=== PATIENT | female | born 1935 | race Caucasian/White ===

== ENCOUNTER 2018-11-17 08:12 | Inpatient (IN) | payer MEDICARE, OTHER ==
--- NOTE | 2018-11-17 08:22 | EDM.PDOC ---
ED HPI GENERAL MEDICAL PROBLEM - General Chief Complaint: Respiratory Problem Stated Complaint: [facility] Time Seen by Provider: 11/17/18 08:21 Source of Information: Reports: Patient, EMS History Limitations: Reports: No Limitations - History of Present Illness INITIAL COMMENTS - FREE TEXT/NARRATIVE: 83-year-old female presents to the ED with acute onset of febrile illness and productive cough for the last 3-4 days. She is very dyspneic this morning with O2 sats being in the low 80s. Resudes at [facility] and the ambulance was summoned for her care this morning. Paramedics placed her on a mask at 10 L/m. this was changed to 4 L/m by nasal cannula with O2 sats around 95-96%. Patient is very tachypnea And tachycardic at time of exam. Productive sounding cough. She states she's not able to get up a lot of the sputum. Of note she is on oxygen at 3 L/m at all times at the [facility]. Onset: Gradual Onset Date: 11/13/18 Duration: Day(s): Location: Reports: Chest (Very productive sounding cough.) Quality: Reports: Other Severity: Moderate Improves with: Reports: Other (Oxygen is helping somewhat.) Worsens with: Reports: Movement Context: Denies: Activity, Exercise, Lifting, Sick Contact, Trauma, Other Associated Symptoms: Reports: Cough, cough w sputum, Fever/Chills, Loss of Appetite, Malaise (Sounds very productive.), Nausea/Vomiting, Shortness of Breath, Weakness. 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: Other (see below) (Apparently hasn't had anything for fever today.) - Related Data Allergies Allergy/AdvReac Type Severity Reaction Status Date / Time rofecoxib Allergy Edema Verified 11/17/18 10:36 venom-wasp [wasp venom] Allergy Anaphylactic Verified 11/17/18 10:36 Shock Home Meds: Home Meds Cyanocobalamin (Vitamin B12) [Vitamin B12] 1,000 mcg INJECT ASDIRECTED 11/27/14 [History] EPINEPHrine [Epipen] 0.3 ml INJECT ASDIRECTED PRN 11/27/14 [History] Fluticasone/Salmeterol [Advair 250-50] 2 puff INH BID 11/27/14 [History] Levothyroxine [Synthroid] 100 mcg PO DAILY 11/27/14 [History] Metoprolol Succinate [Toprol XL] 50 mg PO DAILY 11/27/14 [History] Rosuvastatin [Crestor] 10 mg PO DAILY 11/27/14 [History] amLODIPine [Norvasc] 5 mg PO DAILY 11/27/14 [History] Aspirin 81 mg PO DAILY 06/10/18 [History] Mirtazapine [Remeron] 15 mg PO BEDTIME 06/10/18 [History] Nitroglycerin [Nitrostat] 0.4 mg SL ASDIRECTED PRN 06/10/18 [History] Polyethylene Glycol 3350 [MiraLAX] 17 gm PO DAILY PRN 06/10/18 [History] Sertraline [Zoloft] 50 mg PO DAILY 06/10/18 [History] Albuterol Sulfate [Proair Hfa] 2 puff IH Q6H PRN 08/06/18 [History] Calcium Carbonate/Vitamin D3 [Calcium 600 + Vit D 400 Tablet] 400 - 600 mg PO DAILY 08/06/18 [History] Nicotine [Nicoderm CQ] 7 mg TD DAILY 08/06/18 [History] Spiriva Respimat 2 puff IH DAILY 08/06/18 [History] oxyCODONE HCl/Acetaminophen [Percocet 5-325 mg Tablet] 5 - 325 mg PO Q4H PRN 12/05 [History] Past Medical History Cardiovascular History: Reports: CAD, High Cholesterol, Hypertension, [place] Respiratory History: Reports: COPD (advanced, on 3-1/2 to 4 L/NC continuously) Other Respiratory History: lung cancer, lobectomy. on chronic O2 at home. Patient had aspiration of a mass right lower lobe of lung within the last 6 weeks. We will try and obtain these results. Gastrointestinal History: Reports: Hemorrhoids Other Genitourinary History: having some issues with urination and ? if it is from constipation Musculoskeletal History: Reports: Fracture (left femur, bilateral humeri) Other Musculoskeletal History: left femur fracture; bilat humerous fractures Psychiatric History: Reports: Depression Hematologic History: Reports: B12 Deficiency Oncologic (Cancer) History: Reports: Lung Other Oncologic History: stage 1 and had left low lung removed - Past Surgical History Respiratory Surgical History: Reports: Other (See Below) (LL lobectomy) Social & Family History - Family History Family Medical History: Noncontributory - Caffeine Use Caffeine Use: Reports: Other Other Caffeine Use: unknown - Living Situation & Occupation Living situation: Reports: Occupation: Retired (Lives in the independent part of [facility]) ED ROS GENERAL - Review of Systems Review Of Systems: See Below Constitutional: Reports: Fever, Malaise, Weakness, Fatigue, Decreased Appetite, Weight Loss. Denies: Chills Respiratory: Reports: Shortness of Breath, Cough, Sputum. Denies: Wheezing, Pleuritic Chest Pain, Hemoptysis (Very productive sounding cough greenish sputum.) Cardiovascular: Reports: Blood Pressure Problem, Dyspnea on Exertion, Lightheadedness. Denies: Chest Pain, Claudication, Edema, Orthopnea (Chronic hypertension) Endocrine: Reports: Fatigue GI/Abdominal: Reports: Constipation (Occasional problems with constipation.), Other (Patient mentioned she has had recent aspiration of a mass in her lower abdomen which apparently came back negative for cancer. Unclear what type of mass she is speaking about.) : Reports: Frequency. Denies: Dysuria, Flank Pain Musculoskeletal: Reports: Neck Pain, Shoulder Pain, Back Pain, Joint Pain ( Knees and hips at times) Skin: Reports: Bruising Neurological: Reports: No Symptoms (Bruises very easily.) Psychiatric: Reports: No Symptoms Hematologic/Lymphatic: Reports: No Symptoms ED EXAM, GENERAL - Physical Exam Exam: See Below Exam Limited By: Respiratory Distress General Appearance: Alert, WD/WN, Moderate Distress, Other (Tachypnea And tachycardic at rest. Heart rate at time presentation is 130/m. Her pressure was 90/63. She states her blood pressures usually around 100) Eye Exam: Bilateral Eye: Normal Inspection (No jaundice.) Ears: Normal TMs Throat/Mouth: Other (She has thickened secretions on the soft palate posterior oropharynx and the tongue is very dry and coated.) Head: Atraumatic (Christians are light green in color), Normocephalic Neck: Normal Inspection, Supple, Non-Tender. No: Lymphadenopathy (L), Lymphadenopathy (R) Respiratory/Chest: Chest Non-Tender, Respiratory Distress (Marked tachypnea at rest.), Decreased Breath Sounds (Decreased air entry to the lower lung melton bilaterally.), Rhonchi (Rhonchi throughout the lung melton anteriorly.), Wheezing. No: Lungs Clear, Normal Breath Sounds Cardiovascular: No Edema, No JVD, Tachycardia (Pulse is irregularly irregular 1 30/m.), Irregularly Irregular, Other (Heart sounds are difficult to hear due to the amount of rhonchi in the anterior chest.) Peripheral Pulses: 1+: Posterior Tibial (L), Posterior Tibial (R), Dorsalis Pedis (L), Dorsalis Pedis (R) GI/Abdominal: Soft, Non-Tender ( Soft palpation), No Organomegaly, Distended ( Abdomen is slightly distended and tympanitic to percussion upper abdomen compatible with aerophagia.) Back Exam: Normal Inspection, Full Range of Motion. No: CVA Tenderness (L), CVA Tenderness (R) Extremities: Normal Inspection, Normal Range of Motion, Non-Tender, No Pedal Edema, Other Neurological: Alert, Oriented (There is a large amount of atrophy of musculature for both upper and lower extremities. Very cachectic in appearance on ribs are easily visible.), CN II-XII Intact Psychiatric: Anxious, Other Skin Exam: Warm, Dry, Intact, Normal Color, No Rash, Other (Patient does feel febrile.) EKG INTERPRETATION EKG Date: 11/17/18 Time: 08:50 Rhythm: Other (Sinus tachycardia) Rate (Beats/Min): 122 [place]: Normal P-Wave: Enlarged (Left atrial hypertrophy pattern) QRS: Other (Marked left ventricular hypertrophy pattern with strain.) ST-T: Other (ST segment depression in V3 to V6. May need to be due to severe left ventricular hypertrophy pattern. T-wave flattening in lead 1 nonspecific) QT: Normal EKG Interpretation Comments: Abnormal ECG Course - Vital Signs Last Recorded V/S: Last Vital Signs Temp 37.7 C 11/17/18 08:54 Pulse 132 H 11/17/18 08:12 Resp 40 H 11/17/18 08:12 BP 90/63 11/17/18 08:12 Pulse Ox 96 11/17/18 08:12 - Orders/Labs/Meds Orders: Active Orders 24 hr Category Date Time Status EKG Documentation Completion [RC] STAT Care 11/17/18 08:27 Active Insert Villeda Catheter [Insert Urinary Catheter] [OM.PC] Care 11/17/18 10:05 Ordered Stat Oxygen Therapy [RC] ASDIRECTED Care 11/17/18 08:29 Active Urinary Catheter Assessment [RC] ASDIRECTED Care 11/17/18 10:05 Active CULTURE BLOOD [BC] Stat Lab 11/17/18 08:35 Received CULTURE BLOOD [BC] Stat Lab 11/17/18 08:45 Received CULTURE SPUTUM + SMEAR [RM] Stat Lab 11/17/18 09:05 Received URINALYSIS W/MICROSCOPIC [UA W/MICROSCOPIC] [URIN] Stat Lab 11/17/18 10:05 Ordered Dextrose 5%-0.9% NaCl [Dextrose 5%-Normal Saline] 1,000 Med 11/17/18 09:45 Active ml IV ASDIRECTED Blood Culture x2 Reflex Set [OM.PC] Stat Oth 11/17/18 08:28 Ordered Medication Orders Dextrose/Sodium Chloride (Dextrose 5%-Normal Saline) 1,000 mls @ 75 mls/hr IV ASDIRECTED JACINTO Labs: Laboratory Tests 11/17/18 11/17/18 11/17/18 Range/Units 08:35 08:35 08:35 WBC 21.84 H (3.98-10.04) K/mm3 RBC 4.44 (3.98-5.22) M/mm3 Hgb 14.1 (11.2-15.7) gm/L Hct 44.3 (34.1-44.9) % MCV 99.8 H (79.4-94.8) fl MCH 31.8 (25.6-32.2) pg MCHC 31.8 L (32.2-35.5) g/dl RDW Std Deviation 49.3 H (36.4-46.3) fL Plt Count 305 (182-369) K/mm3 MPV 9.5 (9.4-12.3) fl Neutrophils % (Manual) 82 H (40-60) % Band Neutrophils % 9 (0-10) % Lymphocytes % (Manual) 1 L (20-40) % Atypical Lymphs % 2 % Monocytes % (Manual) 6 (2-10) % Eosinophils % (Manual) 0 L (0.7-5.8) % Basophils % (Manual) 0 L (0.1-1.2) Toxic Granulation Moderate Dohle Bodies Few Platelet Estimate Adequate Plt Morphology Comment Normal Anisocytosis 1+ slight Macrocytosis 1+ slight Spherocytes Few RBC Morph Comment Not Reportable PT 12.0 (9.5-12.1) SECONDS INR 1.10 Puncture Site ABG pH (7.35-7.45) ABG pCO2 (35.0-45.0) mmHg ABG pO2 (80.0-100.0) mmHg ABG HCO3 (22.0-26.0) meq/L ABG O2 Saturation (96.0-97.0) % ABG Base Excess (-2-2.0) Jaiden Test A-a Gradient mmHg O2 Delivery Device Oxygen Flow Rate FiO2 (21.00-100.00) % Sodium 142 (136-145) mEq/L Potassium 4.3 (3.5-5.1) mEq/L Chloride 100 (98-107) mEq/L Carbon Dioxide 31 (21-32) mEq/L Anion Gap 15.3 H (5-15) BUN 20 H (7-18) mg/dL Creatinine 0.6 (0.55-1.02) mg/dL Est Cr Clr Drug Dosing 40.48 mL/min Estimated GFR (MDRD) > 60 (>60) mL/min BUN/Creatinine Ratio 33.3 H (14-18) Glucose 131 H (83-115) mg/dL Calcium 10.4 H (8.5-10.1) mg/dL Magnesium 2.0 (1.8-2.4) mg/dl Total Bilirubin 0.6 (0.2-1.0) mg/dL AST 18 (15-37) U/L ALT 22 (14-59) U/L Alkaline Phosphatase 80 (46-116) U/L Troponin I < 0.017 (0.00-0.056) ng/mL C-Reactive Protein 28.9 H* (<1.0) mg/dL NT-Pro-B Natriuret Pep (0-450) pg/mL Total Protein 8.4 H (6.4-8.2) g/dl Albumin 3.2 L (3.4-5.0) g/dl Globulin 5.2 gm/dL Albumin/Globulin Ratio 0.6 L (1-2) Mycoplasma pneumon IgM (NEGATIVE) 11/17/18 11/17/18 11/17/18 Range/Units 08:35 08:52 09:00 WBC (3.98-10.04) K/mm3 RBC (3.98-5.22) M/mm3 Hgb (11.2-15.7) gm/L Hct (34.1-44.9) % MCV (79.4-94.8) fl MCH (25.6-32.2) pg MCHC (32.2-35.5) g/dl RDW Std Deviation (36.4-46.3) fL Plt Count (182-369) K/mm3 MPV (9.4-12.3) fl Neutrophils % (Manual) (40-60) % Band Neutrophils % (0-10) % Lymphocytes % (Manual) (20-40) % Atypical Lymphs % % Monocytes % (Manual) (2-10) % Eosinophils % (Manual) (0.7-5.8) % Basophils % (Manual) (0.1-1.2) Toxic Granulation Dohle Bodies Platelet Estimate Plt Morphology Comment Anisocytosis Macrocytosis Spherocytes RBC Morph Comment PT (9.5-12.1) SECONDS INR Puncture Site Lt radial ABG pH 7.36 (7.35-7.45) ABG pCO2 51.7 H (35.0-45.0) mmHg ABG pO2 76.0 L (80.0-100.0) mmHg ABG HCO3 28.8 H (22.0-26.0) meq/L ABG O2 Saturation 95.7 L (96.0-97.0) % ABG Base Excess 2.9 H (-2-2.0) Jaiden Test Positive A-a Gradient 64 mmHg O2 Delivery Device Nasal cannula Oxygen Flow Rate 3.0 FiO2 32.00 (21.00-100.00) % Sodium (136-145) mEq/L Potassium (3.5-5.1) mEq/L Chloride (98-107) mEq/L Carbon Dioxide (21-32) mEq/L Anion Gap (5-15) BUN (7-18) mg/dL Creatinine (0.55-1.02) mg/dL Est Cr Clr Drug Dosing mL/min Estimated GFR (MDRD) (>60) mL/min BUN/Creatinine Ratio (14-18) Glucose (83-115) mg/dL Calcium (8.5-10.1) mg/dL Magnesium (1.8-2.4) mg/dl Total Bilirubin (0.2-1.0) mg/dL AST (15-37) U/L ALT (14-59) U/L Alkaline Phosphatase (46-116) U/L Troponin I (0.00-0.056) ng/mL C-Reactive Protein (<1.0) mg/dL NT-Pro-B Natriuret Pep 1105 H (0-450) pg/mL Total Protein (6.4-8.2) g/dl Albumin (3.4-5.0) g/dl Globulin gm/dL Albumin/Globulin Ratio (1-2) Mycoplasma pneumon IgM Positive H (NEGATIVE) Meds: Medications Generic Name Dose Route Start Last Admin Trade Name Freq PRN Reason Stop Dose Admin Dextrose/Sodium Chloride 1,000 mls @ 75 mls/hr 11/17/18 09:45 Dextrose 5%-Normal Saline IV ASDIRECTED JACINTO Discontinued Medications Generic Name Dose Route Start Last Admin Trade Name Freq PRN Reason Stop Dose Admin Acetaminophen 650 mg 11/17/18 08:29 11/17/18 08:54 Tylenol PO 11/17/18 08:30 650 mg NOW ONE Administration Furosemide 40 mg 11/17/18 09:41 11/17/18 09:53 Lasix IVPUSH 11/17/18 09:42 40 mg NOW ONE Administration Dextrose/Sodium Chloride 1,000 mls @ 200 mls/hr 11/17/18 08:30 11/17/18 08:49 Dextrose 5%-Normal Saline IV 200 mls/hr ASDIRECTED JACINTO Administration Levofloxacin/Dextrose 750 mg/ 150 mls @ 100 mls/hr 11/17/18 08:30 11/17/18 08 :52 Premix IV 11/17/18 09:59 100 mls/hr ONETIME ONE Administration Oxycodone/Acetaminophen 2 tab 11/17/18 10:29 11/17/18 10:45 Percocet 325-5 Mg PO 11/17/18 10:30 Not Given ONETIME ONE - Radiology Interpretation Free Text/Narrative:: 83-year-old female presents to the ED per ambulance from [facility]. Patient presents with a cough for the last 3-4 days. Fever today marked hypoxia this morning with sats in the low to mid 80s. Paramedics were summoned and she was placed on a mask at 10 L/m. This was removed upon arrival she was placed on 4 L/ m by nasal cannula. O2 sats are maintained at 96%. She is febrile to tachycardic with sinus tach at 120s. Markedly tachypnea get rest. Clinically she has COPD. She appears to be suffering malnutrition with all ribs and bones easily visible with marked atrophy of musculature lower extremities and upper extremities. Appears to be mildly volume depleted. Plan IV Ringer's lactate at 200 mils per hour. Tylenol 650 mg by mouth. One view chest x-ray to be obtained as I suspect she may well have pneumonia. Routine labs including ABGs to be done. Influenza screen and Mycoplasma screen is well. She will require admission to the hospital. Levaquin 750 mg IV will be started soon as blood cultures 2 been collected - Re-Assessments/Exams Free Text/Narrative Re-Assessment/Exam: 11/17/18 09:14 portable chest x-ray reveals poor inspiratory effort. There is a cavitary/mass lesion in the right lower lobe. This measures 3.7 cm in diameter. There is to be mild diffuse vascular congestion and some scarring in both bases as well. These changes appear to be chronic. 11/17/18 09:41 White count is elevated at 21.84. Differential pending. Hemoglobin is 14.1 with hematocrit of 44.3. MCV is 99.8. White count 305,000. PT is 12.0 with an INR of 1.10. ABGs reveal a pH of 7.36. PCO2 is elevated at 51.7 to both respiratory failure. PO2 76.0. Bicarbonate is 28.8. Oxygen saturation is 95.7% base excess is 2.9 this is on 4 L/m by nasal cannula. Influenza screen is negative. Patient's IV will be decreased to 75 mils per hour. She will be given Lasix 40 mg IV. 11/17/18 10:00 Differential reveals 82% neutrophils and 9% band cells. Of note she came back positive for mycoplasma pneumonia IgM antibodies. Chemistry is pending 11/17/18 10:09 Chemistry is now back. Sodium is 142 with potassium of 4.3. Chloride 100 with a bicarbonate 31. Anion gap is 15.3. BUN is 20 with a creatinine of 0.6. Estimated GFR is greater than 60. Glucose 131 with a calcium of 10.4. Magnesium 2.0 with a bilirubin of 0.6. AST is 18 with an ALT of 22. Alkaline phosphatase normal at 80. Troponin I is less than 0.017. C-reactive protein is markedly elevated at 28.9. BNP was 1105. Total protein 8.4 with an albumin fraction low at 3.2. CODE STATUS double checked and she is DO NOT RESUSCITATE DO NOT INTUBATE. Dr. Correa will see her in the ED in consultation. 11/17/18 10:48 A she'll will be admitted to the med surgery floor on telemetry. Departure - Departure Time of Disposition: 10:30 Disposition: Admitted As Inpatient 65 Condition: Fair Clinical Impression: Abnormal finding on chest xray Pneumonia Qualifiers: Pneumonia type: due to Mycoplasma pneumoniae Laterality: right Lung location: lower lobe of lung Qualified Code(s): J15.7 - Pneumonia due to Mycoplasma pneumoniae Congestive heart failure Qualifiers: Heart failure type: unspecified Heart failure chronicity: acute on chronic Qualified Code(s): I50.9 - Heart failure, unspecified - Discharge Information *PRESCRIPTION DRUG MONITORING PROGRAM REVIEWED*: Not Applicable *COPY OF PRESCRIPTION DRUG MONITORING REPORT IN PATIENT JUAN: Not Applicable Referrals: Franky Mock MD [Primary Care Provider] - Forms: ED Department Discharge - My Orders Last 24 Hours: My Active Orders 11/17/18 08:27 EKG Documentation Completion [RC] STAT 11/17/18 08:28 Blood Culture x2 Reflex Set [OM.PC] Stat 11/17/18 08:29 Oxygen Therapy [RC] ASDIRECTED 11/17/18 08:35 CULTURE BLOOD [BC] Stat 11/17/18 08:45 CULTURE BLOOD [BC] Stat 11/17/18 09:05 CULTURE SPUTUM + SMEAR [RM] Stat 11/17/18 09:45 Dextrose 5%-0.9% NaCl [Dextrose 5%-Normal Saline] 1,000 ml IV ASDIRECTED 11/17/18 10:05 Insert Villeda Catheter [Insert Urinary Catheter] [OM.PC] Stat Urinary Catheter Assessment [RC] ASDIRECTED URINALYSIS W/MICROSCOPIC [UA W/MICROSCOPIC] [URIN] Stat - Assessment/Plan Last 24 Hours: My Active Orders 11/17/18 08:27 EKG Documentation Completion [RC] STAT 11/17/18 08:28 Blood Culture x2 Reflex Set [OM.PC] Stat 11/17/18 08:29 Oxygen Therapy [RC] ASDIRECTED 11/17/18 08:35 CULTURE BLOOD [BC] Stat 11/17/18 08:45 CULTURE BLOOD [BC] Stat 11/17/18 09:05 CULTURE SPUTUM + SMEAR [RM] Stat 11/17/18 09:45 Dextrose 5%-0.9% NaCl [Dextrose 5%-Normal Saline] 1,000 ml IV ASDIRECTED 11/17/18 10:05 Insert Villeda Catheter [Insert Urinary Catheter] [OM.PC] Stat Urinary Catheter Assessment [RC] ASDIRECTED URINALYSIS W/MICROSCOPIC [UA W/MICROSCOPIC] [URIN] Stat
[2018-11-17] MEDS ORDERED: Acetaminophen 325 MG Tab PO ONE (08:29)
[2018-11-17] MEDS ORDERED: Levofloxacin/Dextrose 5%-Water 750 MG in Premix Bag 1 BAG IV ONE (08:30)
[2018-11-17] MEDS ORDERED: Dextrose 5%-0.9% NaCl 1,000 ML IV SCH ×2 (08:30→09:45)
--- NOTE | 2018-11-17 09:33 | CR ---
Chest: Portable view of the chest was obtained. Comparison: Prior chest x-ray of 06/11/18. Previous chest CT of 06/10/18 is also available. Heart size is normal. Tortuous thoracic aorta is seen. Diffuse increased lung markings are seen. Most of these appear to be chronic but difficult to exclude superimposed bronchitis. Masslike density is seen within the right chest measuring 3.7 cm. Bony structures are osteopenic. Impression: 1. Masslike density within the right base. This finding may represent fluid-filled cavity as seen on prior CT study which has decreased in size in the interim. 2. Diffuse increased lung markings, most of which appear chronic but difficult to exclude mild superimposed bronchitis. 3. Other incidental findings. Diagnostic code #3
[2018-11-17] MEDS ORDERED: Furosemide 40 MG/4 ML VIAL IVPUSH ONE (09:41)
[2018-11-17] MEDS ORDERED: Acetaminophen/oxyCODONE 325-5 MG Tab PO ONE (10:29)
--- NOTE | 2018-11-17 12:11 | PCM.HP ---
H&P History of Present Illness - General Date of Service: 11/17/18 Admit Problem/Dx: Admission Diagnosis/Problem Admission Diagnosis/Problem Pneumonia Source of Information: Patient, Provider History Limitations: Reports: No Limitations - History of Present Illness Initial Comments - Free Text/Narative: 83 year old female living at [facility] presents with ARF with hypoxia; her complaint was a cough with sputum associated with increasing SOB. The patient has a history of lung CA and reportedly had aspiration of a lung lesion. She continues to smoke actively and requires oxygen, baseline 3 l/m. She has mycoplasma pneumonia and a urinary tract infection on this admission. She has received one dose of Levoquin in the ED. Code status is DNR/DNI Symptom Onset Date: 11/11/18 Duration of Symptoms: Reports: Day(s): Location: Reports: Chest, Generalized Quality: Reports: Same as Previous Episode Severity: Moderate Improves with: Reports: Medication Worsens with: Reports: Other - Related Data Allergies/Adverse Reactions: Allergies Allergy/AdvReac Type Severity Reaction Status Date / Time rofecoxib Allergy Edema Verified 11/17/18 10:36 venom-wasp [wasp venom] Allergy Anaphylactic Verified 11/17/18 10:36 Shock Home Medications: Home Meds Cyanocobalamin (Vitamin B12) [Vitamin B12] 1,000 mcg INJECT ASDIRECTED 11/27/14 [History] EPINEPHrine [Epipen] 0.3 ml INJECT ASDIRECTED PRN 11/27/14 [History] Fluticasone/Salmeterol [Advair 250-50] 1 puff INH BID 11/27/14 [History] Levothyroxine [Synthroid] 100 mcg PO DAILY 11/27/14 [History] Metoprolol Succinate [Toprol XL] 50 mg PO DAILY 11/27/14 [History] Rosuvastatin [Crestor] 10 mg PO DAILY 11/27/14 [History] amLODIPine [Norvasc] 5 mg PO DAILY 11/27/14 [History] Aspirin 81 mg PO DAILY 06/10/18 [History] Mirtazapine [Remeron] 15 mg PO BEDTIME 06/10/18 [History] Nitroglycerin [Nitrostat] 0.4 mg SL ASDIRECTED PRN 06/10/18 [History] Polyethylene Glycol 3350 [MiraLAX] 17 gm PO DAILY PRN 06/10/18 [History] Sertraline [Zoloft] 50 mg PO DAILY 06/10/18 [History] Albuterol Sulfate [Proair Hfa] 2 puff IH Q6H PRN 08/06/18 [History] Calcium Carbonate/Vitamin D3 [Calcium 600 + Vit D 400 Tablet] 400 - 600 mg PO DAILY 08/06/18 [History] Nicotine [Nicoderm CQ] 7 mg TD DAILY 08/06/18 [History] Spiriva Respimat 1 puff IH DAILY 08/06/18 [History] oxyCODONE HCl/Acetaminophen [Percocet 5-325 mg Tablet] 5 - 325 mg PO Q4H PRN 12/05 [History] Past Medical History HEENT History: Reports: Cataract Other HEENT History: wears reading glasses. Cardiovascular History: Reports: CAD, High Cholesterol, Hypertension, [place] Other Cardiovascular History: hypomagnesmia Respiratory History: Reports: COPD (advanced, on 3-1/2 to 4 L/NC continuously) Other Respiratory History: lung cancer, lobectomy. on chronic O2 at home. Patient had aspiration of a mass right lower lobe of lung within the last 6 weeks. We will try and obtain these results. Gastrointestinal History: Reports: Hemorrhoids Genitourinary History: Reports: Renal Calculus, Urinary Incontinence, UTI, Recurrent Other Genitourinary History: having some issues with urination and ? if it is from constipation [employer] History: Reports: Musculoskeletal History: Reports: Fracture (left femur, bilateral humeri) Other Musculoskeletal History: left femur fracture; bilat humerous fractures Neurological History: Reports: Migraines Psychiatric History: Reports: Depression Endocrine/Metabolic History: Reports: Hypothyroidism Hematologic History: Reports: B12 Deficiency Oncologic (Cancer) History: Reports: Lung Other Oncologic History: stage 1 and had left low lung removed - Infectious Disease History Infectious Disease History: Reports: Chicken Pox, Measles - Past Surgical History Respiratory Surgical History: Reports: Other (See Below) (LL lobectomy) Social & Family History - Family History Family Medical History: Noncontributory - Tobacco Use Smoking Status *Q: Current Every Day Smoker Years of Tobacco use: 67 Packs/Tins Daily: 1 Used Tobacco, but Quit: No - Caffeine Use Caffeine Use: Reports: Tea Other Caffeine Use: unknown - Alcohol Use Days Per Week of Alcohol Use: 7 Number of Drinks Per Day: 1 Total Drinks Per Week: 7 - Recreational Drug Use Recreational Drug Use: No - Living Situation & Occupation Living situation: Reports: Occupation: Retired (Lives in the independent part of [facility]) H&P Review of Systems - Review of Systems: Review Of Systems: See Below General: Reports: Fever, Chills, Malaise, Weakness, Decreased Appetite, Weight Loss HEENT: Reports: No Symptoms Pulmonary: Reports: Shortness of Breath, Wheezing Cardiovascular: Reports: Dyspnea on Exertion Gastrointestinal: Reports: Nausea, Vomiting Genitourinary: Reports: No Symptoms Musculoskeletal: Reports: No Symptoms Skin: Reports: No Symptoms Psychiatric: Reports: No Symptoms Neurological: Reports: No Symptoms Hematologic/Lymphatic: Reports: No Symptoms Immunologic: Reports: No Symptoms Exam - Exam Exam: See Below - Vital Signs Vital Signs: Last Vital Signs Temp 37.7 C 11/17/18 08:54 Pulse 132 H 11/17/18 08:12 Resp 40 H 11/17/18 08:12 BP 90/63 11/17/18 08:12 Pulse Ox 96 11/17/18 08:12 Weight: 33.022 kg - Exam General: Alert, Oriented, Cooperative, Mild Distress HEENT: Conjunctiva Clear, Nares Patent, Normal Nasal Septum, Pupils Equal, Pupils Reactive, PERRLA Neck: Trachea Midline Lungs: Normal Respiratory Effort, Decreased Breath Sounds, Rhonchi, Wheezing Cardiovascular: Regular Rate GI/Abdominal Exam: Normal Bowel Sounds, Soft, Non-Tender, No Organomegaly, No Distention (Female) Exam: Deferred Rectal (Female) Exam: Deferred Back Exam: Normal Inspection Extremities: Normal Inspection, Non-Tender, No Pedal Edema Skin: Warm Neurological: Cranial Nerves Intact Neuro Extensive - Mental Status: Alert, Oriented x3, Normal Mood/Affect, Normal Cognition, Memory Intact Neuro Extensive - Motor, Sensory, Reflexes: CN II-XII Intact Psychiatric: Alert, Normal Affect, Normal Mood - Patient Data Lab Results Last 24 hrs: Laboratory Results - last 24 hr 11/17/18 11/17/18 11/17/18 Range/Units 08:35 08:35 08:35 WBC 21.84 H (3.98-10.04) K/mm3 RBC 4.44 (3.98-5.22) M/mm3 Hgb 14.1 (11.2-15.7) gm/L Hct 44.3 (34.1-44.9) % MCV 99.8 H (79.4-94.8) fl MCH 31.8 (25.6-32.2) pg MCHC 31.8 L (32.2-35.5) g/dl RDW Std Deviation 49.3 H (36.4-46.3) fL Plt Count 305 (182-369) K/mm3 MPV 9.5 (9.4-12.3) fl Neutrophils % (Manual) 82 H (40-60) % Band Neutrophils % 9 (0-10) % Lymphocytes % (Manual) 1 L (20-40) % Atypical Lymphs % 2 % Monocytes % (Manual) 6 (2-10) % Eosinophils % (Manual) 0 L (0.7-5.8) % Basophils % (Manual) 0 L (0.1-1.2) Toxic Granulation Moderate Dohle Bodies Few Platelet Estimate Adequate Plt Morphology Comment Normal Anisocytosis 1+ slight Macrocytosis 1+ slight Spherocytes Few RBC Morph Comment Not Reportable PT 12.0 (9.5-12.1) SECONDS INR 1.10 Puncture Site ABG pH (7.35-7.45) ABG pCO2 (35.0-45.0) mmHg ABG pO2 (80.0-100.0) mmHg ABG HCO3 (22.0-26.0) meq/L ABG O2 Saturation (96.0-97.0) % ABG Base Excess (-2-2.0) Jaiden Test A-a Gradient mmHg O2 Delivery Device Oxygen Flow Rate FiO2 (21.00-100.00) % Sodium 142 (136-145) mEq/L Potassium 4.3 (3.5-5.1) mEq/L Chloride 100 (98-107) mEq/L Carbon Dioxide 31 (21-32) mEq/L Anion Gap 15.3 H (5-15) BUN 20 H (7-18) mg/dL Creatinine 0.6 (0.55-1.02) mg/dL Est Cr Clr Drug Dosing 40.48 mL/min Estimated GFR (MDRD) > 60 (>60) mL/min BUN/Creatinine Ratio 33.3 H (14-18) Glucose 131 H (83-115) mg/dL Calcium 10.4 H (8.5-10.1) mg/dL Magnesium 2.0 (1.8-2.4) mg/dl Total Bilirubin 0.6 (0.2-1.0) mg/dL AST 18 (15-37) U/L ALT 22 (14-59) U/L Alkaline Phosphatase 80 (46-116) U/L Troponin I < 0.017 (0.00-0.056) ng/mL C-Reactive Protein 28.9 H* (<1.0) mg/dL NT-Pro-B Natriuret Pep (0-450) pg/mL Total Protein 8.4 H (6.4-8.2) g/dl Albumin 3.2 L (3.4-5.0) g/dl Globulin 5.2 gm/dL Albumin/Globulin Ratio 0.6 L (1-2) Urine Color (Yellow) Urine Appearance (Clear) Urine pH (5.0-8.0) Ur Specific [place] (1.005-1.030) Urine Protein (Negative) Urine Glucose (UA) (Negative) Urine Ketones (Negative) Urine Occult Blood (Negative) Urine Nitrite (Negative) Urine Bilirubin (Negative) Urine Urobilinogen (0.2-1.0) Ur Leukocyte Esterase (Negative) Urine RBC (0-5) /hpf Urine WBC (0-5) /hpf Urine WBC Clumps (NOT SEEN) /hpf Ur Epithelial Cells (0-5) /hpf Urine Bacteria (FEW) /hpf Urine Mucus (FEW) /hpf Mycoplasma pneumon IgM (NEGATIVE) 11/17/18 11/17/18 11/17/18 Range/Units 08:35 08:52 09:00 WBC (3.98-10.04) K/mm3 RBC (3.98-5.22) M/mm3 Hgb (11.2-15.7) gm/L Hct (34.1-44.9) % MCV (79.4-94.8) fl MCH (25.6-32.2) pg MCHC (32.2-35.5) g/dl RDW Std Deviation (36.4-46.3) fL Plt Count (182-369) K/mm3 MPV (9.4-12.3) fl Neutrophils % (Manual) (40-60) % Band Neutrophils % (0-10) % Lymphocytes % (Manual) (20-40) % Atypical Lymphs % % Monocytes % (Manual) (2-10) % Eosinophils % (Manual) (0.7-5.8) % Basophils % (Manual) (0.1-1.2) Toxic Granulation Dohle Bodies Platelet Estimate Plt Morphology Comment Anisocytosis Macrocytosis Spherocytes RBC Morph Comment PT (9.5-12.1) SECONDS INR Puncture Site Lt radial ABG pH 7.36 (7.35-7.45) ABG pCO2 51.7 H (35.0-45.0) mmHg ABG pO2 76.0 L (80.0-100.0) mmHg ABG HCO3 28.8 H (22.0-26.0) meq/L ABG O2 Saturation 95.7 L (96.0-97.0) % ABG Base Excess 2.9 H (-2-2.0) Jaiden Test Positive A-a Gradient 64 mmHg O2 Delivery Device Nasal cannula Oxygen Flow Rate 3.0 FiO2 32.00 (21.00-100.00) % Sodium (136-145) mEq/L Potassium (3.5-5.1) mEq/L Chloride (98-107) mEq/L Carbon Dioxide (21-32) mEq/L Anion Gap (5-15) BUN (7-18) mg/dL Creatinine (0.55-1.02) mg/dL Est Cr Clr Drug Dosing mL/min Estimated GFR (MDRD) (>60) mL/min BUN/Creatinine Ratio (14-18) Glucose (83-115) mg/dL Calcium (8.5-10.1) mg/dL Magnesium (1.8-2.4) mg/dl Total Bilirubin (0.2-1.0) mg/dL AST (15-37) U/L ALT (14-59) U/L Alkaline Phosphatase (46-116) U/L Troponin I (0.00-0.056) ng/mL C-Reactive Protein (<1.0) mg/dL NT-Pro-B Natriuret Pep 1105 H (0-450) pg/mL Total Protein (6.4-8.2) g/dl Albumin (3.4-5.0) g/dl Globulin gm/dL Albumin/Globulin Ratio (1-2) Urine Color (Yellow) Urine Appearance (Clear) Urine pH (5.0-8.0) Ur Specific [place] (1.005-1.030) Urine Protein (Negative) Urine Glucose (UA) (Negative) Urine Ketones (Negative) Urine Occult Blood (Negative) Urine Nitrite (Negative) Urine Bilirubin (Negative) Urine Urobilinogen (0.2-1.0) Ur Leukocyte Esterase (Negative) Urine RBC (0-5) /hpf Urine WBC (0-5) /hpf Urine WBC Clumps (NOT SEEN) /hpf Ur Epithelial Cells (0-5) /hpf Urine Bacteria (FEW) /hpf Urine Mucus (FEW) /hpf Mycoplasma pneumon IgM Positive H (NEGATIVE) 11/17/18 Range/Units 10:05 WBC (3.98-10.04) K/mm3 RBC (3.98-5.22) M/mm3 Hgb (11.2-15.7) gm/L Hct (34.1-44.9) % MCV (79.4-94.8) fl MCH (25.6-32.2) pg MCHC (32.2-35.5) g/dl RDW Std Deviation (36.4-46.3) fL Plt Count (182-369) K/mm3 MPV (9.4-12.3) fl Neutrophils % (Manual) (40-60) % Band Neutrophils % (0-10) % Lymphocytes % (Manual) (20-40) % Atypical Lymphs % % Monocytes % (Manual) (2-10) % Eosinophils % (Manual) (0.7-5.8) % Basophils % (Manual) (0.1-1.2) Toxic Granulation Dohle Bodies Platelet Estimate Plt Morphology Comment Anisocytosis Macrocytosis Spherocytes RBC Morph Comment PT (9.5-12.1) SECONDS INR Puncture Site ABG pH (7.35-7.45) ABG pCO2 (35.0-45.0) mmHg ABG pO2 (80.0-100.0) mmHg ABG HCO3 (22.0-26.0) meq/L ABG O2 Saturation (96.0-97.0) % ABG Base Excess (-2-2.0) Jaiden Test A-a Gradient mmHg O2 Delivery Device Oxygen Flow Rate FiO2 (21.00-100.00) % Sodium (136-145) mEq/L Potassium (3.5-5.1) mEq/L Chloride (98-107) mEq/L Carbon Dioxide (21-32) mEq/L Anion Gap (5-15) BUN (7-18) mg/dL Creatinine (0.55-1.02) mg/dL Est Cr Clr Drug Dosing mL/min Estimated GFR (MDRD) (>60) mL/min BUN/Creatinine Ratio (14-18) Glucose (83-115) mg/dL Calcium (8.5-10.1) mg/dL Magnesium (1.8-2.4) mg/dl Total Bilirubin (0.2-1.0) mg/dL AST (15-37) U/L ALT (14-59) U/L Alkaline Phosphatase (46-116) U/L Troponin I (0.00-0.056) ng/mL C-Reactive Protein (<1.0) mg/dL NT-Pro-B Natriuret Pep (0-450) pg/mL Total Protein (6.4-8.2) g/dl Albumin (3.4-5.0) g/dl Globulin gm/dL Albumin/Globulin Ratio (1-2) Urine Color Yellow (Yellow) Urine Appearance Clear (Clear) Urine pH 6.0 (5.0-8.0) Ur Specific [place] 1.025 (1.005-1.030) Urine Protein 2+ H (Negative) Urine Glucose (UA) Negative (Negative) Urine Ketones Negative (Negative) Urine Occult Blood 1+ H (Negative) Urine Nitrite Positive H (Negative) Urine Bilirubin Negative (Negative) Urine Urobilinogen 0.2 (0.2-1.0) Ur Leukocyte Esterase 1+ H (Negative) Urine RBC 0-5 (0-5) /hpf Urine WBC 20-30 H (0-5) /hpf Urine WBC Clumps Few (NOT SEEN) /hpf Ur Epithelial Cells 0-5 (0-5) /hpf Urine Bacteria Many H (FEW) /hpf Urine Mucus Few (FEW) /hpf Mycoplasma pneumon IgM (NEGATIVE) Result Diagrams: 11/17/18 08:35 11/17/18 08:35 Cm Results Last 24 hrs: Microbiology 11/17/18 09:15 Influenza Type A Antigen Screen - Final Nasal Aspirate, Unspecified NEGATIVE INFLUENZA A VIRUS AG Influenza Type B Antigen Screen - Final NEGATIVE INFLUENZA B VIRUS AG - Problem List (1) Mycoplasma pneumonia SNOMED Code(s): 16543781 ICD Code: J15.7 - PNEUMONIA DUE TO MYCOPLASMA PNEUMONIAE Status: Acute Current Visit: Yes (2) Urinary tract infection SNOMED Code(s): 39917392 ICD Code: N39.0 - URINARY TRACT INFECTION, SITE NOT SPECIFIED Status: Acute Current Visit: Yes (3) Abnormal finding on chest xray SNOMED Code(s): 462385088, 158642735 ICD Code: R93.89 - ABNORMAL FINDINGS ON DX IMAGING OF OTH BODY STRUCTURES Status: Acute Current Visit: Yes (4) Congestive heart failure SNOMED Code(s): 37254937 ICD Code: I50.9 - HEART FAILURE, UNSPECIFIED Status: Acute Current Visit : Yes Qualifiers: Heart failure type: unspecified Heart failure chronicity: acute on chronic Qualified Code(s): I50.9 - Heart failure, unspecified (5) Acute hypoxemic respiratory failure SNOMED Code(s): 539574636 ICD Code: J96.01 - ACUTE RESPIRATORY FAILURE WITH HYPOXIA Status: Acute Priority: High Current Visit: No (6) COPD (chronic obstructive pulmonary disease) SNOMED Code(s): 44131202 ICD Code: J44.9 - CHRONIC OBSTRUCTIVE PULMONARY DISEASE, UNSPECIFIED Status : Acute Priority: High Current Visit: No Qualifiers: COPD type: unspecified COPD Qualified Code(s): J44.9 - Chronic obstructive pulmonary disease, unspecified (7) Elevated d-dimer SNOMED Code(s): 885635990 ICD Code: R79.89 - OTHER SPECIFIED ABNORMAL FINDINGS OF BLOOD CHEMISTRY Status: Acute Priority: High Current Visit: No (8) Hypomagnesemia SNOMED Code(s): 063154342 ICD Code: E83.42 - HYPOMAGNESEMIA Status: Acute Current Visit: No (9) B12 deficiency SNOMED Code(s): 493682702 ICD Code: E53.8 - DEFICIENCY OF OTHER SPECIFIED B GROUP VITAMINS Status: Chronic Priority: Medium Current Visit: No (10) CAD (coronary artery disease) SNOMED Code(s): 00139813 ICD Code: I25.10 - ATHSCL HEART DISEASE OF [place] CORONARY ARTERY W/O ANG PCTRS Status: Chronic Priority: Medium Current Visit: No Qualifiers: Coronary Disease-Associated Artery/Lesion type: unspecified vessel or lesion type [place] vs. transplanted heart: [place] heart Associated angina: angina presence unspecified Qualified Code(s): I25.10 - Atherosclerotic heart disease of [place] coronary artery without angina pectoris (11) Chronic respiratory failure with hypoxia, on home oxygen therapy SNOMED Code(s): 708827649 ICD Code: J96.11 - CHRONIC RESPIRATORY FAILURE WITH HYPOXIA; Z99.81 - DEPENDENCE ON SUPPLEMENTAL OXYGEN Status: Chronic Priority: High Current Visit: No (12) HLD (hyperlipidemia) SNOMED Code(s): 31199885 ICD Code: E78.5 - HYPERLIPIDEMIA, UNSPECIFIED Status: Chronic Priority: Low Current Visit: No Qualifiers: Hyperlipidemia type: unspecified Qualified Code(s): E78.5 - Hyperlipidemia , unspecified (13) HTN (hypertension) SNOMED Code(s): 01207756 ICD Code: I10 - ESSENTIAL (PRIMARY) HYPERTENSION Status: Chronic Priority : Medium Current Visit: No Qualifiers: Hypertension type: unspecified Qualified Code(s): I10 - Essential (primary ) hypertension (14) History of [place] (myocardial infarction) SNOMED Code(s): 811133137 ICD Code: I25.2 - OLD MYOCARDIAL INFARCTION Status: Chronic Priority: Low Current Visit: No (15) History of lobectomy of lung SNOMED Code(s): 102959439 ICD Code: Z90.2 - ACQUIRED ABSENCE OF LUNG [PART OF] Status: Chronic Priority: High Current Visit: No (16) History of lung cancer SNOMED Code(s): 721987941, 592888796 ICD Code: Z85.118 - PERSONAL HISTORY OF MALIGNANT NEOPLASM OF BRONCHUS AND LUNG Status: Chronic Priority: High Current Visit: No (17) Tobacco use disorder SNOMED Code(s): 518836344 ICD Code: F17.200 - NICOTINE DEPENDENCE, UNSPECIFIED, UNCOMPLICATED Status : Chronic Priority: High Current Visit: No Problem List Initiated/Reviewed/Updated: Yes Orders Last 24hrs: Active Orders 24 hr Category Date Time Status Admission Status [Patient Status] [ADT] Routine ADT 11/17/18 10:49 Active Insert [place] Catheter [Insert Urinary Catheter] [OM.PC] Care 11/17/18 10:05 Ordered Stat Oxygen Therapy [RC] ASDIRECTED Care 11/17/18 08:29 Active Urinary Catheter Assessment [RC] ASDIRECTED Care 11/17/18 10:05 Active CULTURE BLOOD [BC] Stat Lab 11/17/18 08:35 Received CULTURE BLOOD [BC] Stat Lab 11/17/18 08:45 Received CULTURE SPUTUM + SMEAR [RM] Stat Lab 11/17/18 09:05 Received Dextrose 5%-0.9% NaCl [Dextrose 5%-Normal Saline] 1,000 Med 11/17/18 09:45 Active ml IV ASDIRECTED Blood Culture x2 Reflex Set [OM.PC] Stat Oth 11/17/18 08:28 Ordered Medication Orders Dextrose/Sodium Chloride (Dextrose 5%-Normal Saline) 1,000 mls @ 75 mls/hr IV ASDIRECTED JACINTO Assessment/Plan Comment:: Impresssion: Acute respiratory failure with hypoxia Mycoplasma pnuemonia History of lung CA, tobacco dependence/active smoker S/P LLL lobectomy History of cavitary leison AUTI Chronic Constipation CAD/[place] HTN HLD Depression B12 deficiency Plan: IVF IV ATB Nebs Pulm toilet DVT/GI prophylaxis Home meds Daily Labs EMR re: lung leison
[2018-11-17] MEDS ORDERED: Nitroglycerin 0.4 MG Tab.SL SL PRN (12:12)
[2018-11-17] MEDS ORDERED: Ipratropium 0.02% 0.5 MG/2.5 ML Neb Soln NEB PRN (12:18)
[2018-11-17] MEDS ORDERED: guaiFENesin/Dextromethorphan 100-10 MG/5 ML Soln 5 ML Cup PO PRN (12:22)
[2018-11-17] MEDS ORDERED: LORazepam 2 MG/ML SDV IVPUSH PRN (12:39)
[2018-11-17] MEDS ORDERED: Metoprolol Tartrate 5 MG/5 ML SDV IVPUSH PRN (12:40)
[2018-11-17] MEDS: Megestrol 40 MG Tab PO SCH (13:46)
[2018-11-17] MEDS: Enoxaparin 30 MG/0.3 ML Syringe SUBCUT SCH (13:47)
[2018-11-17] MEDS: Lactated Ringers 1,000 ML IV SCH ×2 (14:44→22:44)
[2018-11-17] MEDS ORDERED: Albuterol/Ipratropium 3.0-0.5 MG/3 ML Neb Soln NEB SCH (16:00)
[2018-11-17] MEDS: Polyethylene Glycol 3350 Powder 17 GM Packet PO PRN (18:07)
[2018-11-17] MEDS: Formoterol/Mometasone 200-5 MCG 8.8 GM Inhaler IH SCH (20:23)
[2018-11-17] MEDS: Mirtazapine 15 MG Tab PO SCH (20:59)
[2018-11-18] MEDS: Megestrol 40 MG Tab PO SCH (00:41)
[2018-11-18] MEDS: Albuterol/Ipratropium 3.0-0.5 MG/3 ML Neb Soln NEB PRN ×3 (04:35→20:13)
--- NOTE | 2018-11-18 06:52 | PCM.PN ---
- General Info Date of Service: 11/18/18 Admission Dx/Problem (Free Text): Admission Diagnosis/Problem Admission Diagnosis/Problem Pneumonia Subjective Update: In to see Yeni. She is lying in bed watching TV. We discussed her progress thus far and how she has improved since yesterday. We discussed her CT scan results. All questions were answered. Functional Status: Reports: Pain Controlled, Tolerating Diet, Ambulating, Urinating, Incentive Spirometry, Other (Acapella ). Denies: New Symptoms - Review of Systems General: Reports: Weakness, Fatigue. Denies: Fever, Malaise, Chills HEENT: Reports: No Symptoms. Denies: Headaches, Post Nasal Drip, Sinus Congestion, Sore Throat Pulmonary: Reports: Shortness of Breath, Cough, Sputum, Wheezing. Denies: Pleuritic Chest Pain Cardiovascular: Reports: Dyspnea on Exertion (acute on chronic ). Denies: Chest Pain, Palpitations, Edema Gastrointestinal: Reports: Constipation (chronic although feels ok now ), Decreased Appetite. Denies: Abdominal Pain, Diarrhea, Difficulty Swallowing, Nausea, Vomiting Genitourinary: Reports: No Symptoms. Denies: Pain Musculoskeletal: Reports: No Symptoms Skin: Reports: No Symptoms Neurological: Reports: No Symptoms. Denies: Confusion, Trouble Speaking, Difficulty Walking, Gait Disturbance Psychiatric: Reports: No Symptoms - Patient Data Vitals - Most Recent: Last Vital Signs Temp 97.9 F 11/18/18 04:28 Pulse 111 H 11/18/18 04:29 Resp 32 H 11/18/18 04:28 BP 107/46 L 11/18/18 04:28 Pulse Ox 94 L 11/18/18 04:47 Weight - Most Recent: 75 lb I&O - Last 24 Hours: Intake & Output 11/17/18 11/17/18 11/18/18 14:59 22:59 06:59 Intake Total 694 1539 Output Total 600 550 Balance 94 989 Lab Results Last 24 Hours: Laboratory Results - last 24 hr 11/17/18 11/17/18 11/17/18 Range/Units 08:35 08:35 08:35 WBC 21.84 H (3.98-10.04) K/mm3 RBC 4.44 (3.98-5.22) M/mm3 Hgb 14.1 (11.2-15.7) gm/L Hct 44.3 (34.1-44.9) % MCV 99.8 H (79.4-94.8) fl MCH 31.8 (25.6-32.2) pg MCHC 31.8 L (32.2-35.5) g/dl RDW Std Deviation 49.3 H (36.4-46.3) fL Plt Count 305 (182-369) K/mm3 MPV 9.5 (9.4-12.3) fl Neut % (Auto) (34.0-71.1) % Lymph % (Auto) (19.3-51.7) % [place] % (Auto) (4.7-12.5) % Eos % (Auto) (0.7-5.8) Baso % (Auto) (0.1-1.2) % Neut # (Auto) (1.56-6.13) K/mm3 Lymph # (Auto) (1.18-3.74) K/mm3 [place] # (Auto) (0.24-0.36) K/mm3 Eos # (Auto) (0.04-0.36) K/mm3 Baso # (Auto) (0.01-0.08) K/mm3 Neutrophils % (Manual) 82 H (40-60) % Band Neutrophils % 9 (0-10) % Lymphocytes % (Manual) 1 L (20-40) % Atypical Lymphs % 2 % Monocytes % (Manual) 6 (2-10) % Eosinophils % (Manual) 0 L (0.7-5.8) % Basophils % (Manual) 0 L (0.1-1.2) Toxic Granulation Moderate Dohle Bodies Few Platelet Estimate Adequate Plt Morphology Comment Normal Anisocytosis 1+ slight Macrocytosis 1+ slight Spherocytes Few RBC Morph Comment Not Reportable PT 12.0 (9.5-12.1) SECONDS INR 1.10 Puncture Site ABG pH (7.35-7.45) ABG pCO2 (35.0-45.0) mmHg ABG pO2 (80.0-100.0) mmHg ABG HCO3 (22.0-26.0) meq/L ABG O2 Saturation (96.0-97.0) % ABG Base Excess (-2-2.0) Jaiden Test A-a Gradient mmHg O2 Delivery Device Oxygen Flow Rate FiO2 (21.00-100.00) % Sodium 142 (136-145) mEq/L Potassium 4.3 (3.5-5.1) mEq/L Chloride 100 (98-107) mEq/L Carbon Dioxide 31 (21-32) mEq/L Anion Gap 15.3 H (5-15) BUN 20 H (7-18) mg/dL Creatinine 0.6 (0.55-1.02) mg/dL Est Cr Clr Drug Dosing 40.48 mL/min Estimated GFR (MDRD) > 60 (>60) mL/min BUN/Creatinine Ratio 33.3 H (14-18) Glucose 131 H (83-115) mg/dL Lactic Acid (0.4-2.0) mmol/L Calcium 10.4 H (8.5-10.1) mg/dL Magnesium 2.0 (1.8-2.4) mg/dl Total Bilirubin 0.6 (0.2-1.0) mg/dL AST 18 (15-37) U/L ALT 22 (14-59) U/L Alkaline Phosphatase 80 (46-116) U/L Troponin I < 0.017 (0.00-0.056) ng/mL C-Reactive Protein 28.9 H* (<1.0) mg/dL NT-Pro-B Natriuret Pep (0-450) pg/mL Total Protein 8.4 H (6.4-8.2) g/dl Albumin 3.2 L (3.4-5.0) g/dl Globulin 5.2 gm/dL Albumin/Globulin Ratio 0.6 L (1-2) Urine Color (Yellow) Urine Appearance (Clear) Urine pH (5.0-8.0) Ur Specific [place] (1.005-1.030) Urine Protein (Negative) Urine Glucose (UA) (Negative) Urine Ketones (Negative) Urine Occult Blood (Negative) Urine Nitrite (Negative) Urine Bilirubin (Negative) Urine Urobilinogen (0.2-1.0) Ur Leukocyte Esterase (Negative) Urine RBC (0-5) /hpf Urine WBC (0-5) /hpf Urine WBC Clumps (NOT SEEN) /hpf Ur Epithelial Cells (0-5) /hpf Urine Bacteria (FEW) /hpf Urine Mucus (FEW) /hpf Mycoplasma pneumon IgM (NEGATIVE) MRSA (PCR) 11/17/18 11/17/18 11/17/18 Range/Units 08:35 08:52 09:00 WBC (3.98-10.04) K/mm3 RBC (3.98-5.22) M/mm3 Hgb (11.2-15.7) gm/L Hct (34.1-44.9) % MCV (79.4-94.8) fl MCH (25.6-32.2) pg MCHC (32.2-35.5) g/dl RDW Std Deviation (36.4-46.3) fL Plt Count (182-369) K/mm3 MPV (9.4-12.3) fl Neut % (Auto) (34.0-71.1) % Lymph % (Auto) (19.3-51.7) % [place] % (Auto) (4.7-12.5) % Eos % (Auto) (0.7-5.8) Baso % (Auto) (0.1-1.2) % Neut # (Auto) (1.56-6.13) K/mm3 Lymph # (Auto) (1.18-3.74) K/mm3 [place] # (Auto) (0.24-0.36) K/mm3 Eos # (Auto) (0.04-0.36) K/mm3 Baso # (Auto) (0.01-0.08) K/mm3 Neutrophils % (Manual) (40-60) % Band Neutrophils % (0-10) % Lymphocytes % (Manual) (20-40) % Atypical Lymphs % % Monocytes % (Manual) (2-10) % Eosinophils % (Manual) (0.7-5.8) % Basophils % (Manual) (0.1-1.2) Toxic Granulation Dohle Bodies Platelet Estimate Plt Morphology Comment Anisocytosis Macrocytosis Spherocytes RBC Morph Comment PT (9.5-12.1) SECONDS INR Puncture Site Lt radial ABG pH 7.36 (7.35-7.45) ABG pCO2 51.7 H (35.0-45.0) mmHg ABG pO2 76.0 L (80.0-100.0) mmHg ABG HCO3 28.8 H (22.0-26.0) meq/L ABG O2 Saturation 95.7 L (96.0-97.0) % ABG Base Excess 2.9 H (-2-2.0) Jaiden Test Positive A-a Gradient 64 mmHg O2 Delivery Device Nasal cannula Oxygen Flow Rate 3.0 FiO2 32.00 (21.00-100.00) % Sodium (136-145) mEq/L Potassium (3.5-5.1) mEq/L Chloride (98-107) mEq/L Carbon Dioxide (21-32) mEq/L Anion Gap (5-15) BUN (7-18) mg/dL Creatinine (0.55-1.02) mg/dL Est Cr Clr Drug Dosing mL/min Estimated GFR (MDRD) (>60) mL/min BUN/Creatinine Ratio (14-18) Glucose (83-115) mg/dL Lactic Acid (0.4-2.0) mmol/L Calcium (8.5-10.1) mg/dL Magnesium (1.8-2.4) mg/dl Total Bilirubin (0.2-1.0) mg/dL AST (15-37) U/L ALT (14-59) U/L Alkaline Phosphatase (46-116) U/L Troponin I (0.00-0.056) ng/mL C-Reactive Protein (<1.0) mg/dL NT-Pro-B Natriuret Pep 1105 H (0-450) pg/mL Total Protein (6.4-8.2) g/dl Albumin (3.4-5.0) g/dl Globulin gm/dL Albumin/Globulin Ratio (1-2) Urine Color (Yellow) Urine Appearance (Clear) Urine pH (5.0-8.0) Ur Specific [place] (1.005-1.030) Urine Protein (Negative) Urine Glucose (UA) (Negative) Urine Ketones (Negative) Urine Occult Blood (Negative) Urine Nitrite (Negative) Urine Bilirubin (Negative) Urine Urobilinogen (0.2-1.0) Ur Leukocyte Esterase (Negative) Urine RBC (0-5) /hpf Urine WBC (0-5) /hpf Urine WBC Clumps (NOT SEEN) /hpf Ur Epithelial Cells (0-5) /hpf Urine Bacteria (FEW) /hpf Urine Mucus (FEW) /hpf Mycoplasma pneumon IgM Positive H (NEGATIVE) MRSA (PCR) 11/17/18 11/17/1819 Range/Units 10:05 13:45 05:50 WBC 11.69 H (3.98-10.04) K/mm3 RBC 3.75 L (3.98-5.22) M/mm3 Hgb 11.9 (11.2-15.7) gm/L Hct 37.4 (34.1-44.9) % MCV 99.7 H (79.4-94.8) fl MCH 31.7 (25.6-32.2) pg MCHC 31.8 L (32.2-35.5) g/dl RDW Std Deviation 47.3 H (36.4-46.3) fL Plt Count 230 (182-369) K/mm3 MPV 9.8 (9.4-12.3) fl Neut % (Auto) 81.1 H (34.0-71.1) % Lymph % (Auto) 10.5 L (19.3-51.7) % [place] % (Auto) 7.7 (4.7-12.5) % Eos % (Auto) 0.2 L (0.7-5.8) Baso % (Auto) 0.1 (0.1-1.2) % Neut # (Auto) 9.48 H (1.56-6.13) K/mm3 Lymph # (Auto) 1.23 (1.18-3.74) K/mm3 [place] # (Auto) 0.90 H (0.24-0.36) K/mm3 Eos # (Auto) 0.02 L (0.04-0.36) K/mm3 Baso # (Auto) 0.01 (0.01-0.08) K/mm3 Neutrophils % (Manual) (40-60) % Band Neutrophils % (0-10) % Lymphocytes % (Manual) (20-40) % Atypical Lymphs % % Monocytes % (Manual) (2-10) % Eosinophils % (Manual) (0.7-5.8) % Basophils % (Manual) (0.1-1.2) Toxic Granulation Dohle Bodies Platelet Estimate Plt Morphology Comment Anisocytosis Macrocytosis Spherocytes RBC Morph Comment PT (9.5-12.1) SECONDS INR Puncture Site ABG pH (7.35-7.45) ABG pCO2 (35.0-45.0) mmHg ABG pO2 (80.0-100.0) mmHg ABG HCO3 (22.0-26.0) meq/L ABG O2 Saturation (96.0-97.0) % ABG Base Excess (-2-2.0) Jaiden Test A-a Gradient mmHg O2 Delivery Device Oxygen Flow Rate FiO2 (21.00-100.00) % Sodium (136-145) mEq/L Potassium (3.5-5.1) mEq/L Chloride (98-107) mEq/L Carbon Dioxide (21-32) mEq/L Anion Gap (5-15) BUN (7-18) mg/dL Creatinine (0.55-1.02) mg/dL Est Cr Clr Drug Dosing mL/min Estimated GFR (MDRD) (>60) mL/min BUN/Creatinine Ratio (14-18) Glucose (83-115) mg/dL Lactic Acid (0.4-2.0) mmol/L Calcium (8.5-10.1) mg/dL Magnesium (1.8-2.4) mg/dl Total Bilirubin (0.2-1.0) mg/dL AST (15-37) U/L ALT (14-59) U/L Alkaline Phosphatase (46-116) U/L Troponin I (0.00-0.056) ng/mL C-Reactive Protein (<1.0) mg/dL NT-Pro-B Natriuret Pep (0-450) pg/mL Total Protein (6.4-8.2) g/dl Albumin (3.4-5.0) g/dl Globulin gm/dL Albumin/Globulin Ratio (1-2) Urine Color Yellow (Yellow) Urine Appearance Clear (Clear) Urine pH 6.0 (5.0-8.0) Ur Specific [place] 1.025 (1.005-1.030) Urine Protein 2+ H (Negative) Urine Glucose (UA) Negative (Negative) Urine Ketones Negative (Negative) Urine Occult Blood 1+ H (Negative) Urine Nitrite Positive H (Negative) Urine Bilirubin Negative (Negative) Urine Urobilinogen 0.2 (0.2-1.0) Ur Leukocyte Esterase 1+ H (Negative) Urine RBC 0-5 (0-5) /hpf Urine WBC 20-30 H (0-5) /hpf Urine WBC Clumps Few (NOT SEEN) /hpf Ur Epithelial Cells 0-5 (0-5) /hpf Urine Bacteria Many H (FEW) /hpf Urine Mucus Few (FEW) /hpf Mycoplasma pneumon IgM (NEGATIVE) MRSA (PCR) Negative 11/18/18 Range/Units 05:50 WBC (3.98-10.04) K/mm3 RBC (3.98-5.22) M/mm3 Hgb (11.2-15.7) gm/L Hct (34.1-44.9) % MCV (79.4-94.8) fl MCH (25.6-32.2) pg MCHC (32.2-35.5) g/dl RDW Std Deviation (36.4-46.3) fL Plt Count (182-369) K/mm3 MPV (9.4-12.3) fl Neut % (Auto) (34.0-71.1) % Lymph % (Auto) (19.3-51.7) % [place] % (Auto) (4.7-12.5) % Eos % (Auto) (0.7-5.8) Baso % (Auto) (0.1-1.2) % Neut # (Auto) (1.56-6.13) K/mm3 Lymph # (Auto) (1.18-3.74) K/mm3 [place] # (Auto) (0.24-0.36) K/mm3 Eos # (Auto) (0.04-0.36) K/mm3 Baso # (Auto) (0.01-0.08) K/mm3 Neutrophils % (Manual) (40-60) % Band Neutrophils % (0-10) % Lymphocytes % (Manual) (20-40) % Atypical Lymphs % % Monocytes % (Manual) (2-10) % Eosinophils % (Manual) (0.7-5.8) % Basophils % (Manual) (0.1-1.2) Toxic Granulation Dohle Bodies Platelet Estimate Plt Morphology Comment Anisocytosis Macrocytosis Spherocytes RBC Morph Comment PT (9.5-12.1) SECONDS INR Puncture Site ABG pH (7.35-7.45) ABG pCO2 (35.0-45.0) mmHg ABG pO2 (80.0-100.0) mmHg ABG HCO3 (22.0-26.0) meq/L ABG O2 Saturation (96.0-97.0) % ABG Base Excess (-2-2.0) [place] Test A-a Gradient mmHg O2 Delivery Device Oxygen Flow Rate FiO2 (21.00-100.00) % Sodium (136-145) mEq/L Potassium (3.5-5.1) mEq/L Chloride (98-107) mEq/L Carbon Dioxide (21-32) mEq/L Anion Gap (5-15) BUN (7-18) mg/dL Creatinine (0.55-1.02) mg/dL Est Cr Clr Drug Dosing mL/min Estimated GFR (MDRD) (>60) mL/min BUN/Creatinine Ratio (14-18) Glucose (83-115) mg/dL Lactic Acid 0.8 (0.4-2.0) mmol/L Calcium (8.5-10.1) mg/dL Magnesium (1.8-2.4) mg/dl Total Bilirubin (0.2-1.0) mg/dL AST (15-37) U/L ALT (14-59) U/L Alkaline Phosphatase (46-116) U/L Troponin I (0.00-0.056) ng/mL C-Reactive Protein (<1.0) mg/dL NT-Pro-B Natriuret Pep (0-450) pg/mL Total Protein (6.4-8.2) g/dl Albumin (3.4-5.0) g/dl Globulin gm/dL Albumin/Globulin Ratio (1-2) Urine Color (Yellow) Urine Appearance (Clear) Urine pH (5.0-8.0) Ur Specific [place] (1.005-1.030) Urine Protein (Negative) Urine Glucose (UA) (Negative) Urine Ketones (Negative) Urine Occult Blood (Negative) Urine Nitrite (Negative) Urine Bilirubin (Negative) Urine Urobilinogen (0.2-1.0) Ur Leukocyte Esterase (Negative) Urine RBC (0-5) /hpf Urine WBC (0-5) /hpf Urine WBC Clumps (NOT SEEN) /hpf Ur Epithelial Cells (0-5) /hpf Urine Bacteria (FEW) /hpf Urine Mucus (FEW) /hpf Mycoplasma pneumon IgM (NEGATIVE) MRSA (PCR) Cm Results Last 24 Hours: Microbiology 11/17/18 09:05 Gram Stain - Final Sputum - Expectorated 11/17/18 09:15 Influenza Type A Antigen Screen - Final Nasal Aspirate, Unspecified NEGATIVE INFLUENZA A VIRUS AG Influenza Type B Antigen Screen - Final NEGATIVE INFLUENZA B VIRUS AG Med Orders - Current: Current Medications Albuterol/Ipratropium (Duoneb 3.0-0.5 Mg/3 Ml) 3 ml NEB QIDRT PRN PRN Reason: Shortness of Breath Last Admin: 11/18/18 04:35 Dose: 3 ml Aspirin (Aspirin) 81 mg PO DAILY [facility] Enoxaparin Sodium (Lovenox) 30 mg SUBCUT Q24H [facility] Last Admin: 11/17/18 13:47 Dose: 30 mg Guaifenesin/Phenylephrine HCl (Robitussin Dm) 10 ml PO Q4H PRN PRN Reason: Cough Levofloxacin/Dextrose 750 mg/ (Premix) 150 mls @ 100 mls/hr IV Q48H [facility] Lactated Ringer's (Ringers, Lactated) 1,000 mls @ 125 mls/hr IV ASDIRECTED [facility] Stop: 11/18/18 09:00 Last Admin: 11/17/18 22:44 Dose: 125 mls/hr Ipratropium [place] (Atrovent) 0.5 mg NEB Q4H PRN PRN Reason: Shortness of Breath Levothyroxine Sodium (Synthroid) 100 mcg PO DAILY@0700 [facility] Lorazepam (Ativan) 0 mg IVPUSH Q4H PRN; Protocol PRN Reason: Anxiety Megestrol Acetate (Megace) 40 mg PO BIDMEALS [facility] Metoprolol Succinate (Toprol Xl) 50 mg PO DAILY [facility] Metoprolol Tartrate (Lopressor) 5 mg IVPUSH Q6H PRN PRN Reason: heart rate >100 Mirtazapine (Remeron) 15 mg PO BEDTIME [facility] Last Admin: 11/17/18 20:59 Dose: 15 mg Miscellaneous Information (Remove Patch) 1 ea TRDERM DAILY [facility] Mometasone Furoate/Formoterol Fumar (Dulera 200-5 Mcg) 2 puff IH BID [facility] Last Admin: 11/17/18 20:23 Dose: 2 puff Nicotine (Habitrol) 14 mg TRDERM DAILY [facility] Nitroglycerin (Nitrostat) 0.4 mg SL ASDIRECTED PRN PRN Reason: Chest Pain Oxycodone/Acetaminophen (Percocet 325-5 Mg) 1 tab PO Q4H PRN PRN Reason: Pain (moderate 4-6) Polyethylene Glycol (Miralax) 17 gm PO DAILY PRN PRN Reason: Constipation Last Admin: 11/17/18 18:07 Dose: 17 gm Sertraline HCl (Zoloft) 50 mg PO DAILY [facility] Tiotropium [place] (Spiriva Handihaler) 18 mcg INH DAILY@0900 [facility] Discontinued Medications Acetaminophen (Tylenol) 650 mg PO NOW ONE Stop: 11/17/18 08:30 Last Admin: 11/17/18 08:54 Dose: 650 mg Albuterol/Ipratropium (Duoneb 3.0-0.5 Mg/3 Ml) 3 ml NEB QIDRT [facility] Last Admin: 11/17/18 15:05 Dose: 3 ml Furosemide (Lasix) 40 mg IVPUSH NOW ONE Stop: 11/17/18 09:42 Last Admin: 11/17/18 09:53 Dose: 40 mg Dextrose/Sodium Chloride (Dextrose 5%-Normal Saline) 1,000 mls @ 200 mls/hr IV ASDIRECTED [facility] Last Admin: 11/17/18 08:49 Dose: 200 mls/hr Levofloxacin/Dextrose 750 mg/ (Premix) 150 mls @ 100 mls/hr IV ONETIME ONE Stop: 11/17/18 09:59 Last Admin: 11/17/18 08:52 Dose: 100 mls/hr Dextrose/Sodium Chloride (Dextrose 5%-Normal Saline) 1,000 mls @ 75 mls/hr IV ASDIRECTED [facility] Megestrol Acetate (Megace) 40 mg PO BID [facility] Last Admin: 11/18/18 00:41 Dose: Not Given Nicotine (Habitrol) 7 mg TRDERM DAILY [facility] Oxycodone/Acetaminophen (Percocet 325-5 Mg) 2 tab PO ONETIME ONE Stop: 11/17/18 10:30 Last Admin: 11/17/18 10:45 Dose: Not Given Tiotropium [place] (Spiriva Handihaler) 18 mcg INH DAILYRT [facility] - Exam Quality Assessment: Supplemental Oxygen (3L ), DVT Prophylaxis General: Alert, Oriented, Cooperative, No Acute Distress, Other (Cachectic ) HEENT: Pupils Equal, Pupils Reactive, EOMI, Mucous Membr. Moist/[place] Neck: Supple, Trachea Midline, No JVD Lungs: Normal Respiratory Effort, Decreased Breath Sounds, Rales, Rhonchi Cardiovascular: Regular Rate, Regular Rhythm GI/Abdominal Exam: Normal Bowel Sounds, Soft, Non-Tender, No Distention, No Abnormal Bruit (Female) Exam: Deferred Back Exam: Normal Inspection, Full Range of Motion Extremities: Normal Inspection, Normal Range of Motion, Non-Tender, No Pedal Edema, Normal Capillary Refill Peripheral Pulses: 2+: Radial (L), Radial (R), Dorsalis Pedis (L), Dorsalis Pedis (R) Skin: Warm, Dry, Intact Neurological: No New Focal Deficit Psy/Mental Status: Alert, Normal Affect, Normal Mood - Problem List & Annotations (1) Abnormal finding on chest xray SNOMED Code(s): 510671632, 779092500 Code(s): R93.89 - ABNORMAL FINDINGS ON DX IMAGING OF OTH BODY STRUCTURES Status: Acute Priority: High Current Visit: Yes (2) Congestive heart failure SNOMED Code(s): 52305432 Code(s): I50.9 - HEART FAILURE, UNSPECIFIED Status: Chronic Priority: Medium Current Visit: Yes Qualifiers: Heart failure type: unspecified Heart failure chronicity: chronic Qualified Code(s): I50.9 - Heart failure, unspecified (3) Mycoplasma pneumonia SNOMED Code(s): 83523081 Code(s): J15.7 - PNEUMONIA DUE TO MYCOPLASMA PNEUMONIAE Status: Acute Priority: High Current Visit: Yes Qualifiers: Laterality: right Lung location: lower lobe of lung Qualified Code(s): J15.7 - Pneumonia due to Mycoplasma pneumoniae (4) Pneumonia SNOMED Code(s): 999235678 Code(s): J18.9 - PNEUMONIA, UNSPECIFIED ORGANISM Status: Acute Priority: High Current Visit: Yes Qualifiers: Pneumonia type: due to Mycoplasma pneumoniae Laterality: right Lung location: lower lobe of lung Qualified Code(s): J15.7 - Pneumonia due to Mycoplasma pneumoniae (5) Urinary tract infection SNOMED Code(s): 65275244 Code(s): N39.0 - URINARY TRACT INFECTION, SITE NOT SPECIFIED Status: Acute Priority: High Current Visit: Yes Qualifiers: Urinary tract infection type: site unspecified Hematuria presence: without hematuria Qualified Code(s): N39.0 - Urinary tract infection, site not specified (6) COPD (chronic obstructive pulmonary disease) SNOMED Code(s): 75473708 Code(s): J44.9 - CHRONIC OBSTRUCTIVE PULMONARY DISEASE, UNSPECIFIED Status : Chronic Priority: Medium Current Visit: No Qualifiers: COPD type: unspecified COPD Qualified Code(s): J44.9 - Chronic obstructive pulmonary disease, unspecified (7) Constipation SNOMED Code(s): 80514853 Code(s): K59.00 - CONSTIPATION, UNSPECIFIED Status: Acute Priority: Medium Current Visit: Yes Qualifiers: Constipation type: unspecified constipation type Qualified Code(s): K59.00 - Constipation, unspecified (8) B12 deficiency SNOMED Code(s): 899391902 Code(s): E53.8 - DEFICIENCY OF OTHER SPECIFIED B GROUP VITAMINS Status: Chronic Priority: Medium Current Visit: No (9) CAD (coronary artery disease) SNOMED Code(s): 89430361 Code(s): I25.10 - ATHSCL HEART DISEASE OF [place] CORONARY ARTERY W/O ANG PCTRS Status: Chronic Priority: Medium Current Visit: No Qualifiers: Coronary Disease-Associated Artery/Lesion type: unspecified vessel or lesion type [place] vs. transplanted heart: [place] heart Associated angina: angina presence unspecified Qualified Code(s): I25.10 - Atherosclerotic heart disease of [place] coronary artery without angina pectoris (10) HLD (hyperlipidemia) SNOMED Code(s): 50808191 Code(s): E78.5 - HYPERLIPIDEMIA, UNSPECIFIED Status: Chronic Priority: Low Current Visit: No Qualifiers: Hyperlipidemia type: unspecified Qualified Code(s): E78.5 - Hyperlipidemia , unspecified (11) HTN (hypertension) SNOMED Code(s): 40518804 Code(s): I10 - ESSENTIAL (PRIMARY) HYPERTENSION Status: Chronic Priority : Medium Current Visit: No Qualifiers: Hypertension type: unspecified Qualified Code(s): I10 - Essential (primary ) hypertension (12) History of VA (myocardial infarction) SNOMED Code(s): 372045192 Code(s): I25.2 - OLD MYOCARDIAL INFARCTION Status: Chronic Priority: Low Current Visit: No (13) History of lobectomy of lung SNOMED Code(s): 387538883 Code(s): Z90.2 - ACQUIRED ABSENCE OF LUNG [PART OF] Status: Chronic Priority: High Current Visit: No (14) History of lung cancer SNOMED Code(s): 420607195, 355527227 Code(s): Z85.118 - PERSONAL HISTORY OF MALIGNANT NEOPLASM OF BRONCH[place] AND LUNG Status: Chronic Priority: High Current Visit: No (15) Tobacco use disorder SNOMED Code(s): 865206574 Code(s): F17.200 - NICOTINE DEPENDENCE, UNSPECIFIED, UNCOMPLICATED Status: Chronic Priority: High Current Visit: Yes - Problem List Review Problem List Initiated/Reviewed/Updated: Yes - My Orders Last 24 Hours: My Active Orders 11/18/18 09:00 Aspirin 81 mg PO DAILY - Plan Plan:: I/P: Acute: S/P Acute respiratory failure with hypoxia -Presented to ED with febrille illness, productive cough, dyspnea with saturations in low 80's -Tacypnea and tachycardic in ED -On chroinc O2 (3.5-4L) at home via [place] -History of lung CA - S/P LLL lobectomy; History of cavitary lesion -Continues to smoke - on home nicotine patch -ABG in ED -pH: 7.36 -pCO2: 51.7 -pO2: 76.0 -HCO3: 28.8 -O2 saturation: 95.7 -Base excess: 2.9 -A-a gradient: 64 -Blood cultures negative so far Mycoplasma pneumonia -Positive serology -Started on levaquin in ED prior to test results -Rapid improvement - will continue levaquin only based on clinical picture -CXR in ED 11/17/18: 1. Masslike density within the right base. May represent fluid-filled cavity as seen on prior CT which has decreased in size 2. Diffuse increased lung markings, most of which appear chronic but difficult to exclude mild superimposed bronchitis 3. other incidental findings -Pulmonary toilet -WBC 21.84-->11.69 -CRP 28.9-->22.0 -Consult RT -PRN nebulizers -IS/Acapella -PRN robitussin DM -O2 as needed -Home respiratory medications -IV fluids as ordered -Blood cultures as above -Sputum culture pending -CT chest w/ contrast 11/18/17: 1. Nodular finding within the right lung which has Hounsfield unit measurements of fluid with differential as noted 2. Scattered areas of scarring within both lungds. Other incidental findings 3. Nothing acute is appreciated AUTI -UA positive in ED for UTI -Reports urinary symptoms -Culture ordered -WBC/CRP as above -Started on levaquin in ED - continue Chronic tobacco use -Reportedly an active smoker; tells me she hasn't smoked for around a week -Home nicotine patch ordered - has been refusing -Cessation counseling Hypokalemia -Potassium 3.3 today -Supplement as needed Hypomagnesemia -Magnesium 1.5 today -Supplement as needed Reported ETOH abuse -Reports daily ETOH use - one small drink -CIWA protocol -Have been 0-2 so far -Ativan for abortive seizures -MV/Thiamine/Folic acid -Will hold off LAC/Psychiatry consults for now Chronic: Constipation CAD/VA HTN HLD Depression B12 deficiency Plan: IVF IV ATB Nebs Pulm toilet DVT/GI prophylaxis: Lovenox Home meds as ordered PT/OT -> recommending SNF placement Daily Labs CM/SW EMR re: lung leison Code status: DNR/DNI; PCP: Dr. Mock
[2018-11-18] MEDS ORDERED: Megestrol 40 MG Tab PO SCH (07:00)
[2018-11-18] MEDS: Levothyroxine 100 MCG Tab PO SCH (07:17)
[2018-11-18] MEDS: Megestrol Susp 40 MG/ML 10 ML UD Cup PO SCH ×2 (07:22→17:26)
[2018-11-18] MEDS ORDERED: Magnesium Oxide 400 MG Tab PO ONE (07:56)
[2018-11-18] MEDS ORDERED: Tiotropium Inhaler 18 MCG Inhalation Powder Cap Kit of 5 INH SCH (08:00)
[2018-11-18] MEDS: Formoterol/Mometasone 200-5 MCG 8.8 GM Inhaler IH SCH ×2 (08:21→20:30)
[2018-11-18] MEDS: Tiotropium Inhaler 18 MCG Inhalation Powder Cap Kit of 5 INH SCH (08:22)
[2018-11-18] MEDS ORDERED: Sodium Chloride 0.9% 10 ML Syringe FLUSH PRN (08:35)
[2018-11-18] MEDS ORDERED: Iopamidol 612 MG/ML 100 ML Bottle IVPUSH ONE (08:35)
[2018-11-18] MEDS ORDERED: SPIRIVA RESPIMAT IH SCH (09:00)
[2018-11-18] MEDS ORDERED: Nicotine 7 MG/24 Hr Patch TRDERM SCH (09:00)
[2018-11-18] MEDS: Metoprolol Succinate 50 MG Tab.ER PO SCH (09:34)
[2018-11-18] MEDS: Sertraline 50 MG Tab PO SCH (09:34)
[2018-11-18] MEDS: Aspirin 81 MG Tab.Chew PO SCH (09:35)
[2018-11-18] MEDS: Nicotine 14 MG/24 Hr Patch TRDERM SCH (09:36)
[2018-11-18] MEDS: Potassium Chloride 20 MEQ Tab.ER PO SCH ×2 (09:36→12:47)
--- NOTE | 2018-11-18 09:50 | CT ---
CT chest Technique: Multiple axial sections through the chest were obtained. Intravenous contrast was utilized. Comparison: Prior chest CT study of 06/10/18. Findings: Nodular abnormality is noted adjacent or within the right major fissure. This has Hounsfield unit measurements of fluid and is either due to decreased size of previous cavitary lesion containing fluid or represents fluid within the fissure. Consolidation seen within the right lung base on prior study has resolved on current study. Scattered parenchymal scarring is noted throughout both lungs. Nodular density that was seen within the lingula on prior study which is no longer present. No acute parenchymal change is seen. Coronary artery calcification is seen. Ectasia and atherosclerotic change is noted within the thoracic aorta. No mediastinal adenopathy or hilar adenopathy is seen. No pericardial thickening is seen. Several calcifications are seen within both kidneys compatible with nonobstructing calculi. Scoliosis and degenerative change is noted within the spine. Impression: 1. Nodular finding within the right lung which has Hounsfield unit measurements of fluid with differential as noted above. 2. Scattered areas of scarring within both lungs. Other incidental findings. 3. Nothing acute is appreciated. Diagnostic code #2
[2018-11-18] MEDS ORDERED: LORazepam 2 MG/ML SDV IVPUSH PRN (12:32)
[2018-11-18] MEDS: Enoxaparin 30 MG/0.3 ML Syringe SUBCUT SCH (12:47)
[2018-11-18] MEDS: Thiamine 100 MG Tab PO SCH (12:49)
[2018-11-18] MEDS: Multivitamins,Therapeutic Tab PO SCH (12:49)
[2018-11-18] MEDS: Folic Acid 1 MG Tab PO SCH (12:49)
[2018-11-18] MEDS: Mirtazapine 15 MG Tab PO SCH (20:50)
[2018-11-18] MEDS: Acetaminophen/oxyCODONE 325-5 MG Tab PO PRN (20:55)
[2018-11-19] MEDS: Albuterol/Ipratropium 3.0-0.5 MG/3 ML Neb Soln NEB PRN ×3 (01:50→20:54)
[2018-11-19] MEDS: Levothyroxine 100 MCG Tab PO SCH (06:20)
[2018-11-19] MEDS: Megestrol Susp 40 MG/ML 10 ML UD Cup PO SCH ×2 (06:20→16:37)
--- NOTE | 2018-11-19 06:46 | PCM.PN ---
- General Info Date of Service: 11/19/18 Admission Dx/Problem (Free Text): Admission Diagnosis/Problem Admission Diagnosis/Problem Pneumonia Subjective Update: In to see Yeni. We had a good discussion about her past and overall prognosis. She was updated on her progress thus far and plan for discharge. Planning a family meeting tomorrow in her room to discuss discharge. She has been told this many times and seemed surprised when I told her this. Some staff have questioned her short term memory as she has been somewhat forgetful while here, although she is also on levaquin. She reports she feels pretty well back to baseline today and feels good. She has been up working with PT/OT. The are ok with return to [facility] at this point. She continues to improve clinically and her labs are still trending downward. Functional Status: Reports: Pain Controlled, Tolerating Diet, Ambulating, Urinating, Incentive Spirometry, Other (acapella ). Denies: New Symptoms - Review of Systems General: Reports: Weakness (improving ). Denies: Fever, Fatigue, Malaise, Chills, Appetite HEENT: Reports: No Symptoms. Denies: Headaches, Sore Throat Pulmonary: Reports: Shortness of Breath (chronic - at baseline ), Cough. Denies : Sputum, Wheezing Cardiovascular: Reports: Dyspnea on Exertion (Chronic ). Denies: Chest Pain, Palpitations, Edema Gastrointestinal: Reports: Constipation (chronic ), Decreased Appetite (chronic ). Denies: Abdominal Pain, Diarrhea, Nausea, Vomiting Genitourinary: Reports: No Symptoms. Denies: Pain Musculoskeletal: Reports: No Symptoms Skin: Reports: No Symptoms Neurological: Reports: No Symptoms Psychiatric: Reports: No Symptoms - Patient Data Vitals - Most Recent: Last Vital Signs Temp 98.1 F 11/19/18 06:23 Pulse 86 11/19/18 06:23 Resp 22 H 11/19/18 06:23 BP 147/86 H 11/18/18 23:19 Pulse Ox 100 11/19/18 06:23 Weight - Most Recent: 75 lb 9 oz I&O - Last 24 Hours: Intake & Output 11/18/18 11/18/18 11/19/18 14:59 22:59 06:59 Intake Total 474 340 100 Output Total 300 400 Balance 474 40 -300 Lab Results Last 24 Hours: Laboratory Results - last 24 hr 11/18/18 11/18/18 11/19/18 Range/Units 05:50 20:35 06:00 WBC 10.66 H (3.98-10.04) K/mm3 RBC 3.63 L (3.98-5.22) M/mm3 Hgb 11.7 (11.2-15.7) gm/L Hct 36.5 (34.1-44.9) % MCV 100.6 H (79.4-94.8) fl MCH 32.2 (25.6-32.2) pg MCHC 32.1 L (32.2-35.5) g/dl RDW Std Deviation 48.0 H (36.4-46.3) fL Plt Count 263 (182-369) K/mm3 MPV 9.5 (9.4-12.3) fl Neut % (Auto) 76.6 H (34.0-71.1) % Lymph % (Auto) 12.7 L (19.3-51.7) % Mcleod % (Auto) 9.6 (4.7-12.5) % Eos % (Auto) 0.6 L (0.7-5.8) Baso % (Auto) 0.1 (0.1-1.2) % Neut # (Auto) 8.18 H (1.56-6.13) K/mm3 Lymph # (Auto) 1.35 (1.18-3.74) K/mm3 Mcleod # (Auto) 1.02 H (0.24-0.36) K/mm3 Eos # (Auto) 0.06 (0.04-0.36) K/mm3 Baso # (Auto) 0.01 (0.01-0.08) K/mm3 Puncture Site Rt radial ABG pH 7.40 (7.35-7.45) ABG pCO2 49.3 H (35.0-45.0) mmHg ABG pO2 62.0 L (80.0-100.0) mmHg ABG HCO3 30.2 H (22.0-26.0) meq/L ABG O2 Saturation 87.6 L (96.0-97.0) % ABG Base Excess 4.9 H (-2-2.0) Jaiden Test positive A-a Gradient 113 mmHg O2 Delivery Device Nasal cannula Oxygen Flow Rate 4.0 FiO2 37.00 (21.00-100.00) % Sodium 143 (136-145) mEq/L Potassium 3.3 L (3.5-5.1) mEq/L Chloride 105 (98-107) mEq/L Carbon Dioxide 34 H (21-32) mEq/L Anion Gap 7.3 (5-15) BUN 18 (7-18) mg/dL Creatinine 0.6 (0.55-1.02) mg/dL Est Cr Clr Drug Dosing 37.48 mL/min Estimated GFR (MDRD) > 60 (>60) mL/min BUN/Creatinine Ratio 30.0 H (14-18) Glucose 85 (83-115) mg/dL Calcium 8.8 (8.5-10.1) mg/dL Magnesium 1.5 L (1.8-2.4) mg/dl C-Reactive Protein 22.0 H* (<1.0) mg/dL Cm Results Last 24 Hours: Microbiology 11/17/18 09:05 Gram Stain - Final Sputum - Expectorated Sputum Culture - Preliminary Gram Negative Coccobacilli 11/17/18 12:50 Urine Culture - Preliminary Urine, Catheterized Gram Positive Cocci 11/17/18 08:35 Aerobic Blood Culture - Preliminary Blood - Venous - Lab Draw NO GROWTH AFTER 1 DAY Anaerobic Blood Culture - Preliminary NO GROWTH AFTER 1 DAY 11/17/18 08:45 Aerobic Blood Culture - Preliminary Blood - Venous NO GROWTH AFTER 1 DAY Anaerobic Blood Culture - Preliminary NO GROWTH AFTER 1 DAY Med Orders - Current: Current Medications Albuterol/Ipratropium (Duoneb 3.0-0.5 Mg/3 Ml) 3 ml NEB QIDRT PRN PRN Reason: Shortness of Breath Last Admin: 11/19/18 01:50 Dose: 3 ml Aspirin (Aspirin) 81 mg PO DAILY [facility] Last Admin: 11/18/18 09:35 Dose: 81 mg Enoxaparin Sodium (Lovenox) 30 mg SUBCUT Q24H [facility] Last Admin: 11/18/18 12:47 Dose: 30 mg Folic Acid (Folic Acid) 1 mg PO DAILY [facility] Last Admin: 11/18/18 12:49 Dose: 1 mg Guaifenesin/Phenylephrine HCl (Robitussin Dm) 10 ml PO Q4H PRN PRN Reason: Cough Levofloxacin/Dextrose 750 mg/ (Premix) 150 mls @ 100 mls/hr IV Q48H [facility] Ipratropium [place] (Atrovent) 0.5 mg NEB Q4H PRN PRN Reason: Shortness of Breath Levothyroxine Sodium (Synthroid) 100 mcg PO DAILY@0700 [facility] Last Admin: 11/19/18 06:20 Dose: 100 mcg Lorazepam (Ativan) 0 mg IVPUSH Q4H PRN; Protocol PRN Reason: Anxiety Lorazepam (Ativan) 2 mg IVPUSH Q4H PRN PRN Reason: Seizures Megestrol Acetate (Megace 40 Mg/Ml Susp) 400 mg PO BIDMEALS [facility] Last Admin: 11/19/18 06:20 Dose: 400 mg Metoprolol Succinate (Toprol Xl) 50 mg PO DAILY [facility] Last Admin: 11/18/18 09:34 Dose: 50 mg Metoprolol Tartrate (Lopressor) 5 mg IVPUSH Q6H PRN PRN Reason: heart rate >100 Mirtazapine (Remeron) 15 mg PO BEDTIME [facility] Last Admin: 11/18/18 20:50 Dose: 15 mg Miscellaneous Information (Remove Patch) 1 ea TRDERM DAILY [facility] Last Admin: 11/18/18 09:36 Dose: Not Given Mometasone Furoate/Formoterol Fumar (Dulera 200-5 Mcg) 2 puff IH BID [facility] Last Admin: 11/18/18 20:30 Dose: 2 puff Multivitamins (Thera) 1 each PO DAILY [facility] Last Admin: 11/18/18 12:49 Dose: 1 each Nicotine (Habitrol) 14 mg TRDERM DAILY [facility] Last Admin: 11/18/18 09:36 Dose: Not Given Nitroglycerin (Nitrostat) 0.4 mg SL ASDIRECTED PRN PRN Reason: Chest Pain Oxycodone/Acetaminophen (Percocet 325-5 Mg) 1 tab PO Q4H PRN PRN Reason: Pain (moderate 4-6) Last Admin: 11/18/18 20:55 Dose: 1 tab Polyethylene Glycol (Miralax) 17 gm PO DAILY PRN PRN Reason: Constipation Last Admin: 11/17/18 18:07 Dose: 17 gm Sertraline HCl (Zoloft) 50 mg PO DAILY [facility] Last Admin: 11/18/18 09:34 Dose: 50 mg Sodium Chloride (Saline Flush) 10 ml FLUSH ONETIME PRN PRN Reason: IV FLUSH Last Admin: 11/18/18 08:51 Dose: 10 ml Thiamine HCl (Vitamin B-1) 100 mg PO DAILY [facility] Last Admin: 11/18/18 12:49 Dose: 100 mg Tiotropium [place] (Spiriva Handihaler) 18 mcg INH DAILY@0900 [facility] Last Admin: 11/18/18 08:22 Dose: 1 unit Discontinued Medications Acetaminophen (Tylenol) 650 mg PO NOW ONE Stop: 11/17/18 08:30 Last Admin: 11/17/18 08:54 Dose: 650 mg Albuterol/Ipratropium (Duoneb 3.0-0.5 Mg/3 Ml) 3 ml NEB QIDRT [facility] Last Admin: 11/17/18 15:05 Dose: 3 ml Furosemide (Lasix) 40 mg IVPUSH NOW ONE Stop: 11/17/18 09:42 Last Admin: 11/17/18 09:53 Dose: 40 mg Dextrose/Sodium Chloride (Dextrose 5%-Normal Saline) 1,000 mls @ 200 mls/hr IV ASDIRECTED [facility] Last Admin: 11/17/18 08:49 Dose: 200 mls/hr Levofloxacin/Dextrose 750 mg/ (Premix) 150 mls @ 100 mls/hr IV ONETIME ONE Stop: 11/17/18 09:59 Last Admin: 11/17/18 08:52 Dose: 100 mls/hr Dextrose/Sodium Chloride (Dextrose 5%-Normal Saline) 1,000 mls @ 75 mls/hr IV ASDIRECTED [facility] Lactated Ringer's (Ringers, Lactated) 1,000 mls @ 125 mls/hr IV ASDIRECTED [facility] Stop: 11/18/18 09:00 Last Admin: 11/17/18 22:44 Dose: 125 mls/hr Iopamidol (Isovue-300 (61%)) 100 ml IVPUSH ONETIME ONE Stop: 11/18/18 08:36 Last Admin: 11/18/18 08:43 Dose: 60 ml Magnesium Oxide (Magnesium Oxide) 400 mg PO ONETIME ONE Stop: 11/18/18 07:57 Last Admin: 11/18/18 09:36 Dose: 400 mg Megestrol Acetate (Megace) 40 mg PO BID [facility] Last Admin: 11/18/18 00:41 Dose: Not Given Megestrol Acetate (Megace) 40 mg PO BIDMEALS [facility] Last Admin: 11/18/18 07:45 Dose: Not Given Nicotine (Habitrol) 7 mg TRDERM DAILY [facility] Oxycodone/Acetaminophen (Percocet 325-5 Mg) 2 tab PO ONETIME ONE Stop: 11/17/18 10:30 Last Admin: 11/17/18 10:45 Dose: Not Given Potassium Chloride (Klor-Con M20) 40 meq PO Q4H [facility] Stop: 11/18/18 12:01 Last Admin: 11/18/18 12:47 Dose: 40 meq Tiotropium [place] (Spiriva Handihaler) [facility] Ex[facility] Quality Assessment: Supplemental Oxygen, DVT Prophylaxis General: Alert, Oriented, Cooperative, No Acute Distress, Other (Cachectic) HEENT: Pupils Equal, Pupils Reactive, EOMI, Mucous Membr. Moist/[place] Neck: Supple, Trachea Midline, No JVD Lungs: Normal Respiratory Effort, Decreased Breath Sounds. No: Rhonchi, Wheezing Cardiovascular: Regular Rate, Regular Rhythm GI/Abdominal Exam: Normal Bowel Sounds, Soft, Non-Tender, No Distention, No Abnormal Bruit (Female) Exam: Deferred Back Exam: Normal Inspection, Full Range of Motion Extremities: Normal Inspection, Normal Range of Motion, Non-Tender, No Pedal Edema, Normal Capillary Refill Peripheral Pulses: 2+: Radial (L), Radial (R), Dorsalis Pedis (L), Dorsalis Pedis (R) Skin: Warm, Dry, Intact Neurological: No New Focal Deficit Psy/Mental Status: Alert, Normal Affect, Normal Mood - Problem List & Annotations (1) Abnormal finding on chest xray SNOMED Code(s): 091493066, 188044957 Code(s): R93.89 - ABNORMAL FINDINGS ON DX IMAGING OF OTH BODY STRUCTURES Status: Acute Priority: High Current Visit: Yes (2) Congestive heart failure SNOMED Code(s): 25914641 Code(s): I50.9 - HEART FAILURE, UNSPECIFIED Status: Chronic Priority: Medium Current Visit: Yes Qualifiers: Heart failure type: unspecified Heart failure chronicity: chronic Qualified Code(s): I50.9 - Heart failure, unspecified (3) Mycoplasma pneumonia SNOMED Code(s): 60297058 Code(s): J15.7 - PNEUMONIA DUE TO MYCOPLASMA PNEUMONIAE Status: Acute Priority: High Current Visit: Yes Qualifiers: Laterality: right Lung location: lower lobe of lung Qualified Code(s): J15.7 - Pneumonia due to Mycoplasma pneumoniae (4) Pneumonia SNOMED Code(s): 978530012 Code(s): J18.9 - PNEUMONIA, UNSPECIFIED ORGANISM Status: Acute Priority: High Current Visit: Yes Qualifiers: Pneumonia type: due to Mycoplasma pneumoniae Laterality: right Lung location: lower lobe of lung Qualified Code(s): J15.7 - Pneumonia due to Mycoplasma pneumoniae (5) Urinary tract infection SNOMED Code(s): 72029019 Code(s): N39.0 - URINARY TRACT INFECTION, SITE NOT SPECIFIED Status: Acute Priority: High Current Visit: Yes Qualifiers: Urinary tract infection type: site unspecified Hematuria presence: without hematuria Qualified Code(s): N39.0 - Urinary tract infection, site not specified (6) COPD (chronic obstructive pulmonary disease) SNOMED Code(s): 24473434 Code(s): J44.9 - CHRONIC OBSTRUCTIVE PULMONARY DISEASE, UNSPECIFIED Status : Chronic Priority: Medium Current Visit: No Qualifiers: COPD type: unspecified COPD Qualified Code(s): J44.9 - Chronic obstructive pulmonary disease, unspecified (7) Constipation SNOMED Code(s): 51173103 Code(s): K59.00 - CONSTIPATION, UNSPECIFIED Status: Acute Priority: Medium Current Visit: Yes Qualifiers: Constipation type: unspecified constipation type Qualified Code(s): K59.00 - Constipation, unspecified (8) B12 deficiency SNOMED Code(s): 954463863 Code(s): E53.8 - DEFICIENCY OF OTHER SPECIFIED B GROUP VITAMINS Status: Chronic Priority: Medium Current Visit: No (9) CAD (coronary artery disease) SNOMED Code(s): 00441177 Code(s): I25.10 - ATHSCL HEART DISEASE OF [place] CORONARY ARTERY W/O ANG PCTRS Status: Chronic Priority: Medium Current Visit: No Qualifiers: Coronary Disease-Associated Artery/Lesion type: unspecified vessel or lesion type [place] vs. transplanted heart: [place] heart Associated angina: angina presence unspecified Qualified Code(s): I25.10 - Atherosclerotic heart disease of [place] coronary artery without angina pectoris (10) HLD (hyperlipidemia) SNOMED Code(s): 03508626 Code(s): E78.5 - HYPERLIPIDEMIA, UNSPECIFIED Status: Chronic Priority: Low Current Visit: No Qualifiers: Hyperlipidemia type: unspecified Qualified Code(s): E78.5 - Hyperlipidemia , unspecified (11) HTN (hypertension) SNOMED Code(s): 46929478 Code(s): I10 - ESSENTIAL (PRIMARY) HYPERTENSION Status: Chronic Priority : Medium Current Visit: No Qualifiers: Hypertension type: unspecified Qualified Code(s): I10 - Essential (primary ) hypertension (12) History of NM (myocardial infarction) SNOMED Code(s): 329382560 Code(s): I25.2 - OLD MYOCARDIAL INFARCTION Status: Chronic Priority: Low Current Visit: No (13) History of lobectomy of lung SNOMED Code(s): 373856376 Code(s): Z90.2 - ACQUIRED ABSENCE OF LUNG [PART OF] Status: Chronic Priority: High Current Visit: No (14) History of lung cancer SNOMED Code(s): 092350162, 227075504 Code(s): Z85.118 - PERSONAL HISTORY OF MALIGNANT NEOPLASM OF BRONCHUS AND LUNG Status: Chronic Priority: High Current Visit: No (15) Tobacco use disorder SNOMED Code(s): 254506587 Code(s): F17.200 - NICOTINE DEPENDENCE, UNSPECIFIED, UNCOMPLICATED Status: Chronic Priority: High Current Visit: Yes - Problem List Review Problem List Initiated/Reviewed/Updated: Yes - My Orders Last 24 Hours: My Active Orders 11/18/18 09:00 Aspirin 81 mg PO DAILY 11/18/18 11:07 Consult to Occupational Therapy [OT Evaluation and Treatment] [CONS] Routine PT Evaluation and Treatment [CONS] Routine 11/18/18 11:48 Activity as Tolerated [RC] .Routine 11/18/18 11:49 Up With Assistance [RC] ASDIRECTED 11/18/18 12:32 LORazepam [Ativan] 2 mg IVPUSH Q4H PRN 11/18/18 12:45 Folic Acid 1 mg PO DAILY Multivitamins,Therapeutic [Thera] 1 each PO DAILY Thiamine [Vitamin B-1] 100 mg PO DAILY 11/18/18 14:28 Consult to Customer Success Intern [CONS] Routine - Plan Plan:: I/P: Acute: Mycoplasma pneumonia -Positive serology -Started on levaquin in ED prior to test results -Rapid improvement - will continue levaquin only based on clinical picture and pharmacy recommendation -CXR in ED 11/17/18: 1. Masslike density within the right base. May represent fluid-filled cavity as seen on prior CT which has decreased in size 2. Diffuse increased lung markings, most of which appear chronic but difficult to exclude mild superimposed bronchitis 3. other incidental findings -Pulmonary toilet -WBC 21.84-->11.69-->10.66 -CRP 28.9-->22.0-->16.2 -Consult RT -PRN nebulizers -IS/Acapella -PRN robitussin DM -O2 as needed -Home respiratory medications -IV fluids as ordered -Blood cultures as above -Sputum culture pending -CT chest w/ contrast 11/18/17: 1. Nodular finding within the right lung which has Hounsfield unit measurements of fluid with differential as noted 2. Scattered areas of scarring within both lungds. Other incidental findings 3. Nothing acute is appreciated AUTI -UA positive in ED for UTI -Reports urinary symptoms -Culture pending -WBC/CRP as above -Started on levaquin in ED - continue Chronic tobacco use -Reportedly an active smoker; tells me she hasn't smoked for around a week -Home nicotine patch ordered - has been refusing -Cessation counseling Hypomagnesemia -Magnesium 1.5-->1.6 -Supplement as needed Reported ETOH abuse -Reports daily ETOH use - one small drink daily on ice -CIWA protocol -Have been 0-2 so far; 0-1 today -Ativan for abortive seizures -MV/Thiamine/Folic acid -Will hold off LAC/Psychiatry consults for now Resolved: S/P Acute respiratory failure with hypoxia -Presented to ED with febrille illness, productive cough, dyspnea with saturations in low 80's -Tacypnea and tachycardic in ED -On chroinc O2 (3.5-4L) at home via [place] -History of lung CA - S/P LLL lobectomy; History of cavitary lesion -Continues to smoke - on home nicotine patch -ABG in ED -pH: 7.36 -pCO2: 51.7 -pO2: 76.0 -HCO3: 28.8 -O2 saturation: 95.7 -Base excess: 2.9 -A-a gradient: 64 -Blood cultures negative so far S/P Hypokalemia -Potassium 3.3-->4.5 -Supplement as needed Chronic: Constipation CAD/NM HTN HLD Depression B12 deficiency Plan: IVF IV ATB Nebs Pulm toilet DVT/GI prophylaxis: Lovenox Home meds as ordered Megace for appetite stimulation PT/OT -> recommending SNF placement [facility] CM/SW EMR re: lung leison Code status: DNR/DNI; PCP: Dr. Mock
[2018-11-19] MEDS: Levofloxacin/Dextrose 5%-Water 750 MG in Premix Bag 1 BAG IV SCH (08:11)
[2018-11-19] MEDS: Folic Acid 1 MG Tab PO SCH (08:13)
[2018-11-19] MEDS: Metoprolol Succinate 50 MG Tab.ER PO SCH (08:13)
[2018-11-19] MEDS: Thiamine 100 MG Tab PO SCH (08:13)
[2018-11-19] MEDS: Aspirin 81 MG Tab.Chew PO SCH (08:13)
[2018-11-19] MEDS: Sertraline 50 MG Tab PO SCH (08:13)
[2018-11-19] MEDS: Multivitamins,Therapeutic Tab PO SCH (08:13)
[2018-11-19] MEDS: Nicotine 14 MG/24 Hr Patch TRDERM SCH (08:14)
[2018-11-19] MEDS: Magnesium Oxide 400 MG Tab PO SCH ×2 (08:14→21:08)
[2018-11-19] MEDS: Tiotropium Inhaler 18 MCG Inhalation Powder Cap Kit of 5 INH SCH (08:23)
[2018-11-19] MEDS: Formoterol/Mometasone 200-5 MCG 8.8 GM Inhaler IH SCH ×2 (08:24→20:54)
[2018-11-19] MEDS: Enoxaparin 30 MG/0.3 ML Syringe SUBCUT SCH (12:14)
[2018-11-19] MEDS: Polyethylene Glycol 3350 Powder 17 GM Packet PO PRN (16:37)
[2018-11-19] MEDS: Mirtazapine 15 MG Tab PO SCH (21:08)
[2018-11-19] MEDS: Acetaminophen/oxyCODONE 325-5 MG Tab PO PRN (21:09)
[2018-11-20] MEDS: Megestrol Susp 40 MG/ML 10 ML UD Cup PO SCH ×2 (06:48→17:50)
[2018-11-20] MEDS: Levothyroxine 100 MCG Tab PO SCH (06:49)
[2018-11-20] MEDS: Thiamine 100 MG Tab PO SCH (09:23)
[2018-11-20] MEDS: Aspirin 81 MG Tab.Chew PO SCH (09:23)
[2018-11-20] MEDS: Folic Acid 1 MG Tab PO SCH (09:23)
[2018-11-20] MEDS: Nicotine 14 MG/24 Hr Patch TRDERM SCH (09:27)
[2018-11-20] MEDS: Sertraline 50 MG Tab PO SCH (09:27)
[2018-11-20] MEDS: Metoprolol Succinate 50 MG Tab.ER PO SCH (09:27)
[2018-11-20] MEDS: Multivitamins,Therapeutic Tab PO SCH (09:27)
[2018-11-20] MEDS: Tiotropium Inhaler 18 MCG Inhalation Powder Cap Kit of 5 INH SCH (09:36)
[2018-11-20] MEDS: Formoterol/Mometasone 200-5 MCG 8.8 GM Inhaler IH SCH ×2 (09:37→20:33)
--- NOTE | 2018-11-20 11:49 | PCM.PN ---
- General Info Date of Service: 11/20/18 Admission Dx/Problem (Free Text): Admission Diagnosis/Problem Admission Diagnosis/Problem Pneumonia Subjective Update: In to see Yeni. She is sitting up in the chair watching TV. She is very happy with her progress and reports she was actually hungry and ate breakfast today. She also states she is hungry now and has put in an order for lunch. She has seen the payroll officer and is not getting a supplement with each meal. She reports her SOB is better than baseline. Therapies report she has been improving by the day and had a significant improvement today over yesterday. Family is coming for a family meeting this evening or tomorrow. She has no concerns or complaints. Functional Status: Reports: Pain Controlled, Tolerating Diet, Ambulating, Urinating, Incentive Spirometry, Other (acapella ). Denies: New Symptoms - Review of Systems General: Reports: Weakness (improved ). Denies: Fever, Fatigue, Malaise, Chills HEENT: Reports: No Symptoms. Denies: Headaches Pulmonary: Reports: Shortness of Breath (Chronic but better than baseline ). Denies: Cough, Sputum, Wheezing Cardiovascular: Reports: Dyspnea on Exertion (chronic but better than baseline ) . Denies: Chest Pain, Palpitations Gastrointestinal: Reports: No Symptoms. Denies: Abdominal Pain, Constipation, Diarrhea, Nausea, Vomiting Genitourinary: Reports: No Symptoms. Denies: Pain Musculoskeletal: Reports: No Symptoms Skin: Reports: No Symptoms Neurological: Reports: No Symptoms. Denies: Confusion, Pre-Existing Deficit, Trouble Speaking, Difficulty Walking, Gait Disturbance Psychiatric: Reports: No Symptoms - Patient Data Vitals - Most Recent: Last Vital Signs Temp 98.2 F 11/20/18 09:21 Pulse 93 11/20/18 09:27 Resp 20 11/20/18 09:21 BP 105/53 L 11/20/18 09:27 Pulse Ox 94 L 11/20/18 09:40 Weight - Most Recent: 75 lb 6 oz I&O - Last 24 Hours: Intake & Output 11/19/18 11/20/18 11/20/18 22:59 06:59 14:59 Intake Total 770 100 240 Output Total 400 500 Balance 370 -400 240 Lab Results Last 24 Hours: Laboratory Results - last 24 hr 11/20/18 11/20/18 11/20/18 Range/Units 05:03 05:03 06:30 WBC 9.18 (3.98-10.04) K/mm3 RBC 4.13 (3.98-5.22) M/mm3 Hgb 13.1 (11.2-15.7) gm/L Hct 40.7 (34.1-44.9) % MCV 98.5 H (79.4-94.8) fl MCH 31.7 (25.6-32.2) pg MCHC 32.2 (32.2-35.5) g/dl RDW Std Deviation 47.2 H (36.4-46.3) fL Plt Count 231 (182-369) K/mm3 MPV 10.1 (9.4-12.3) fl Neut % (Auto) 71.4 H (34.0-71.1) % Lymph % (Auto) 12.3 L (19.3-51.7) % [place] % (Auto) 9.5 (4.7-12.5) % Eos % (Auto) 5.4 (0.7-5.8) Baso % (Auto) 0.2 (0.1-1.2) % Neut # (Auto) 6.55 H (1.56-6.13) K/mm3 Lymph # (Auto) 1.13 L (1.18-3.74) K/mm3 [place] # (Auto) 0.87 H (0.24-0.36) K/mm3 Eos # (Auto) 0.50 H (0.04-0.36) K/mm3 Baso # (Auto) 0.02 (0.01-0.08) K/mm3 Manual Slide Review Abnormal smear Sodium 138 (136-145) mEq/L Potassium 4.9 (3.5-5.1) mEq/L Chloride 102 (98-107) mEq/L Carbon Dioxide 30 (21-32) mEq/L Anion Gap 10.9 (5-15) BUN 16 (7-18) mg/dL Creatinine 0.7 (0.55-1.02) mg/dL Est Cr Clr Drug Dosing 32.29 mL/min Estimated GFR (MDRD) > 60 (>60) mL/min BUN/Creatinine Ratio 22.9 H (14-18) Glucose 75 L (83-115) mg/dL Lactic Acid 0.9 (0.4-2.0) mmol/L Calcium 9.0 (8.5-10.1) mg/dL Magnesium 1.8 (1.8-2.4) mg/dl C-Reactive Protein 13.6 H* (<1.0) mg/dL Cm Results Last 24 Hours: Microbiology 11/17/18 12:50 Urine Culture - Preliminary Urine, Catheterized Abiotrophia/Granulicatella Sp 11/17/18 08:45 Aerobic Blood Culture - Preliminary Blood - Venous NO GROWTH AFTER 3 DAYS Anaerobic Blood Culture - Preliminary NO GROWTH AFTER 3 DAYS 11/17/18 08:35 Aerobic Blood Culture - Preliminary Blood - Venous - Lab Draw NO GROWTH AFTER 3 DAYS Anaerobic Blood Culture - Preliminary NO GROWTH AFTER 3 DAYS 11/17/18 09:05 Gram Stain - Final Sputum - Expectorated Sputum Culture - Preliminary Haemophilus Influenzae Iii Debbie Tropicalis 11/17/18 10:05 Streptococcus pneumoniae Antigen (M - Final Urine Med Orders - Current: Current Medications Albuterol/Ipratropium (Duoneb 3.0-0.5 Mg/3 Ml) 3 ml NEB QIDRT PRN PRN Reason: Shortness of Breath Last Admin: 11/19/18 20:54 Dose: 3 ml Aspirin (Aspirin) 81 mg PO DAILY [facility] Last Admin: 11/20/18 09:23 Dose: 81 mg Enoxaparin Sodium (Lovenox) 30 mg SUBCUT Q24H [facility] Last Admin: 11/19/18 12:14 Dose: 30 mg Folic Acid (Folic Acid) 1 mg PO DAILY [facility] Last Admin: 11/20/18 09:23 Dose: 1 mg Guaifenesin/Phenylephrine HCl (Robitussin Dm) 10 ml PO Q4H PRN PRN Reason: Cough Levofloxacin/Dextrose 750 mg/ (Premix) 150 mls @ 100 mls/hr IV Q48H [facility] Last Admin: 11/19/18 08:11 Dose: 100 mls/hr Ipratropium [place] (Atrovent) 0.5 mg NEB Q4H PRN PRN Reason: Shortness of Breath Levothyroxine Sodium (Synthroid) 100 mcg PO DAILY@0700 [facility] Last Admin: 11/20/18 06:49 Dose: 100 mcg Lorazepam (Ativan) 0 mg IVPUSH Q4H PRN; Protocol PRN Reason: Anxiety Lorazepam (Ativan) 2 mg IVPUSH Q4H PRN PRN Reason: Seizures Megestrol Acetate (Megace 40 Mg/Ml Susp) 400 mg PO BIDMEALS [facility] Last Admin: 11/20/18 06:48 Dose: 400 mg Metoprolol Succinate (Toprol Xl) 50 mg PO DAILY [facility] Last Admin: 11/20/18 09:27 Dose: 50 mg Metoprolol Tartrate (Lopressor) 5 mg IVPUSH Q6H PRN PRN Reason: heart rate >100 Mirtazapine (Remeron) 15 mg PO BEDTIME [facility] Last Admin: 11/19/18 21:08 Dose: 15 mg Miscellaneous Information (Remove Patch) 1 ea TRDERM DAILY [facility] Last Admin: 11/20/18 09:27 Dose: Not Given Mometasone Furoate/Formoterol Fumar (Dulera 200-5 Mcg) 2 puff IH BID [facility] Last Admin: 11/20/18 09:37 Dose: 2 puff Multivitamins (Thera) 1 each PO DAILY [facility] Last Admin: 11/20/18 09:27 Dose: 1 each Nicotine (Habitrol) 14 mg TRDERM DAILY [facility] Last Admin: 11/20/18 09:27 Dose: Not Given Nitroglycerin (Nitrostat) 0.4 mg SL ASDIRECTED PRN PRN Reason: Chest Pain Oxycodone/Acetaminophen (Percocet 325-5 Mg) 1 tab PO Q4H PRN PRN Reason: Pain (moderate 4-6) Last Admin: 11/19/18 21:09 Dose: 1 tab Polyethylene Glycol (Miralax) 17 gm PO DAILY PRN PRN Reason: Constipation Last Admin: 11/19/18 16:37 Dose: 17 gm Sertraline HCl (Zoloft) 50 mg PO DAILY [facility] Last Admin: 11/20/18 09:27 Dose: 50 mg Sodium Chloride (Saline Flush) 10 ml FLUSH ONETIME PRN PRN Reason: IV FLUSH Last Admin: 11/18/18 08:51 Dose: 10 ml Thiamine HCl (Vitamin B-1) 100 mg PO DAILY [facility] Last Admin: 11/20/18 09:23 Dose: 100 mg Tiotropium [place] (Spiriva Handihaler) 18 mcg INH DAILY@0900 [facility] Last Admin: 11/20/18 09:36 Dose: 1 unit Discontinued Medications Acetaminophen (Tylenol) 650 mg PO NOW ONE Stop: 11/17/18 08:30 Last Admin: 11/17/18 08:54 Dose: 650 mg Albuterol/Ipratropium (Duoneb 3.0-0.5 Mg/3 Ml) 3 ml NEB QIDRT [facility] Last Admin: 11/17/18 15:05 Dose: 3 ml Furosemide (Lasix) 40 mg IVPUSH NOW ONE Stop: 11/17/18 09:42 Last Admin: 11/17/18 09:53 Dose: 40 mg Dextrose/Sodium Chloride (Dextrose 5%-Normal Saline) 1,000 mls @ 200 mls/hr IV ASDIRECTED [facility] Last Admin: 11/17/18 08:49 Dose: 200 mls/hr Levofloxacin/Dextrose 750 mg/ (Premix) 150 mls @ 100 mls/hr IV ONETIME ONE Stop: 11/17/18 09:59 Last Admin: 11/17/18 08:52 Dose: 100 mls/hr Dextrose/Sodium Chloride (Dextrose 5%-Normal Saline) 1,000 mls @ 75 mls/hr IV ASDIRECTED [facility] Lactated Ringer's (Ringers, Lactated) 1,000 mls @ 125 mls/hr IV ASDIRECTED [facility] Stop: 11/18/18 09:00 Last Admin: 11/17/18 22:44 Dose: 125 mls/hr Iopamidol (Isovue-300 (61%)) 100 ml IVPUSH ONETIME ONE Stop: 11/18/18 08:36 Last Admin: 11/18/18 08:43 Dose: 60 ml Magnesium Oxide (Magnesium Oxide) 400 mg PO ONETIME ONE Stop: 11/18/18 07:57 Last Admin: 11/18/18 09:36 Dose: 400 mg Magnesium Oxide (Magnesium Oxide) 400 mg PO BID [facility] Stop: 11/19/18 21:01 Last Admin: 11/19/18 21:08 Dose: 400 mg Megestrol Acetate (Megace) 40 mg PO BID [facility] Last Admin: 11/18/18 00:41 Dose: Not Given Megestrol Acetate (Megace) 40 mg PO BIDMEALS [facility] Last Admin: 11/18/18 07:45 Dose: Not Given Nicotine (Habitrol) 7 mg TRDERM DAILY [facility] Oxycodone/Acetaminophen (Percocet 325-5 Mg) 2 tab PO ONETIME ONE Stop: 11/17/18 10:30 Last Admin: 11/17/18 10:45 Dose: Not Given Potassium Chloride (Klor-Con M20) 40 meq PO Q4H [facility] Stop: 11/18/18 12:01 Last Admin: 11/18/18 12:47 Dose: 40 meq Tiotropium [place] (Spiriva Handihaler) 18 mcg INH DAILYRT [facility] - Exam Quality Assessment: Supplemental Oxygen (3L), DVT Prophylaxis General: Alert, Oriented, Cooperative, No Acute Distress, Other (Cachectic ) HEENT: Pupils Equal, Pupils Reactive, EOMI, Mucous Membr. Moist/[place] Neck: Supple, Trachea Midline Lungs: Normal Respiratory Effort, Decreased Breath Sounds Cardiovascular: Regular Rate, Regular Rhythm GI/Abdominal Exam: Normal Bowel Sounds, Soft, Non-Tender, No Distention, No Abnormal Bruit (Female) Exam: Deferred Back Exam: Normal Inspection, Full Range of Motion Extremities: Normal Inspection, Normal Range of Motion, Non-Tender, No Pedal Edema, Normal Capillary Refill Peripheral Pulses: 2+: Radial (L), Radial (R), Dorsalis Pedis (L), Dorsalis Pedis (R) Skin: Warm, Dry, Intact Neurological: No New Focal Deficit Psy/Mental Status: Alert, Normal Affect, Normal Mood - Problem List & Annotations (1) Abnormal finding on chest xray SNOMED Code(s): 809910361, 441443437 Code(s): R93.89 - ABNORMAL FINDINGS ON DX IMAGING OF OTH BODY STRUCTURES Status: Acute Priority: High Current Visit: Yes (2) Congestive heart failure SNOMED Code(s): 87946612 Code(s): I50.9 - HEART FAILURE, UNSPECIFIED Status: Chronic Priority: Medium Current Visit: Yes Qualifiers: Heart failure type: unspecified Heart failure chronicity: chronic Qualified Code(s): I50.9 - Heart failure, unspecified (3) Mycoplasma pneumonia SNOMED Code(s): 03348098 Code(s): J15.7 - PNEUMONIA DUE TO MYCOPLASMA PNEUMONIAE Status: Acute Priority: High Current Visit: Yes Qualifiers: Laterality: right Lung location: lower lobe of lung Qualified Code(s): J15.7 - Pneumonia due to Mycoplasma pneumoniae (4) Pneumonia SNOMED Code(s): 093838952 Code(s): J18.9 - PNEUMONIA, UNSPECIFIED ORGANISM Status: Acute Priority: High Current Visit: Yes Qualifiers: Pneumonia type: due to Mycoplasma pneumoniae Laterality: right Lung location: lower lobe of lung Qualified Code(s): J15.7 - Pneumonia due to Mycoplasma pneumoniae (5) Urinary tract infection SNOMED Code(s): 43451116 Code(s): N39.0 - URINARY TRACT INFECTION, SITE NOT SPECIFIED Status: Acute Priority: High Current Visit: Yes Qualifiers: Urinary tract infection type: site unspecified Hematuria presence: without hematuria Qualified Code(s): N39.0 - Urinary tract infection, site not specified (6) COPD (chronic obstructive pulmonary disease) SNOMED Code(s): 12016123 Code(s): J44.9 - CHRONIC OBSTRUCTIVE PULMONARY DISEASE, UNSPECIFIED Status : Chronic Priority: Medium Current Visit: No Qualifiers: COPD type: unspecified COPD Qualified Code(s): J44.9 - Chronic obstructive pulmonary disease, unspecified (7) Constipation SNOMED Code(s): 05528247 Code(s): K59.00 - CONSTIPATION, UNSPECIFIED Status: Acute Priority: Medium Current Visit: Yes Qualifiers: Constipation type: unspecified constipation type Qualified Code(s): K59.00 - Constipation, unspecified (8) B12 deficiency SNOMED Code(s): 201595719 Code(s): E53.8 - DEFICIENCY OF OTHER SPECIFIED B GROUP VITAMINS Status: Chronic Priority: Medium Current Visit: No (9) CAD (coronary artery disease) SNOMED Code(s): 09738774 Code(s): I25.10 - ATHSCL HEART DISEASE OF [place] CORONARY ARTERY W/O ANG PCTRS Status: Chronic Priority: Medium Current Visit: No Qualifiers: Coronary Disease-Associated Artery/Lesion type: unspecified vessel or lesion type [place] vs. transplanted heart: [place] heart Associated angina: angina presence unspecified Qualified Code(s): I25.10 - Atherosclerotic heart disease of [place] coronary artery without angina pectoris (10) HLD (hyperlipidemia) SNOMED Code(s): 94140525 Code(s): E78.5 - HYPERLIPIDEMIA, UNSPECIFIED Status: Chronic Priority: Low Current Visit: No Qualifiers: Hyperlipidemia type: unspecified Qualified Code(s): E78.5 - Hyperlipidemia , unspecified (11) HTN (hypertension) SNOMED Code(s): 06855775 Code(s): I10 - ESSENTIAL (PRIMARY) HYPERTENSION Status: Chronic Priority : Medium Current Visit: No Qualifiers: Hypertension type: unspecified Qualified Code(s): I10 - Essential (primary ) hypertension (12) History of AL (myocardial infarction) SNOMED Code(s): 986146470 Code(s): I25.2 - OLD MYOCARDIAL INFARCTION Status: Chronic Priority: Low Current Visit: No (13) History of lobectomy of lung SNOMED Code(s): 504017420 Code(s): Z90.2 - ACQUIRED ABSENCE OF LUNG [PART OF] Status: Chronic Priority: High Current Visit: No (14) History of lung cancer SNOMED Code(s): 539902906, 856776612 Code(s): Z85.118 - PERSONAL HISTORY OF MALIGNANT NEOPLASM OF BRONCHUS AND LUNG Status: Chronic Priority: High Current Visit: No (15) Tobacco use disorder SNOMED Code(s): 065051922 Code(s): F17.200 - NICOTINE DEPENDENCE, UNSPECIFIED, UNCOMPLICATED Status: Chronic Priority: High Current Visit: Yes - Problem List Review Problem List Initiated/Reviewed/Updated: Yes - Plan Plan:: I/P: Acute: Mycoplasma pneumonia -Positive serology -Started on levaquin in ED prior to test results -Rapid improvement - will continue levaquin only based on clinical picture and pharmacy recommendation -CXR in ED 11/17/18: 1. Masslike density within the right base. May represent fluid-filled cavity as seen on prior CT which has decreased in size 2. Diffuse increased lung markings, most of which appear chronic but difficult to exclude mild superimposed bronchitis 3. other incidental findings -Pulmonary toilet -WBC 21.84-->11.69-->10.66-->9.18 -CRP 28.9-->22.0-->16.2-->13.6 -Consult RT -PRN nebulizers -IS/Acapella -PRN robitussin DM -O2 as needed -Home respiratory medications -IV fluids as ordered -Blood cultures as above -Sputum culture - H.flu and debbie -CT chest w/ contrast 11/18/17: 1. Nodular finding within the right lung which has Hounsfield unit measurements of fluid with differential as noted 2. Scattered areas of scarring within both lungds. Other incidental findings 3. Nothing acute is appreciated AUTI -UA positive in ED for UTI -Reports urinary symptoms -Culture - Abiotrophia/Granulicatella Sp susceptible to levaquin -WBC/CRP as above -Started on levaquin in ED - continue Chronic tobacco use -Reportedly an active smoker; tells me she hasn't smoked for around a week -Home nicotine patch ordered - has been refusing -Cessation counseling Reported ETOH abuse -Reports daily ETOH use - one small drink daily on ice -CIWA protocol -Have been 0-2 so far; 0-1 today -Ativan for abortive seizures -MV/Thiamine/Folic acid -Will hold off LAC/Psychiatry consults for now Decreased appetite -Reports minimal appetite on admission -Very thin with BMI of 14 -Broadcast Producer consulted -Dietary supplement with meals -Megace BID with meals -Reports increased appetite today Resolved: S/P Acute respiratory failure with hypoxia -Presented to ED with febrille illness, productive cough, dyspnea with saturations in low 80's -Tacypnea and tachycardic in ED -On chroinc O2 (3.5-4L) at home via NC -History of lung CA - S/P LLL lobectomy; History of cavitary lesion -Continues to smoke - on home nicotine patch -ABG in ED -pH: 7.36 -pCO2: 51.7 -pO2: 76.0 -HCO3: 28.8 -O2 saturation: 95.7 -Base excess: 2.9 -A-a gradient: 64 -Blood cultures negative so far S/P Hypokalemia -Potassium 3.3-->4.5 -Supplement as needed S/P Hypomagnesemia -Magnesium 1.5-->1.6-->1.8 -Supplement as needed Chronic: Constipation CAD/AL HTN HLD Depression B12 deficiency Plan: IVF IV ATB Nebs Pulm toilet DVT/GI prophylaxis: Lovenox Home meds as ordered Megace for appetite stimulation PT/OT -> recommending SNF placement Daily Labs CM/SW EMR re: lung leison Code status: DNR/DNI; PCP: Dr. Mock LOS> 96 HR pending disposition - family meeting scheduled for 11/21/18
[2018-11-20] MEDS: Enoxaparin 30 MG/0.3 ML Syringe SUBCUT SCH (12:15)
[2018-11-20] MEDS: Polyethylene Glycol 3350 Powder 17 GM Packet PO PRN (17:50)
[2018-11-20] MEDS: Mirtazapine 15 MG Tab PO SCH (22:18)
[2018-11-21] MEDS: Megestrol Susp 40 MG/ML 10 ML UD Cup PO SCH ×2 (07:32→17:27)
[2018-11-21] MEDS: Levothyroxine 100 MCG Tab PO SCH (07:33)
[2018-11-21] MEDS: Tiotropium Inhaler 18 MCG Inhalation Powder Cap Kit of 5 INH SCH (08:23)
[2018-11-21] MEDS: Formoterol/Mometasone 200-5 MCG 8.8 GM Inhaler IH SCH ×2 (08:23→20:31)
[2018-11-21] MEDS: Sertraline 50 MG Tab PO SCH (09:18)
[2018-11-21] MEDS: Thiamine 100 MG Tab PO SCH (09:18)
[2018-11-21] MEDS: Folic Acid 1 MG Tab PO SCH (09:18)
[2018-11-21] MEDS: Multivitamins,Therapeutic Tab PO SCH (09:18)
[2018-11-21] MEDS: Metoprolol Succinate 50 MG Tab.ER PO SCH (09:19)
[2018-11-21] MEDS: Aspirin 81 MG Tab.Chew PO SCH (09:19)
[2018-11-21] MEDS: Nicotine 14 MG/24 Hr Patch TRDERM SCH (09:21)
[2018-11-21] MEDS: Levofloxacin/Dextrose 5%-Water 750 MG in Premix Bag 1 BAG IV SCH (09:34)
[2018-11-21] MEDS: Albuterol/Ipratropium 3.0-0.5 MG/3 ML Neb Soln NEB PRN ×3 (10:38→20:31)
--- NOTE | 2018-11-21 10:49 | CR ---
Chest: 2 views of the chest were obtained. Comparison: Prior chest CT of 11/18/18 and chest x-ray of 11/17/18. Increasing density within both lungs from prior study. Nodular density compatible with intrafissural fluid on the right side. Possible increased loculated pleural fluid within the left mid chest. Lungs are hyperinflated. Heart size is normal. Tortuous thoracic aorta is seen. Deformity of both distal clavicles at the acromioclavicular joint are seen presumably due to old trauma. Prior vertebroplasty is seen. Compression deformities are noted at the thoracolumbar junction which appear old causing kyphosis. Degenerative change is also scattered within the spine. Impression: 1. Increasing density on both sides of the chest most likely representing worsening bronchopneumonia. 2. Nodular density compatible with intrafissural fluid within the right base. Nodular density is now seen within the left midlung most likely representing loculated left-sided pleural effusion. 3. Emphysematous change and other incidental findings. Diagnostic code #3
[2018-11-21] MEDS ORDERED: Fluconazole 150 MG Tab PO ONE (11:12)
[2018-11-21] MEDS: Polyethylene Glycol 3350 Powder 17 GM Packet PO PRN (11:17)
[2018-11-21] MEDS: Enoxaparin 30 MG/0.3 ML Syringe SUBCUT SCH ×2 (11:18→11:30)
[2018-11-21] MEDS ORDERED: Magnesium Sulfate/Water 2 GM in Premix Bag 1 BAG IV ONE (12:28)
--- NOTE | 2018-11-21 12:58 | PCM.PN ---
- General Info Date of Service: 11/21/18 Functional Status: Reports: Pain Controlled, Tolerating Diet, Ambulating, Urinating - Review of Systems General: Reports: Weakness, Fatigue HEENT: Reports: No Symptoms Pulmonary: Reports: Shortness of Breath Cardiovascular: Reports: No Symptoms Gastrointestinal: Reports: No Symptoms Genitourinary: Reports: No Symptoms Musculoskeletal: Reports: No Symptoms Skin: Reports: No Symptoms Neurological: Reports: No Symptoms Psychiatric: Reports: No Symptoms - Patient Data Vitals - Most Recent: Last Vital Signs Temp 37.3 C 11/21/18 09:16 Pulse 87 11/21/18 09:19 Resp 22 H 11/21/18 09:16 BP 108/61 11/21/18 09:19 Pulse Ox 98 11/21/18 10:38 Weight - Most Recent: 33.929 kg I&O - Last 24 Hours: Intake & Output 11/20/18 11/21/18 11/21/18 22:59 06:59 14:59 Intake Total 200 200 0 Output Total 600 1250 Balance -400 -1050 0 Lab Results Last 24 Hours: Laboratory Results - last 24 hr 11/21/18 11/21/18 11/21/18 Range/Units 05:26 05:26 05:54 WBC 10.83 H (3.98-10.04) K/mm3 RBC 4.23 (3.98-5.22) M/mm3 Hgb 13.5 (11.2-15.7) gm/L Hct 41.8 (34.1-44.9) % MCV 98.8 H (79.4-94.8) fl MCH 31.9 (25.6-32.2) pg MCHC 32.3 (32.2-35.5) g/dl RDW Std Deviation 48.3 H (36.4-46.3) fL Plt Count 317 (182-369) K/mm3 MPV 9.8 (9.4-12.3) fl Neut % (Auto) 78.0 H (34.0-71.1) % Lymph % (Auto) 13.2 L (19.3-51.7) % Worth % (Auto) 7.3 (4.7-12.5) % Eos % (Auto) 0.5 L (0.7-5.8) Baso % (Auto) 0.2 (0.1-1.2) % Neut # (Auto) 8.45 H (1.56-6.13) K/mm3 Lymph # (Auto) 1.43 (1.18-3.74) K/mm3 Worth # (Auto) 0.79 H (0.24-0.36) K/mm3 Eos # (Auto) 0.05 (0.04-0.36) K/mm3 Baso # (Auto) 0.02 (0.01-0.08) K/mm3 Manual Slide Review Abnormal smear Sodium 140 (136-145) mEq/L Potassium 4.8 (3.5-5.1) mEq/L Chloride 102 (98-107) mEq/L Carbon Dioxide 33 H (21-32) mEq/L Anion Gap 9.8 (5-15) BUN 17 (7-18) mg/dL Creatinine 0.6 (0.55-1.02) mg/dL Est Cr Clr Drug Dosing 37.67 mL/min Estimated GFR (MDRD) > 60 (>60) mL/min BUN/Creatinine Ratio 28.3 H (14-18) Glucose 83 (83-115) mg/dL Lactic Acid 0.6 (0.4-2.0) mmol/L Calcium 9.5 (8.5-10.1) mg/dL Magnesium 1.8 (1.8-2.4) mg/dl C-Reactive Protein 10.9 H* (<1.0) mg/dL Cm Results Last 24 Hours: Microbiology 11/17/18 08:45 Aerobic Blood Culture - Preliminary Blood - Venous NO GROWTH AFTER 4 DAYS Anaerobic Blood Culture - Preliminary NO GROWTH AFTER 4 DAYS 11/17/18 08:35 Aerobic Blood Culture - Preliminary Blood - Venous - Lab Draw NO GROWTH AFTER 4 DAYS Anaerobic Blood Culture - Preliminary NO GROWTH AFTER 4 DAYS 11/17/18 09:05 Gram Stain - Final Sputum - Expectorated Sputum Culture - Final Haemophilus Influenzae Debbie Tropicalis 11/17/18 12:50 Urine Culture - Preliminary Urine, Catheterized Abiotrophia/Granulicatella Sp Med Orders - Current: Current Medications Albuterol/Ipratropium (Duoneb 3.0-0.5 Mg/3 Ml) 3 ml NEB QIDRT PRN PRN Reason: Shortness of Breath Last Admin: 11/21/18 10:38 Dose: 3 ml Aspirin (Aspirin) 81 mg PO DAILY [facility] Last Admin: 11/21/18 09:19 Dose: 81 mg Enoxaparin Sodium (Lovenox) 30 mg SUBCUT Q24H [facility] Last Admin: 11/21/18 11:30 Dose: Not Given Folic Acid (Folic Acid) 1 mg PO DAILY [facility] Last Admin: 11/21/18 09:18 Dose: 1 mg Guaifenesin/Phenylephrine HCl (Robitussin Dm) 10 ml PO Q4H PRN PRN Reason: Cough Levofloxacin/Dextrose 750 mg/ (Premix) 150 mls @ 100 mls/hr IV Q48H [facility] Last Admin: 11/21/18 09:34 Dose: 100 mls/hr Piperacillin Sod/Tazobactam (Sod 4.5 gm/ Sodium Chloride) 100 mls @ 25 mls/hr IV Q8H [facility] Piperacillin Sod/Tazobactam (Sod 4.5 gm/ Sodium Chloride) 100 mls @ 200 mls/hr IV ONETIME ONE Stop: 11/21/18 13:29 Magnesium Sulfate 2 gm/ Premix 50 mls @ 25 mls/hr IV ONETIME ONE Stop: 11/21/18 14:27 Levothyroxine Sodium (Synthroid) 100 mcg PO DAILY@0700 [facility] Last Admin: 11/21/18 07:33 Dose: 100 mcg Lorazepam (Ativan) 0 mg IVPUSH Q4H PRN; Protocol PRN Reason: Anxiety Lorazepam (Ativan) 2 mg IVPUSH Q4H PRN PRN Reason: Seizures Megestrol Acetate (Megace 40 Mg/Ml Susp) 400 mg PO BIDMEALS [facility] Last Admin: 11/21/18 07:32 Dose: 400 mg Metoprolol Succinate (Toprol Xl) 50 mg PO DAILY [facility] Last Admin: 11/21/18 09:19 Dose: 50 mg Metoprolol Tartrate (Lopressor) 5 mg IVPUSH Q6H PRN PRN Reason: heart rate >100 Mirtazapine (Remeron) 15 mg PO BEDTIME [facility] Last Admin: 11/20/18 22:18 Dose: 15 mg Miscellaneous Information (Remove Patch) 1 ea TRDERM DAILY [facility] Last Admin: 11/21/18 09:21 Dose: Not Given Mometasone Furoate/Formoterol Fumar (Dulera 200-5 Mcg) 2 puff IH BID [facility] Last Admin: 11/21/18 08:23 Dose: 2 puff Multivitamins (Thera) 1 each PO DAILY [facility] Last Admin: 11/21/18 09:18 Dose: 1 each Nicotine (Habitrol) 14 mg TRDERM DAILY [facility] Last Admin: 11/21/18 09:21 Dose: Not Given Nitroglycerin (Nitrostat) 0.4 mg SL ASDIRECTED PRN PRN Reason: Chest Pain Oxycodone/Acetaminophen (Percocet 325-5 Mg) 1 tab PO Q4H PRN PRN Reason: Pain (moderate 4-6) Last Admin: 11/19/18 21:09 Dose: 1 tab Polyethylene Glycol (Miralax) 17 gm PO DAILY PRN PRN Reason: Constipation Last Admin: 11/21/18 11:17 Dose: 17 gm Sertraline HCl (Zoloft) 50 mg PO DAILY [facility] Last Admin: 11/21/18 09:18 Dose: 50 mg Sodium Chloride (Saline Flush) 10 ml FLUSH ONETIME PRN PRN Reason: IV FLUSH Last Admin: 11/18/18 08:51 Dose: 10 ml Thiamine HCl (Vitamin B-1) 100 mg PO DAILY [facility] Last Admin: 11/21/18 09:18 Dose: 100 mg Tiotropium [place] (Spiriva Handihaler) 18 mcg INH DAILY@0900 [facility] Last Admin: 11/21/18 08:23 Dose: 1 cap Discontinued Medications Acetaminophen (Tylenol) 650 mg PO NOW ONE Stop: 11/17/18 08:30 Last Admin: 11/17/18 08:54 Dose: 650 mg Albuterol/Ipratropium (Duoneb 3.0-0.5 Mg/3 Ml) 3 ml NEB QIDRT [facility] Last Admin: 11/17/18 15:05 Dose: 3 ml Fluconazole (Diflucan) 150 mg PO ONETIME ONE Stop: 11/21/18 11:13 Last Admin: 11/21/18 11:17 Dose: 150 mg Furosemide (Lasix) 40 mg IVPUSH NOW ONE Stop: 11/17/18 09:42 Last Admin: 11/17/18 09:53 Dose: 40 mg Dextrose/Sodium Chloride (Dextrose 5%-Normal Saline) 1,000 mls @ 200 mls/hr IV ASDIRECTED [facility] Last Admin: 11/17/18 08:49 Dose: 200 mls/hr Levofloxacin/Dextrose 750 mg/ (Premix) 150 mls @ 100 mls/hr IV ONETIME ONE Stop: 11/17/18 09:59 Last Admin: 11/17/18 08:52 Dose: 100 mls/hr Dextrose/Sodium Chloride (Dextrose 5%-Normal Saline) 1,000 mls @ 75 mls/hr IV ASDIRECTED [facility] Lactated Ringer's (Ringers, Lactated) 1,000 mls @ 125 mls/hr IV ASDIRECTED [facility] Stop: 11/18/18 09:00 Last Admin: 11/17/18 22:44 Dose: 125 mls/hr Iopamidol (Isovue-300 (61%)) 100 ml IVPUSH ONETIME ONE Stop: 11/18/18 08:36 Last Admin: 11/18/18 08:43 Dose: 60 ml Ipratropium [place] (Atrovent) 0.5 mg NEB Q4H PRN PRN Reason: Shortness of Breath Magnesium Oxide (Magnesium Oxide) 400 mg PO ONETIME ONE Stop: 11/18/18 07:57 Last Admin: 11/18/18 09:36 Dose: 400 mg Magnesium Oxide (Magnesium Oxide) 400 mg PO BID [facility] Stop: 11/19/18 21:01 Last Admin: 11/19/18 21:08 Dose: 400 mg Megestrol Acetate (Megace) 40 mg PO BID [facility] Last Admin: 11/18/18 00:41 Dose: Not Given Megestrol Acetate (Megace) 40 mg PO BIDMEALS [facility] Last Admin: 11/18/18 07:45 Dose: Not Given Nicotine (Habitrol) 7 mg TRDERM DAILY [facility] Oxycodone/Acetaminophen (Percocet 325-5 Mg) 2 tab PO ONETIME ONE Stop: 11/17/18 10:30 Last Admin: 11/17/18 10:45 Dose: Not Given Potassium Chloride (Klor-Con M20) 40 meq PO Q4H [facility] Stop: 11/18/18 12:01 Last Admin: 11/18/18 12:47 Dose: 40 meq Tiotropium [place] (Spiriva Handihaler) 18 mcg INH DAILYRT [facility] - Exam Quality Assessment: Supplemental Oxygen, DVT Prophylaxis General: Alert, Oriented, Cooperative, No Acute Distress HEENT: Pupils Equal, Pupils Reactive, EOMI Neck: Trachea Midline, No JVD Lungs: Normal Respiratory Effort, Decreased Breath Sounds, Rhonchi GI/Abdominal Exam: Normal Bowel Sounds, Soft, Non-Tender, No Organomegaly, No Distention (Female) Exam: Deferred Back Exam: Normal Inspection Extremities: Normal Inspection, Non-Tender, No Pedal Edema, Normal Capillary Refill Skin: Warm Neurological: No New Focal Deficit, Normal Speech Psy/Mental Status: Alert, Normal Affect, Normal Mood - Problem List & Annotations (1) Mycoplasma pneumonia SNOMED Code(s): 95677342 Code(s): J15.7 - PNEUMONIA DUE TO MYCOPLASMA PNEUMONIAE Status: Acute Priority: High Current Visit: Yes Qualifiers: Laterality: right Lung location: lower lobe of lung Qualified Code(s): J15.7 - Pneumonia due to Mycoplasma pneumoniae (2) Urinary tract infection SNOMED Code(s): 26514480 Code(s): N39.0 - URINARY TRACT INFECTION, SITE NOT SPECIFIED Status: Acute Priority: High Current Visit: Yes Qualifiers: Urinary tract infection type: site unspecified Hematuria presence: without hematuria Qualified Code(s): N39.0 - Urinary tract infection, site not specified (3) Abnormal finding on chest xray SNOMED Code(s): 601033409, 887569455 Code(s): R93.89 - ABNORMAL FINDINGS ON DX IMAGING OF OTH BODY STRUCTURES Status: Acute Priority: High Current Visit: Yes (4) Congestive heart failure SNOMED Code(s): 39339681 Code(s): I50.9 - HEART FAILURE, UNSPECIFIED Status: Chronic Priority: Medium Current Visit: Yes Qualifiers: Heart failure type: unspecified Heart failure chronicity: chronic Qualified Code(s): I50.9 - Heart failure, unspecified (5) Acute hypoxemic respiratory failure SNOMED Code(s): 810658147 Code(s): J96.01 - ACUTE RESPIRATORY FAILURE WITH HYPOXIA Status: Resolved Priority: High Current Visit: No (6) COPD (chronic obstructive pulmonary disease) SNOMED Code(s): 44909415 Code(s): J44.9 - CHRONIC OBSTRUCTIVE PULMONARY DISEASE, UNSPECIFIED Status : Chronic Priority: Medium Current Visit: No Qualifiers: COPD type: unspecified COPD Qualified Code(s): J44.9 - Chronic obstructive pulmonary disease, unspecified (7) Elevated d-dimer SNOMED Code(s): 227021934 Code(s): R79.89 - OTHER SPECIFIED ABNORMAL FINDINGS OF BLOOD CHEMISTRY Status: Acute Priority: High Current Visit: No (8) Hypomagnesemia SNOMED Code(s): 262175052 Code(s): E83.42 - HYPOMAGNESEMIA Status: Acute Current Visit: No (9) B12 deficiency SNOMED Code(s): 342576421 Code(s): E53.8 - DEFICIENCY OF OTHER SPECIFIED B GROUP VITAMINS Status: Chronic Priority: Medium Current Visit: No (10) CAD (coronary artery disease) SNOMED Code(s): 76836392 Code(s): I25.10 - ATHSCL HEART DISEASE OF [place] CORONARY ARTERY W/O ANG PCTRS Status: Chronic Priority: Medium Current Visit: No Qualifiers: Coronary Disease-Associated Artery/Lesion type: unspecified vessel or lesion type [place] vs. transplanted heart: [place] heart Associated angina: angina presence unspecified Qualified Code(s): I25.10 - Atherosclerotic heart disease of [place] coronary artery without angina pectoris (11) Chronic respiratory failure with hypoxia, on home oxygen therapy SNOMED Code(s): 648082366 Code(s): J96.11 - CHRONIC RESPIRATORY FAILURE WITH HYPOXIA; Z99.81 - DEPENDENCE ON SUPPLEMENTAL OXYGEN Status: Chronic Priority: High Current Visit: No (12) HLD (hyperlipidemia) SNOMED Code(s): 64671011 Code(s): E78.5 - HYPERLIPIDEMIA, UNSPECIFIED Status: Chronic Priority: Low Current Visit: No Qualifiers: Hyperlipidemia type: unspecified Qualified Code(s): E78.5 - Hyperlipidemia , unspecified (13) HTN (hypertension) SNOMED Code(s): 20029912 Code(s): I10 - ESSENTIAL (PRIMARY) HYPERTENSION Status: Chronic Priority : Medium Current Visit: No Qualifiers: Hypertension type: unspecified Qualified Code(s): I10 - Essential (primary ) hypertension (14) History of ND (myocardial infarction) SNOMED Code(s): 476340215 Code(s): I25.2 - OLD MYOCARDIAL INFARCTION Status: Chronic Priority: Low Current Visit: No (15) History of lobectomy of lung SNOMED Code(s): 277216942 Code(s): Z90.2 - ACQUIRED ABSENCE OF LUNG [PART OF] Status: Chronic Priority: High Current Visit: No (16) History of lung cancer SNOMED Code(s): 799973330, 098056988 Code(s): Z85.118 - PERSONAL HISTORY OF MALIGNANT NEOPLASM OF BRONCHUS AND LUNG Status: Chronic Priority: High Current Visit: No (17) Tobacco use disorder SNOMED Code(s): 925987508 Code(s): F17.200 - NICOTINE DEPENDENCE, UNSPECIFIED, UNCOMPLICATED Status: Chronic Priority: High Current Visit: Yes - Problem List Review Problem List Initiated/Reviewed/Updated: Yes - My Orders Last 24 Hours: My Active Orders 11/21/18 12:28 Magnesium Sulfate/Water [Magnesium Sulfate 2 GM in Water 50 ML] 2 gm Premix Bag 1 bag IV ONETIME 11/21/18 13:00 Piperacillin/Tazobactam [Zosyn] 4.5 gm Sodium Chloride 0.9% [Normal Saline] 100 ml IV ONETIME 11/21/18 21:00 Piperacillin/Tazobactam [Zosyn] 4.5 gm Sodium Chloride 0.9% [Normal Saline] 100 ml IV Q8H 11/22/18 05:00 BMP [BASIC METABOLIC PANEL,BMP] [CHEM] DAILY CBC WITH AUTO DIFF [HEME] DAILY CRP [C-REACTIVE PROTEIN] [CHEM] DAILY LACTIC ACID [CHEM] DAILY MAGNESIUM [CHEM] DAILY - Plan Plan:: I/P: Acute: Mycoplasma pneumonia -Positive serology -Started on levaquin in ED prior to test results -Rapid improvement - will continue levaquin only based on clinical picture and pharmacy recommendation -CXR in ED 11/17/18: 1. Masslike density within the right base. May represent fluid-filled cavity as seen on prior CT which has decreased in size 2. Diffuse increased lung markings, most of which appear chronic but difficult to exclude mild superimposed bronchitis 3. other incidental findings -Pulmonary toilet -WBC 21.84-->11.69-->10.66-->9.18 -CRP 28.9-->22.0-->16.2-->13.6 -Consult RT -PRN nebulizers -IS/Acapella -PRN robitussin DM -O2 as needed -Home respiratory medications -IV fluids as ordered -Blood cultures as above -Sputum culture - H.flu and debbie -CT chest w/ contrast 11/18/17: 1. Nodular finding within the right lung which has Hounsfield unit measurements of fluid with differential as noted 2. Scattered areas of scarring within both lungds. Other incidental findings 3. Nothing acute is appreciated AUTI -UA positive in ED for UTI -Reports urinary symptoms -Culture - Abiotrophia/Granulicatella Sp susceptible to levaquin -WBC/CRP as above -Started on levaquin in ED - continue Chronic tobacco use -Reportedly an active smoker; tells me she hasn't smoked for around a week -Home nicotine patch ordered - has been refusing -Cessation counseling Reported ETOH abuse -Reports daily ETOH use - one small drink daily on ice -CIWA protocol -Have been 0-2 so far; 0-1 today -Ativan for abortive seizures -MV/Thiamine/Folic acid -Will hold off LAC/Psychiatry consults for now Decreased appetite -Reports minimal appetite on admission -Very thin with BMI of 14 -Sanitation Officer consulted -Dietary supplement with meals -Megace BID with meals -Reports increased appetite today Resolved: S/P Acute respiratory failure with hypoxia -Presented to ED with febrille illness, productive cough, dyspnea with saturations in low 80's -Tacypnea and tachycardic in ED -On chroinc O2 (3.5-4L) at home via [place] -History of lung CA - S/P LLL lobectomy; History of cavitary lesion -Continues to smoke - on home nicotine patch -ABG in ED -pH: 7.36 -pCO2: 51.7 -pO2: 76.0 -HCO3: 28.8 -O2 saturation: 95.7 -Base excess: 2.9 -A-a gradient: 64 -Blood cultures negative so far S/P Hypokalemia -Potassium 3.3-->4.5 -Supplement as needed S/P Hypomagnesemia -Magnesium 1.5-->1.6-->1.8 -Supplement as needed Chronic: Constipation CAD/ND HTN HLD Depression B12 deficiency Plan: IVF IV ATB Nebs Pulm toilet DVT/GI prophylaxis: Lovenox Home meds as ordered Megace for appetite stimulation PT/OT -> recommending SNF placement Daily Labs CM/SW EMR re: lung leison Code status: DNR/DNI; PCP: Dr. Mock LOS> 96 HR--slow improvement w/ PNA.
[2018-11-21] MEDS ORDERED: Piperacillin/Tazobactam 4.5 GM in Sodium Chloride 0.9% 100 ML IV ONE (13:00)
[2018-11-21] MEDS ORDERED: Hydrocortisone 1% Crm 30 GM Tube TOP PRN (13:47)
[2018-11-21] MEDS: Piperacillin/Tazobactam 4.5 GM in Sodium Chloride 0.9% 100 ML IV SCH (21:27)
[2018-11-21] MEDS: Mirtazapine 15 MG Tab PO SCH (21:27)
[2018-11-22] MEDS: Albuterol/Ipratropium 3.0-0.5 MG/3 ML Neb Soln NEB PRN ×4 (05:14→21:02)
[2018-11-22] MEDS: Piperacillin/Tazobactam 4.5 GM in Sodium Chloride 0.9% 100 ML IV SCH ×3 (06:20→20:18)
[2018-11-22] MEDS: Levothyroxine 100 MCG Tab PO SCH (06:21)
[2018-11-22] MEDS: Megestrol Susp 40 MG/ML 10 ML UD Cup PO SCH ×2 (06:21→16:39)
[2018-11-22] MEDS: Multivitamins,Therapeutic Tab PO SCH (08:35)
[2018-11-22] MEDS: Sertraline 50 MG Tab PO SCH (08:35)
[2018-11-22] MEDS: Nicotine 14 MG/24 Hr Patch TRDERM SCH (08:35)
[2018-11-22] MEDS: Aspirin 81 MG Tab.Chew PO SCH (08:35)
[2018-11-22] MEDS: Folic Acid 1 MG Tab PO SCH (08:35)
[2018-11-22] MEDS: Thiamine 100 MG Tab PO SCH (08:35)
[2018-11-22] MEDS: Tiotropium Inhaler 18 MCG Inhalation Powder Cap Kit of 5 INH SCH (09:32)
[2018-11-22] MEDS: Formoterol/Mometasone 200-5 MCG 8.8 GM Inhaler IH SCH ×2 (09:32→21:02)
[2018-11-22] MEDS: methylPREDNISolone Sodium Succinate 40 MG/1 ML SDV IVPUSH SCH (10:07)
[2018-11-22] MEDS: Metoprolol Succinate 50 MG Tab.ER PO SCH (10:37)
[2018-11-22] MEDS: Enoxaparin 30 MG/0.3 ML Syringe SUBCUT SCH (12:10)
[2018-11-22] MEDS: Mirtazapine 15 MG Tab PO SCH (20:16)
[2018-11-23] MEDS: Piperacillin/Tazobactam 4.5 GM in Sodium Chloride 0.9% 100 ML IV SCH ×2 (06:00→13:27)
[2018-11-23] MEDS: Megestrol Susp 40 MG/ML 10 ML UD Cup PO SCH (06:20)
[2018-11-23] MEDS: Levothyroxine 100 MCG Tab PO SCH (06:20)
[2018-11-23] MEDS: Albuterol/Ipratropium 3.0-0.5 MG/3 ML Neb Soln NEB PRN ×3 (06:35→14:56)
[2018-11-23] MEDS: Formoterol/Mometasone 200-5 MCG 8.8 GM Inhaler IH SCH (09:35)
[2018-11-23] MEDS: Tiotropium Inhaler 18 MCG Inhalation Powder Cap Kit of 5 INH SCH (09:35)
--- NOTE | 2018-11-23 09:47 | PCM.DCSUM1 ---
Discharge Summary - Hospital Course HPI Initial Comments: 83 year old female living at [facility] presents with ARF with hypoxia; her complaint was a cough with sputum associated with increasing SOB. The patient has a history of lung CA and reportedly had aspiration of a lung lesion. She continues to smoke actively and requires oxygen, baseline 3 l/m. She has mycoplasma pneumonia and a urinary tract infection on this admission. She has received one dose of Levoquin in the ED. Code status is DNR/DNI Diagnosis: Stroke: No - Discharge Data Discharge Date: 11/23/18 (Admit date: 11/17/18) Discharge Disposition: Home, [facility] 06 Condition: Good - Discharge Diagnosis/Problem(s) (1) Abnormal finding on chest xray SNOMED Code(s): 782997038, 713547789 ICD Code: R93.89 - ABNORMAL FINDINGS ON DX IMAGING OF OTH BODY STRUCTURES Status: Acute Priority: High Current Visit: Yes (2) Congestive heart failure SNOMED Code(s): 85721469 ICD Code: I50.9 - HEART FAILURE, UNSPECIFIED Status: Chronic Priority: Medium Current Visit: Yes Qualifiers: Heart failure type: right-sided Heart failure chronicity: chronic Qualified Code(s): I50.812 - Chronic right heart failure (3) Mycoplasma pneumonia SNOMED Code(s): 84990606 ICD Code: J15.7 - PNEUMONIA DUE TO MYCOPLASMA PNEUMONIAE Status: Acute Priority: High Current Visit: Yes Qualifiers: Laterality: right Lung location: lower lobe of lung Qualified Code(s): J15.7 - Pneumonia due to Mycoplasma pneumoniae (4) Pneumonia SNOMED Code(s): 189818016 ICD Code: J18.9 - PNEUMONIA, UNSPECIFIED ORGANISM Status: Acute Priority : High Current Visit: Yes Qualifiers: Pneumonia type: due to Mycoplasma pneumoniae Laterality: right Lung location: lower lobe of lung Qualified Code(s): J15.7 - Pneumonia due to Mycoplasma pneumoniae (5) Urinary tract infection SNOMED Code(s): 86588290 ICD Code: N39.0 - URINARY TRACT INFECTION, SITE NOT SPECIFIED Status: Acute Priority: High Current Visit: Yes Qualifiers: Urinary tract infection type: site unspecified Hematuria presence: without hematuria Qualified Code(s): N39.0 - Urinary tract infection, site not specified (6) COPD (chronic obstructive pulmonary disease) SNOMED Code(s): 99145344 ICD Code: J44.9 - CHRONIC OBSTRUCTIVE PULMONARY DISEASE, UNSPECIFIED Status : Chronic Priority: Medium Current Visit: No Qualifiers: COPD type: unspecified COPD Qualified Code(s): J44.9 - Chronic obstructive pulmonary disease, unspecified (7) Constipation SNOMED Code(s): 47274331 ICD Code: K59.00 - CONSTIPATION, UNSPECIFIED Status: Acute Priority: Medium Current Visit: Yes Qualifiers: Constipation type: unspecified constipation type Qualified Code(s): K59.00 - Constipation, unspecified (8) B12 deficiency SNOMED Code(s): 828452638 ICD Code: E53.8 - DEFICIENCY OF OTHER SPECIFIED B GROUP VITAMINS Status: Chronic Priority: Medium Current Visit: No (9) CAD (coronary artery disease) SNOMED Code(s): 90103331 ICD Code: I25.10 - ATHSCL HEART DISEASE OF [place] CORONARY ARTERY W/O ANG PCTRS Status: Chronic Priority: Medium Current Visit: No Qualifiers: Coronary Disease-Associated Artery/Lesion type: unspecified vessel or lesion type [place] vs. transplanted heart: [place] heart Associated angina: angina presence unspecified Qualified Code(s): I25.10 - Atherosclerotic heart disease of [place] coronary artery without angina pectoris (10) HLD (hyperlipidemia) SNOMED Code(s): 44303421 ICD Code: E78.5 - HYPERLIPIDEMIA, UNSPECIFIED Status: Chronic Priority: Low Current Visit: No Qualifiers: Hyperlipidemia type: unspecified Qualified Code(s): E78.5 - Hyperlipidemia , unspecified (11) HTN (hypertension) SNOMED Code(s): 04153472 ICD Code: I10 - ESSENTIAL (PRIMARY) HYPERTENSION Status: Chronic Priority : Medium Current Visit: No Qualifiers: Hypertension type: unspecified Qualified Code(s): I10 - Essential (primary ) hypertension (12) History of UT (myocardial infarction) SNOMED Code(s): 528937311 ICD Code: I25.2 - OLD MYOCARDIAL INFARCTION Status: Chronic Priority: Low Current Visit: No (13) History of lobectomy of lung SNOMED Code(s): 982922184 ICD Code: Z90.2 - ACQUIRED ABSENCE OF LUNG [PART OF] Status: Chronic Priority: High Current Visit: No (14) History of lung cancer SNOMED Code(s): 424717629, 532635184 ICD Code: Z85.118 - PERSONAL HISTORY OF MALIGNANT NEOPLASM OF BRONCHUS AND LUNG Status: Chronic Priority: High Current Visit: No (15) Tobacco use disorder SNOMED Code(s): 172527834 ICD Code: F17.200 - NICOTINE DEPENDENCE, UNSPECIFIED, UNCOMPLICATED Status : Chronic Priority: High Current Visit: Yes - Patient Summary/Data Consults: Consultations 11/18/18 10:00 Consult to Case Management/Head Of Academic Technology [CONS] Routine 11/18/18 11:07 Consult to Occupational Therapy [OT Evaluation and Treatment] [CONS] Routine PT Evaluation and Treatment [CONS] Routine 11/18/18 14:28 Consult to Electron Beam Operator [CONS] Routine Labs Pending at D/C: None Recommended Follow-up Testing/Procedures: Follow-up with PCP within 7-10 days of discharge, sooner if needed. Hospital Course: I/P: Acute: Mycoplasma pneumonia -Positive serology -Started on levaquin in ED prior to test results; added zosyn -Rapid improvement - will continue levaquin based on clinical picture and pharmacy recommendation -CXR in ED 11/17/18: 1. Masslike density within the right base. May represent fluid-filled cavity as seen on prior CT which has decreased in size 2. Diffuse increased lung markings, most of which appear chronic but difficult to exclude mild superimposed bronchitis 3. other incidental findings -Pulmonary toilet -WBC 21.84-->11.69-->10.66-->9.18-->10.83-->8.70-->12.83 (on steroid) -CRP 28.9-->22.0-->16.2-->13.6-->10.9-->5.1-->2.8 -Consult RT -PRN nebulizers -IS/Acapella -PRN robitussin DM -O2 as needed -Home respiratory medications -IV fluids as ordered -Blood cultures negative -Sputum culture - H.flu and galilea -Single dose of fluconazole given -CT chest w/ contrast 11/18/17: 1. Nodular finding within the right lung which has Hounsfield unit measurements of fluid with differential as noted 2. Scattered areas of scarring within both lungds. Other incidental findings 3. Nothing acute is appreciated AUTI -UA positive in ED for UTI -Reports urinary symptoms -Culture - Abiotrophia/Granulicatella Sp susceptible to levaquin -WBC/CRP as above -Started on levaquin in ED - continue Chronic tobacco use -Reportedly an active smoker; tells me she hasn't smoked for around a week -Home nicotine patch ordered - has been refusing -Cessation counseling Reported ETOH abuse -Reports daily ETOH use - one small drink daily on ice -CIWA protocol -Have been 0-2 so far; 0-1 today -Ativan for abortive seizures -MV/Thiamine/Folic acid -Will hold off LAC/Psychiatry consults for now Decreased appetite -Reports minimal appetite on admission -Very thin with BMI of 14 -Electron Beam Operator consulted -Dietary supplement with meals -Megace BID with meals -Reports increased appetite today Resolved: S/P Acute respiratory failure with hypoxia -Presented to ED with febrille illness, productive cough, dyspnea with saturations in low 80's -Tacypnea and tachycardic in ED -On chroinc O2 (3-4L) at home via NC -History of lung CA - S/P LLL lobectomy; History of cavitary lesion -Continues to smoke - on home nicotine patch -ABG in ED -pH: 7.36 -pCO2: 51.7 -pO2: 76.0 -HCO3: 28.8 -O2 saturation: 95.7 -Base excess: 2.9 -A-a gradient: 64 -Blood cultures negative so far S/P Hypokalemia -Potassium 3.3-->4.5 -Supplement as needed S/P Hypomagnesemia -Magnesium 1.5-->1.6-->1.8 -Supplement as needed Chronic: Constipation CAD/UT HTN HLD Depression B12 deficiency Plan: IVF IV ATB Nebs Pulm toilet DVT/GI prophylaxis: Lovenox Home meds as ordered Megace for appetite stimulation PT/OT -> recommending SNF placement Daily Labs CM/SW EMR re: lung leison Code status: DNR/DNI; PCP: Dr. Mock LOS> 96 HR--slow improvement w/ PNA. Overall Yeni did pretty well. She came in with mycoplasma PNA and was started on Levaquin with dramatic improvement initially. This was discussed with pharmacy and the decision was made to continue levaquin and not change the antibiotic. Her WBC and CRP continued to trend down. CT of her chest did note a known nodular finding and this was reported to the patient. Sputum culture showed H.flu susceptible to levaquin and galilea. Single dose of fluconazole was given. She was placed on CIWA protocol when the patient admitted to small but daily ETOH use. CIWAs have been 0-2 while here. She was started on follic acid/multivitamin/thiamine supplementation. She initially denied a nicotine patch but did request one at the end of her stay. She was later started on zosyn. She continued to work with PT/OT and RT. She was able to remain on her baseline O2 usage. She utilized IS and acapella and was instructed to continue this until her symptoms completely resolve. 40mg methylprednisolone was started and she did respond well to this. Very mild leukocytosis was noted just prior to discharge and this is likely 2/2 steroid use. She received QID duoneb treatments. She reports she felt much better since she was admitted. She was noted to have urinary symptoms in the ED and UA grew out Abiotrophia/ Granulicatella Sp susceptible to levaquin. She completed antibiotic treatment while here. She will be discharged home on QID scheduled nebulizers for the first 7 days followed by PRN for the next 7 days. She will receive a 14 day steroid taper as well. She will also be discharged on a multivitamin. While here Yeni was noted to be very thin and cachectic. She reported very minimal oral intake and a general lack of appetite. She was seen by our line painting machine operator who "Recommend continuing the Ensure Enlive depending upon availability or other high calorie protein supplement to boost nutrient intake d /t eating only small portions. Increase nutrient density, not necessarily portion size d/t limited appetite. [place] with different ways to incorporate more calories with each meal since she's been eating small amounts. Examples: whole milk in recipes and cereals, nut butters, using olive oil when oshea frying/sauting. Eating 5-6 small meals throughout the day will also help increase intake. 1 - 8oz. Ensure Enlive provides: 350 calories and 20g protein. Calorie needs: 4211-9973 per day. Protein needs: 40-70g per day. Fluid needs: 5- 6 cups per day." She was also started on 400mg PO BID Megace. The had significant results and Yeni even noted an increased appetite. She was thrilled that she was hungry for a snack yesterday evening. This will be continued on discharge. Yeni is noted to be an occasional smoker and initially refused nicotine patches. We discussed the importance of stopping smoking, especially given her current respiratory symptoms. She indicated that she has a prescription for nicotine patches at home and will not need a new prescription. We discussed the [place] quitline and [facility] tobacco cessation program and she was provided contact information for these on discharge. She can follow-up with her PCP should she change her mind on this. I personally met with Yeni [id number] to discuss her homebound status and need for therapies. At this time it is felt due to the diseases listed and her difficulty above she will be homebound. She will likely benefit from prison, PT, OT, SCIENTIFIC ASSOCIATE, and a home safety evaluation. This can be monitored in the future by her PCP, Dr. Mock, and adjusted how he sees necessary. She was discharged home today with the above listed medications. Her regular home medications were continued. It is reported her son will be living with her and she will have home health as indicated above. - Patient Instructions Diet: Regular Diet as Tolerated Activity: As Tolerated Driving: Do Not Drive Notify Provider of: Fever, Increased Pain, Nausea and/or Vomiting - Discharge Plan *PRESCRIPTION DRUG MONITORING PROGRAM REVIEWED*: Not Applicable *COPY OF PRESCRIPTION DRUG MONITORING REPORT IN PATIENT JUAN: Not Applicable Prescriptions/Med Rec: Albuterol/Ipratropium [DuoNeb 3.0-0.5 MG/3 ML] 3 ml NEB QID PRN 7 Days #20 neb PRN Reason: SOB/Wheezing Albuterol/Ipratropium [DuoNeb 3.0-0.5 MG/3 ML] 3 ml NEB QID #28 neb Megestrol [Megace 40 MG/ML Susp] 400 mg PO BIDMEALS 10 Days #20 cup Multivitamins,Therapeutic [Thera] 1 each PO DAILY #20 tablet predniSONE [Prednisone] 10 mg PO DAILY #15 tablet Home Medications: Home Meds Cyanocobalamin (Vitamin B12) [Vitamin B12] 1,000 mcg INJECT ASDIRECTED 11/27/14 [History] EPINEPHrine [Epipen] 0.3 ml INJECT ASDIRECTED PRN 11/27/14 [History] Fluticasone/Salmeterol [Advair 250-50] 2 puff INH BID 11/27/14 [History] Levothyroxine [Synthroid] 100 mcg PO DAILY 11/27/14 [History] Metoprolol Succinate [Toprol XL] 50 mg PO DAILY 11/27/14 [History] Rosuvastatin [Crestor] 10 mg PO DAILY 11/27/14 [History] amLODIPine [Norvasc] 5 mg PO DAILY 11/27/14 [History] Aspirin 81 mg PO DAILY 06/10/18 [History] Mirtazapine [Remeron] 15 mg PO BEDTIME 06/10/18 [History] Nitroglycerin [Nitrostat] 0.4 mg SL ASDIRECTED PRN 06/10/18 [History] Polyethylene Glycol 3350 [MiraLAX] 17 gm PO DAILY PRN 06/10/18 [History] Sertraline [Zoloft] 50 mg PO DAILY 06/10/18 [History] Albuterol Sulfate [Proair Hfa] 2 puff IH Q6H PRN 08/06/18 [History] Calcium Carbonate/Vitamin D3 [Calcium 600-Vit D3 400 Tablet] 400 - 600 mg PO DAILY 08/06/18 [History] Nicotine [Nicoderm CQ] 7 mg TD DAILY 08/06/18 [History] Spiriva Respimat 2 puff IH DAILY 08/06/18 [History] oxyCODONE HCl/Acetaminophen [Percocet 5-325 mg Tablet] 5 - 325 mg PO Q4H PRN 12/05 [History] Albuterol/Ipratropium [DuoNeb 3.0-0.5 MG/3 ML] 3 ml NEB QID #28 neb 11/23/18 [Rx ] Albuterol/Ipratropium [DuoNeb 3.0-0.5 MG/3 ML] 3 ml NEB QID PRN 7 Days #20 neb 11/23/18 [Rx] Megestrol [Megace 40 MG/ML Susp] 400 mg PO BIDMEALS 10 Days #20 cup 11/23/18 [Rx ] Multivitamins,Therapeutic [Thera] 1 each PO DAILY #20 tablet 11/23/18 [Rx] predniSONE [Prednisone] 10 mg PO DAILY #15 tablet 11/23/18 [Rx] Oxygen Therapy Mode: Nasal Cannula Oxygen Flow Rate (L/min): 3 Maintain SpO2% greater than: 90 Patient Handouts: Constipation, Adult, Abpo-vm-Nfpi, Steps to Quit Smoking, Community-Acquired Pneumonia, Adult, [id number] Referrals: Franky Mock MD [Primary Care Provider] - 12/01/18 9:50 am (Please follow- up with your primary care doctor, Dr. Mock, on FridayDecember 01 at 0950am. ) - Discharge Summary/Plan Comment DC Time >30 min.: Yes (45 mins ) - General Info Date of Service: 11/23/18 Admission Dx/Problem (Free Text: Admission Diagnosis/Problem Admission Diagnosis/Problem Pneumonia Subjective Update: In to see Yeni. She is lying in bed. She reports she is doing ok. She has been working with RT and PT/OT. She reports she is at baseline or slightly worse. We discussed discharge today and discharge plan. Plan is for her to go back to her house where a family member will stay with her. She will also have home health on discharge. She will be discharged today. Functional Status: Reports: Pain Controlled, Tolerating Diet, Ambulating, Urinating, Incentive Spirometry, Other (acapella ). Denies: New Symptoms - Review of Systems General: Reports: Weakness (improving ). Denies: Fever, Fatigue, Malaise, Chills HEENT: Reports: No Symptoms. Denies: Headaches, Sore Throat Pulmonary: Reports: Shortness of Breath (chronic -at baseline ), Cough. Denies : Sputum, Wheezing Cardiovascular: Reports: Dyspnea on Exertion (chronic -at baseline ). Denies: Chest Pain, Palpitations, Edema Gastrointestinal: Reports: No Symptoms. Denies: Abdominal Pain, Constipation, Diarrhea, Nausea, Vomiting Genitourinary: Reports: No Symptoms. Denies: Pain Musculoskeletal: Reports: No Symptoms Skin: Reports: No Symptoms Neurological: Reports: No Symptoms. Denies: Confusion, Numbness, Tingling, Trouble Speaking, Difficulty Walking, Gait Disturbance Psychiatric: Reports: No Symptoms - Patient Data Vitals - Most Recent: Last Vital Signs Temp 97.9 F 11/23/18 08:19 Pulse 95 11/23/18 08:19 Resp 18 11/23/18 08:19 BP 116/64 11/23/18 08:19 Pulse Ox 92 L 11/23/18 09:35 Weight - Most Recent: 75 lb 3.2 oz I&O - Last 24 hours: Intake & Output 11/22/18 11/23/18 11/23/18 22:59 06:59 14:59 Intake Total 400 400 Output Total 200 500 Balance 200 -100 Lab Results - Last 24 hrs: Laboratory Results - last 24 hr 11/23/18 11/23/18 Range/Units 05:23 05:23 WBC 12.83 H (3.98-10.04) K/mm3 RBC 4.17 (3.98-5.22) M/mm3 Hgb 13.2 (11.2-15.7) gm/L Hct 41.3 (34.1-44.9) % MCV 99.0 H (79.4-94.8) fl MCH 31.7 (25.6-32.2) pg MCHC 32.0 L (32.2-35.5) g/dl RDW Std Deviation 50.5 H (36.4-46.3) fL Plt Count 308 (182-369) K/mm3 MPV 9.5 (9.4-12.3) fl Neut % (Auto) 83.2 H (34.0-71.1) % Lymph % (Auto) 8.6 L (19.3-51.7) % [place] % (Auto) 7.2 (4.7-12.5) % Eos % (Auto) 0 L (0.7-5.8) Baso % (Auto) 0.1 (0.1-1.2) % Neut # (Auto) 10.69 H (1.56-6.13) K/mm3 Lymph # (Auto) 1.10 L (1.18-3.74) K/mm3 [place] # (Auto) 0.92 H (0.24-0.36) K/mm3 Eos # (Auto) 0.00 L (0.04-0.36) K/mm3 Baso # (Auto) 0.01 (0.01-0.08) K/mm3 Manual Slide Review Normal smear Sodium 140 (136-145) mEq/L Potassium 4.9 (3.5-5.1) mEq/L Chloride 103 (98-107) mEq/L Carbon Dioxide 31 (21-32) mEq/L Anion Gap 10.9 (5-15) BUN 14 (7-18) mg/dL Creatinine 0.8 (0.55-1.02) mg/dL Est Cr Clr Drug Dosing 28.19 mL/min Estimated GFR (MDRD) > 60 (>60) mL/min BUN/Creatinine Ratio 17.5 (14-18) Glucose 110 (83-115) mg/dL Calcium 9.3 (8.5-10.1) mg/dL Magnesium 1.9 (1.8-2.4) mg/dl C-Reactive Protein 2.8 H* (<1.0) mg/dL MEÑO Results - Last 24 hrs: Microbiology 11/17/18 08:45 Aerobic Blood Culture - Preliminary Blood - Venous NO GROWTH AFTER 6 DAYS Anaerobic Blood Culture - Preliminary NO GROWTH AFTER 6 DAYS 11/17/18 08:35 Aerobic Blood Culture - Preliminary Blood - Venous - Lab Draw NO GROWTH AFTER 6 DAYS Anaerobic Blood Culture - Preliminary NO GROWTH AFTER 6 DAYS Med Orders - Current: Current Medications Albuterol/Ipratropium (Duoneb 3.0-0.5 Mg/3 Ml) 3 ml NEB QIDRT PRN PRN Reason: Shortness of Breath Last Admin: 11/23/18 09:35 Dose: 3 ml Aspirin (Aspirin) 81 mg PO DAILY [facility] Last Admin: 11/22/18 08:35 Dose: 81 mg Enoxaparin Sodium (Lovenox) 30 mg SUBCUT Q24H [facility] Last Admin: 11/22/18 12:10 Dose: 30 mg Folic Acid (Folic Acid) 1 mg PO DAILY [facility] Last Admin: 11/22/18 08:35 Dose: 1 mg Guaifenesin/Phenylephrine HCl (Robitussin Dm) 10 ml PO Q4H PRN PRN Reason: Cough Last Admin: 11/21/18 17:27 Dose: 10 ml Hydrocortisone (Hydrocortisone 1% Crm) 0 gm TOP BID PRN PRN Reason: Hemorrhoids Last Admin: 11/21/18 14:43 Dose: 1 applic Levofloxacin/Dextrose 750 mg/ (Premix) 150 mls @ 100 mls/hr IV Q48H [facility] Last Admin: 11/21/18 09:34 Dose: 100 mls/hr Piperacillin Sod/Tazobactam (Sod 4.5 gm/ Sodium Chloride) 100 mls @ 25 mls/hr IV Q8H [facility] Last Admin: 11/23/18 06:00 Dose: 25 mls/hr Levothyroxine Sodium (Synthroid) 100 mcg PO DAILY@0700 [facility] Last Admin: 11/23/18 06:20 Dose: 100 mcg Lorazepam (Ativan) 0 mg IVPUSH Q4H PRN; Protocol PRN Reason: Anxiety Lorazepam (Ativan) 2 mg IVPUSH Q4H PRN PRN Reason: Seizures Megestrol Acetate (Megace 40 Mg/Ml Susp) 400 mg PO BIDMEALS [facility] Last Admin: 11/23/18 06:20 Dose: 400 mg Methylprednisolone Sodium Succinate (Solu-Medrol) 40 mg IVPUSH DAILY [facility] Last Admin: 11/22/18 10:07 Dose: 40 mg Metoprolol Succinate (Toprol Xl) 50 mg PO DAILY [facility] Last Admin: 11/22/18 10:37 Dose: Not Given Metoprolol Tartrate (Lopressor) 5 mg IVPUSH Q6H PRN PRN Reason: heart rate >100 Mirtazapine (Remeron) 15 mg PO BEDTIME [facility] Last Admin: 11/22/18 20:16 Dose: 15 mg Miscellaneous Information (Remove Patch) 1 ea TRDERM DAILY [facility] Last Admin: 11/22/18 08:41 Dose: Not Given Mometasone Furoate/Formoterol Fumar (Dulera 200-5 Mcg) 2 puff IH BID [facility] Last Admin: 11/23/18 09:35 Dose: 2 puff Multivitamins (Thera) 1 each PO DAILY [facility] Last Admin: 11/22/18 08:35 Dose: 1 each Nicotine (Habitrol) 14 mg TRDERM DAILY [facility] Last Admin: 11/22/18 08:35 Dose: 14 mg Nitroglycerin (Nitrostat) 0.4 mg SL ASDIRECTED PRN PRN Reason: Chest Pain Oxycodone/Acetaminophen (Percocet 325-5 Mg) 1 tab PO Q4H PRN PRN Reason: Pain (moderate 4-6) Last Admin: 11/19/18 21:09 Dose: 1 tab Polyethylene Glycol (Miralax) 17 gm PO DAILY PRN PRN Reason: Constipation Last Admin: 11/21/18 11:17 Dose: 17 gm Sertraline HCl (Zoloft) 50 mg PO DAILY [facility] Last Admin: 11/22/18 08:35 Dose: 50 mg Sodium Chloride (Saline Flush) 10 ml FLUSH ONETIME PRN PRN Reason: IV FLUSH Last Admin: 11/18/18 08:51 Dose: 10 ml Thiamine HCl (Vitamin B-1) 100 mg PO DAILY [facility] Last Admin: 11/22/18 08:35 Dose: 100 mg Tiotropium [place] (Spiriva Handihaler) 18 mcg INH DAILY@0900 [facility] Last Admin: 11/23/18 09:35 Dose: 1 cap Discontinued Medications Acetaminophen (Tylenol) 650 mg PO NOW ONE Stop: 11/17/18 08:30 Last Admin: 11/17/18 08:54 Dose: 650 mg Albuterol/Ipratropium (Duoneb 3.0-0.5 Mg/3 Ml) 3 ml NEB QIDRT [facility] Last Admin: 11/17/18 15:05 Dose: 3 ml Fluconazole (Diflucan) 150 mg PO ONETIME ONE Stop: 11/21/18 11:13 Last Admin: 11/21/18 11:17 Dose: 150 mg Furosemide (Lasix) 40 mg IVPUSH NOW ONE Stop: 11/17/18 09:42 Last Admin: 11/17/18 09:53 Dose: 40 mg Dextrose/Sodium Chloride (Dextrose 5%-Normal Saline) 1,000 mls @ 200 mls/hr IV ASDIRECTED [facility] Last Admin: 11/17/18 08:49 Dose: 200 mls/hr Levofloxacin/Dextrose 750 mg/ (Premix) 150 mls @ 100 mls/hr IV ONETIME ONE Stop: 11/17/18 09:59 Last Admin: 11/17/18 08:52 Dose: 100 mls/hr Dextrose/Sodium Chloride (Dextrose 5%-Normal Saline) 1,000 mls @ 75 mls/hr IV ASDIRECTED [facility] Lactated Ringer's (Ringers, Lactated) 1,000 mls @ 125 mls/hr IV ASDIRECTED [facility] Stop: 11/18/18 09:00 Last Admin: 11/17/18 22:44 Dose: 125 mls/hr Piperacillin Sod/Tazobactam (Sod 4.5 gm/ Sodium Chloride) 100 mls @ 200 mls/hr IV ONETIME ONE Stop: 11/21/18 13:29 Last Admin: 11/21/18 13:25 Dose: 200 mls/hr Magnesium Sulfate 2 gm/ Premix 50 mls @ 25 mls/hr IV ONETIME ONE Stop: 11/21/18 14:27 Last Admin: 11/21/18 13:26 Dose: 25 mls/hr Iopamidol (Isovue-300 (61%)) 100 ml IVPUSH ONETIME ONE Stop: 11/18/18 08:36 Last Admin: 11/18/18 08:43 Dose: 60 ml Ipratropium [place] (Atrovent) 0.5 mg NEB Q4H PRN PRN Reason: Shortness of Breath Magnesium Oxide (Magnesium Oxide) 400 mg PO ONETIME ONE Stop: 11/18/18 07:57 Last Admin: 11/18/18 09:36 Dose: 400 mg Magnesium Oxide (Magnesium Oxide) 400 mg PO BID [facility] Stop: 11/19/18 21:01 Last Admin: 11/19/18 21:08 Dose: 400 mg Megestrol Acetate (Megace) 40 mg PO BID [facility] Last Admin: 11/18/18 00:41 Dose: Not Given Megestrol Acetate (Megace) 40 mg PO BIDARALS [facility] Last Admin: 11/18/18 07:45 Dose: Not Given Nicotine (Habitrol) 7 mg TRDERM DAILY [facility] Oxycodone/Acetaminophen (Percocet 325-5 Mg) 2 tab PO ONETIME ONE Stop: 11/17/18 10:30 Last Admin: 11/17/18 10:45 Dose: Not Given Potassium Chloride (Klor-Con M20) 40 meq PO Q4H [facility] Stop: 11/18/18 12:01 Last Admin: 11/18/18 12:47 Dose: 40 meq Tiotropium [place] (Spiriva Handihaler) 18 mcg INH DAILY [facility] - Exam Quality Assessment: Reports: Supplemental Oxygen, DVT Prophylaxis General: Reports: Alert, Oriented, Cooperative, No Acute Distress HEENT: Reports: Pupils Equal, Pupils Reactive, EOMI, Mucous Membr. Moist/[place] Neck: Reports: Supple, Trachea Midline, No JVD Lungs: Reports: Normal Respiratory Effort, Decreased Breath Sounds, Rhonchi Cardiovascular: Reports: Regular Rate, Regular Rhythm GI/Abdominal Exam: Normal Bowel Sounds, Soft, Non-Tender, No Distention, No Abnormal Bruit (Female) Exam: Deferred Rectal (Female) Exam: Deferred Back Exam: Reports: Normal Inspection, Full Range of Motion Extremities: Normal Inspection, Normal Range of Motion, Non-Tender, No Pedal Edema, Normal Capillary Refill Skin: Reports: Warm, Dry, Intact Neurological: Reports: No New Focal Deficit Psy/Mental Status: Reports: Alert, Normal Affect, Normal Mood
[2018-11-23] MEDS: methylPREDNISolone Sodium Succinate 40 MG/1 ML SDV IVPUSH SCH (09:53)
[2018-11-23] MEDS: Nicotine 14 MG/24 Hr Patch TRDERM SCH (09:53)
[2018-11-23] MEDS: Levofloxacin/Dextrose 5%-Water 750 MG in Premix Bag 1 BAG IV SCH (09:53)
[2018-11-23] MEDS: Metoprolol Succinate 50 MG Tab.ER PO SCH (09:54)
[2018-11-23] MEDS: Thiamine 100 MG Tab PO SCH (09:54)
[2018-11-23] MEDS: Aspirin 81 MG Tab.Chew PO SCH (09:54)
[2018-11-23] MEDS: Multivitamins,Therapeutic Tab PO SCH (09:54)
[2018-11-23] MEDS: Folic Acid 1 MG Tab PO SCH (09:54)
[2018-11-23] MEDS: Sertraline 50 MG Tab PO SCH (09:54)
[2018-11-23] MEDS: Enoxaparin 30 MG/0.3 ML Syringe SUBCUT SCH (13:27)
[2018-11-23 13:44] VITALS: BP 96/57
== END 2018-11-23 16:53 | disposition home health service (06) | DRG 193 ==
LOC: JD.ED 08:12 → SUPCPDRO 08:12 → JD.ICU 10:52 → JD.MS 10:53
PROVIDERS: ADMIT Internal Medicine Cardiovascular Disease; ATTEND Internal Medicine Cardiovascular Disease
DX: J15.7 Pneumonia due to Mycoplasma pneumoniae (principal); J96.21 Acute and chronic respiratory failure with hypoxia; J44.0 Chronic obstructive pulmonary disease with (acute) lower respiratory infection; N39.0 Urinary tract infection, site not specified; Z68.1 Body mass index [BMI] 19.9 or less, adult; R64 Cachexia; I25.10 Atherosclerotic heart disease of native coronary artery without angina pectoris; E78.00 Pure hypercholesterolemia, unspecified; R09.02 Hypoxemia; F17.200 Nicotine dependence, unspecified, uncomplicated; R79.89 Other specified abnormal findings of blood chemistry; E83.42 Hypomagnesemia; E78.5 Hyperlipidemia, unspecified; R53.1 Weakness; B96.89 Other specified bacterial agents as the cause of diseases classified elsewhere; F10.10 Alcohol abuse, uncomplicated; E87.6 Hypokalemia; D72.829 Elevated white blood cell count, unspecified; T38.0X5A Adverse effect of glucocorticoids and synthetic analogues, initial encounter; R50.9 Fever, unspecified; R06.00 Dyspnea, unspecified; R06.82 Tachypnea, not elsewhere classified; R00.0 Tachycardia, unspecified; R05 Cough; R53.81 Other malaise; R11.2 Nausea with vomiting, unspecified; R06.02 Shortness of breath; R91.8 Other nonspecific abnormal finding of lung field; R06.03 Acute respiratory distress; I11.0 Hypertensive heart disease with heart failure; I50.9 Heart failure, unspecified; K59.00 Constipation, unspecified; F32.9 Major depressive disorder, single episode, unspecified; I25.2 Old myocardial infarction; Z66 Do not resuscitate; Z79.82 Long term (current) use of aspirin; Z88.8 Allergy status to other drugs, medicaments and biological substances; Z91.030 Bee allergy status; Z99.81 Dependence on supplemental oxygen; Z85.118 Personal history of other malignant neoplasm of bronchus and lung; Z90.2 Acquired absence of lung [part of]; Z79.891 Long term (current) use of opiate analgesic; Z79.899 Other long term (current) drug therapy
CPT/HCPCS: 36415; 36600; 71045; 80053; 81001; 82803; 83735; 83880; 84484; 85007; 85027; 85610; 86140; 86738; 87040 ×2; 87070; 87077 ×3; 87184; 87205; 87804 ×2; 87899; 93005; 96365; 96366; 96375; 99285; A9270; J1940; J1956; J7042; 71046; 71046-26; 71260; 71260-26; 80048; 83605; 85025; 87086; 87088; 87181; 87641; 93010; 94640; 94667; 94668; 94761; 97110-GP; 97116-GP; 97162-GP; 97165-GO; 97530-GO; 97530-GP; J1650; J2543; J2920; J3475; J3490; J7030; J7120; J7620-GY; Q9967

== ENCOUNTER 2018-11-24 17:00 | Emergency (ER) | payer MEDICARE, OTHER ==
[2018-11-24 17:33] VITALS: BP 119/74
--- NOTE | 2018-11-24 19:34 | CR ---
Chest: Portable view of the chest was obtained. Comparison: Prior chest x-ray of 11/21/18. Mild increasing density within the right base is seen. Other parenchymal density seen on prior study are slightly improved. Heart size is normal. Mild tortuosity of the thoracic aorta is seen. Old left-sided rib fractures are seen. Scoliosis is noted within the spine. Old fracture within the distal right clavicle is noted. Impression: 1. Mild increasing density within the right lung base from prior study presumably due to new area of pneumonia. 2. Other parenchymal densities seen previously within the chest are improved. 3. Other incidental findings. Diagnostic code #3
[2018-11-24] MEDS ORDERED: Levofloxacin/Dextrose 5%-Water 750 MG in Premix Bag 1 BAG IV ONE (20:06)
[2018-11-24] MEDS ORDERED: Sodium Chloride 0.9% 10 ML Syringe FLUSH PRN (20:07)
[2018-11-24] MEDS ORDERED: Albuterol/Ipratropium 3.0-0.5 MG/3 ML Neb Soln NEB ONE (20:32)
--- NOTE | 2018-11-24 22:17 | EDM.PDOC ---
ED HPI GENERAL MEDICAL PROBLEM - General Chief Complaint: Fever Stated Complaint: FEVER Time Seen by Provider: 11/24/18 18:07 Source of Information: Reports: Patient, RN Notes Reviewed History Limitations: Reports: No Limitations - History of Present Illness INITIAL COMMENTS - FREE TEXT/NARRATIVE: Patient is an 83 year old female who presents to the ED for the evaluation of a fever of 101 deg F. The patient was hospitalized in our facility for pneumonia/ UTI on 11-17-18 and was discharged on 11-23-18. She was checked on today by home health nurse and was found to have a fever of 101 deg F. She tried to follow up with her primary care provider, Dr. Mock, but was referred to ED for evaluation due to recent hospitalization. She denies any increasing SOB, fever/ chills, nausea/vomiting/diarrhea. She does note a history of COPD, for which she is oxygen dependent with 3 L of oxygen at home, lung cancer for which she has had a lobectomy and radiation in july and august of 2018. She is a former smoker and has just recently quit. At time of ED arrival, her temperature is 99.3 deg F. She denies any dysuria, urinary urgency or frequency. Her son is present and he is the POA. She is a DNR/DNI. 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 (see below) Other Treatments ELECTRO MECHANICAL DESIGNER: none - Related Data Allergies Allergy/AdvReac Type Severity Reaction Status Date / Time rofecoxib Allergy Edema Verified 11/17/18 13:32 venom-wasp [wasp venom] Allergy Anaphylactic Verified 11/17/18 13:32 Shock Home Meds: Home Meds Cyanocobalamin (Vitamin B12) [Vitamin B12] 1,000 mcg INJECT ASDIRECTED 11/27/14 [History] EPINEPHrine [Epipen] 0.3 ml INJECT ASDIRECTED PRN 11/27/14 [History] Fluticasone/Salmeterol [Advair 250-50] 2 puff INH BID 11/27/14 [History] Levothyroxine [Synthroid] 100 mcg PO DAILY 11/27/14 [History] Metoprolol Succinate [Toprol XL] 50 mg PO DAILY 11/27/14 [History] Rosuvastatin [Crestor] 10 mg PO DAILY 11/27/14 [History] amLODIPine [Norvasc] 5 mg PO DAILY 11/27/14 [History] Aspirin 81 mg PO DAILY 06/10/18 [History] Mirtazapine [Remeron] 15 mg PO BEDTIME 06/10/18 [History] Nitroglycerin [Nitrostat] 0.4 mg SL ASDIRECTED PRN 06/10/18 [History] Polyethylene Glycol 3350 [MiraLAX] 17 gm PO DAILY PRN 06/10/18 [History] Sertraline [Zoloft] 50 mg PO DAILY 06/10/18 [History] Albuterol Sulfate [Proair Hfa] 2 puff IH Q6H PRN 08/06/18 [History] Calcium Carbonate/Vitamin D3 [Calcium 600-Vit D3 400 Tablet] 400 - 600 mg PO DAILY 08/06/18 [History] Nicotine [Nicoderm CQ] 7 mg TD DAILY 08/06/18 [History] oxyCODONE HCl/Acetaminophen [Percocet 5-325 mg Tablet] 5 - 325 mg PO Q4H PRN 12/05 [History] Albuterol/Ipratropium [DuoNeb 3.0-0.5 MG/3 ML] 3 ml NEB QID #28 neb 11/23/18 [Rx ] Albuterol/Ipratropium [DuoNeb 3.0-0.5 MG/3 ML] 3 ml NEB QID PRN 7 Days #20 neb 11/23/18 [Rx] Megestrol [Megace 40 MG/ML Susp] 400 mg PO BIDMEALS 10 Days #20 cup 11/23/18 [Rx ] Multivitamins,Therapeutic [Thera] 1 each PO DAILY #20 tablet 11/23/18 [Rx] predniSONE [Prednisone] 10 mg PO DAILY #15 tablet 11/23/18 [Rx] Tiotropium [Spiriva HandiHaler] 2 puff INH DAILY 11/24/18 [History] Past Medical History HEENT History: Reports: Cataract Other HEENT History: wears reading glasses. Cardiovascular History: Reports: CAD, High Cholesterol, Hypertension, [place] Other Cardiovascular History: hypomagnesmia Respiratory History: Reports: COPD Other Respiratory History: lung cancer, lobectomy. on chronic O2 at home. Patient had aspiration of a mass right lower lobe of lung within the last 6 weeks. We will try and obtain these results. Gastrointestinal History: Reports: Hemorrhoids Other Gastrointestinal History: per [place] papers-abdominal pain Genitourinary History: Reports: Renal Calculus, Urinary Incontinence, UTI, Recurrent Other Genitourinary History: having some issues with urination and ? if it is from constipation LAST PULLER History: Reports: Musculoskeletal History: Reports: Fracture Other Musculoskeletal History: left femur fracture; bilat humerous fractures Neurological History: Reports: Migraines Psychiatric History: Reports: Depression Endocrine/Metabolic History: Reports: Hypothyroidism Hematologic History: Reports: B12 Deficiency Other Hematologic History: hypomagnesemia; had elevated ddimer Oncologic (Cancer) History: Reports: Lung Other Oncologic History: stage 1 and had left low lung removed - Infectious Disease History Infectious Disease History: Reports: Chicken Pox, Measles - Past Surgical History Respiratory Surgical History: Reports: Other (See Below) Social & Family History - Family History Family Medical History: Noncontributory - Tobacco Use Smoking Status *Q: Former Smoker Years of Tobacco use: 67 Packs/Tins Daily: 0.2 - Caffeine Use Caffeine Use: Reports: Tea Other Caffeine Use: unknown - Recreational Drug Use Recreational Drug Use: No - Living Situation & Occupation Living situation: Reports: Occupation: Retired (Lives in the independent part of [facility]) ED ROS ENT - Review of Systems Review Of Systems: See Below Constitutional: Reports: Fever. Denies: Chills HEENT: Reports: No Symptoms Respiratory: Denies: Shortness of Breath, Wheezing, Cough Cardiovascular: Denies: Chest Pain Endocrine: Reports: No Symptoms GI/Abdominal: Reports: No Symptoms : Reports: No Symptoms Musculoskeletal: Reports: No Symptoms Skin: Reports: No Symptoms Neurological: Reports: No Symptoms Psychiatric: Reports: No Symptoms Hematologic/Lymphatic: Reports: No Symptoms Immunologic: Reports: No Symptoms ED EXAM, ENT - Physical Exam Exam: See Below Exam Limited By: No Limitations General Appearance: Alert, WD/WN, No Apparent Distress Eye Exam: Bilateral Eye: Normal Inspection Ears: Normal External Exam, Normal TMs Nose: Normal Inspection Mouth/Throat: Normal Inspection, Normal Oropharynx, Normal Teeth Head: Atraumatic, Normocephalic Neck: Normal Inspection Respiratory/Chest: No Respiratory Distress, Lungs Clear, No Accessory Muscle Use , Chest Non-Tender, Decreased Breath Sounds Cardiovascular: Normal Peripheral Pulses, Regular Rate, Rhythm, No Edema, No Murmur GI/Abdominal: Normal Bowel Sounds, Soft, Non-Tender, No Distention Extremities: Normal Inspection, Normal Capillary Refill Neurological: Alert, Oriented, Normal Cognition, No Motor/Sensory Deficits Psychiatric: Normal Affect, Normal Mood Skin: Warm, Dry, Intact, Normal Color, No Rash Course - Vital Signs Last Recorded V/S: Last Vital Signs Temp 99.3 F 11/24/18 17:30 Pulse 94 11/24/18 17:30 Resp BP 119/74 11/24/18 17:30 Pulse Ox 96 11/24/18 21:14 - Orders/Labs/Meds Orders: Active Orders 24 hr Category Date Time Status Peripheral IV Care [RC] . DIRECTED Care 11/24/18 20:07 Active RT Aerosol Therapy [RC] ASDIRECTED Care 11/24/18 20:32 Active Sodium Chloride 0.9% [Saline Flush] Med 11/24/18 20:07 Active 10 ml FLUSH ASDIRECTED PRN Peripheral IV Insertion Adult [OM.PC] Routine Oth 11/24/18 20:07 Ordered Medication Orders Sodium Chloride (Saline Flush) 10 ml FLUSH ASDIRECTED PRN PRN Reason: Keep Vein Open Last Admin: 11/24/18 20:55 Dose: 10 ml Labs: Laboratory Tests 11/24/18 11/24/18 11/24/18 Range/Units 19:30 19:55 19:55 WBC 10.60 H (3.98-10.04) K/mm3 RBC 3.89 L (3.98-5.22) M/mm3 Hgb 12.3 (11.2-15.7) gm/L Hct 38.2 (34.1-44.9) % MCV 98.2 H (79.4-94.8) fl MCH 31.6 (25.6-32.2) pg MCHC 32.2 (32.2-35.5) g/dl RDW Std Deviation 49.4 H (36.4-46.3) fL Plt Count 289 (182-369) K/mm3 MPV 8.9 L (9.4-12.3) fl Neutrophils % (Manual) 89 H (40-60) % Band Neutrophils % 0 (0-10) % Lymphocytes % (Manual) 3 L (20-40) % Atypical Lymphs % 0 % Monocytes % (Manual) 8 (2-10) % Eosinophils % (Manual) 0 L (0.7-5.8) % Basophils % (Manual) 0 L (0.1-1.2) Toxic Granulation 2+ moderate Platelet Estimate Adequate Plt Morphology Comment See note RBC Morph Comment Normal Sodium 139 (136-145) mEq/L Potassium 4.3 (3.5-5.1) mEq/L Chloride 104 (98-107) mEq/L Carbon Dioxide 30 (21-32) mEq/L Anion Gap 9.3 (5-15) BUN 25 H (7-18) mg/dL Creatinine 0.7 (0.55-1.02) mg/dL Est Cr Clr Drug Dosing 31.27 mL/min Estimated GFR (MDRD) > 60 (>60) mL/min BUN/Creatinine Ratio 35.7 H (14-18) Glucose 91 (83-115) mg/dL Calcium 9.5 (8.5-10.1) mg/dL Magnesium 1.7 L (1.8-2.4) mg/dl Total Bilirubin 0.2 (0.2-1.0) mg/dL AST 24 (15-37) U/L ALT 42 (14-59) U/L Alkaline Phosphatase 54 (46-116) U/L Total Protein 6.8 (6.4-8.2) g/dl Albumin 2.4 L (3.4-5.0) g/dl Globulin 4.4 gm/dL Albumin/Globulin Ratio 0.6 L (1-2) Urine Color Yellow (Yellow) Urine Appearance Slt cloudy H (Clear) Urine pH 7.5 (5.0-8.0) Ur Specific [place] 1.020 (1.005-1.030) Urine Protein Trace H (Negative) Urine Glucose (UA) Negative (Negative) Urine Ketones Negative (Negative) Urine Occult Blood Trace-lysed H (Negative) Urine Nitrite Negative (Negative) Urine Bilirubin Negative (Negative) Urine Urobilinogen 0.2 (0.2-1.0) Ur Leukocyte Esterase Negative (Negative) Urine RBC 5-10 H (0-5) /hpf Urine WBC 0-5 (0-5) /hpf Ur Epithelial Cells 0-5 (0-5) /hpf Amorphous Sediment Moderate H (NOT SEEN) /hpf Urine Bacteria Few (FEW) /hpf Urine Mucus Few (FEW) /hpf Meds: Medications Generic Name Dose Route Start Last Admin Trade Name Caesarq PRN Reason Stop Dose Admin Sodium Chloride 10 ml 11/24/18 20:07 11/24/18 20:55 Saline Flush FLUSH 10 ml ASDIRECTED PRN Administration Keep Vein Open Discontinued Medications Generic Name Dose Route Start Last Admin Trade Name Caesarq PRN Reason Stop Dose Admin Albuterol/Ipratropium 3 ml 11/24/18 20:32 11/24/18 21:14 Duoneb 3.0-0.5 Mg/3 Ml NEB 11/24/18 20:33 3 ml ONETIME ONE Administration Levofloxacin/Dextrose 750 mg/ 150 mls @ 100 mls/hr 11/24/18 20:06 11/24/18 20 :58 Premix IV 11/24/18 21:35 100 mls/hr ONETIME ONE Administration Mirtazapine 15 mg 11/24/18 22:21 11/24/18 22:29 Remeron PO 11/24/18 22:22 15 mg ONETIME ONE Administration Nicotine 14 mg 11/24/18 22:20 11/24/18 22:29 Habitrol TRDERM 11/24/18 22:21 14 mg ONETIME ONE Administration Sertraline HCl 50 mg 11/24/18 22:21 11/24/18 22:29 Zoloft PO 11/24/18 22:22 50 mg ONETIME ONE Administration - Re-Assessments/Exams Free Text/Narrative Re-Assessment/Exam: 11/24/18 22:42 Pt presents to the ED for the evaluation of a fever. CXR, CBC, CMP, and UA were done for further investigation of fever. Her chest x-ray revealed a mild increasing density within the right base from prior CXR, presumably due to new area of pneumonia. All other labs are essentially unremarkable. Her WBC is at 10 again, which is an increase from time of discharge. Dr. Correa was consulted for possible admission and she recommended that the patient be sent to [facility] due to recent hospital discharge from our facility. 750mg IV levaquin was ordered for pneumonia, and hospitalist casino operations supervisor at [facility], Dr. Thomas, is the accepting physician. She will be admitted to medical floor at [facility] in [place], [place]. Departure - Departure Time of Disposition: 22:47 Disposition: DC/Tfer to Acute Hospital 02 Condition: Fair Clinical Impression: HAP (hospital-acquired pneumonia) - Discharge Information *PRESCRIPTION DRUG MONITORING PROGRAM REVIEWED*: No *COPY OF PRESCRIPTION DRUG MONITORING REPORT IN PATIENT JUAN: No Referrals: Franky Mock MD [Primary Care Provider] - Forms: ED Department Discharge - My Orders Last 24 Hours: My Active Orders 11/24/18 20:07 Peripheral IV Care [RC] . DIRECTED Sodium Chloride 0.9% [Saline Flush] 10 ml FLUSH ASDIRECTED PRN Peripheral IV Insertion Adult [OM.PC] Routine 11/24/18 20:32 RT Aerosol Therapy [RC] ASDIRECTED - Assessment/Plan Last 24 Hours: My Active Orders 11/24/18 20:07 Peripheral IV Care [RC] . DIRECTED Sodium Chloride 0.9% [Saline Flush] 10 ml FLUSH ASDIRECTED PRN Peripheral IV Insertion Adult [OM.PC] Routine 11/24/18 20:32 RT Aerosol Therapy [RC] ASDIRECTED
[2018-11-24] MEDS ORDERED: Nicotine 14 MG/24 Hr Patch TRDERM ONE (22:20)
[2018-11-24] MEDS ORDERED: Mirtazapine 15 MG Tab PO ONE (22:21)
[2018-11-24] MEDS ORDERED: Sertraline 50 MG Tab PO ONE (22:21)
== END 2018-11-24 23:15 ==
LOC: JD.ED 17:00
DX: J18.9 Pneumonia, unspecified organism (principal); Y95 Nosocomial condition; E78.00 Pure hypercholesterolemia, unspecified; I25.2 Old myocardial infarction; I10 Essential (primary) hypertension; F32.9 Major depressive disorder, single episode, unspecified; E03.9 Hypothyroidism, unspecified; J44.9 Chronic obstructive pulmonary disease, unspecified; Z79.82 Long term (current) use of aspirin; Z79.891 Long term (current) use of opiate analgesic; Z79.899 Other long term (current) drug therapy; Z87.440 Personal history of urinary (tract) infections; Z87.891 Personal history of nicotine dependence; Z88.8 Allergy status to other drugs, medicaments and biological substances; Z91.030 Bee allergy status; Z90.2 Acquired absence of lung [part of]
CPT/HCPCS: 36415; 71045; 80053; 81001; 83735; 85007; 85027; 94640; 96365; 99285; A9270; J1956; 99283; J7620-GY

== ENCOUNTER 2019-04-05 10:10 | Inpatient (IN) | payer MEDICARE, OTHER ==
[2019-04-05] MEDS ORDERED: Sodium Chloride 0.9% 10 ML Syringe FLUSH PRN (10:30)
[2019-04-05] MEDS ORDERED: Albuterol/Ipratropium 3.0-0.5 MG/3 ML Neb Soln NEB ONE (10:31)
--- NOTE | 2019-04-05 11:16 | EDM.PDOC ---
ED HPI GENERAL MEDICAL PROBLEM - General Chief Complaint: Respiratory Problem Stated Complaint: [facility] Time Seen by Provider: 04/05/19 10:16 Source of Information: Reports: Patient, EMS History Limitations: Reports: No Limitations - History of Present Illness INITIAL COMMENTS - FREE TEXT/NARRATIVE: The patient presents by [facility] for shortness of breath. This has been going on for a few days. She has a history of COPD and she is on home oxygen. She has a wet sounding cough. She does not feel like she has a fever. She has no chest pain. She says she ate some yogurt this morning and that made her stomach upset. EMS had to go up with her oxygen to 6L and that did help. She took 2 treatments before arrival. She has no nausea, vomiting or dysuria. Onset: Gradual Duration: Day(s): Severity: Mild Improves with: Reports: None Worsens with: Reports: None Associated Symptoms: Reports: Cough, Shortness of Breath. Denies: Chest Pain, Fever/Chills, Headaches, Nausea/Vomiting Treatments DRESS CUTTER: Reports: Breathing Treatments, Oxygen - Related Data Allergies Allergy/AdvReac Type Severity Reaction Status Date / Time rofecoxib Allergy Edema Verified 04/05/19 10:16 venom-wasp [wasp venom] Allergy Anaphylactic Verified 04/05/19 10:16 Shock Home Meds: Home Meds Cyanocobalamin (Vitamin B12) [Vitamin B12] 1,000 mcg INJECT ASDIRECTED 11/27/14 [History] EPINEPHrine [Epipen] 0.3 ml INJECT ASDIRECTED PRN 11/27/14 [History] Levothyroxine [Synthroid] 100 mcg PO DAILY 11/27/14 [History] Metoprolol Succinate [Toprol XL] 50 mg PO DAILY 11/27/14 [History] Rosuvastatin [Crestor] 10 mg PO DAILY 11/27/14 [History] amLODIPine [Norvasc] 5 mg PO DAILY 11/27/14 [History] Aspirin 81 mg PO DAILY 06/10/18 [History] Mirtazapine [Remeron] 15 mg PO BEDTIME 06/10/18 [History] Nitroglycerin [Nitrostat] 0.4 mg SL ASDIRECTED PRN 06/10/18 [History] Polyethylene Glycol 3350 [MiraLAX] 17 gm PO BID 06/10/18 [History] Sertraline [Zoloft] 50 mg PO DAILY 06/10/18 [History] Albuterol Sulfate [Proair Hfa] 2 puff IH Q6H PRN 08/06/18 [History] Calcium Carbonate/Vitamin D3 [Calcium 600-Vit D3 400 Tablet] 400 - 600 mg PO DAILY 08/06/18 [History] Nicotine [Nicoderm CQ] 7 mg TD DAILY 08/06/18 [History] oxyCODONE HCl/Acetaminophen [Percocet 5-325 mg Tablet] 5 - 325 mg PO Q4H PRN 12/05 [History] Megestrol [Megace 40 MG/ML Susp] 400 mg PO BIDMEALS 10 Days #20 cup 11/23/18 [Rx ] Multivitamins,Therapeutic [Thera] 1 each PO DAILY #20 tablet 11/23/18 [Rx] predniSONE [Prednisone] 10 mg PO DAILY #15 tablet 11/23/18 [Rx] Tiotropium [Spiriva HandiHaler] 2 puff INH DAILY 11/24/18 [History] Albuterol/Ipratropium [DuoNeb 3.0-0.5 MG/3 ML] 3 ml NEB Q6H 04/05/19 [History] Ciprofloxacin [Ciprofloxacin HCl] 250 mg PO BID 04/05/19 [History] Past Medical History HEENT History: Reports: Cataract Other HEENT History: wears reading glasses. Cardiovascular History: Reports: CAD, High Cholesterol, Hypertension, [place] Other Cardiovascular History: hypomagnesmia Respiratory History: Reports: COPD Other Respiratory History: lung cancer, lobectomy. on chronic O2 at home. Patient had aspiration of a mass right lower lobe of lung within the last 6 weeks. We will try and obtain these results. Gastrointestinal History: Reports: Hemorrhoids Other Gastrointestinal History: per [place] papers-abdominal pain Genitourinary History: Reports: Renal Calculus, Urinary Incontinence, UTI, Recurrent Other Genitourinary History: having some issues with urination and ? 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: Musculoskeletal History: Reports: Fracture Other Musculoskeletal History: left femur fracture; bilat humerous fractures Neurological History: Reports: Migraines Psychiatric History: Reports: Depression Endocrine/Metabolic History: Reports: Hypothyroidism Hematologic History: Reports: B12 Deficiency Other Hematologic History: hypomagnesemia; had elevated ddimer Oncologic (Cancer) History: Reports: Lung Other Oncologic History: stage 1 and had left low lung removed - Infectious Disease History Infectious Disease History: Reports: Chicken Pox, Measles - Past Surgical History Respiratory Surgical History: Reports: Other (See Below) Other Respiratory Surgeries/Procedures: lobectomy Oncologic Surgical History: Reports: Lobectomy Social & Family History - Family History Family Medical History: Noncontributory - Tobacco Use Smoking Status *Q: Never Smoker - Caffeine Use Caffeine Use: Reports: None Other Caffeine Use: unknown - Recreational Drug Use Recreational Drug Use: No - Living Situation & Occupation Living situation: Reports: Occupation: Retired (Lives in the independent part of [facility]) ED ROS GENERAL - Review of Systems Review Of Systems: See Below Constitutional: Reports: No Symptoms HEENT: Reports: No Symptoms Respiratory: Reports: Shortness of Breath Cardiovascular: Reports: No Symptoms Endocrine: Reports: No Symptoms GI/Abdominal: Reports: Abdominal Pain. Denies: Diarrhea, Nausea, Vomiting : Reports: No Symptoms Musculoskeletal: Reports: No Symptoms ED EXAM, GENERAL - Physical Exam Exam: See Below Exam Limited By: No Limitations General Appearance: Alert, No Apparent Distress Ears: Normal External Exam Nose: Normal Inspection Head: Atraumatic, Normocephalic Neck: Normal Inspection Respiratory/Chest: No Respiratory Distress, Decreased Breath Sounds, Rhonchi Cardiovascular: Regular Rate, Rhythm, No Edema, No Murmur GI/Abdominal: Soft, Non-Tender, No Organomegaly, No Mass Back Exam: Normal Inspection Extremities: Normal Inspection Course - Vital Signs Last Recorded V/S: Last Vital Signs Temp 98.6 F 04/05/19 10:12 Pulse 90 04/05/19 10:12 Resp 31 H 04/05/19 10:12 BP 106/65 04/05/19 10:12 Pulse Ox 96 04/05/19 10:33 - Orders/Labs/Meds Orders: Active Orders 24 hr Category Date Time Status Oxygen Therapy Adult [Oxygen Therapy, ED] [RC] Care 04/05/19 10:33 Active ASDIRECTED Peripheral IV Care [RC] . DIRECTED Care 04/05/19 10:31 Active RT Aerosol Therapy [RC] ASDIRECTED Care 04/05/19 10:31 Active CULTURE BLOOD [BC] Stat Lab 04/05/19 10:55 Received CULTURE BLOOD [BC] Stat Lab 04/05/19 11:05 Received Sodium Chloride 0.9% [Saline Flush] Med 04/05/19 10:30 Active 10 ml FLUSH ASDIRECTED PRN Blood Culture x2 Reflex Set [OM.PC] Stat Ot 04/05/19 10:32 Ordered Peripheral IV Insertion Adult [OM.PC] Stat Ot 04/05/19 10:30 Ordered Medication Orders Sodium Chloride (Saline Flush) 10 ml FLUSH ASDIRECTED PRN PRN Reason: Keep Vein Open Last Admin: 04/05/19 10:40 Dose: 10 ml Labs: Laboratory Tests 04/05/19 04/05/19 04/05/19 Range/Units 10:55 10:55 10:55 WBC 15.61 H (3.98-10.04) K/mm3 RBC 4.33 (3.98-5.22) M/mm3 Hgb 13.5 (11.2-15.7) gm/L Hct 40.3 (34.1-44.9) % MCV 93.1 (79.4-94.8) fl MCH 31.2 (25.6-32.2) pg MCHC 33.5 (32.2-35.5) g/dl RDW Std Deviation 48.7 H (36.4-46.3) fL Plt Count 311 (182-369) K/mm3 MPV 9.3 L (9.4-12.3) fl Neut % (Auto) 82.5 H (34.0-71.1) % Lymph % (Auto) 11.7 L (19.3-51.7) % [place] % (Auto) 5.3 (4.7-12.5) % Eos % (Auto) 0.1 L (0.7-5.8) Baso % (Auto) 0.4 (0.1-1.2) % Neut # (Auto) 12.90 H (1.56-6.13) K/mm3 Lymph # (Auto) 1.82 (1.18-3.74) K/mm3 [place] # (Auto) 0.82 H (0.24-0.36) K/mm3 Eos # (Auto) 0.01 L (0.04-0.36) K/mm3 Baso # (Auto) 0.06 (0.01-0.08) K/mm3 Manual Slide Review Abnormal smear Sodium 142 (136-145) mEq/L Potassium 4.3 (3.5-5.1) mEq/L Chloride 104 (98-107) mEq/L Carbon Dioxide 30 (21-32) mEq/L Anion Gap 12.3 (5-15) BUN 21 H (7-18) mg/dL Creatinine 0.7 (0.55-1.02) mg/dL Est Cr Clr Drug Dosing TNP Estimated GFR (MDRD) > 60 (>60) mL/min BUN/Creatinine Ratio 30.0 H (14-18) Glucose 83 (83-115) mg/dL Lactic Acid 0.9 (0.4-2.0) mmol/L Calcium 9.6 (8.5-10.1) mg/dL Total Bilirubin 0.4 (0.2-1.0) mg/dL AST 22 (15-37) U/L ALT 25 (14-59) U/L Alkaline Phosphatase 54 (46-116) U/L Total Protein 7.4 (6.4-8.2) g/dl Albumin 3.0 L (3.4-5.0) g/dl Globulin 4.4 gm/dL Albumin/Globulin Ratio 0.7 L (1-2) Mycoplasma pneumon IgM Negative (NEGATIVE) Meds: Medications Generic Name Dose Route Start Last Admin Trade Name Freq PRN Reason Stop Dose Admin Sodium Chloride 10 ml 04/05/19 10:30 04/05/19 10:40 Saline Flush FLUSH 10 ml ASDIRECTED PRN Administration Keep Vein Open Discontinued Medications Generic Name Dose Route Start Last Admin Trade Name [place] PRN Reason Stop Dose Admin Albuterol/Ipratropium 3 ml 04/05/19 10:31 04/05/19 11:07 Duoneb 3.0-0.5 Mg/3 Ml NEB 04/05/19 10:32 3 ml ONETIME ONE Administration Ceftriaxone Sodium 2 gm/ 100 mls @ 200 mls/hr 04/05/19 11:31 04/05/19 11:37 Sodium Chloride IV 04/05/19 12:00 200 mls/hr ONETIME ONE Administration - Re-Assessments/Exams Free Text/Narrative Re-Assessment/Exam: 04/05/19 11:18 I ordered an IV saline lock, oxygen, labs, CXR, blood cultures and a duoneb. 04/05/19 12:48 Her WBC was elevated at 15.61. Her CMP looks good. Her mycoplasma was negative. Dr Mcmahon read the CXR as decreased parenchymal density within the right lung base from prior exam. Other findings within the chest are stable. Difficult to exclude mild superimposed bronchitis. She feels a little better after the treatment. I feel she needs to be admitted for bronchitis/early pneumonia. I called Dr Ibarra and he agreed to the admission. Departure - Departure Time of Disposition: 12:50 Disposition: Admitted As Inpatient 65 Condition: Fair Clinical Impression: Bronchitis, Hypoxia COPD (chronic obstructive pulmonary disease) Qualifiers: COPD type: unspecified COPD Qualified Code(s): J44.9 - Chronic obstructive pulmonary disease, unspecified - Discharge Information Referrals: PCP,Unknown [Primary Care Provider] - Forms: ED Department Discharge - My Orders Last 24 Hours: My Active Orders 04/05/19 10:30 Sodium Chloride 0.9% [Saline Flush] 10 ml FLUSH ASDIRECTED PRN Peripheral IV Insertion Adult [OM.PC] Stat 04/05/19 10:31 Peripheral IV Care [RC] . DIRECTED RT Aerosol Therapy [RC] ASDIRECTED 04/05/19 10:32 Blood Culture x2 Reflex Set [OM.PC] Stat 04/05/19 10:33 Oxygen Therapy Adult [Oxygen Therapy, ED] [RC] ASDIRECTED 04/05/19 10:55 CULTURE BLOOD [BC] Stat 04/05/19 11:05 CULTURE BLOOD [BC] Stat - Assessment/Plan Last 24 Hours: My Active Orders 04/05/19 10:30 Sodium Chloride 0.9% [Saline Flush] 10 ml FLUSH ASDIRECTED PRN Peripheral IV Insertion Adult [OM.PC] Stat 04/05/19 10:31 Peripheral IV Care [RC] . DIRECTED RT Aerosol Therapy [RC] ASDIRECTED 04/05/19 10:32 Blood Culture x2 Reflex Set [OM.PC] Stat 04/05/19 10:33 Oxygen Therapy Adult [Oxygen Therapy, ED] [RC] ASDIRECTED 04/05/19 10:55 CULTURE BLOOD [BC] Stat 04/05/19 11:05 CULTURE BLOOD [BC] Stat
[2019-04-05] MEDS ORDERED: cefTRIAXone 2 GM in Sodium Chloride 0.9% 100 ML IV ONE (11:31)
--- NOTE | 2019-04-05 11:57 | CR ---
Chest: Portable view of the chest was obtained. Comparison: Prior chest x-ray of 11/24/18. Slight increased density is noted within the right lower lung. Perihilar markings are mildly increased. Findings within the right lung base are improved from prior exam. Other findings are stable from previous chest x-ray. Old fracture is noted within the proximal right humerus. Bony structures are osteopenic. Impression: 1. Decreased parenchymal density within the right lung base from prior exam. Other findings within the chest are stable. Difficult to exclude mild superimposed bronchitis. Diagnostic code #2
[2019-04-05] MEDS ORDERED: Acetaminophen 325 MG Tab PO PRN (13:20)
[2019-04-05] MEDS ORDERED: Ondansetron 4 MG Tab.DIS PO PRN (13:20)
[2019-04-05] MEDS ORDERED: HYDROmorphone 0.5 MG/0.5 ML Syringe IVPUSH PRN (13:20)
[2019-04-05] MEDS ORDERED: cefTRIAXone 2 GM Vial IVPUSH SCH (13:30)
--- NOTE | 2019-04-05 13:35 | PCM.HP ---
H&P History of Present Illness - General Date of Service: 04/05/19 Admit Problem/Dx: Admission Diagnosis/Problem Admission Diagnosis/Problem COPD with acute lower respiratory infection - History of Present Illness Initial Comments - Free Text/Narative: 84 yo WF with advanced COPD, home O2 dependent admitted through ED with 5 day h/ o increased WOB, poor po intake. Initially required increased O2 flow. Imaging consistent with COPD. Admitted for further treatment. - Related Data Allergies/Adverse Reactions: Allergies Allergy/AdvReac Type Severity Reaction Status Date / Time rofecoxib Allergy Edema Verified 04/05/19 10:16 venom-wasp [wasp venom] Allergy Anaphylactic Verified 04/05/19 10:16 Shock Home Medications: Home Meds Cyanocobalamin (Vitamin B12) [Vitamin B12] 1,000 mcg INJECT ASDIRECTED 11/27/14 [History] EPINEPHrine [Epipen] 0.3 ml INJECT ASDIRECTED PRN 11/27/14 [History] Levothyroxine [Synthroid] 100 mcg PO DAILY 11/27/14 [History] Metoprolol Succinate [Toprol XL] 50 mg PO DAILY 11/27/14 [History] Rosuvastatin [Crestor] 10 mg PO DAILY 11/27/14 [History] amLODIPine [Norvasc] 5 mg PO DAILY 11/27/14 [History] Aspirin 81 mg PO DAILY 06/10/18 [History] Mirtazapine [Remeron] 15 mg PO BEDTIME 06/10/18 [History] Nitroglycerin [Nitrostat] 0.4 mg SL ASDIRECTED PRN 06/10/18 [History] Polyethylene Glycol 3350 [MiraLAX] 17 gm PO BID 06/10/18 [History] Sertraline [Zoloft] 50 mg PO DAILY 06/10/18 [History] Albuterol Sulfate [Proair Hfa] 2 puff IH Q6H PRN 08/06/18 [History] Calcium Carbonate/Vitamin D3 [Calcium 600-Vit D3 400 Tablet] 400 - 600 mg PO DAILY 08/06/18 [History] Nicotine [Nicoderm CQ] 7 mg TD DAILY 08/06/18 [History] oxyCODONE HCl/Acetaminophen [Percocet 5-325 mg Tablet] 5 - 325 mg PO Q4H PRN 12/05 [History] Megestrol [Megace 40 MG/ML Susp] 400 mg PO BIDMEALS 10 Days #20 cup 11/23/18 [Rx ] Multivitamins,Therapeutic [Thera] 1 each PO DAILY #20 tablet 11/23/18 [Rx] predniSONE [Prednisone] 10 mg PO DAILY #15 tablet 11/23/18 [Rx] Tiotropium [Spiriva HandiHaler] 2 puff INH DAILY 11/24/18 [History] Albuterol/Ipratropium [DuoNeb 3.0-0.5 MG/3 ML] 3 ml NEB Q6H 04/05/19 [History] Ciprofloxacin [Ciprofloxacin HCl] 250 mg PO BID 04/05/19 [History] Past Medical History HEENT History: Reports: Cataract Other HEENT History: wears reading glasses. Cardiovascular History: Reports: CAD, High Cholesterol, Hypertension, [place] Other Cardiovascular History: hypomagnesmia Respiratory History: Reports: COPD Other Respiratory History: lung cancer, lobectomy. on chronic O2 at home. Patient had aspiration of a mass right lower lobe of lung within the last 6 weeks. We will try and obtain these results. Gastrointestinal History: Reports: Hemorrhoids Other Gastrointestinal History: per [place] papers-abdominal pain Genitourinary History: Reports: Renal Calculus, Urinary Incontinence, UTI, Recurrent Other Genitourinary History: having some issues with urination and ? if it is from constipation [employer] History: Reports: Musculoskeletal History: Reports: Fracture Other Musculoskeletal History: left femur fracture; bilat humerous fractures Neurological History: Reports: Migraines Psychiatric History: Reports: Depression Endocrine/Metabolic History: Reports: Hypothyroidism Hematologic History: Reports: B12 Deficiency Other Hematologic History: hypomagnesemia; had elevated ddimer Oncologic (Cancer) History: Reports: Lung Other Oncologic History: stage 1 and had left low lung removed - Infectious Disease History Infectious Disease History: Reports: Chicken Pox, Measles - Past Surgical History Respiratory Surgical History: Reports: Other (See Below) Other Respiratory Surgeries/Procedures: lobectomy Oncologic Surgical History: Reports: Lobectomy Social & Family History - Family History Family Medical History: Noncontributory - Tobacco Use Smoking Status *Q: Never Smoker - Caffeine Use Caffeine Use: Reports: None Other Caffeine Use: unknown - Recreational Drug Use Recreational Drug Use: No - Living Situation & Occupation Living situation: Reports: Occupation: Retired (Lives in the independent part of [facility]) H&P Review of Systems - Review of Systems: Review Of Systems: See Below General: Reports: Malaise, Weakness, Fatigue, Decreased Appetite. Denies: Fever HEENT: Denies: Dysphasia, Hearing Changes Pulmonary: Reports: Shortness of Breath, Wheezing, Cough, Sputum Cardiovascular: Denies: Chest Pain, Palpitations, Edema Gastrointestinal: Reports: Anorexia, Decreased Appetite. Denies: Abdominal Pain , Diarrhea, Vomiting Genitourinary: Denies: Dysuria, Frequency Skin: Denies: Cyanosis, Jaundice Psychiatric: Denies: Suicidal Ideation Neurological: Denies: Seizure, Syncope Hematologic/Lymphatic: Denies: Easy Bleeding, Easy Bruising Exam - Exam Exam: See Below - Vital Signs Vital Signs: Last Vital Signs Temp 98.6 F 04/05/19 10:12 Pulse 90 04/05/19 10:12 Resp 31 H 04/05/19 10:12 BP 106/65 04/05/19 10:12 Pulse Ox 96 04/05/19 10:33 Weight: 95 lb - Exam Quality Assessment: Supplemental Oxygen, DVT Prophylaxis General: Alert, Oriented, Cooperative HEENT: Conjunctiva Clear, EOMI, Pupils Equal Neck: Supple, Trachea Midline Lungs: Decreased Breath Sounds, Crackles, Wheezing Cardiovascular: Regular Rate, Regular Rhythm. No: Gallop/S3 GI/Abdominal Exam: Soft, No Distention, No Abnormal Bruit. No: Guarding Extremities: No: Pedal Edema, Joint Swelling Peripheral Pulses: 1+: Dorsalis Pedis (L), Dorsalis Pedis (R) Skin: Warm, Dry Neuro Extensive - Mental Status: Oriented x3, Normal Cognition Neuro Extensive - Motor, Sensory, Reflexes: CN II-XII Intact, Normal Reflexes. No: Motor/Sensory Deficits Psychiatric: Anxious. No: Suicidal Ideation - Patient Data Lab Results Last 24 hrs: Laboratory Results - last 24 hr 04/05/19 04/05/19 04/05/19 Range/Units 10:55 10:55 10:55 WBC 15.61 H (3.98-10.04) K/mm3 RBC 4.33 (3.98-5.22) M/mm3 Hgb 13.5 (11.2-15.7) gm/L Hct 40.3 (34.1-44.9) % MCV 93.1 (79.4-94.8) fl MCH 31.2 (25.6-32.2) pg MCHC 33.5 (32.2-35.5) g/dl RDW Std Deviation 48.7 H (36.4-46.3) fL Plt Count 311 (182-369) K/mm3 MPV 9.3 L (9.4-12.3) fl Neut % (Auto) 82.5 H (34.0-71.1) % Lymph % (Auto) 11.7 L (19.3-51.7) % [place] % (Auto) 5.3 (4.7-12.5) % Eos % (Auto) 0.1 L (0.7-5.8) Baso % (Auto) 0.4 (0.1-1.2) % Neut # (Auto) 12.90 H (1.56-6.13) K/mm3 Lymph # (Auto) 1.82 (1.18-3.74) K/mm3 [place] # (Auto) 0.82 H (0.24-0.36) K/mm3 Eos # (Auto) 0.01 L (0.04-0.36) K/mm3 Baso # (Auto) 0.06 (0.01-0.08) K/mm3 Manual Slide Review Abnormal smear Sodium 142 (136-145) mEq/L Potassium 4.3 (3.5-5.1) mEq/L Chloride 104 (98-107) mEq/L Carbon Dioxide 30 (21-32) mEq/L Anion Gap 12.3 (5-15) BUN 21 H (7-18) mg/dL Creatinine 0.7 (0.55-1.02) mg/dL Est Cr Clr Drug Dosing TNP Estimated GFR (MDRD) > 60 (>60) mL/min BUN/Creatinine Ratio 30.0 H (14-18) Glucose 83 (83-115) mg/dL Lactic Acid 0.9 (0.4-2.0) mmol/L Calcium 9.6 (8.5-10.1) mg/dL Total Bilirubin 0.4 (0.2-1.0) mg/dL AST 22 (15-37) U/L ALT 25 (14-59) U/L Alkaline Phosphatase 54 (46-116) U/L Total Protein 7.4 (6.4-8.2) g/dl Albumin 3.0 L (3.4-5.0) g/dl Globulin 4.4 gm/dL Albumin/Globulin Ratio 0.7 L (1-2) Mycoplasma pneumon IgM Negative (NEGATIVE) Result Diagrams: 04/05/19 10:55 04/05/19 10:55 - Problem List (1) COPD with exacerbation SNOMED Code(s): 965272567 ICD Code: J44.1 - CHRONIC OBSTRUCTIVE PULMONARY DISEASE W (ACUTE) EXACERBATION Status: Acute Current Visit: Yes (2) Respiratory failure with hypoxia and hypercapnia SNOMED Code(s): 11982017 ICD Code: J96.91 - RESPIRATORY FAILURE, UNSPECIFIED WITH HYPOXIA; J96.92 - RESPIRATORY FAILURE, UNSPECIFIED WITH HYPERCAPNIA Status: Acute Priority: High Current Visit: Yes Qualifiers: Chronicity: acute on chronic Qualified Code(s): J96.21 - Acute and chronic respiratory failure with hypoxia; J96.22 - Acute and chronic respiratory failure with hypercapnia Problem List Initiated/Reviewed/Updated: Yes Orders Last 24hrs: Active Orders 24 hr Category Date Time Status Admission Status [Patient Status] [ADT] Routine ADT 04/05/19 13:12 Active Bedrest Bathroom Privileges [RC] ASDIRECTED Care 04/05/19 13:20 Ordered Cardiac Monitoring [RC] CONTINUOUS Care 04/05/19 13:21 Ordered Height and Weight [RC] DAILY Care 04/05/19 13:20 Ordered Intake and Output [RC] QSHIFT Care 04/05/19 13:21 Ordered Oxygen Therapy Adult [Oxygen Therapy, ED] [RC] Care 04/05/19 10:33 Active ASDIRECTED Oxygen Therapy [RC] PRN Care 04/05/19 13:20 Ordered Peripheral IV Care [RC] . DIRECTED Care 04/05/19 10:31 Active RT Aerosol Therapy [RC] ASDIRECTED Care 04/05/19 10:31 Active RT Aerosol Therapy [RC] ASDIRECTED Care 04/05/19 13:24 Ordered VTE/DVT Education [RC] PER UNIT ROUTINE Care 04/05/19 13:20 Ordered Vital Signs [RC] Q6H Care 04/05/19 13:20 Ordered Regular Diet [DIET] Diet 04/05/19 Dinner Ordered BMP [BASIC METABOLIC PANEL,BMP] [CHEM] AM Lab 04/06/19 05:11 Ordered CBC WITH AUTO DIFF [HEME] AM Lab 04/06/19 05:11 Ordered CULTURE BLOOD [BC] Stat Lab 04/05/19 10:55 Received CULTURE BLOOD [BC] Stat Lab 04/05/19 11:05 Received MAGNESIUM [CHEM] AM Lab 04/06/19 05:00 Ordered PHOSPHORUS [CHEM] AM Lab 04/06/19 05:00 Ordered PRO B-TYPE NATRIUR PEPT,BNPPRO [CHEM] AM Lab 04/06/19 05:11 Ordered TROPONIN I [CHEM] AM Lab 04/06/19 05:11 Ordered Acetaminophen [Tylenol] Med 04/05/19 13:20 Ordered 650 mg PO Q4H PRN Albuterol/Ipratropium [DuoNeb 3.0-0.5 MG/3 ML] Med 04/05/19 13:20 Ordered 3 ml NEB Q4H PRN Budesonide [Pulmicort] Med 04/05/19 13:25 Ordered 0.5 mg NEB BIDRT Dextrose 5%-0.9% NaCl [Dextrose 5%-Normal Saline] 1,000 Med 04/05/19 13:30 Ordered ml IV ASDIRECTED Enoxaparin [Lovenox] Med 04/06/19 09:00 Ordered 40 mg SUBCUT DAILY HYDROmorphone [Dilaudid] Med 04/05/19 13:20 Ordered 0.25 mg IVPUSH Q2H PRN LORazepam [Ativan] Med 04/05/19 13:20 Ordered 1 mg IV Q6H PRN Ondansetron [Zofran ODT] Med 04/05/19 13:20 Ordered 4 mg PO Q4H PRN Sodium Chloride 0.9% [Saline Flush] Med 04/05/19 10:30 Active 10 ml FLUSH ASDIRECTED PRN cefTRIAXone [Rocephin] Med 04/05/19 13:30 Ordered 2 gm IVPUSH Q24H methylPREDNISolone Sod Succ [Solu-MEDROL] Med 04/05/19 13:30 Ordered 40 mg IVPUSH Q6H Blood Culture x2 Reflex Set [OM.PC] Stat Oth 04/05/19 10:32 Ordered Peripheral IV Insertion Adult [OM.PC] Stat Oth 04/05/19 10:30 Ordered Resuscitation Status Stat Resus Stat 04/05/19 13:28 Ordered Medication Orders Acetaminophen (Tylenol) 650 mg PO Q4H PRN PRN Reason: Pain (Mild 1-3)/fever Albuterol/Ipratropium (Duoneb 3.0-0.5 Mg/3 Ml) 3 ml NEB Q4H PRN PRN Reason: Shortness Of Breath/wheezing Budesonide (Pulmicort) 0.5 mg NEB BIDRT [facility] Ceftriaxone Sodium (Rocephin) 2 gm IVPUSH Q24H [facility] Enoxaparin Sodium (Lovenox) 40 mg SUBCUT DAILY [facility] Hydromorphone HCl (Dilaudid) 0.25 mg IVPUSH Q2H PRN PRN Reason: Pain (severe 7-10) Dextrose/Sodium Chloride (Dextrose 5%-Normal Saline) 1,000 mls @ 100 mls/hr IV ASDIRECTED [facility] Lorazepam (Ativan) 1 mg IV Q6H PRN PRN Reason: Nausea/Vomiting Methylprednisolone Sodium Succinate (Solu-Medrol) 40 mg IVPUSH Q6H [facility] Ondansetron HCl (Zofran Odt) 4 mg PO Q4H PRN PRN Reason: nausea, able to take PO Sodium Chloride (Saline Flush) 10 ml FLUSH ASDIRECTED PRN PRN Reason: Keep Vein Open Last Admin: 04/05/19 10:40 Dose: 10 ml Assessment/Plan Comment:: 1. O2, ALLEGRA, SAAM, ICS, empiric abx, systemic steroids. 2. DVTP - LMWH.
[2019-04-05] MEDS: Budesonide 0.5 MG/2 ML Neb Susp NEB SCH ×2 (14:16→20:01)
[2019-04-05] MEDS: Albuterol/Ipratropium 3.0-0.5 MG/3 ML Neb Soln NEB PRN ×2 (14:16→19:54)
[2019-04-05] MEDS: methylPREDNISolone Sodium Succinate 40 MG/1 ML SDV IVPUSH SCH ×2 (14:42→21:19)
[2019-04-05] MEDS: Dextrose 5%-0.9% NaCl 1,000 ML IV SCH (17:45)
[2019-04-05] MEDS: LORazepam 2 MG/ML SDV IV PRN (21:28)
[2019-04-06] MEDS: methylPREDNISolone Sodium Succinate 40 MG/1 ML SDV IVPUSH SCH ×4 (03:01→20:50)
[2019-04-06] MEDS: Dextrose 5%-0.9% NaCl 1,000 ML IV SCH ×3 (03:04→17:13)
[2019-04-06] MEDS: Budesonide 0.5 MG/2 ML Neb Susp NEB SCH ×2 (06:11→21:17)
[2019-04-06] MEDS: Albuterol/Ipratropium 3.0-0.5 MG/3 ML Neb Soln NEB PRN ×3 (06:11→21:17)
[2019-04-06] MEDS ORDERED: Magnesium Sulfate/Water 2 GM in Premix Bag 1 BAG IV ONE (08:00)
[2019-04-06] MEDS: Enoxaparin 30 MG/0.3 ML Syringe SUBCUT SCH (08:15)
[2019-04-06] MEDS ORDERED: Acetaminophen/oxyCODONE 325-5 MG Tab PO PRN (09:26)
[2019-04-06] MEDS ORDERED: Magnesium Hydroxide 400 MG/5 ML Susp 30 ML Cup PO ONE (10:05)
[2019-04-06] MEDS: cefTRIAXone 2 GM in Sodium Chloride 0.9% 100 ML IV SCH (10:27)
[2019-04-06] MEDS: Metoprolol Succinate 50 MG Tab.ER PO SCH (10:31)
[2019-04-06] MEDS: amLODIPine 5 MG Tab PO SCH (10:32)
[2019-04-06] MEDS: Sertraline 50 MG Tab PO SCH (10:33)
--- NOTE | 2019-04-06 10:57 | PCM.PN ---
- General Info Date of Service: 04/06/19 Admission Dx/Problem (Free Text): Admission Diagnosis/Problem Admission Diagnosis/Problem COPD with acute lower respiratory infection Subjective Update: February 03, 2019 84 yo WF with advanced COPD, home O2 dependent admitted through ED with 5 day h/ o increased WOB, poor po intake. Initially required increased O2 flow. Imaging consistent with COPD. Admitted for further treatment. February 04, 2019 Pt. back at baseline O2. C/O of SOB and fatigue. No fevers. Appetite poor, but at baseline. Weight is up 18 lbs. from November. - Review of Systems General: Reports: No Symptoms HEENT: Reports: No Symptoms Pulmonary: Reports: Shortness of Breath, Cough Cardiovascular: Reports: No Symptoms. Denies: Chest Pain, Palpitations Gastrointestinal: Reports: No Symptoms. Denies: Abdominal Pain, Constipation - Patient Data Vitals - Most Recent: Last Vital Signs Temp 98.4 F 04/06/19 08:03 Pulse 77 04/06/19 10:31 Resp 24 H 04/06/19 08:03 BP 126/72 04/06/19 10:32 Pulse Ox 94 L 04/06/19 08:03 Weight - Most Recent: 92 lb 6 oz I&O - Last 24 Hours: Intake & Output 04/05/19 04/06/19 04/06/19 22:59 06:59 14:59 Intake Total 60 1313 120 Output Total 0 375 Balance 60 938 120 Lab Results Last 24 Hours: Laboratory Results - last 24 hr 04/05/19 04/05/19 04/05/19 Range/Units 10:55 10:55 10:55 WBC 15.61 H (3.98-10.04) K/mm3 RBC 4.33 (3.98-5.22) M/mm3 Hgb 13.5 (11.2-15.7) gm/L Hct 40.3 (34.1-44.9) % MCV 93.1 (79.4-94.8) fl MCH 31.2 (25.6-32.2) pg MCHC 33.5 (32.2-35.5) g/dl RDW Std Deviation 48.7 H (36.4-46.3) fL Plt Count 311 (182-369) K/mm3 MPV 9.3 L (9.4-12.3) fl Neut % (Auto) 82.5 H (34.0-71.1) % Lymph % (Auto) 11.7 L (19.3-51.7) % [place] % (Auto) 5.3 (4.7-12.5) % Eos % (Auto) 0.1 L (0.7-5.8) Baso % (Auto) 0.4 (0.1-1.2) % Neut # (Auto) 12.90 H (1.56-6.13) K/mm3 Lymph # (Auto) 1.82 (1.18-3.74) K/mm3 [place] # (Auto) 0.82 H (0.24-0.36) K/mm3 Eos # (Auto) 0.01 L (0.04-0.36) K/mm3 Baso # (Auto) 0.06 (0.01-0.08) K/mm3 Manual Slide Review Abnormal smear Sodium 142 (136-145) mEq/L Potassium 4.3 (3.5-5.1) mEq/L Chloride 104 (98-107) mEq/L Carbon Dioxide 30 (21-32) mEq/L Anion Gap 12.3 (5-15) BUN 21 H (7-18) mg/dL Creatinine 0.7 (0.55-1.02) mg/dL Est Cr Clr Drug Dosing TNP Estimated GFR (MDRD) > 60 (>60) mL/min BUN/Creatinine Ratio 30.0 H (14-18) Glucose 83 (83-115) mg/dL Lactic Acid 0.9 (0.4-2.0) mmol/L Calcium 9.6 (8.5-10.1) mg/dL Magnesium (1.8-2.4) mg/dl Total Bilirubin 0.4 (0.2-1.0) mg/dL AST 22 (15-37) U/L ALT 25 (14-59) U/L Alkaline Phosphatase 54 (46-116) U/L Total Protein 7.4 (6.4-8.2) g/dl Albumin 3.0 L (3.4-5.0) g/dl Globulin 4.4 gm/dL Albumin/Globulin Ratio 0.7 L (1-2) Mycoplasma pneumon IgM Negative (NEGATIVE) MRSA (PCR) 04/05/19 04/06/19 04/06/19 Range/Units 17:40 05:50 05:50 WBC 12.85 H (3.98-10.04) K/mm3 RBC 4.13 (3.98-5.22) M/mm3 Hgb 12.5 (11.2-15.7) gm/L Hct 38.3 (34.1-44.9) % MCV 92.7 (79.4-94.8) fl MCH 30.3 (25.6-32.2) pg MCHC 32.6 (32.2-35.5) g/dl RDW Std Deviation 47.4 H (36.4-46.3) fL Plt Count 291 (182-369) K/mm3 MPV 9.5 (9.4-12.3) fl Neut % (Auto) 89.0 H (34.0-71.1) % Lymph % (Auto) 10.1 L (19.3-51.7) % [place] % (Auto) 0.5 L (4.7-12.5) % Eos % (Auto) 0 L (0.7-5.8) Baso % (Auto) 0.1 (0.1-1.2) % Neut # (Auto) 11.43 H (1.56-6.13) K/mm3 Lymph # (Auto) 1.30 (1.18-3.74) K/mm3 [place] # (Auto) 0.07 L (0.24-0.36) K/mm3 Eos # (Auto) 0.00 L (0.04-0.36) K/mm3 Baso # (Auto) 0.01 (0.01-0.08) K/mm3 Manual Slide Review Normal smear Sodium 142 (136-145) mEq/L Potassium 3.7 (3.5-5.1) mEq/L Chloride 107 (98-107) mEq/L Carbon Dioxide 25 (21-32) mEq/L Anion Gap 13.7 (5-15) BUN 19 H (7-18) mg/dL Creatinine 0.7 (0.55-1.02) mg/dL Est Cr Clr Drug Dosing 38.87 Estimated GFR (MDRD) > 60 (>60) mL/min BUN/Creatinine Ratio 27.1 H (14-18) Glucose 175 H (83-115) mg/dL Lactic Acid (0.4-2.0) mmol/L Calcium 8.3 L (8.5-10.1) mg/dL Magnesium 1.7 L (1.8-2.4) mg/dl Total Bilirubin 0.3 (0.2-1.0) mg/dL AST 20 (15-37) U/L ALT 21 (14-59) U/L Alkaline Phosphatase 49 (46-116) U/L Total Protein 7.0 (6.4-8.2) g/dl Albumin 2.8 L (3.4-5.0) g/dl Globulin 4.2 gm/dL Albumin/Globulin Ratio 0.7 L (1-2) Mycoplasma pneumon IgM (NEGATIVE) MRSA (PCR) Negative Med Orders - Current: Current Medications Acetaminophen (Tylenol) 650 mg PO Q4H PRN PRN Reason: Pain (Mild 1-3)/fever Albuterol/Ipratropium (Duoneb 3.0-0.5 Mg/3 Ml) 3 ml NEB Q4H PRN PRN Reason: Shortness Of Breath/wheezing Last Admin: 04/06/19 06:11 Dose: 3 ml Amlodipine Besylate (Norvasc) 5 mg PO DAILY [facility] Last Admin: 04/06/19 10:32 Dose: 5 mg Budesonide (Pulmicort) 0.5 mg NEB BIDRT [facility] Last Admin: 04/06/19 06:11 Dose: 0.5 mg Enoxaparin Sodium (Lovenox) 30 mg SUBCUT DAILY [facility] Last Admin: 04/06/19 08:15 Dose: 30 mg Hydromorphone HCl (Dilaudid) 0.25 mg IVPUSH Q2H PRN PRN Reason: Pain (severe 7-10) Dextrose/Sodium Chloride (Dextrose 5%-Normal Saline) 1,000 mls @ 100 mls/hr IV ASDIRECTED [facility] Last Admin: 04/06/19 03:04 Dose: 100 mls/hr Ceftriaxone Sodium 2 gm/ (Sodium Chloride) 100 mls @ 200 mls/hr IV Q24H [facility] Last Admin: 04/06/19 10:27 Dose: 200 mls/hr Levothyroxine Sodium (Synthroid) 100 mcg PO ACBREAKFAST [facility] Lorazepam (Ativan) 1 mg IV Q6H PRN PRN Reason: Anxiety Last Admin: 04/05/19 21:28 Dose: 1 mg Megestrol Acetate (Megace) 40 mg PO BID [facility] Methylprednisolone Sodium Succinate (Solu-Medrol) 40 mg IVPUSH Q6H [facility] Last Admin: 04/06/19 08:15 Dose: 40 mg Metoprolol Succinate (Toprol Xl) 50 mg PO DAILY [facility] Last Admin: 04/06/19 10:31 Dose: 50 mg Mirtazapine (Remeron) 15 mg PO BEDTIME [facility] Ondansetron HCl (Zofran Odt) 4 mg PO Q4H PRN PRN Reason: nausea, able to take PO Oxycodone/Acetaminophen (Percocet 325-5 Mg) 1 tab PO Q6H PRN PRN Reason: Pain Rosuvastatin Calcium (Crestor) 10 mg PO DAILY [facility] Sertraline HCl (Zoloft) 50 mg PO DAILY [facility] Last Admin: 04/06/19 10:33 Dose: 50 mg Sodium Chloride (Saline Flush) 10 ml FLUSH ASDIRECTED PRN PRN Reason: Keep Vein Open Last Admin: 04/05/19 10:40 Dose: 10 ml Discontinued Medications Albuterol/Ipratropium (Duoneb 3.0-0.5 Mg/3 Ml) 3 ml NEB ONETIME ONE Stop: 04/05/19 10:32 Last Admin: 04/05/19 11:07 Dose: 3 ml Ceftriaxone Sodium 2 gm/ (Sodium Chloride) 100 mls @ 200 mls/hr IV ONETIME ONE Stop: 04/05/19 12:00 Last Admin: 04/05/19 11:37 Dose: 200 mls/hr Magnesium Sulfate 2 gm/ Premix 50 mls @ 25 mls/hr IV ONETIME ONE Stop: 04/06/19 09:59 Last Admin: 04/06/19 08:07 Dose: 25 mls/hr Magnesium Hydroxide (Milk Of Magnesia) 30 ml PO ONETIME ONE Stop: 04/06/19 10:06 Last Admin: 04/06/19 10:34 Dose: 30 ml - Exam Quality Assessment: Supplemental Oxygen General: Alert, Oriented HEENT: Pupils Equal, Pupils Reactive Neck: Supple Lungs: Wheezing. No: Normal Respiratory Effort (Increased rate and mild increased effort.) Cardiovascular: Regular Rhythm, Tachycardia Skin: Warm, Dry - Problem List & Annotations (1) COPD with exacerbation SNOMED Code(s): 825620088 Code(s): J44.1 - CHRONIC OBSTRUCTIVE PULMONARY DISEASE W (ACUTE) EXACERBATION Status: Acute Current Visit: Yes (2) Hypoxia SNOMED Code(s): 158508524 Code(s): R09.02 - HYPOXEMIA Status: Acute Current Visit: Yes - Problem List Review Problem List Initiated/Reviewed/Updated: Yes - My Orders Last 24 Hours: My Active Orders 04/06/19 09:26 Acetaminophen/oxyCODONE [Percocet 325-5 MG] 1 tab PO Q6H PRN 04/06/19 09:30 Metoprolol Succinate [Toprol XL] 50 mg PO DAILY Sertraline [Zoloft] 50 mg PO DAILY amLODIPine [Norvasc] 5 mg PO DAILY 04/06/19 21:00 Megestrol [Megace] 40 mg PO BID Mirtazapine [Remeron] 15 mg PO BEDTIME 04/07/19 05:11 CBC WITH AUTO DIFF [HEME] AM CMP [COMPREHENSIVE METABOLIC PN,CMP] [CHEM] AM MAGNESIUM [CHEM] AM 04/07/19 06:00 Levothyroxine [Synthroid] 100 mcg PO ACBREAKFAST 04/07/19 09:00 Rosuvastatin [Crestor] 10 mg PO DAILY - Plan Plan:: 1. O2, ALLEGRA, SAAM, ICS, empiric abx, systemic steroids. Consider switching to PO steroids and antibiotics tomorrow. 2. DVTP - LMWH. Expected LOS 3 days. Code status: DNR/DNI
[2019-04-06] MEDS ORDERED: Bisacodyl 10 MG Supp RECTAL ONE (18:00)
[2019-04-06] MEDS: Mirtazapine 15 MG Tab PO SCH (20:50)
[2019-04-06] MEDS ORDERED: Megestrol 40 MG Tab PO SCH (21:00)
[2019-04-06] MEDS: LORazepam 2 MG/ML SDV IV PRN (22:20)
[2019-04-07] MEDS: methylPREDNISolone Sodium Succinate 40 MG/1 ML SDV IVPUSH SCH ×2 (01:47→08:22)
[2019-04-07] MEDS: Albuterol/Ipratropium 3.0-0.5 MG/3 ML Neb Soln NEB PRN ×3 (06:10→21:01)
[2019-04-07] MEDS: Budesonide 0.5 MG/2 ML Neb Susp NEB SCH ×2 (06:10→21:01)
[2019-04-07] MEDS: Levothyroxine 100 MCG Tab PO SCH (06:25)
[2019-04-07] MEDS: Metoprolol Succinate 50 MG Tab.ER PO SCH (08:22)
[2019-04-07] MEDS: Rosuvastatin 10 MG Tab PO SCH (08:26)
[2019-04-07] MEDS: Enoxaparin 30 MG/0.3 ML Syringe SUBCUT SCH (08:27)
[2019-04-07] MEDS: amLODIPine 5 MG Tab PO SCH (08:27)
[2019-04-07] MEDS: Sertraline 50 MG Tab PO SCH (08:27)
[2019-04-07] MEDS ORDERED: Sodium Chloride 0.9% 10 ML Syringe FLUSH PRN (09:12)
--- NOTE | 2019-04-07 10:15 | CR ---
Chest: Portable view of the chest was obtained. Comparison: Prior chest x-ray of 04/05/19. Increasing central lung markings are seen as an interval change from previous exam. Slight persistent parenchymal density is noted within the right base. Lungs otherwise are clear. Heart size does not appear enlarged. Tortuous thoracic aorta is seen. Bony structures are osteopenic. Mild lobulation of the left hemidiaphragm is incidentally noted. Impression: 1. Mild increasing central lung markings. Differential includes mild fluid overload, bronchitis as well as mild pulmonary vascular congestion. 2. Other portions of the chest appear stable from prior exam as noted above. Diagnostic code #3
[2019-04-07] MEDS: cefTRIAXone 2 GM in Sodium Chloride 0.9% 100 ML IV SCH (11:25)
--- NOTE | 2019-04-07 11:35 | PCM.PN ---
- General Info Date of Service: 04/07/19 Admission Dx/Problem (Free Text): Admission Diagnosis/Problem Admission Diagnosis/Problem COPD with acute lower respiratory infection Subjective Update: April 05, 2019 84 yo WF with advanced COPD, home O2 dependent admitted through ED with 5 day h/ o increased WOB, poor po intake. Initially required increased O2 flow. Imaging consistent with COPD. Admitted for further treatment. April 06, 2019 Pt. back at baseline O2. C/O of SOB and fatigue. No fevers. Appetite poor, but at baseline. Weight is up 18 lbs. from November. April 07, 2019 Patient was given Ativan overnight because of anxiety. Unfortunately, this made her more anxious and this morning she is more fatigued. Patient overall is doing well with her oxygen at baseline. - Review of Systems General: Reports: No Symptoms HEENT: Reports: No Symptoms Pulmonary: Reports: Shortness of Breath, Cough Cardiovascular: Reports: No Symptoms. Denies: Chest Pain Gastrointestinal: Reports: No Symptoms, Abdominal Pain - Patient Data Vitals - Most Recent: Last Vital Signs Temp 99.1 F 04/07/19 01:46 Pulse 92 04/07/19 08:22 Resp 26 H 04/07/19 01:46 BP 130/64 04/07/19 08:27 Pulse Ox 95 04/07/19 06:12 Weight - Most Recent: 97 lb 14.4 oz I&O - Last 24 Hours: Intake & Output 04/06/19 04/07/19 04/07/19 22:59 06:59 14:59 Intake Total 857 772 Output Total 400 300 Balance 457 472 Lab Results Last 24 Hours: Laboratory Results - last 24 hr 04/06/19 04/07/19 04/07/19 Range/Units 11:43 06:00 06:00 WBC 22.02 H (3.98-10.04) K/mm3 RBC 4.13 (3.98-5.22) M/mm3 Hgb 12.2 (11.2-15.7) gm/L Hct 38.4 (34.1-44.9) % MCV 93.0 (79.4-94.8) fl MCH 29.5 (25.6-32.2) pg MCHC 31.8 L (32.2-35.5) g/dl RDW Std Deviation 47.3 H (36.4-46.3) fL Plt Count 294 (182-369) K/mm3 MPV 9.6 (9.4-12.3) fl Neut % (Auto) 93.0 H (34.0-71.1) % Lymph % (Auto) 5.6 L (19.3-51.7) % [place] % (Auto) 1.0 L (4.7-12.5) % Eos % (Auto) 0 L (0.7-5.8) Baso % (Auto) 0.0 L (0.1-1.2) % Neut # (Auto) 20.48 H (1.56-6.13) K/mm3 Lymph # (Auto) 1.24 (1.18-3.74) K/mm3 [place] # (Auto) 0.22 L (0.24-0.36) K/mm3 Eos # (Auto) 0.00 L (0.04-0.36) K/mm3 Baso # (Auto) 0.00 L (0.01-0.08) K/mm3 Manual Slide Review Abnormal smear Sodium 142 (136-145) mEq/L Potassium 3.6 (3.5-5.1) mEq/L Chloride 108 H (98-107) mEq/L Carbon Dioxide 27 (21-32) mEq/L Anion Gap 10.6 (5-15) BUN 20 H (7-18) mg/dL Creatinine 0.6 (0.55-1.02) mg/dL Est Cr Clr Drug Dosing 48.06 mL/min Estimated GFR (MDRD) > 60 (>60) mL/min BUN/Creatinine Ratio 33.3 H (14-18) Glucose 151 H (83-115) mg/dL Lactic Acid 1.5 (0.4-2.0) mmol/L Calcium 8.0 L (8.5-10.1) mg/dL Magnesium 2.1 (1.8-2.4) mg/dl Total Bilirubin 0.2 (0.2-1.0) mg/dL AST 28 (15-37) U/L ALT 27 (14-59) U/L Alkaline Phosphatase 47 (46-116) U/L Total Protein 6.7 (6.4-8.2) g/dl Albumin 2.8 L (3.4-5.0) g/dl Globulin 3.9 gm/dL Albumin/Globulin Ratio 0.7 L (1-2) Cm Results Last 24 Hours: Microbiology 04/05/19 10:55 Aerobic Blood Culture - Preliminary Blood - Venous NO GROWTH AFTER 2 DAYS Anaerobic Blood Culture - Preliminary NO GROWTH AFTER 2 DAYS 04/05/19 11:05 Aerobic Blood Culture - Preliminary Blood - Venous - Lab Draw NO GROWTH AFTER 2 DAYS Anaerobic Blood Culture - Preliminary NO GROWTH AFTER 2 DAYS Med Orders - Current: Current Medications Acetaminophen (Tylenol) 650 mg PO Q4H PRN PRN Reason: Pain (Mild 1-3)/fever Albuterol/Ipratropium (Duoneb 3.0-0.5 Mg/3 Ml) 3 ml NEB Q4H PRN PRN Reason: Shortness Of Breath/wheezing Last Admin: 04/07/19 06:10 Dose: 3 ml Amlodipine Besylate (Norvasc) 5 mg PO DAILY [facility] Last Admin: 04/07/19 08:27 Dose: 5 mg Budesonide (Pulmicort) 0.5 mg NEB BIDRT [facility] Last Admin: 04/07/19 06:10 Dose: 0.5 mg Enoxaparin Sodium (Lovenox) 30 mg SUBCUT DAILY [facility] Last Admin: 04/07/19 08:27 Dose: 30 mg Hydromorphone HCl (Dilaudid) 0.25 mg IVPUSH Q2H PRN PRN Reason: Pain (severe 7-10) Ceftriaxone Sodium 2 gm/ (Sodium Chloride) 100 mls @ 200 mls/hr IV Q24H [facility] Last Admin: 04/07/19 11:25 Dose: 200 mls/hr Levothyroxine Sodium (Synthroid) 100 mcg PO ACBREAKFAST [facility] Last Admin: 04/07/19 06:25 Dose: 100 mcg Metoprolol Succinate (Toprol Xl) 50 mg PO DAILY [facility] Last Admin: 04/07/19 08:22 Dose: 50 mg Mirtazapine (Remeron) 15 mg PO BEDTIME [facility] Last Admin: 04/06/19 20:50 Dose: 15 mg Ondansetron HCl (Zofran Odt) 4 mg PO Q4H PRN PRN Reason: nausea, able to take PO Oxycodone/Acetaminophen (Percocet 325-5 Mg) 1 tab PO Q6H PRN PRN Reason: Pain Prednisone (Prednisone) 40 mg PO WITHBREAKFAST [facility] Rosuvastatin Calcium (Crestor) 10 mg PO DAILY [facility] Last Admin: 04/07/19 08:26 Dose: 10 mg Sertraline HCl (Zoloft) 50 mg PO DAILY [facility] Last Admin: 04/07/19 08:27 Dose: 50 mg Sodium Chloride (Saline Flush) 10 ml FLUSH ASDIRECTED PRN PRN Reason: Keep Vein Open Discontinued Medications Albuterol/Ipratropium (Duoneb 3.0-0.5 Mg/3 Ml) 3 ml NEB ONETIME ONE Stop: 04/05/19 10:32 Last Admin: 04/05/19 11:07 Dose: 3 ml Bisacodyl (Dulcolax) 10 mg RECTAL ONETIME ONE Stop: 04/06/19 18:01 Last Admin: 04/06/19 17:13 Dose: Not Given Ceftriaxone Sodium 2 gm/ (Sodium Chloride) 100 mls @ 200 mls/hr IV ONETIME ONE Stop: 04/05/19 12:00 Last Admin: 04/05/19 11:37 Dose: 200 mls/hr Dextrose/Sodium Chloride (Dextrose 5%-Normal Saline) 1,000 mls @ 100 mls/hr IV ASDIRECTED [facility] Last Admin: 04/06/19 03:04 Dose: 100 mls/hr Magnesium Sulfate 2 gm/ Premix 50 mls @ 25 mls/hr IV ONETIME ONE Stop: 04/06/19 09:59 Last Admin: 04/06/19 08:07 Dose: 25 mls/hr Dextrose/Sodium Chloride (Dextrose 5%-Normal Saline) 1,000 mls @ 50 mls/hr IV ASDIRECTED [facility] Last Admin: 04/06/19 17:13 Dose: 50 mls/hr Lorazepam (Ativan) 1 mg IV Q6H PRN PRN Reason: Anxiety Last Admin: 04/06/19 22:20 Dose: 1 mg Magnesium Hydroxide (Milk Of Magnesia) 30 ml PO ONETIME ONE Stop: 04/06/19 10:06 Last Admin: 04/06/19 10:34 Dose: 30 ml Megestrol Acetate (Megace) 40 mg PO BID [facility] Last Admin: 04/06/19 20:50 Dose: 40 mg Methylprednisolone Sodium Succinate (Solu-Medrol) 40 mg IVPUSH Q6H [facility] Last Admin: 04/07/19 08:22 Dose: 40 mg Sodium Chloride (Saline Flush) 10 ml FLUSH ASDIRECTED PRN PRN Reason: Keep Vein Open Last Admin: 04/05/19 10:40 Dose: 10 ml - Exam Quality Assessment: Supplemental Oxygen General: Alert, Oriented HEENT: Pupils Equal, Pupils Reactive Neck: Supple Lungs: Decreased Breath Sounds, Wheezing Cardiovascular: Regular Rate, Regular Rhythm GI/Abdominal Exam: Normal Bowel Sounds, Soft, Non-Tender, No Distention Extremities: Normal Inspection, Normal Range of Motion, No Pedal Edema - Problem List & Annotations (1) COPD with exacerbation SNOMED Code(s): 382080780 Code(s): J44.1 - CHRONIC OBSTRUCTIVE PULMONARY DISEASE W (ACUTE) EXACERBATION Status: Acute Current Visit: Yes (2) Hypoxia SNOMED Code(s): 504229846 Code(s): R09.02 - HYPOXEMIA Status: Acute Current Visit: Yes - Problem List Review Problem List Initiated/Reviewed/Updated: Yes - My Orders Last 24 Hours: My Active Orders 04/06/19 21:00 Mirtazapine [Remeron] 15 mg PO BEDTIME 04/07/19 06:00 Levothyroxine [Synthroid] 100 mcg PO ACBREAKFAST 04/07/19 09:00 Rosuvastatin [Crestor] 10 mg PO DAILY 04/07/19 09:12 Sodium Chloride 0.9% [Saline Flush] 10 ml FLUSH ASDIRECTED PRN Convert IV to Saline Lock [OM.PC] Routine 04/08/19 05:11 BASIC METABOLIC PANEL,BMP [CHEM] AM CBC WITH AUTO DIFF [HEME] AM MAGNESIUM [CHEM] AM 04/08/19 07:00 predniSONE 40 mg PO WITHBREAKFAST - Plan Plan:: 1. Significant increase of white count from 12,000 22,000. This may be due to a steroid effect. I will switch to by mouth steroids starting tomorrow. Continue Rocephin today and consider switching to by mouth cephalosporin tomorrow. 2. Chest x-ray: Impression 1. Mild increasing central lung markings. Differential includes mild fluid overload, bronchitis as well as mild pulmonary vascular congestion. 2. Other portions of the chest appear stable from prior exam. Stop IV fluids. 3. DVTP - LMWH. Expected LOS 3 days. Code status: DNR/DNI
[2019-04-07] MEDS: Mirtazapine 15 MG Tab PO SCH (21:36)
[2019-04-08] MEDS: Budesonide 0.5 MG/2 ML Neb Susp NEB SCH ×2 (05:52→20:25)
[2019-04-08] MEDS: Albuterol/Ipratropium 3.0-0.5 MG/3 ML Neb Soln NEB PRN ×3 (05:52→20:25)
[2019-04-08] MEDS: Levothyroxine 100 MCG Tab PO SCH (06:15)
[2019-04-08] MEDS: predniSONE 20 MG Tab PO SCH (06:16)
[2019-04-08] MEDS ORDERED: Sodium Chloride 0.9% 1,000 ML IV SCH (09:30)
[2019-04-08] MEDS: Potassium Chloride 10 MEQ in Premix Bag 1 BAG IV SCH ×4 (09:48→17:16)
[2019-04-08] MEDS: Sertraline 50 MG Tab PO SCH (09:54)
[2019-04-08] MEDS: amLODIPine 5 MG Tab PO SCH (09:54)
[2019-04-08] MEDS: Enoxaparin 30 MG/0.3 ML Syringe SUBCUT SCH (09:55)
[2019-04-08] MEDS: Rosuvastatin 10 MG Tab PO SCH (09:55)
[2019-04-08] MEDS: Metoprolol Succinate 50 MG Tab.ER PO SCH (09:55)
[2019-04-08] MEDS: cefTRIAXone 2 GM in Sodium Chloride 0.9% 100 ML IV SCH (12:14)
--- NOTE | 2019-04-08 12:45 | PCM.PN ---
- General Info Date of Service: 04/08/19 Admission Dx/Problem (Free Text): Admission Diagnosis/Problem Admission Diagnosis/Problem COPD with acute lower respiratory infection Subjective Update: April 05, 2019 84 yo WF with advanced COPD, home O2 dependent admitted through ED with 5 day h/ o increased WOB, poor po intake. Initially required increased O2 flow. Imaging consistent with COPD. Admitted for further treatment. April 06, 2019 Pt. back at baseline O2. C/O of SOB and fatigue. No fevers. Appetite poor, but at baseline. Weight is up 18 lbs. from November. April 07, 2019 Patient was given Ativan overnight because of anxiety. Unfortunately, this made her more anxious and this morning she is more fatigued. Patient overall is doing well with her oxygen at baseline. April 08, 2019 Patient had multiple bouts of diarrhea overnight. She states that this is not uncommon, that she often has constipation followed by diarrhea. Unfortunately it did drop her potassium to 2.9. Otherwise she is doing well and back at her baseline oxygen requirement of 3 L via nasal cannula. Functional Status: Reports: Pain Controlled - Review of Systems General: Reports: No Symptoms HEENT: Reports: No Symptoms Pulmonary: Reports: Shortness of Breath, Cough Cardiovascular: Denies: Chest Pain, Dyspnea on Exertion Gastrointestinal: Reports: Diarrhea. Denies: Abdominal Pain Skin: Reports: No Symptoms Neurological: Reports: No Symptoms - Patient Data Vitals - Most Recent: Last Vital Signs Temp 99.0 F 04/08/19 12:07 Pulse 82 04/08/19 12:07 Resp 18 04/08/19 12:07 BP 108/69 04/08/19 12:07 Pulse Ox 97 04/08/19 12:07 Weight - Most Recent: 97 lb 9 oz I&O - Last 24 Hours: Intake & Output 04/07/19 04/08/19 04/08/19 22:59 06:59 14:59 Intake Total 780 150 240 Output Total 600 Balance 180 150 240 Lab Results Last 24 Hours: Laboratory Results - last 24 hr 04/08/19 04/08/19 Range/Units 05:11 05:11 WBC 20.95 H (3.98-10.04) K/mm3 RBC 4.15 (3.98-5.22) M/mm3 Hgb 12.5 (11.2-15.7) gm/L Hct 38.6 (34.1-44.9) % MCV 93.0 (79.4-94.8) fl MCH 30.1 (25.6-32.2) pg MCHC 32.4 (32.2-35.5) g/dl RDW Std Deviation 47.6 H (36.4-46.3) fL Plt Count 296 (182-369) K/mm3 MPV 9.8 (9.4-12.3) fl Neut % (Auto) 87.9 H (34.0-71.1) % Lymph % (Auto) 6.8 L (19.3-51.7) % [place] % (Auto) 4.8 (4.7-12.5) % Eos % (Auto) 0 L (0.7-5.8) Baso % (Auto) 0.0 L (0.1-1.2) % Neut # (Auto) 18.41 H (1.56-6.13) K/mm3 Lymph # (Auto) 1.42 (1.18-3.74) K/mm3 [place] # (Auto) 1.00 H (0.24-0.36) K/mm3 Eos # (Auto) 0.00 L (0.04-0.36) K/mm3 Baso # (Auto) 0.01 (0.01-0.08) K/mm3 Manual Slide Review Abnormal smear Sodium 145 (136-145) mEq/L Potassium 2.9 L (3.5-5.1) mEq/L Chloride 108 H (98-107) mEq/L Carbon Dioxide 28 (21-32) mEq/L Anion Gap 11.9 (5-15) BUN 21 H (7-18) mg/dL Creatinine 0.7 (0.55-1.02) mg/dL Est Cr Clr Drug Dosing 41.19 mL/min Estimated GFR (MDRD) > 60 (>60) mL/min BUN/Creatinine Ratio 30.0 H (14-18) Glucose 104 (83-115) mg/dL Calcium 7.9 L (8.5-10.1) mg/dL Magnesium 2.0 (1.8-2.4) mg/dl Cm Results Last 24 Hours: Microbiology 04/05/19 10:55 Aerobic Blood Culture - Preliminary Blood - Venous NO GROWTH AFTER 3 DAYS Anaerobic Blood Culture - Preliminary NO GROWTH AFTER 3 DAYS 05/20/19 11:05 Aerobic Blood Culture - Preliminary Blood - Venous - Lab Draw NO GROWTH AFTER 3 DAYS Anaerobic Blood Culture - Preliminary NO GROWTH AFTER 3 DAYS Med Orders - Current: Current Medications Acetaminophen (Tylenol) 650 mg PO Q4H PRN PRN Reason: Pain (Mild 1-3)/fever Albuterol/Ipratropium (Duoneb 3.0-0.5 Mg/3 Ml) 3 ml NEB Q4H PRN PRN Reason: Shortness Of Breath/wheezing Last Admin: 04/08/19 05:52 Dose: 3 ml Amlodipine Besylate (Norvasc) [address] [facility] Last Admin: 04/08/19 09:54 Dose: 5 mg Budesonide (Pulmicort) 0.[address] [facility] Last Admin: 04/08/19 05:52 Dose: 0.5 mg Enoxaparin Sodium (Lovenox) [address] [facility] Last Admin: 04/08/19 09:55 Dose: 30 mg Hydromorphone HCl (Dilaudid) 0.25 mg IVPUSH Q2H PRN PRN Reason: Pain (severe 7-10) Ceftriaxone Sodium 2 gm/ (Sodium Chloride) 100 mls @ 200 mls/hr IV Q24H [facility] Last Admin: 04/08/19 12:14 Dose: 200 mls/hr Sodium Chloride (Normal Saline) 1,000 mls @ 50 mls/hr IV ASDIRECTED [facility] Stop: 04/08/19 21:00 Last Admin: 04/08/19 10:04 Dose: 50 mls/hr Levothyroxine Sodium (Synthroid) [address] [facility] Last Admin: 04/08/19 06:15 Dose: 100 mcg Metoprolol Succinate (Toprol Xl) [address] [facility] Last Admin: 04/08/19 09:55 Dose: 50 mg Mirtazapine (Remeron) [address] [facility] Last Admin: 04/07/19 21:36 Dose: 15 mg Ondansetron HCl (Zofran Odt) 4 mg PO Q4H PRN PRN Reason: nausea, able to take PO Oxycodone/Acetaminophen (Percocet 325-5 Mg) 1 tab PO Q6H PRN PRN Reason: Pain Prednisone (Prednisone) [address] [facility] Last Admin: 04/08/19 06:16 Dose: 40 mg Rosuvastatin Calcium (Crestor) [address] [facility] Last Admin: 04/08/19 09:55 Dose: 10 mg Sertraline HCl (Zoloft) [address] [facility] Last Admin: 04/08/19 09:54 Dose: 50 mg Sodium Chloride (Saline Flush) 10 ml FLUSH ASDIRECTED PRN PRN Reason: Keep Vein Open Discontinued Medications Albuterol/Ipratropium (Duoneb 3.0-0.5 Mg/3 Ml) 3 ml NEB ONETIME ONE Stop: 04/05/19 10:32 Last Admin: 04/05/19 11:07 Dose: 3 ml Bisacodyl (Dulcolax) 10 mg RECTAL ONETIME ONE Stop: 04/06/19 18:01 Last Admin: 04/06/19 17:13 Dose: Not Given Ceftriaxone Sodium 2 gm/ (Sodium Chloride) 100 mls @ 200 mls/hr IV ONETIME ONE Stop: 04/05/19 12:00 Last Admin: 04/05/19 11:37 Dose: 200 mls/hr Dextrose/Sodium Chloride (Dextrose 5%-Normal Saline) 1,000 mls @ 100 mls/hr IV ASDIRECTED [facility] Last Admin: 04/06/19 03:04 Dose: 100 mls/hr Magnesium Sulfate 2 gm/ Premix 50 mls @ 25 mls/hr IV ONETIME ONE Stop: 04/06/19 09:59 Last Admin: 04/06/19 08:07 Dose: 25 mls/hr Dextrose/Sodium Chloride (Dextrose 5%-Normal Saline) 1,000 mls @ 50 mls/hr IV ASDIRECTED [facility] Last Admin: 04/06/19 17:13 Dose: 50 mls/hr Potassium Chloride 10 meq/ (Premix) 100 mls @ 100 mls/hr IV Q1H [facility] Stop: 04/08/19 11:29 Last Admin: 04/08/19 09:48 Dose: 100 mls/hr Lorazepam (Ativan) 1 mg IV Q6H PRN PRN Reason: Anxiety Last Admin: 04/06/19 22:20 Dose: 1 mg Magnesium Hydroxide (Milk Of Magnesia) 30 ml PO ONETIME ONE Stop: 04/06/19 10:06 Last Admin: 04/06/19 10:34 Dose: 30 ml Megestrol Acetate (Megace) [address] [facility] Last Admin: 04/06/19 20:50 Dose: 40 mg Methylprednisolone Sodium Succinate (Solu-Medrol) [address] [facility] Last Admin: 04/07/19 08:22 Dose: 40 mg Sodium Chloride (Saline Flush) 10 ml FLUSH ASDIRECTED PRN PRN Reason: Keep Vein Open Last Admin: 04/05/19 10:40 Dose: 10 ml - Exam Quality Assessment: Supplemental Oxygen General: Alert, Oriented, Cooperative HEENT: Pupils Equal, Pupils Reactive Neck: Supple Lungs: Normal Respiratory Effort, Decreased Breath Sounds Cardiovascular: Regular Rate, Regular Rhythm GI/Abdominal Exam: Normal Bowel Sounds, Soft, Non-Tender, No Distention Skin: Warm, Dry, Intact Neurological: No New Focal Deficit Psy/Mental Status: Alert, Normal Affect, Normal Mood - Problem List & Annotations (1) COPD with exacerbation SNOMED Code(s): 916770141 Code(s): J44.1 - CHRONIC OBSTRUCTIVE PULMONARY DISEASE W (ACUTE) EXACERBATION Status: Acute Current Visit: Yes (2) Hypoxia SNOMED Code(s): 204759780 Code(s): R09.02 - HYPOXEMIA Status: Acute Current Visit: Yes - Problem List Review Problem List Initiated/Reviewed/Updated: Yes - My Orders Last 24 Hours: My Active Orders 04/08/19 07:00 predniSONE 40 mg PO WITHBREAKFAST 04/08/19 09:30 C DIFFICILE BY PCR W/NAP1 [MOLEC] Routine Sodium Chloride 0.9% [Normal Saline] 1,000 ml IV ASDIRECTED 04/08/19 11:58 Isolation [COMM] Stat - Plan Plan:: 1. Significant increase of white count from 12,000 --> 22,000 --> 20,000. This may be due to a steroid effect. Patient switched to oral steroids. Continue Rocephin today and consider switching to by mouth cephalosporin tomorrow. 2. Chest x-ray: Impression 1. Mild increasing central lung markings. Differential includes mild fluid overload, bronchitis as well as mild pulmonary vascular congestion. 2. Other portions of the chest appear stable from prior exam. Stop IV fluids. 3. DVTP - LMWH. 4. diarrhea - send stools for C. difficile 5. Hypokalemia - replenish potassium and recheck in the morning plan discharge for tomorrow Code status: DNR/DNI
[2019-04-08] MEDS: Mirtazapine 15 MG Tab PO SCH (21:22)
[2019-04-09] MEDS: Levothyroxine 100 MCG Tab PO SCH (06:03)
[2019-04-09] MEDS: predniSONE 20 MG Tab PO SCH (06:03)
[2019-04-09] MEDS: Albuterol/Ipratropium 3.0-0.5 MG/3 ML Neb Soln NEB PRN ×2 (06:25→13:44)
[2019-04-09] MEDS: Budesonide 0.5 MG/2 ML Neb Susp NEB SCH (06:25)
[2019-04-09] MEDS: Potassium Chloride 10 MEQ in Premix Bag 1 BAG IV SCH ×2 (08:33→11:24)
[2019-04-09] MEDS ORDERED: Sodium Chloride 0.9% 1,000 ML ONE (08:39)
[2019-04-09] MEDS ORDERED: Sodium Chloride 0.9% 1,000 ML IV SCH (08:45)
[2019-04-09] MEDS ORDERED: Amoxicillin/Clavulanate K 875-125 MG Tab PO SCH (09:00)
--- NOTE | 2019-04-09 09:04 | PCM.DCSUM1 ---
Discharge Summary - Hospital Course HPI Initial Comments: 84 yo WF with advanced COPD, home O2 dependent admitted through ED with 5 day h/ o increased WOB, poor po intake. Initially required increased O2 flow. Imaging consistent with COPD. Admitted for further treatment. Brief History: April 05, 2019. 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 Initially required increased O2 flow. Imaging consistent with COPD. Admitted for further treatment. April 06, 2019. Pt. back at baseline O2. C/O of SOB and fatigue. No fevers. Appetite poor, but at baseline. Weight is up 18 lbs. from November. April 07, 2019. Patient was given Ativan overnight because of anxiety. Unfortunately , this made her more anxious and this morning she is more fatigued. Patient overall is doing well with her oxygen at baseline. April 08, 2019. Patient had multiple bouts of diarrhea overnight. She states that this is not uncommon, that she often has constipation followed by diarrhea. Unfortunately it did drop her potassium to 2.9. Otherwise she is doing well and back at her baseline oxygen requirement of 3 L via nasal cannula. April 09, 2019. Patient is doing well and her potassium has increased to 3.2. She will receive 40 mEq of potassium PO and go home on K-Dur 10 mEq 1 tab twice a day for 2 days for total of 4 tablets or 40 mEq. Patient will also go home on Augmentin for her exacerbation of her COPD. She has had 5 days of steroids, therefore she will not need to go home on steroids. Diagnosis: Stroke: No - Discharge Data Discharge Date: 04/09/19 Discharge Disposition: Home, Self-Care 01 Condition: Good - Discharge Diagnosis/Problem(s) (1) COPD with exacerbation SNOMED Code(s): 966252114 ICD Code: J44.1 - CHRONIC OBSTRUCTIVE PULMONARY DISEASE W (ACUTE) EXACERBATION Status: Acute Current Visit: Yes (2) Hypoxia SNOMED Code(s): 410974549 ICD Code: R09.02 - HYPOXEMIA Status: Acute Current Visit: Yes - Patient Summary/Data Consults: Consultations 04/06/19 10:22 Consult to Occupational Therapy [OT Evaluation and Treatment] [CONS] Routine PT Evaluation and Treatment [CONS] Routine - Patient Instructions Diet: Regular Diet as Tolerated Driving: Do Not Drive Showering/Bathing: May Shower Other/Special Instructions: Follow up with PCP in next week. - Discharge Plan *PRESCRIPTION DRUG MONITORING PROGRAM REVIEWED*: No *COPY OF PRESCRIPTION DRUG MONITORING REPORT IN PATIENT JUAN: No Prescriptions/Med Rec: Amoxicillin/Clavulanate K [Augmentin 875-125 MG] 1 tab PO Q12HR #3 tablet Budesonide [Pulmicort] 0.5 mg NEB BIDRT #60 neb Potassium Chloride 10 meq PO BIDAC #4 capsule.er Home Medications: Home Meds Cyanocobalamin (Vitamin B12) [Vitamin B12] 1,000 mcg INJECT ASDIRECTED 11/27/14 [History] EPINEPHrine [Epipen] 0.3 ml INJECT ASDIRECTED PRN 11/27/14 [History] Levothyroxine [Synthroid] 100 mcg PO DAILY 11/27/14 [History] Metoprolol Succinate [Toprol XL] 50 mg PO DAILY 11/27/14 [History] Rosuvastatin [Crestor] 10 mg PO DAILY 11/27/14 [History] amLODIPine [Norvasc] 5 mg PO DAILY 11/27/14 [History] Aspirin 81 mg PO DAILY 06/10/18 [History] Mirtazapine [Remeron] 15 mg PO BEDTIME 06/10/18 [History] Nitroglycerin [Nitrostat] 0.4 mg SL ASDIRECTED PRN 06/10/18 [History] Sertraline [Zoloft] 50 mg PO DAILY 06/10/18 [History] Albuterol Sulfate [Proair Hfa] 2 puff IH Q6H PRN 08/06/18 [History] Calcium Carbonate/Vitamin D3 [Calcium 600-Vit D3 400 Tablet] 600 mg PO DAILY [History] oxyCODONE HCl/Acetaminophen [Percocet 5-325 mg Tablet] 5 - 325 mg PO Q6HR PRN [History] Multivitamins,Therapeutic [Thera] 1 each PO DAILY #20 tablet 11/23/18 [Rx] Albuterol/Ipratropium [DuoNeb 3.0-0.5 MG/3 ML] 3 ml NEB Q6H 04/05/19 [History] Megestrol [Megace] 40 mg PO BID 04/05/19 [History] Amoxicillin/Clavulanate K [Augmentin 875-125 MG] 1 tab PO Q12HR #3 tablet [Rx] Budesonide [Pulmicort] 0.5 mg NEB BIDRT #60 neb 04/09/19 [Rx] Potassium Chloride 10 meq PO BIDAC #4 capsule.er 04/09/19 [Rx] Oxygen Therapy Mode: Nasal Cannula Oxygen Flow Rate (L/min): 3 Patient Handouts: Chronic Obstructive Pulmonary Disease, [id number], Home Oxygen Use, Adult Referrals: Franky Mock MD [Primary Care Provider] - 04/16/19 9:10 am (Please follow- up with your primary care doctor, Dr. Mock, on FridayApril 16 at 0910am. ) - Discharge Summary/Plan Comment DC Time >30 min.: Yes Discharge Summary/Plan Comment: Patient is doing well and her potassium has increased to 3.2. She will receive 40 mEq of potassium PO and go home on K-Dur 10 mEq 1 tab twice a day for 2 days for total of 4 tablets or 40 mEq. Patient will also go home on Augmentin for her exacerbation of her COPD. She has had 5 days of steroids, therefore she will not need to go home on steroids. Patient does have some leukocytosis, but this is likely secondary to a steroid effect. She could get a repeat of her CBC in the next couple of weeks. Symptomatically she has improved dramatically. Patient was hospitalized for over 96 hours secondary to a drop in her potassium on day 4 down to 2.9 secondary to diarrhea. She had a C. difficile toxin ordered and it was negative. Diarrhea has now resolved and potassium has improved as stated above. Patient is a very high readmission risk. She has severe end-stage COPD and will likely have more exacerbations in the near future. Hopefully, with with close follow-up we can prevent some of those readmissions, but it is unlikely that we can prevent all of them. - General Info Date of Service: 04/09/19 Admission Dx/Problem (Free Text: Admission Diagnosis/Problem Admission Diagnosis/Problem COPD with acute lower respiratory infection Functional Status: Reports: Pain Controlled - Review of Systems General: Reports: No Symptoms. Denies: Weakness, Fatigue HEENT: Reports: No Symptoms Pulmonary: Reports: Shortness of Breath, Cough Cardiovascular: Reports: No Symptoms. Denies: Chest Pain, Palpitations Gastrointestinal: Reports: No Symptoms. Denies: Abdominal Pain, Constipation Genitourinary: Reports: No Symptoms Neurological: Reports: No Symptoms Psychiatric: Reports: No Symptoms - Patient Data Vitals - Most Recent: Last Vital Signs Temp 98.2 F 04/09/19 03:18 Pulse 76 04/09/19 03:18 Resp 16 04/09/19 03:18 BP 115/83 04/09/19 03:18 Pulse Ox 95 04/09/19 08:45 Weight - Most Recent: 102 lb 1 oz I&O - Last 24 hours: Intake & Output 04/08/19 04/09/19 04/09/19 22:59 06:59 14:59 Intake Total 440 250 Output Total 200 Balance 440 50 Lab Results - Last 24 hrs: Laboratory Results - last 24 hr 04/08/19 04/09/19 04/09/19 Range/Units 09:30 05:15 05:15 WBC 18.30 H (3.98-10.04) K/mm3 RBC 4.52 (3.98-5.22) M/mm3 Hgb 13.5 (11.2-15.7) gm/L Hct 41.9 (34.1-44.9) % MCV 92.7 (79.4-94.8) fl MCH 29.9 (25.6-32.2) pg MCHC 32.2 (32.2-35.5) g/dl RDW Std Deviation 48.2 H (36.4-46.3) fL Plt Count 315 (182-369) K/mm3 MPV 9.8 (9.4-12.3) fl Neut % (Auto) 76.5 H (34.0-71.1) % Lymph % (Auto) 14.8 L (19.3-51.7) % [place] % (Auto) 7.7 (4.7-12.5) % Eos % (Auto) 0 L (0.7-5.8) Baso % (Auto) 0.1 (0.1-1.2) % Neut # (Auto) 14.01 H (1.56-6.13) K/mm3 Lymph # (Auto) 2.71 (1.18-3.74) K/mm3 [place] # (Auto) 1.40 H (0.24-0.36) K/mm3 Eos # (Auto) 0.00 L (0.04-0.36) K/mm3 Baso # (Auto) 0.02 (0.01-0.08) K/mm3 Manual Slide Review Abnormal smear Sodium 144 (136-145) mEq/L Potassium 3.2 L (3.5-5.1) mEq/L Chloride 107 (98-107) mEq/L Carbon Dioxide 27 (21-32) mEq/L Anion Gap 13.2 (5-15) BUN 15 (7-18) mg/dL Creatinine 0.6 (0.55-1.02) mg/dL Est Cr Clr Drug Dosing 49.24 mL/min Estimated GFR (MDRD) > 60 (>60) mL/min BUN/Creatinine Ratio 25.0 H (14-18) Glucose 80 L (83-115) mg/dL Calcium 7.6 L (8.5-10.1) mg/dL Magnesium 1.9 (1.8-2.4) mg/dl Total Bilirubin 0.2 (0.2-1.0) mg/dL AST 25 (15-37) U/L ALT 37 (14-59) U/L Alkaline Phosphatase 47 (46-116) U/L Total Protein 6.4 (6.4-8.2) g/dl Albumin 2.7 L (3.4-5.0) g/dl Globulin 3.7 gm/dL Albumin/Globulin Ratio 0.7 L (1-2) C.difficile [id number] Presumptive negative C. difficile Tox (PCR) Negative MEÑO Results - Last 24 hrs: Microbiology 04/05/19 10:55 Aerobic Blood Culture - Preliminary Blood - Venous NO GROWTH AFTER 3 DAYS Anaerobic Blood Culture - Preliminary NO GROWTH AFTER 3 DAYS 04/05/19 11:05 Aerobic Blood Culture - Preliminary Blood - Venous - Lab Draw NO GROWTH AFTER 3 DAYS Anaerobic Blood Culture - Preliminary NO GROWTH AFTER 3 DAYS Med Orders - Current: Current Medications Acetaminophen (Tylenol) 650 mg PO Q4H PRN PRN Reason: Pain (Mild 1-3)/fever Albuterol/Ipratropium (Duoneb 3.0-0.5 Mg/3 Ml) 3 ml NEB Q4H PRN PRN Reason: Shortness Of Breath/wheezing Last Admin: 04/09/19 06:25 Dose: 3 ml Amlodipine Besylate (Norvasc) 5 mg PO DAILY [facility] Last Admin: 04/08/19 09:54 Dose: 5 mg Amoxicillin/Clavulanate Potassium (Augmentin 875 Mg/125 Mg) 1 tab PO Q12HR [facility] Budesonide (Pulmicort) 0.5 mg NEB BIDRT [facility] Last Admin: 04/09/19 06:25 Dose: 0.5 mg Enoxaparin Sodium (Lovenox) 30 mg SUBCUT DAILY [facility] Last Admin: 04/08/19 09:55 Dose: 30 mg Hydromorphone HCl (Dilaudid) 0.25 mg IVPUSH Q2H PRN PRN Reason: Pain (severe 7-10) Potassium Chloride 10 meq/ (Premix) 100 mls @ 100 mls/hr IV Q1H [facility] Stop: 04/09/19 11:59 Last Admin: 04/09/19 08:33 Dose: 100 mls/hr Sodium Chloride (Normal Saline) 1,000 mls @ 50 mls/hr IV ASDIRECTED [facility] Levothyroxine Sodium (Synthroid) 100 mcg PO ACBREAKFAST [facility] Last Admin: 04/09/19 06:03 Dose: 100 mcg Metoprolol Succinate (Toprol Xl) 50 mg PO DAILY [facility] Last Admin: 04/08/19 09:55 Dose: 50 mg Mirtazapine (Remeron) 15 mg PO BEDTIME [facility] Last Admin: 04/08/19 21:22 Dose: 15 mg Ondansetron HCl (Zofran Odt) 4 mg PO Q4H PRN PRN Reason: nausea, able to take PO Oxycodone/Acetaminophen (Percocet 325-5 Mg) 1 tab PO Q6H PRN PRN Reason: Pain Prednisone (Prednisone) 40 mg PO WITHBREAKFAST [facility] Last Admin: 04/09/19 06:03 Dose: 40 mg Rosuvastatin Calcium (Crestor) 10 mg PO DAILY [facility] Last Admin: 04/08/19 09:55 Dose: 10 mg Sertraline HCl (Zoloft) 50 mg PO DAILY [facility] Last Admin: 04/08/19 09:54 Dose: 50 mg Sodium Chloride (Saline Flush) 10 ml FLUSH ASDIRECTED PRN PRN Reason: Keep Vein Open Discontinued Medications Albuterol/Ipratropium (Duoneb 3.0-0.5 Mg/3 Ml) 3 ml NEB ONETIME ONE Stop: 04/05/19 10:32 Last Admin: 04/05/19 11:07 Dose: 3 ml Bisacodyl (Dulcolax) 10 mg RECTAL ONETIME ONE Stop: 04/06/19 18:01 Last Admin: 04/06/19 17:13 Dose: Not Given Ceftriaxone Sodium 2 gm/ (Sodium Chloride) 100 mls @ 200 mls/hr IV ONETIME ONE Stop: 04/05/19 12:00 Last Admin: 04/05/19 11:37 Dose: 200 mls/hr Dextrose/Sodium Chloride (Dextrose 5%-Normal Saline) 1,000 mls @ 100 mls/hr IV ASDIRECTED [facility] Last Admin: 04/06/19 03:04 Dose: 100 mls/hr Ceftriaxone Sodium 2 gm/ (Sodium Chloride) 100 mls @ 200 mls/hr IV Q24H [facility] Last Admin: 04/08/19 12:14 Dose: 200 mls/hr Magnesium Sulfate 2 gm/ Premix 50 mls @ 25 mls/hr IV ONETIME ONE Stop: 04/06/19 09:59 Last Admin: 04/06/19 08:07 Dose: 25 mls/hr Dextrose/Sodium Chloride (Dextrose 5%-Normal Saline) 1,000 mls @ 50 mls/hr IV ASDIRECTED [facility] Last Admin: 04/06/19 17:13 Dose: 50 mls/hr Potassium Chloride 10 meq/ (Premix) 100 mls @ 100 mls/hr IV Q1H [facility] Stop: 04/08/19 11:29 Last Admin: 04/08/19 17:16 Dose: 50 mls/hr Sodium Chloride (Normal Saline) 1,000 mls @ 50 mls/hr IV ASDIRECTED [facility] Stop: 04/08/19 21:00 Last Infusion: 04/08/19 12:00 Dose: 100 mls/hr Sodium Chloride (Normal Saline) Confirm Administered Dose 1,000 mls @ as directed .ROUTE .STK-MED ONE Stop: 04/09/19 08:40 Lorazepam (Ativan) 1 mg IV Q6H PRN PRN Reason: Anxiety Last Admin: 04/06/19 22:20 Dose: 1 mg Magnesium Hydroxide (Milk Of Magnesia) 30 ml PO ONETIME ONE Stop: 04/06/19 10:06 Last Admin: 04/06/19 10:34 Dose: 30 ml Megestrol Acetate (Megace) 40 mg PO BID [facility] Last Admin: 04/06/19 20:50 Dose: 40 mg Methylprednisolone Sodium Succinate (Solu-Medrol) 40 mg IVPUSH Q6H [facility] Last Admin: 04/07/19 08:22 Dose: 40 mg Sodium Chloride (Saline Flush) 10 ml FLUSH ASDIRECTED PRN PRN Reason: Keep Vein Open Last Admin: 04/05/19 10:40 Dose: 10 ml - Exam Quality Assessment: Reports: Supplemental Oxygen General: Reports: Alert, Oriented HEENT: Reports: Pupils Equal, Mucous Membr. Moist/[place] Neck: Reports: Supple, Trachea Midline, No JVD Lungs: Reports: Normal Respiratory Effort, Decreased Breath Sounds. Denies: Rales, Wheezing Cardiovascular: Reports: Regular Rate, Regular Rhythm GI/Abdominal Exam: Normal Bowel Sounds, Soft, Non-Tender, No Distention Extremities: Normal Inspection, Normal Range of Motion, Non-Tender, No Pedal Edema Skin: Reports: Warm, Dry, Intact
[2019-04-09 09:22] VITALS: BP 103/74
[2019-04-09] MEDS: amLODIPine 5 MG Tab PO SCH (09:52)
[2019-04-09] MEDS: Sertraline 50 MG Tab PO SCH (09:53)
[2019-04-09] MEDS: Rosuvastatin 10 MG Tab PO SCH (09:53)
[2019-04-09] MEDS: Enoxaparin 30 MG/0.3 ML Syringe SUBCUT SCH (09:53)
[2019-04-09] MEDS: Metoprolol Succinate 50 MG Tab.ER PO SCH (09:53)
[2019-04-09] MEDS ORDERED: Potassium Chloride 20 MEQ Tab.ER PO ONE ×2 (10:39→12:26)
[2019-04-09] MEDS ORDERED: Loperamide 2 MG Cap PO ONE (11:07)
== END 2019-04-09 14:50 | disposition home or self-care (01) | DRG 190 ==
LOC: JD.ED 10:10 → JD.MS 13:12
PROVIDERS: ADMIT Internal Medicine; ATTEND Internal Medicine
DX: J44.1 Chronic obstructive pulmonary disease with (acute) exacerbation (principal); J96.21 Acute and chronic respiratory failure with hypoxia; H26.9 Unspecified cataract; I25.10 Atherosclerotic heart disease of native coronary artery without angina pectoris; E78.00 Pure hypercholesterolemia, unspecified; I10 Essential (primary) hypertension; E83.42 Hypomagnesemia; G43.909 Migraine, unspecified, not intractable, without status migrainosus; F32.9 Major depressive disorder, single episode, unspecified; K59.00 Constipation, unspecified; Z66 Do not resuscitate; E87.6 Hypokalemia; E03.9 Hypothyroidism, unspecified; E53.8 Deficiency of other specified B group vitamins; F41.9 Anxiety disorder, unspecified; R19.7 Diarrhea, unspecified; Z99.81 Dependence on supplemental oxygen; Z91.048 Other nonmedicinal substance allergy status; I25.2 Old myocardial infarction; Z79.899 Other long term (current) drug therapy; Z88.1 Allergy status to other antibiotic agents; Z79.82 Long term (current) use of aspirin; Z85.118 Personal history of other malignant neoplasm of bronchus and lung
CPT/HCPCS: 36415; 71045; 71045-26; 80048; 80053; 83605; 83735; 85025; 86738; 87040; 87493; 87641; 94640; 94761; 96365; 97110-GP; 97116-GP; 97161-GP; 97165-GO; 97530-GP; 99284; 99285-25; A9270-GY; J0696; J1650; J2060; J2920; J3475; J3480; J7030; J7040; J7042; J7620-GY

== ENCOUNTER 2019-07-03 17:19 | Inpatient (IN) | payer MEDICARE, OTHER ==
[2019-07-03] MEDS ORDERED: Ondansetron 4 MG/2 ML SDV IVPUSH ONE (17:50)
[2019-07-03] MEDS ORDERED: Sodium Chloride 0.9% 500 ML IV ONE (17:50)
--- NOTE | 2019-07-03 18:02 | EDM.PDOC ---
ED HPI GENERAL MEDICAL PROBLEM - General Chief Complaint: Gastrointestinal Problem Stated Complaint: [facility] Time Seen by Provider: 07/03/19 17:40 Source of Information: Reports: Patient, Family (son) History Limitations: Reports: No Limitations - History of Present Illness INITIAL COMMENTS - FREE TEXT/NARRATIVE: 84-year-old female is brought in by [facility] for evaluation and treatment of vomiting and diarrhea. Symptoms started today. States she's had 2 episodes of vomiting today and has had diarrhea about every 15 minutes. She has not appreciated any blood in her stool. She reports abdominal pain and cramping primarily to the right upper quadrant. Previous abdominal surgeries include surgery for bowel obstruction. Patient has a past medical history of lung cancer and COPD. Denies any chest pain or any shortness breath or cough worse than normal. She sees Dr. Byrd and Dr. Mathew. Most recently Dr. Byrd and Friday Dr. Mathew on . She recently had a PET scan and has 2 new spots were found, one on her lung and one on her breast. Patient's son presents the ER with her. He lives in [place]. When he is in [place] she stays with him. When he is at home in [place] she stays at [facility]. Patient has not been on any antibiotics recently. Review of records indicate she is a DNI/DNR. Onset: Today, Sudden Abdomen Pain Score (Numeric/FACES): 7 - Related Data Allergies Allergy/AdvReac Type Severity Reaction Status Date / Time rofecoxib Allergy Edema Verified 07/03/19 17:36 venom-wasp [wasp venom] Allergy Anaphylactic Verified 07/03/19 17:36 Shock Home Meds: Home Meds Cyanocobalamin (Vitamin B12) [Vitamin B12] 1,000 mcg INJECT ASDIRECTED 11/27/14 [History] EPINEPHrine [Epipen] 0.3 ml INJECT ASDIRECTED PRN 11/27/14 [History] Levothyroxine [Synthroid] 100 mcg PO DAILY 11/27/14 [History] Metoprolol Succinate [Toprol XL] 50 mg PO DAILY 11/27/14 [History] Rosuvastatin [Crestor] 10 mg PO DAILY 11/27/14 [History] amLODIPine [Norvasc] 5 mg PO DAILY 11/27/14 [History] Aspirin 81 mg PO DAILY 06/10/18 [History] Mirtazapine [Remeron] 15 mg PO BEDTIME 06/10/18 [History] Nitroglycerin [Nitrostat] 0.4 mg SL ASDIRECTED PRN 06/10/18 [History] Sertraline [Zoloft] 50 mg PO BEDTIME 06/10/18 [History] Albuterol Sulfate [Proair Hfa] 2 puff IH Q6H PRN 08/06/18 [History] oxyCODONE HCl/Acetaminophen [Percocet 5-325 mg Tablet] 5 - 325 mg PO Q6HR PRN [History] Multivitamins,Therapeutic [Thera] 1 each PO DAILY #20 tablet 11/23/18 [Rx] Albuterol/Ipratropium [DuoNeb 3.0-0.5 MG/3 ML] 3 ml NEB Q6H 04/05/19 [History] Megestrol [Megace] 40 mg PO BIDMEALS 04/05/19 [History] Calcium Carbonate [Calcium] 1 tab PO DAILY 07/04/19 [History] Past Medical History HEENT History: Reports: Cataract Other HEENT History: wears reading glasses. Cardiovascular History: Reports: CAD, High Cholesterol, Hypertension Other Cardiovascular History: hypomagnesmia Respiratory History: Reports: COPD Other Respiratory History: lung cancer, lobectomy. on chronic O2 at home. Patient had aspiration of a mass right lower lobe of lung-08/04. Pt has a new spot on the left lung, PET scan was done on 06/24/19. Gastrointestinal History: Reports: Hemorrhoids Other Gastrointestinal History: per [place] papers-abdominal pain Genitourinary History: Reports: Renal Calculus, Urinary Incontinence Other Genitourinary History: having some issues with urination and ? if it is from constipation [employer] History: Reports: Musculoskeletal History: Reports: Fracture Other Musculoskeletal History: left femur fracture; bilat humerous fractures Neurological History: Reports: Migraines Psychiatric History: Reports: Anxiety, Depression Endocrine/Metabolic History: Reports: Hypothyroidism Hematologic History: Reports: B12 Deficiency Other Hematologic History: hypomagnesemia; had elevated ddimer Immunologic History: Reports: None Oncologic (Cancer) History: Reports: Lung, Other (See Below) Other Oncologic History: skin cancer on face, can't remember name. stage 1 and had left low lung removed Dermatologic History: Reports: Psoriasis Other Dermatologic History: possible psoriasis - Infectious Disease History Infectious Disease History: Reports: Chicken Pox, Measles, Rubella - Past Surgical History Respiratory Surgical History: Reports: Other (See Below) Other Respiratory Surgeries/Procedures: lobectomy Oncologic Surgical History: Reports: Lobectomy Social & Family History - Family History Family Medical History: Noncontributory - Caffeine Use Caffeine Use: Reports: None Other Caffeine Use: unknown - Living Situation & Occupation Living situation: Reports: Occupation: Retired (Lives in the independent part of [facility]) ED ROS GENERAL - Review of Systems Review Of Systems: See Below Constitutional: Reports: Chills, Decreased Appetite (chronically, on an appeptite stimulate; worse than normal). Denies: Fever Respiratory: Denies: Shortness of Breath (no worse than baseline), Cough (no worse than normal) Cardiovascular: Denies: Chest Pain GI/Abdominal: Reports: Abdominal Pain (primarily RUQ, cramping), Diarrhea, Nausea, Vomiting. Denies: Hematochezia, Melena : Reports: Other (decreased urinary output) Neurological: Denies: Headache ED EXAM, GI/ABD - Physical Exam Exam: See Below Exam Limited By: No Limitations General Appearance: Alert, No Apparent Distress, Thin, Cachetic, Other ( chronically ill appearing) Ears: Normal External Exam Nose: Normal Inspection Throat/Mouth: Normal Inspection, Normal Lips, Normal Voice, No Airway Compromise , Other (dry lips and mucus membranes) Neck: Normal Inspection Respiratory/Chest: No Respiratory Distress, Lungs Clear, Normal Breath Sounds Cardiovascular: Normal Peripheral Pulses, No Murmur, Tachycardia GI/Abdominal Exam: Normal Bowel Sounds, No Distention, Guarding, Tender (RUQ). No: Rigid Neurological: Alert, Normal Cognition Psychiatric: Normal Affect, Normal Mood Skin Exam: Warm, Dry, Pallor EKG INTERPRETATION EKG Date: 07/03/19 Time: 18:08 Rhythm: Other (sinus tachycardia) Rate (Beats/Min): 105 [place]: Normal P-Wave: Present QRS: Normal ST-T: Normal QT: Normal EKG Interpretation Comments: sinus tachycardia at 105 bpm. PVC. Q waves V1-V2. Reviewed by myself and Dr. Chamberlain. Course - Vital Signs Last Recorded V/S: Last Vital Signs Temp 98.5 F 07/04/19 08:00 Pulse 75 07/04/19 08:00 Resp 28 H 07/04/19 08:00 BP 102/71 07/04/19 08:00 Pulse Ox 98 07/04/19 09:07 - Orders/Labs/Meds Orders: Active Orders 24 hr Category Date Time Status Patient Status [ADT] Routine ADT 07/03/19 22:41 Active Insert Villeda Catheter [Insert Urinary Catheter] [OM.PC] Care 07/03/19 22:00 Ordered Stat Abdomen Pelvis w Cont [CT] Stat Exams 07/03/19 17:50 Taken Chest 1V Frontal [CR] Stat Exams 07/03/19 22:15 Taken CULTURE BLOOD [BC] Stat Lab 07/03/19 18:15 Received CULTURE BLOOD [BC] Stat Lab 07/03/19 18:30 Received CULTURE URINE [RM] Stat Lab 07/03/19 22:00 Results Sodium Chloride 0.9% [Saline Flush] Med 07/03/19 17:50 Active 10 ml FLUSH ASDIRECTED PRN Blood Culture x2 Reflex Set [OM.PC] Stat Oth 07/03/19 17:50 Ordered Peripheral IV Insertion Adult [OM.PC] Routine Oth 07/03/19 17:49 Ordered Medication Orders Acetaminophen (Tylenol) 650 mg PO Q4H PRN PRN Reason: Pain/Fever Hydrocodone Bitart/Acetaminophen ([place] 325-5 Mg) 1 tab PO Q4H PRN PRN Reason: Pain (moderate 4-6) Last Admin: 07/04/19 08:58 Dose: 1 tab Albuterol (Proventil Neb Soln) 2.5 mg NEB Q4HRRT PRN PRN Reason: Dyspnea Albuterol/Ipratropium (Duoneb 3.0-0.5 Mg/3 Ml) 3 ml NEB Q6HRRT PRN PRN Reason: Dyspnea Hydromorphone HCl (Dilaudid) 0.5 mg IVPUSH Q4H PRN PRN Reason: Pain (severe 7-10) Sodium Chloride (Normal Saline) 1,000 mls @ 75 mls/hr IV ASDIRECTED JACINTO Last Admin: 07/04/19 04:17 Dose: 75 mls/hr Ondansetron HCl (Zofran) 4 mg IVPUSH Q6H PRN PRN Reason: Nausea/Vomiting Sodium Chloride (Saline Flush) 10 ml FLUSH ASDIRECTED PRN PRN Reason: Keep Vein Open Last Admin: 07/03/19 19:30 Dose: 10 ml Admin: 07/03/19 18:49 Dose: 10 ml Labs: Laboratory Tests 07/03/19 07/03/19 07/03/19 Range/Units 18:15 18:15 18:15 WBC 14.80 H (3.98-10.04) K/mm3 RBC 4.80 (3.98-5.22) M/mm3 Hgb 14.0 (11.2-15.7) gm/L Hct 42.6 (34.1-44.9) % MCV 88.8 D (79.4-94.8) fl MCH 29.2 (25.6-32.2) pg MCHC 32.9 (32.2-35.5) g/dl RDW Std Deviation 45.3 (36.4-46.3) fL Plt Count 285 (182-369) K/mm3 MPV 9.2 L (9.4-12.3) fl Neutrophils % (Manual) 96 H (40-60) % Band Neutrophils % 0 (0-10) % Lymphocytes % (Manual) 3 L (20-40) % Atypical Lymphs % 0 % Monocytes % (Manual) 1 L (2-10) % Eosinophils % (Manual) 0 L (0.7-5.8) % Basophils % (Manual) 0 L (0.1-1.2) Platelet Estimate Adequate Plt Morphology Comment Normal RBC Morph Comment Normal Sodium 142 (136-145) mEq/L Potassium 4.0 (3.5-5.1) mEq/L Chloride 105 (98-107) mEq/L Carbon Dioxide 31 (21-32) mEq/L Anion Gap 10.0 (5-15) BUN 23 H (7-18) mg/dL Creatinine 0.9 (0.55-1.02) mg/dL Est Cr Clr Drug Dosing 32.07 mL/min Estimated GFR (MDRD) 60 (>60) mL/min BUN/Creatinine Ratio 25.6 H (14-18) Glucose 132 H (83-115) mg/dL Lactic Acid 1.0 (0.4-2.0) mmol/L Calcium 9.8 D (8.5-10.1) mg/dL Magnesium 1.9 (1.8-2.4) mg/dl Total Bilirubin 0.3 (0.2-1.0) mg/dL AST 23 (15-37) U/L ALT 25 (14-59) U/L Alkaline Phosphatase 96 (46-116) U/L C-Reactive Protein 4.3 H* (<1.0) mg/dL Total Protein 7.8 (6.4-8.2) g/dl Albumin 3.3 L (3.4-5.0) g/dl Globulin 4.5 gm/dL Albumin/Globulin Ratio 0.7 L (1-2) Urine Color (Yellow) Urine Appearance (Clear) Urine pH (5.0-8.0) Ur Specific [place] (1.005-1.030) Urine Protein (Negative) Urine Glucose (UA) (Negative) Urine Ketones (Negative) Urine Occult Blood (Negative) Urine Nitrite (Negative) Urine Bilirubin (Negative) Urine Urobilinogen (0.2-1.0) Ur Leukocyte Esterase (Negative) Urine RBC (0-5) /hpf Urine WBC (0-5) /hpf Urine WBC Clumps (NOT SEEN) /hpf Ur Transition Epith Cell (0-5) Calcium Oxalate Crystal (NONE) Amorphous Sediment (NOT SEEN) /hpf Urine Bacteria (FEW) /hpf Hyaline Casts (0-5) /lpf Fine Granular Casts (0-5) /lpf Urine Mucus (FEW) /hpf / Range/Units 22:00 WBC (3.98-10.04) K/mm3 RBC (3.98-5.22) M/mm3 Hgb (11.2-15.7) gm/L Hct (34.1-44.9) % MCV (79.4-94.8) fl MCH (25.6-32.2) pg MCHC (32.2-35.5) g/dl RDW Std Deviation (36.4-46.3) fL Plt Count (182-369) K/mm3 MPV (9.4-12.3) fl Neutrophils % (Manual) (40-60) % Band Neutrophils % (0-10) % Lymphocytes % (Manual) (20-40) % Atypical Lymphs % % Monocytes % (Manual) (2-10) % Eosinophils % (Manual) (0.7-5.8) % Basophils % (Manual) (0.1-1.2) Platelet Estimate Plt Morphology Comment RBC Morph Comment Sodium (136-145) mEq/L Potassium (3.5-5.1) mEq/L Chloride (98-107) mEq/L Carbon Dioxide (21-32) mEq/L Anion Gap (5-15) BUN (7-18) mg/dL Creatinine (0.55-1.02) mg/dL Est Cr Clr Drug Dosing mL/min Estimated GFR (MDRD) (>60) mL/min BUN/Creatinine Ratio (14-18) Glucose (83-115) mg/dL Lactic Acid (0.4-2.0) mmol/L Calcium (8.5-10.1) mg/dL Magnesium (1.8-2.4) mg/dl Total Bilirubin (0.2-1.0) mg/dL AST (15-37) U/L ALT (14-59) U/L Alkaline Phosphatase (46-116) U/L C-Reactive Protein (<1.0) mg/dL Total Protein (6.4-8.2) g/dl Albumin (3.4-5.0) g/dl Globulin gm/dL Albumin/Globulin Ratio (1-2) Urine Color Yellow (Yellow) Urine Appearance Slt cloudy H (Clear) Urine pH 5.5 (5.0-8.0) Ur Specific [place] <=1.005 (1.005-1.030) Urine Protein 2+ H (Negative) Urine Glucose (UA) Negative (Negative) Urine Ketones Negative (Negative) Urine Occult Blood Trace-lysed H (Negative) Urine Nitrite Negative (Negative) Urine Bilirubin Negative (Negative) Urine Urobilinogen 0.2 (0.2-1.0) Ur Leukocyte Esterase 1+ H (Negative) Urine RBC 5-10 H (0-5) /hpf Urine WBC 20-30 H (0-5) /hpf Urine WBC Clumps Many (NOT SEEN) /hpf Ur Transition Epith Cell 0-5 (0-5) Calcium Oxalate Crystal Moderate H (NONE) Amorphous Sediment Moderate H (NOT SEEN) /hpf Urine Bacteria Moderate H (FEW) /hpf Hyaline Casts 10-20 H (0-5) /lpf Fine Granular Casts 0-5 (0-5) /lpf Urine Mucus Moderate H (FEW) /hpf Meds: Medications Generic Name Dose Route Start Last Admin Trade Name Leola PRN Reason Stop Dose Admin Acetaminophen 650 mg 07/04/19 00:50 Tylenol PO Q4H PRN Pain/Fever Hydrocodone Bitart/Acetaminophen 1 tab 07/04/19 00:51 07/04/19 08:58 [place] 325-5 Mg PO 1 tab Q4H PRN Administration Pain (moderate 4-6) Albuterol 2.5 mg 07/04/19 00:53 Proventil Neb Soln NEB Q4HRRT PRN Dyspnea Albuterol/Ipratropium 3 ml 07/04/19 00:52 Duoneb 3.0-0.5 Mg/3 Ml NEB Q6HRRT PRN Dyspnea Hydromorphone HCl 0.5 mg 07/04/19 00:52 Dilaudid IVPUSH Q4H PRN Pain (severe 7-10) Sodium Chloride 1,000 mls @ 75 mls/hr 07/04/19 01:00 07/04/19 04:17 Normal Saline IV 75 mls/hr ASDIRECTED JACINTO Administration Ondansetron HCl 4 mg 07/04/19 00:54 Zofran IVPUSH Q6H PRN Nausea/Vomiting Sodium Chloride 10 ml 07/03/19 17:50 07/03/19 19:30 Saline Flush FLUSH 10 ml ASDIRECTED PRN Administration Keep Vein Open Discontinued Medications Generic Name Dose Route Start Last Admin Trade Name Leola PRN Reason Stop Dose Admin Acetaminophen 650 mg 07/03/19 22:00 07/03/19 22:20 Tylenol PO 07/03/19 22:01 650 mg NOW ONE Administration Aspirin 81 mg 07/03/19 22:36 07/03/19 22:59 Aspirin PO 07/03/19 22:37 81 mg ONETIME ONE Administration Diatrizoate Meglum/Diatrizoate Sod 60 ml 07/03/19 18:38 07/04/19 03:36 Gastrografin 37% PO 07/03/19 18:39 Not Given ONETIME ONE Sodium Chloride 500 mls @ 500 mls/hr 07/03/19 17:50 07/03/19 18:49 Normal Saline IV 07/03/19 18:49 500 mls/hr ONETIME ONE Administration Levofloxacin/Dextrose 500 mg/ 100 mls @ 100 mls/hr 07/03/19 22:25 07/03/19 23 :55 Premix IV 07/03/19 23:24 100 mls/hr ONETIME ONE Administration Sodium Chloride 1,000 mls @ 75 mls/hr 07/03/19 22:25 07/04/19 03:35 Normal Saline IV 07/04/19 11:44 Not Given ONETIME ONE Metronidazole 500 mg/ Premix 100 mls @ 100 mls/hr 07/03/19 22:26 07/03/19 22: 35 IV 07/03/19 23:25 100 mls/hr ONETIME ONE Administration Iopamidol 100 ml 07/03/19 18:38 07/03/19 19:30 Isovue-300 (61%) IVPUSH 07/03/19 18:39 100 ml ONETIME ONE Administration Lidocaine HCl Confirm 07/03/19 18:34 07/03/19 18:50 Xylocaine 1% Administered 07/03/19 18:35 10 ml Dose Administration 10 ml .ROUTE .STK-MED ONE Mirtazapine 15 mg 07/03/19 22:36 07/04/19 00:07 Remeron PO 07/03/19 22:37 15 mg ONETIME ONE Administration Ondansetron HCl 4 mg 07/03/19 17:50 07/03/19 18:49 Zofran IVPUSH 07/03/19 17:51 4 mg ONETIME ONE Administration Saccharomyces Boulardii 250 mg 07/03/19 22:37 07/04/19 00:07 Florastor PO 07/03/19 22:38 250 mg NOW STA Administration Sertraline HCl 50 mg 07/03/19 22:36 07/04/19 00:08 Zoloft PO 07/03/19 22:37 50 mg ONETIME ONE Administration - Radiology Interpretation Free Text/Narrative:: CT of the abdomen and pelvis impression per vrad: colitis. presents on previous CT as well. urothelial marked thickening at the left renal pelvis may be enign or malignant chest xray 1 view shows increased lung markings, no obvious pneumonia. formal radiology read pending. - Re-Assessments/Exams Free Text/Narrative Re-Assessment/Exam: 07/03/19 21:46 I reviewed the labs and imaging with the patient. Her labs are to be expected given her diagnosis of lung cancer with metastasis. made aware of CT findings of left kidney which will require follow-up. Also made aware of the colitis seen on CT, however, this is not a new finding was present on previous CT. patient states she would like to go home. Son has some concerns that she is too weak to go home. We will road test her and see how she does. 07/03/19 21:28 Patient has a temperature of 101 per nursing staff. They did not road test her, to weak. We will admit her to the hospital. Discussed with Dr. Staton, hospitalist on-call. He agrees to the admission. Asked that we start Levaquin and Flagyl for the colitis on CT. Departure - Departure Time of Disposition: 22:40 Disposition: Admitted As Inpatient 65 Condition: Poor Clinical Impression: History of lung cancer, Colitis Abdominal pain Qualifiers: Abdominal location: generalized Qualified Code(s): R10.84 - Generalized abdominal pain - Discharge Information *PRESCRIPTION DRUG MONITORING PROGRAM REVIEWED*: No *COPY OF PRESCRIPTION DRUG MONITORING REPORT IN PATIENT JUAN: No - My Orders Last 24 Hours: My Active Orders 07/03/19 17:49 Peripheral IV Insertion Adult [OM.PC] Routine 07/03/19 17:50 Abdomen Pelvis w Cont [CT] Stat Sodium Chloride 0.9% [Saline Flush] 10 ml FLUSH ASDIRECTED PRN Blood Culture x2 Reflex Set [OM.PC] Stat 07/03/19 18:15 CULTURE BLOOD [BC] Stat 07/03/19 18:30 CULTURE BLOOD [BC] Stat 07/03/19 22:00 Insert Villeda Catheter [Insert Urinary Catheter] [OM.PC] Stat CULTURE URINE [RM] Stat 07/03/19 22:15 Chest 1V Frontal [CR] Stat 07/03/19 22:41 Patient Status [ADT] Routine - Assessment/Plan Last 24 Hours: My Active Orders 07/03/19 17:49 Peripheral IV Insertion Adult [OM.PC] Routine 07/03/19 17:50 Abdomen Pelvis w Cont [CT] Stat Sodium Chloride 0.9% [Saline Flush] 10 ml FLUSH ASDIRECTED PRN Blood Culture x2 Reflex Set [OM.PC] Stat 07/03/19 18:15 CULTURE BLOOD [BC] Stat 07/03/19 18:30 CULTURE BLOOD [BC] Stat 07/03/19 22:00 Insert Villeda Catheter [Insert Urinary Catheter] [OM.PC] Stat CULTURE URINE [RM] Stat 07/03/19 22:15 Chest 1V Frontal [CR] Stat 07/03/19 22:41 Patient Status [ADT] Routine
[2019-07-03] MEDS ORDERED: Lidocaine 1% 10 ML MDV ONE (18:34)
[2019-07-03] MEDS ORDERED: Diatrizoate Meglumine/Diatrizoate Sodium 37% 120 ML Bottle PO ONE (18:38)
[2019-07-03] MEDS ORDERED: Iopamidol 612 MG/ML 100 ML Bottle IVPUSH ONE (18:38)
[2019-07-03] MEDS: Sodium Chloride 0.9% 10 ML Syringe FLUSH PRN ×2 (18:49→19:30)
[2019-07-03] MEDS ORDERED: Acetaminophen 325 MG Tab PO ONE (22:00)
[2019-07-03] MEDS ORDERED: Levofloxacin/Dextrose 5%-Water 500 MG in Premix Bag 1 BAG IV ONE (22:25)
[2019-07-03] MEDS ORDERED: Sodium Chloride 0.9% 1,000 ML IV ONE (22:25)
[2019-07-03] MEDS ORDERED: metroNIDAZOLE/Normal Saline 500 MG in Premix Bag 1 BAG IV ONE (22:26)
[2019-07-03] MEDS ORDERED: Aspirin 81 MG Tab.Chew PO ONE (22:36)
[2019-07-03] MEDS ORDERED: Mirtazapine 15 MG Tab PO ONE (22:36)
[2019-07-03] MEDS ORDERED: Sertraline 50 MG Tab PO ONE (22:36)
[2019-07-03] MEDS ORDERED: Saccharomyces Boulardii (Probiotic) 250 MG Cap PO STA (22:37)
[2019-07-04] MEDS ORDERED: Acetaminophen 325 MG Tab PO PRN (00:50)
[2019-07-04] MEDS ORDERED: HYDROmorphone 0.5 MG/0.5 ML Syringe IVPUSH PRN (00:52)
[2019-07-04] MEDS ORDERED: Albuterol/Ipratropium 3.0-0.5 MG/3 ML Neb Soln NEB PRN (00:52)
[2019-07-04] MEDS ORDERED: Albuterol 0.083% 2.5 MG/3 ML Neb Soln NEB PRN (00:53)
[2019-07-04] MEDS ORDERED: Ondansetron 4 MG/2 ML SDV IVPUSH PRN (00:54)
[2019-07-04] MEDS: Sodium Chloride 0.9% 1,000 ML IV SCH ×2 (04:17→17:23)
--- NOTE | 2019-07-04 07:18 | PCM.HP.2 ---
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 She had a couple episode of vomiting and multiple watery diarrhea. Her symptoms were associated with abdominal pain, cramps but primarily on right upper quadrant. Her abdominal/ pelvis CT scan report read as colitis with urothelial marked thickening at the left renal pelvis: benign vs malignant. Her initial work up in ED last night showed a CBC remarkable for WBC of 14.80, MPV of 9.2, Neutrophils of 96%, Lymphocytes of 3%, and Monocytes of 1%. Her Chemistry was significant for BUN of 23, BS of 132, CRP of 4.3, and Albumin of 3.3. Her UA is suggestive of UTI. Her MRSA and C. Difficile screening were negative. While in ED in she had a temp as high as 38F, RR fo > 20s, HR as high as 111, and BPs of 109/57 and 103/54 mmHg. Patient received IV Levaquin and Flagyl for antibiotic treatment. Patient was admitted overnight for treatment of colitis. Abdomen Pain Score (Numeric/FACES): 4 - Related Data Allergies/Adverse Reactions: Allergies Allergy/AdvReac Type Severity Reaction Status Date / Time rofecoxib Allergy Edema Verified 07/03/19 17:36 venom-wasp [wasp venom] Allergy Anaphylactic Verified 07/03/19 17:36 Shock Home Medications: Home Meds Cyanocobalamin (Vitamin B12) [Vitamin B12] 1,000 mcg INJECT ASDIRECTED 11/27/14 [History] EPINEPHrine [Epipen] 0.3 ml INJECT ASDIRECTED PRN 11/27/14 [History] Levothyroxine [Synthroid] 100 mcg PO DAILY 11/27/14 [History] Metoprolol Succinate [Toprol XL] 50 mg PO DAILY 11/27/14 [History] Rosuvastatin [Crestor] 10 mg PO DAILY 11/27/14 [History] amLODIPine [Norvasc] 5 mg PO DAILY 11/27/14 [History] Aspirin 81 mg PO DAILY 06/10/18 [History] Mirtazapine [Remeron] 15 mg PO BEDTIME 06/10/18 [History] Nitroglycerin [Nitrostat] 0.4 mg SL ASDIRECTED PRN 06/10/18 [History] Sertraline [Zoloft] 50 mg PO BEDTIME 06/10/18 [History] Albuterol Sulfate [Proair Hfa] 2 puff IH Q6H PRN 08/06/18 [History] oxyCODONE HCl/Acetaminophen [Percocet 5-325 mg Tablet] 5 - 325 mg PO Q6HR PRN [History] Multivitamins,Therapeutic [Thera] 1 each PO DAILY #20 tablet 11/23/18 [Rx] Albuterol/Ipratropium [DuoNeb 3.0-0.5 MG/3 ML] 3 ml NEB Q6H 04/05/19 [History] Megestrol [Megace] 40 mg PO BIDMEALS 04/05/19 [History] Calcium Carbonate [Calcium] 1 tab PO DAILY 07/04/19 [History] Past Medical History HEENT History: Reports: Cataract Other HEENT History: wears reading glasses. Cardiovascular History: Reports: CAD, High Cholesterol, Hypertension Other Cardiovascular History: hypomagnesmia Respiratory History: Reports: COPD Other Respiratory History: lung cancer, lobectomy. on chronic O2 at home. Patient had aspiration of a mass right lower lobe of lung-08/04. Pt has a new spot on the left lung, PET scan was done on 06/24/19. Gastrointestinal History: Reports: Hemorrhoids Other Gastrointestinal History: abdominal pain with diarrhea Genitourinary History: Reports: Renal Calculus, Urinary Incontinence Other Genitourinary History: having some issues with urination and ? if it is from constipation [employer] History: Reports: Musculoskeletal History: Reports: Fracture Other Musculoskeletal History: left femur fracture; bilat humerous fractures Neurological History: Reports: Migraines Psychiatric History: Reports: Anxiety, Depression Endocrine/Metabolic History: Reports: Hypothyroidism Hematologic History: Reports: B12 Deficiency Other Hematologic History: hypomagnesemia; had elevated ddimer Immunologic History: Reports: None Oncologic (Cancer) History: Reports: Lung, Other (See Below) Other Oncologic History: skin cancer on face, can't remember name. stage 1 and had left low lung removed Dermatologic History: Reports: Psoriasis Other Dermatologic History: possible psoriasis - Infectious Disease History Infectious Disease History: Reports: Chicken Pox, Measles, Rubella - Past Surgical History HEENT Surgical History: Reports: None Cardiovascular Surgical History: Reports: None Respiratory Surgical History: Reports: Other (See Below) Other Respiratory Surgeries/Procedures: lobectomy GI Surgical History: Reports: None Female Surgical History: Reports: None Endocrine Surgical History: Reports: None Neurological Surgical History: Reports: None Musculoskeletal Surgical History: Reports: None Oncologic Surgical History: Reports: Lobectomy Social & Family History - Family History Family Medical History: Noncontributory - Tobacco Use Smoking Status *Q: Former Smoker Years of Tobacco use: 68 Packs/Tins Daily: 1 Used Tobacco, but Quit: Yes Month/Year Tobacco Last Used: 11/03 Second Hand Smoke Exposure: No - Caffeine Use Caffeine Use: Reports: Soda Other Caffeine Use: unknown Caffeine Use Comment: frequent coke - Recreational Drug Use Recreational Drug Use: No - Living Situation & Occupation Living situation: Reports: Occupation: Retired (Lives in the independent part of [facility]) H&P Review of Systems - Review of Systems: Review Of Systems: ROS reveals no pertinent complaints other than HPI. Exam - Exam Exam: See Below - Vital Signs Vital Signs: Last Vital Signs Temp 36.8 C 07/04/19 04:00 Pulse 70 07/04/19 04:00 Resp 26 H 07/04/19 04:00 BP 112/57 L 07/04/19 04:00 Pulse Ox 96 07/04/19 04:00 Weight: 44.271 kg - Exam General: Alert, Oriented, Cooperative, Other (emaciated and severe muscle wasting) HEENT: Conjunctiva Clear, EACs Clear, EOMI, Hearing Intact, Mucosa Moist & [place] , Nares Patent, Normal Nasal Septum, Posterior Pharynx Clear, Pupils Equal, Pupils Reactive Neck: Supple, Trachea Midline Lungs: Normal Respiratory Effort, Decreased Breath Sounds Cardiovascular: Regular Rate, Regular Rhythm GI/Abdominal Exam: Normal Bowel Sounds, Soft, Non-Tender, No Organomegaly, No Distention, No Abnormal Bruit (Female) Exam: Deferred Rectal (Female) Exam: Deferred Back Exam: Normal Inspection, Decreased Range of Motion, Other (kyphosis) Extremities: Normal Inspection, Normal Range of Motion, Non-Tender, No Pedal Edema, Normal Capillary Refill, Other (skin are dry and flaky) Skin: Warm, Dry, Intact, Ecchymosis, Other (pressure on her right lower back: dressed and covered) Skin Alteration Location (Drawings Not To Scale): 1 - pressure ulcer: 1/2 inch with tunneling per nurse- dressed and covered Neuro Extensive - Mental Status: Oriented x3, Normal Cognition, Memory Intact Neuro Extensive - Motor, Sensory, Reflexes: CN II-XII Intact (limited but grossly intact). No: Normal Gait Psychiatric: Alert, Normal Affect, Normal Mood - Patient Data Lab Results Last 24 hrs: Laboratory Results - last 24 hr 07/03/19 07/03/19 07/03/19 Range/Units 18:15 18:15 18:15 WBC 14.80 H (3.98-10.04) K/mm3 RBC 4.80 (3.98-5.22) M/mm3 Hgb 14.0 (11.2-15.7) gm/L Hct 42.6 (34.1-44.9) % MCV 88.8 D (79.4-94.8) fl MCH 29.2 (25.6-32.2) pg MCHC 32.9 (32.2-35.5) g/dl RDW Std Deviation 45.3 (36.4-46.3) fL Plt Count 285 (182-369) K/mm3 MPV 9.2 L (9.4-12.3) fl Neutrophils % (Manual) 96 H (40-60) % Band Neutrophils % 0 (0-10) % Lymphocytes % (Manual) 3 L (20-40) % Atypical Lymphs % 0 % Monocytes % (Manual) 1 L (2-10) % Eosinophils % (Manual) 0 L (0.7-5.8) % Basophils % (Manual) 0 L (0.1-1.2) Platelet Estimate Adequate Plt Morphology Comment Normal RBC Morph Comment Normal Sodium 142 (136-145) mEq/L Potassium 4.0 (3.5-5.1) mEq/L Chloride 105 (98-107) mEq/L Carbon Dioxide 31 (21-32) mEq/L Anion Gap 10.0 (5-15) BUN 23 H (7-18) mg/dL Creatinine 0.9 (0.55-1.02) mg/dL Est Cr Clr Drug Dosing 32.07 mL/min Estimated GFR (MDRD) 60 (>60) mL/min BUN/Creatinine Ratio 25.6 H (14-18) Glucose 132 H (83-115) mg/dL Lactic Acid 1.0 (0.4-2.0) mmol/L Calcium 9.8 D (8.5-10.1) mg/dL Magnesium 1.9 (1.8-2.4) mg/dl Total Bilirubin 0.3 (0.2-1.0) mg/dL AST 23 (15-37) U/L ALT 25 (14-59) U/L Alkaline Phosphatase 96 (46-116) U/L C-Reactive Protein 4.3 H* (<1.0) mg/dL Total Protein 7.8 (6.4-8.2) g/dl Albumin 3.3 L (3.4-5.0) g/dl Globulin 4.5 gm/dL Albumin/Globulin Ratio 0.7 L (1-2) Urine Color (Yellow) Urine Appearance (Clear) Urine pH (5.0-8.0) Ur Specific [place] (1.005-1.030) Urine Protein (Negative) Urine Glucose (UA) (Negative) Urine Ketones (Negative) Urine Occult Blood (Negative) Urine Nitrite (Negative) Urine Bilirubin (Negative) Urine Urobilinogen (0.2-1.0) Ur Leukocyte Esterase (Negative) Urine RBC (0-5) /hpf Urine WBC (0-5) /hpf Urine WBC Clumps (NOT SEEN) /hpf Ur Transition Epith Cell (0-5) Calcium Oxalate Crystal (NONE) Amorphous Sediment (NOT SEEN) /hpf Urine Bacteria (FEW) /hpf Hyaline Casts (0-5) /lpf Fine Granular Casts (0-5) /lpf Urine Mucus (FEW) /hpf MRSA (PCR) 07/03/19 07/03/19 Range/Units 22:00 23:50 WBC (3.98-10.04) K/mm3 RBC (3.98-5.22) M/mm3 Hgb (11.2-15.7) gm/L Hct (34.1-44.9) % MCV (79.4-94.8) fl MCH (25.6-32.2) pg MCHC (32.2-35.5) g/dl RDW Std Deviation (36.4-46.3) fL Plt Count (182-369) K/mm3 MPV (9.4-12.3) fl Neutrophils % (Manual) (40-60) % Band Neutrophils % (0-10) % Lymphocytes % (Manual) (20-40) % Atypical Lymphs % % Monocytes % (Manual) (2-10) % Eosinophils % (Manual) (0.7-5.8) % Basophils % (Manual) (0.1-1.2) Platelet Estimate Plt Morphology Comment RBC Morph Comment Sodium (136-145) mEq/L Potassium (3.5-5.1) mEq/L Chloride (98-107) mEq/L Carbon Dioxide (21-32) mEq/L Anion Gap (5-15) BUN (7-18) mg/dL Creatinine (0.55-1.02) mg/dL Est Cr Clr Drug Dosing mL/min Estimated GFR (MDRD) (>60) mL/min BUN/Creatinine Ratio (14-18) Glucose (83-115) mg/dL Lactic Acid (0.4-2.0) mmol/L Calcium (8.5-10.1) mg/dL Magnesium (1.8-2.4) mg/dl Total Bilirubin (0.2-1.0) mg/dL AST (15-37) U/L ALT (14-59) U/L Alkaline Phosphatase (46-116) U/L C-Reactive Protein (<1.0) mg/dL Total Protein (6.4-8.2) g/dl Albumin (3.4-5.0) g/dl Globulin gm/dL Albumin/Globulin Ratio (1-2) Urine Color Yellow (Yellow) Urine Appearance Slt cloudy H (Clear) Urine pH 5.5 (5.0-8.0) Ur Specific [place] <=1.005 (1.005-1.030) Urine Protein 2+ H (Negative) Urine Glucose (UA) Negative (Negative) Urine Ketones Negative (Negative) Urine Occult Blood Trace-lysed H (Negative) Urine Nitrite Negative (Negative) Urine Bilirubin Negative (Negative) Urine Urobilinogen 0.2 (0.2-1.0) Ur Leukocyte Esterase 1+ H (Negative) Urine RBC 5-10 H (0-5) /hpf Urine WBC 20-30 H (0-5) /hpf Urine WBC Clumps Many (NOT SEEN) /hpf Ur Transition Epith Cell 0-5 (0-5) Calcium Oxalate Crystal Moderate H (NONE) Amorphous Sediment Moderate H (NOT SEEN) /hpf Urine Bacteria Moderate H (FEW) /hpf Hyaline Casts 10-20 H (0-5) /lpf Fine Granular Casts 0-5 (0-5) /lpf Urine Mucus Moderate H (FEW) /hpf MRSA (PCR) Negative Result Diagrams: 07/05/19 03:10 07/05/19 03:10 Problem List Initiated/Reviewed/Updated: Yes Orders Last 24hrs: Active Orders 24 hr Category Date Time Status Patient Status [ADT] Routine ADT 07/03/19 22:41 Active Cardiac Monitoring [RC] . DIRECTED Care 07/03/19 17:50 Active Insert [place] Catheter [Insert Urinary Catheter] [OM.PC] Care 07/03/19 22:00 Ordered Stat Oxygen Therapy Adult [Oxygen Therapy] [RC] ASDIRECTED Care 07/03/19 23:45 Active RT Aerosol Therapy [RC] ASDIRECTED Care 07/04/19 00:53 Active Up ad Anastasia [RC] 09,21 Care 07/04/19 00:48 Active Regular Diet [DIET] Diet 07/04/19 Breakfast Active Abdomen Pelvis w Cont [CT] Stat Exams 07/03/19 17:50 Taken Chest 1V Frontal [CR] Stat Exams 07/03/19 22:15 Taken C DIFFICILE BY PCR W/NAP1 [MOLEC] Stat Lab 07/04/19 05:35 Received CULTURE BLOOD [BC] Stat Lab 07/03/19 18:15 Received CULTURE BLOOD [BC] Stat Lab 07/03/19 18:30 Received CULTURE URINE [RM] Stat Lab 07/03/19 22:00 Received Acetaminophen [Tylenol] Med 07/04/19 00:50 Active 650 mg PO Q4H PRN Acetaminophen/HYDROcodone [[place]var[place] 325-5 MG] Med 07/04/19 00:51 Active 1 tab PO Q4H PRN Albuterol [Proventil Neb Soln] Med 07/04/19 00:53 Active 2.5 mg NEB Q4HRRT PRN Albuterol/Ipratropium [DuoNeb 3.0-0.5 MG/3 ML] Med 07/04/19 00:52 Active 3 ml NEB Q6HRRT PRN HYDROmorphone [Dilaudid] Med 07/04/19 00:52 Active 0.5 mg IVPUSH Q4H PRN Ondansetron [Zofran] Med 07/04/19 00:54 Active 4 mg IVPUSH Q6H PRN Sodium Chloride 0.9% [Normal Saline] 1,000 ml Med 07/04/19 01:00 Active IV ASDIRECTED Sodium Chloride 0.9% [Saline Flush] Med 07/03/19 17:50 Active 10 ml FLUSH ASDIRECTED PRN Blood Culture x2 Reflex Set [OM.PC] Stat Oth 07/03/19 17:50 Ordered Peripheral IV Insertion Adult [OM.PC] Routine Oth 07/03/19 17:49 Ordered Code Status [Resuscitation Status] Routine Resus Stat 07/04/19 00:48 Ordered Medication Orders Acetaminophen (Tylenol) 650 mg PO Q4H PRN PRN Reason: Pain/Fever Hydrocodone Bitart/Acetaminophen ([place] 325-5 Mg) 1 tab PO Q4H PRN PRN Reason: Pain (moderate 4-6) Albuterol (Proventil Neb Soln) 2.5 mg NEB Q4HRRT PRN PRN Reason: Dyspnea Albuterol/Ipratropium (Duoneb 3.0-0.5 Mg/3 Ml) 3 ml NEB Q6HRRT PRN PRN Reason: Dyspnea Hydromorphone HCl (Dilaudid) 0.5 mg IVPUSH Q4H PRN PRN Reason: Pain (severe 7-10) Sodium Chloride (Normal Saline) 1,000 mls @ 75 mls/hr IV ASDIRECTED JACINTO Last Admin: 08/18/19 04:17 Dose: 75 mls/hr Ondansetron HCl (Zofran) 4 mg IVPUSH Q6H PRN PRN Reason: Nausea/Vomiting Sodium Chloride (Saline Flush) 10 ml FLUSH ASDIRECTED PRN PRN Reason: Keep Vein Open Last Admin: 07/03/19 19:30 Dose: 10 ml Admin: 07/03/19 18:49 Dose: 10 ml Assessment/Plan Comment:: Assessment/Plan: Acute: Sepsis - 2/2 Colitis and Pressure Ulcer +/- UTI - WBC of 14.80; Temp of 38.3 F, BP of 109/57 and 103/54 mmHg, RR 20s-30s, CRP of 4.3 - Meets criteria for Sepsis; present on admission - Received IV Levaquin and Flagyl last night - Sepsis treatment Colitis - Abdominal/Pelvis CT scan report shows colitis with urothelial masked thickening at the left renal pelvis; benign vs malignant - Received IV Flagyl in ED ; will resume antibiotics w/ probiotic - C. Diff screening negative - Regular diet started last night; seems to be tolerating okay but will change it to heart healthy diet - Asymptomatic this morning - IV fluids for hydration UTI 2/2 GPC - Risk Factors: Urinary Incontinence and Recurrent UTI - UA suggestive of infection - Received IV Levaquin - UA shows GPC; will add IV Vancomycin for pharmacy to dose Pressure Ulcer - Localized to her right lower back - Routine nursing wound care - Consult PT for wound care in AM Hyperglycemia - BS of 132 - No hx/o Diabetes or Glucose Intolerance - Monitor Severe Malnutrition - Protein wasting and cachexia - BMI of 17.9 - Dietary consult for weight management Chronic: Impaired Vision, HTN, HLD, CAD, Hx/o CT, 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
[2019-07-04] MEDS: Acetaminophen/HYDROcodone 325-5 MG Tab PO PRN ×2 (08:58→16:36)
[2019-07-04] MEDS ORDERED: Nitroglycerin 0.4 MG Tab.SL SL PRN (11:37)
[2019-07-04] MEDS ORDERED: EPINEPHrine 0.3 MG/0.3 ML Pen Autoinjector IM PRN (11:37)
[2019-07-04] MEDS ORDERED: Albuterol 6.7 GM Inhaler INH PRN (11:37)
[2019-07-04] MEDS: Albuterol/Ipratropium 3.0-0.5 MG/3 ML Neb Soln NEB SCH ×2 (12:04→19:09)
[2019-07-04] MEDS: Megestrol 40 MG Tab PO SCH (16:36)
[2019-07-04] MEDS: Enoxaparin 30 MG/0.3 ML Syringe SUBCUT SCH (19:13)
[2019-07-04] MEDS: Sertraline 50 MG Tab PO SCH (20:19)
[2019-07-04] MEDS: Mirtazapine 15 MG Tab PO SCH (20:19)
[2019-07-04] MEDS ORDERED: Temazepam 7.5 MG Cap PO PRN (21:24)
[2019-07-04] MEDS ORDERED: Levofloxacin/Dextrose 5%-Water 750 MG in Premix Bag 1 BAG IV ONE (21:30)
[2019-07-04] MEDS ORDERED: Vancomycin 1 GM SDV ONE (22:52)
[2019-07-04] MEDS ORDERED: Sodium Chloride 0.9% 250 ML ONE (22:53)
[2019-07-04] MEDS: metroNIDAZOLE/Normal Saline 500 MG in Premix Bag 1 BAG IV SCH (23:19)
[2019-07-05] MEDS: Albuterol/Ipratropium 3.0-0.5 MG/3 ML Neb Soln NEB SCH ×5 (00:07→23:54)
[2019-07-05] MEDS: Acetaminophen/oxyCODONE 325-5 MG Tab PO PRN (05:27)
[2019-07-05] MEDS: metroNIDAZOLE/Normal Saline 500 MG in Premix Bag 1 BAG IV SCH ×3 (05:32→20:34)
[2019-07-05] MEDS: Megestrol 40 MG Tab PO SCH ×2 (06:01→16:26)
[2019-07-05] MEDS: Saccharomyces Boulardii (Probiotic) 250 MG Cap PO SCH ×4 (06:01→20:36)
--- NOTE | 2019-07-05 06:46 | CR ---
Chest: Portable view of the chest was obtained. Comparison: Prior chest x-ray of 04/07/19. Heart size within normal limits for portable technique. Tortuous thoracic aorta is seen. Interstitial changes are noted most if not all of which appear to be chronic. Mild rib deformities on the right side are seen either due to prior surgery or old trauma. Old deformity is noted within the distal right clavicle. Bony structures are osteopenic. Scoliosis is noted within the spine. Impression: 1. Multiple findings as noted above. Nothing acute is definitely suspected. Diagnostic code #3 I agree with preliminary report from [facility], finalized on 07/03/19, 11:58 PM Central Time MTDD
[2019-07-05] MEDS: Sodium Chloride 0.9% 1,000 ML IV SCH ×2 (07:28→20:33)
[2019-07-05] MEDS ORDERED: Potassium Chloride 10 MEQ in Premix Bag 1 BAG IV SCH (08:00)
[2019-07-05] MEDS ORDERED: Potassium Chloride 20 MEQ Tab.ER PO ONE (08:00)
[2019-07-05] MEDS ORDERED: Magnesium Sulfate/Water 2 GM in Premix Bag 1 BAG IV ONE (08:00)
[2019-07-05] MEDS: Rosuvastatin 10 MG Tab PO SCH (08:08)
[2019-07-05] MEDS: Multivitamins,Therapeutic Tab PO SCH (08:08)
[2019-07-05] MEDS: Levothyroxine 100 MCG Tab PO SCH (08:08)
[2019-07-05] MEDS: Metoprolol Succinate 50 MG Tab.ER PO SCH (08:09)
[2019-07-05] MEDS: Calcium Carbonate 600 MG Tab PO SCH (08:11)
[2019-07-05] MEDS: Aspirin 81 MG Tab.EC PO SCH (08:11)
[2019-07-05] MEDS: amLODIPine 5 MG Tab PO SCH (08:11)
--- NOTE | 2019-07-05 08:24 | CT ---
CT abdomen and pelvis Technique: Multiple axial sections were obtained from above the dome of the diaphragm inferiorly through the pubic symphysis. Intravenous contrast was utilized. No oral contrast has been given. Delayed images were also obtained through the bladder. Comparison: Prior CT abdomen and pelvis exam of 11/27/14. Findings: Visualized portions of both lung bases shows mild interstitial fibrosis and scarring. Coronary artery calcification is also partially visualized. Liver contains no focal abnormality. Spleen appears within normal limits. Adrenal glands show no nodule. Small hiatal hernia is present. Kidneys show symmetric contrast enhancement. There are multiple nonobstructing calculi being seen within the left kidney. Smaller nonobstructing calculi lesser in number are seen within the right kidney. Left kidney calcifications are also located within the left renal pelvis. There is slight wall thickening in the area of the left UPJ and findings are felt compatible with change from chronic inflammation due to the calculi. Largest calculus measures proximally 6.5 mm. Delayed images show contrast within both ureters and bladder. Gallbladder shows no calcified gallstones. Pancreas shows no discrete abnormality. Aorta shows areas of ectasia and atherosclerotic calcification without focal aneurysm. No retroperitoneal adenopathy is seen. Mild bowel wall thickening seen within portions of the sigmoid and descending colon compatible with a nonspecific colitis. Mild diverticuli are seen within the colon without inflammatory change of diverticulitis. Scoliosis and degenerative change are noted within the spine. Compression deformities are also noted within the lower thoracic and upper lumbar spine which are most likely old. Anterior fat-containing abdominal wall hernia is seen located below the umbilicus. Smaller fat-containing hernia is seen above the umbilicus. Appendix not definitely visualized Impression: 1. Numerous nonobstructing calculi within both kidneys, worse on the left side. Some of the calculi on the left side are located within the left renal pelvis causing mild chronic inflammatory thickening of the adjacent wall at the level of the UPJ. No obstruction of contrast is seen in this area with contrast noted within distal normal size ureters as well as contrast within the bladder. 2. Mild bowel wall thickening within the descending and sigmoid colon compatible with a nonspecific mild colitis. 3. Other findings which are believed to be incidental as described above. Diagnostic code #3 I agree with preliminary report from [facility], finalized on 07/03/19, 9:31 PM Central Time [facility]
--- NOTE | 2019-07-05 08:37 | PCM.PN ---
- General Info Date of Service: 07/05/19 Admission Dx/Problem (Free Text): Admission Diagnosis/Problem Admission Diagnosis/Problem Colitis Subjective Update: Follow Up Functional Status: Reports: Pain Controlled, Tolerating Diet, Ambulating, Urinating. Denies: New Symptoms - Review of Systems General: Reports: Weakness. Denies: Fever, Appetite HEENT: Reports: No Symptoms Pulmonary: Reports: Shortness of Breath (at baseline). Denies: Cough, Sputum Cardiovascular: Reports: No Symptoms Gastrointestinal: Reports: Abdominal Pain. Denies: Nausea, Vomiting Genitourinary: Reports: No Symptoms Musculoskeletal: Reports: No Symptoms Skin: Reports: Bruising Neurological: Reports: Pre-Existing Deficit, Weakness, Gait Disturbance. Denies : Confusion Psychiatric: Denies: No Symptoms, Mood Lability, Cravings, Homicidal Ideation Systems Review Comment:: No overnight issues. She rested well but she reports having abdominal pain this morning. Her pain improved after she received pain medications. She is tolerating current diet and denies any nausea or vomiting. She is afebrile with resolved leukocytosis. She ambulated down the arauz this morning. - Patient Data Vitals - Most Recent: Last Vital Signs Temp 36.4 C 07/05/19 05:40 Pulse 74 07/05/19 08:09 Resp 24 H 07/05/19 05:40 BP 110/76 07/05/19 08:11 Pulse Ox 96 07/05/19 06:35 Weight - Most Recent: 44.271 kg I&O - Last 24 Hours: Intake & Output 07/04/19 07/05/19 07/05/19 22:59 06:59 14:59 Intake Total 1295 1710 Output Total 225 400 Balance 1070 1310 Lab Results Last 24 Hours: Laboratory Results - last 24 hr 07/05/19 07/05/19 Range/Units 03:10 03:10 WBC 7.64 (3.98-10.04) K/mm3 RBC 3.61 L (3.98-5.22) M/mm3 Hgb 10.4 L D (11.2-15.7) gm/L Hct 32.9 L (34.1-44.9) % MCV 91.1 (79.4-94.8) fl MCH 28.8 (25.6-32.2) pg MCHC 31.6 L (32.2-35.5) g/dl RDW Std Deviation 46.1 (36.4-46.3) fL Plt Count 223 (182-369) K/mm3 MPV 9.2 L (9.4-12.3) fl Neut % (Auto) 71.8 H (34.0-71.1) % Lymph % (Auto) 19.4 (19.3-51.7) % [place] % (Auto) 5.8 (4.7-12.5) % Eos % (Auto) 2.5 (0.7-5.8) Baso % (Auto) 0.4 (0.1-1.2) % Neut # (Auto) 5.49 (1.56-6.13) K/mm3 Lymph # (Auto) 1.48 (1.18-3.74) K/mm3 [place] # (Auto) 0.44 H (0.24-0.36) K/mm3 Eos # (Auto) 0.19 (0.04-0.36) K/mm3 Baso # (Auto) 0.03 (0.01-0.08) K/mm3 Sodium 143 (136-145) mEq/L Potassium 3.3 L (3.5-5.1) mEq/L Chloride 110 H (98-107) mEq/L Carbon Dioxide 27 (21-32) mEq/L Anion Gap 9.3 (5-15) BUN 13 (7-18) mg/dL Creatinine 0.8 (0.55-1.02) mg/dL Est Cr Clr Drug Dosing 35.93 mL/min Estimated GFR (MDRD) > 60 (>60) mL/min BUN/Creatinine Ratio 16.3 (14-18) Glucose 97 (83-115) mg/dL Calcium 7.8 L D (8.5-10.1) mg/dL Magnesium 1.4 L (1.8-2.4) mg/dl C-Reactive Protein 10.4 H* (<1.0) mg/dL Mc Results Last 24 Hours: Microbiology 07/03/19 18:30 Aerobic Blood Culture - Preliminary Blood - Venous - Lab Draw NO GROWTH AFTER 1 DAY Anaerobic Blood Culture - Preliminary NO GROWTH AFTER 1 DAY 07/03/19 18:15 Aerobic Blood Culture - Preliminary Blood - Venous NO GROWTH AFTER 1 DAY Anaerobic Blood Culture - Preliminary NO GROWTH AFTER 1 DAY 07/03/19 22:00 Urine Culture - Preliminary Urine, Voided Gram Positive Cocci Med Orders - Current: Current Medications Acetaminophen (Tylenol) 650 mg PO Q4H PRN PRN Reason: Pain/Fever Hydrocodone Bitart/Acetaminophen ([place] 325-5 Mg) 1 tab PO Q4H PRN PRN Reason: Pain (moderate 4-6) Last Admin: 07/04/19 16:36 Dose: 1 tab Albuterol (Proventil Neb Soln) 2.5 mg NEB Q4HRRT PRN PRN Reason: Dyspnea Albuterol (Proventil Hfa) 0 gm INH Q6H PRN PRN Reason: Shortness of Breath Albuterol/Ipratropium (Duoneb 3.0-0.5 Mg/3 Ml) 3 ml NEB Q6HRRT PRN PRN Reason: Dyspnea Albuterol/Ipratropium (Duoneb 3.0-0.5 Mg/3 Ml) 3 ml NEB Q6H [facility] Last Admin: 07/05/19 06:32 Dose: 3 ml Amlodipine Besylate (Norvasc) 5 mg PO DAILY [facility] Last Admin: 07/05/19 08:11 Dose: 5 mg Aspirin (Halfprin) 81 mg PO DAILY [facility] Last Admin: 07/05/19 08:11 Dose: 81 mg Calcium Carbonate/Glycine (Calcium Carbonate) 600 mg PO DAILY [facility] Last Admin: 07/05/19 08:11 Dose: 600 mg Enoxaparin Sodium (Lovenox) 30 mg SUBCUT Q24H [facility] Last Admin: 07/04/19 19:13 Dose: 30 mg Hydromorphone HCl (Dilaudid) 0.5 mg IVPUSH Q4H PRN PRN Reason: Pain (severe 7-10) Sodium Chloride (Normal Saline) 1,000 mls @ 75 mls/hr IV ASDIRECTED [facility] Last Admin: 07/05/19 07:28 Dose: 75 mls/hr Levofloxacin/Dextrose 750 mg/ (Premix) 150 mls @ 100 mls/hr IV Q48H [facility] Metronidazole 500 mg/ Premix 100 mls @ 100 mls/hr IV Q8H [facility] Last Admin: 07/05/19 05:32 Dose: 100 mls/hr Vancomycin HCl 750 mg/ Sodium (Chloride) 250 mls @ 166.667 mls/hr IV Q24H [facility] Magnesium Sulfate 2 gm/ Premix 50 mls @ 25 mls/hr IV ONETIME ONE Stop: 07/05/19 09:59 Last Admin: 07/05/19 08:05 Dose: 25 mls/hr Potassium Chloride 10 meq/ (Premix) 100 mls @ 100 mls/hr IV Q1H [facility] Stop: 07/05/19 12:59 Levothyroxine Sodium (Synthroid) 100 mcg PO DAILY [facility] Last Admin: 07/05/19 08:08 Dose: 100 mcg Megestrol Acetate (Megace) 40 mg PO BIDMEALS [facility] Last Admin: 07/05/19 06:01 Dose: 40 mg Metoprolol Succinate (Toprol Xl) 50 mg PO DAILY [facility] Last Admin: 07/05/19 08:09 Dose: 50 mg Mirtazapine (Remeron) 15 mg PO BEDTIME [facility] Last Admin: 07/04/19 20:19 Dose: 15 mg Multivitamins (Thera) 1 each PO DAILY [facility] Last Admin: 07/05/19 08:08 Dose: 1 each Nitroglycerin (Nitrostat) 0.4 mg SL ASDIRECTED PRN PRN Reason: Chest Pain Ondansetron HCl (Zofran) 4 mg IVPUSH Q6H PRN PRN Reason: Nausea/Vomiting Oxycodone/Acetaminophen (Percocet 325-5 Mg) 1 - 2 tab PO Q6H PRN PRN Reason: pain relief. Last Admin: 07/05/19 05:27 Dose: 1 tab Rosuvastatin Calcium (Crestor) 10 mg PO DAILY [facility] Last Admin: 07/05/19 08:08 Dose: 10 mg Saccharomyces Boulardii (Florastor) 250 mg PO TID [facility] Last Admin: 07/05/19 08:08 Dose: 250 mg Sertraline HCl (Zoloft) 50 mg PO BEDTIME [facility] Last Admin: 07/04/19 20:19 Dose: 50 mg Sodium Chloride (Saline Flush) 10 ml FLUSH ASDIRECTED PRN PRN Reason: Keep Vein Open Last Admin: 07/03/19 19:30 Dose: 10 ml Temazepam (Restoril) 7.5 mg PO BEDTIME PRN PRN Reason: Sleep Vancomycin HCl (Pharmacy To Dose - Vancomycin) 0 dose .XX ASDIRECTED PRN PRN Reason: RX TO DOSE VANCO Discontinued Medications Acetaminophen (Tylenol) 650 mg PO NOW ONE Stop: 07/03/19 22:01 Last Admin: 07/03/19 22:20 Dose: 650 mg Aspirin (Aspirin) 81 mg PO ONETIME ONE Stop: 07/03/19 22:37 Last Admin: 07/03/19 22:59 Dose: 81 mg Cyanocobalamin (Vitamin B12) 1,000 mcg IM Q30D [facility] Diatrizoate Meglum/Diatrizoate Sod (Gastrografin 37%) 60 ml PO ONETIME ONE Stop: 07/03/19 18:39 Last Admin: 07/04/19 03:36 Dose: Not Given Epinephrine HCl (Epipen) 0.3 mg IM ASDIRECTED PRN PRN Reason: Allergies Sodium Chloride (Normal Saline) 500 mls @ 500 mls/hr IV ONETIME ONE Stop: 07/03/19 18:49 Last Admin: 07/03/19 18:49 Dose: 500 mls/hr Levofloxacin/Dextrose 500 mg/ (Premix) 100 mls @ 100 mls/hr IV ONETIME ONE Stop: 07/03/19 23:24 Last Admin: 07/03/19 23:55 Dose: 100 mls/hr Sodium Chloride (Normal Saline) 1,000 mls @ 75 mls/hr IV ONETIME ONE Stop: 07/04/19 11:44 Last Admin: 07/04/19 03:35 Dose: Not Given Metronidazole 500 mg/ Premix 100 mls @ 100 mls/hr IV ONETIME ONE Stop: 07/03/19 23:25 Last Admin: 07/03/19 22:35 Dose: 100 mls/hr Levofloxacin/Dextrose 750 mg/ (Premix) 150 mls @ 100 mls/hr IV ONETIME ONE Stop: 07/04/19 22:59 Last Admin: 07/04/19 23:23 Dose: 100 mls/hr Vancomycin HCl 1 gm/ Sodium (Chloride) 250 mls @ 250 mls/hr IV Q24H [facility] Vancomycin HCl 1 gm/ Sodium (Chloride) 250 mls @ 250 mls/hr IV ONETIME ONE Stop: 07/04/19 22:59 Last Admin: 07/04/19 23:30 Dose: 250 mls/hr Sodium Chloride (Normal Saline) Confirm Administered Dose 250 mls @ as directed .ROUTE .STK-MED ONE Stop: 07/04/19 22:54 Last Admin: 07/04/19 23:31 Dose: Not Given Iopamidol (Isovue-300 (61%)) 100 ml IVPUSH ONETIME ONE Stop: 07/03/19 18:39 Last Admin: 07/03/19 19:30 Dose: 100 ml Lidocaine HCl (Xylocaine 1%) Confirm Administered Dose 10 ml .ROUTE .STK-MED ONE Stop: 07/03/19 18:35 Last Admin: 07/03/19 18:50 Dose: 10 ml Mirtazapine (Remeron) 15 mg PO ONETIME ONE Stop: 07/03/19 22:37 Last Admin: 07/04/19 00:07 Dose: 15 mg Ondansetron HCl (Zofran) 4 mg IVPUSH ONETIME ONE Stop: 07/03/19 17:51 Last Admin: 07/03/19 18:49 Dose: 4 mg Potassium Chloride (Klor-Con M20) 40 meq PO ONETIME ONE Stop: 07/05/19 08:01 Last Admin: 07/05/19 08:08 Dose: 40 meq Saccharomyces Boulardii (Florastor) 250 mg PO NOW STA Stop: 07/03/19 22:38 Last Admin: 07/04/19 00:07 Dose: 250 mg Sertraline HCl (Zoloft) 50 mg PO ONETIME ONE Stop: 07/03/19 22:37 Last Admin: 07/04/19 00:08 Dose: 50 mg Vancomycin HCl (Pharmacy To Dose - Vancomycin) 1 dose .XX ASDIRECTED [facility] Vancomycin HCl (Vancomycin) Confirm Administered Dose 1 gm .ROUTE .STK-MED ONE Stop: 07/04/19 22:53 Last Admin: 07/04/19 23:31 Dose: Not Given - Exam Quality Assessment: Supplemental Oxygen (she is at 2L NC) General: Alert, Oriented, Cooperative, No Acute Distress, Other (Severe cachexia ) HEENT: Pupils Equal, Pupils Reactive, EOMI, Mucous Membr. Moist/[place]are[place] Lungs: Normal Respiratory Effort, Wheezing (mild expiratory wheezing) Cardiovascular: Regular Rate, Regular Rhythm GI/Abdominal Exam: Normal Bowel Sounds, Soft, Non-Tender, No Organomegaly, No Distention, No Abnormal Bruit, No Mass, Pelvis Stable (Female) Exam: Deferred Back Exam: Decreased Range of Motion, Other (kyphosis) Extremities: Normal Inspection, Normal Range of Motion, Non-Tender, No Pedal Edema, Normal Capillary Refill, Other (diffused atropy and muscle wasting) Peripheral Pulses: 2+: Posterior Tibial (L), Posterior Tibial (R), Dorsalis Pedis (L), Dorsalis Pedis (R) Skin: Warm, Dry, Intact, Ecchymosis Wound/Incisions: Dressing Dry and Intact, No Drainage Neurological: No New Focal Deficit. No: Normal Gait Psy/Mental Status: Alert, Normal Affect, Normal Mood - Problem List Review Problem List Initiated/Reviewed/Updated: Yes - My Orders Last 24 Hours: My Active Orders 07/04/19 11:37 Acetaminophen/oxyCODONE [Percocet 325-5 MG] 1 - 2 tab PO Q6H PRN Albuterol [Proventil HFA] 0 gm INH Q6H PRN Nitroglycerin [Nitrostat] 0.4 mg SL ASDIRECTED PRN 07/04/19 12:00 Albuterol/Ipratropium [DuoNeb 3.0-0.5 MG/3 ML] 3 ml NEB Q6H 07/04/19 12:02 PT Evaluation and Treatment [CONS] Routine 07/04/19 17:00 Megestrol [Megace] 40 mg PO BIDMEALS 07/04/19 19:00 Enoxaparin [Lovenox] 30 mg SUBCUT Q24H 07/04/19 21:00 Mirtazapine [Remeron] 15 mg PO BEDTIME Sertraline [Zoloft] 50 mg PO BEDTIME 07/04/19 21:24 Height and Weight [RC] DAILY Intake and Output [RC] 04,16 Oxygen Therapy [RC] PRN Up With Assistance [RC] ASDIRECTED VTE/DVT Education [RC] PER UNIT ROUTINE Vital Signs [RC] Q4H Consult to Case Management/Primary Care Pediatrician [CONS] Routine Consult to Bore Miner Operator [CONS] Routine OT Evaluation and Treatment [CONS] Routine Temazepam [Restoril] 7.5 mg PO BEDTIME PRN 07/04/19 21:29 PROCALCITONIN [REF] Stat 07/04/19 21:30 metroNIDAZOLE/Normal Saline [Flagyl 500 MG in NS 100 ML] 500 mg Premix Bag 1 bag IV Q8H 07/05/19 07:00 Saccharomyces Boulardii [Florastor] 250 mg PO TID 07/05/19 07:45 Pharmacy to Dose - Vancomycin 0 dose .XX ASDIRECTED PRN 07/05/19 08:00 Magnesium Sulfate/Water [Magnesium Sulfate in Water Premix] 2 gm Premix Bag 1 bag IV ONETIME 07/05/19 09:00 Aspirin [Halfprin] 81 mg PO DAILY Calcium Carbonate 600 mg PO DAILY Levothyroxine [Synthroid] 100 mcg PO DAILY Metoprolol Succinate [Toprol XL] 50 mg PO DAILY Multivitamins,Therapeutic [Thera] 1 each PO DAILY Rosuvastatin [Crestor] 10 mg PO DAILY amLODIPine [Norvasc] 5 mg PO DAILY 07/05/19 11:00 Potassium Chloride [KCl 10 MEQ in Water 100 ML] 10 meq Premix Bag 1 bag IV Q1H 07/05/19 23:00 Vancomycin 750 mg Sodium Chloride 0.9% [Normal Saline] 250 ml IV Q24H 07/05/19 Breakfast Heart Healthy Diet [DIET] 07/06/19 05:00 PROCALCITONIN [REF] Routine 07/06/19 05:11 BASIC METABOLIC PANEL,BMP [CHEM] AM C-REACTIVE PROTEIN [CHEM] AM CBC WITH AUTO DIFF [HEME] AM MAGNESIUM [CHEM] AM 07/06/19 22:00 Levofloxacin/Dextrose 5%-Water [Levaquin in D5W 750 MG/150 ML] 750 mg Premix Bag 1 bag IV Q48H 07/07/19 05:11 BASIC METABOLIC PANEL,BMP [CHEM] AM C-REACTIVE PROTEIN [CHEM] AM CBC WITH AUTO DIFF [HEME] AM MAGNESIUM [CHEM] AM 07/08/19 05:11 BASIC METABOLIC PANEL,BMP [CHEM] AM C-REACTIVE PROTEIN [CHEM] AM CBC WITH AUTO DIFF [HEME] AM MAGNESIUM [CHEM] AM 07/09/19 05:11 BASIC METABOLIC PANEL,BMP [CHEM] AM C-REACTIVE PROTEIN [CHEM] AM CBC WITH AUTO DIFF [HEME] AM MAGNESIUM [CHEM] AM - Plan Plan:: Assessment/Plan: Acute: Sepsis, Improved - 2/2 Colitis and Pressure Ulcer +/- UTI - WBC of 14.80-->7.64; Temp of 38.3 F->afebrile, BP of 109/57 and 103/54 mmHg --> now stable, RR 20s--about the same, CRP of 4.3--> 10.4 - Meets criteria for Sepsis; present on admission - Continue IV Levaquin, Vancomycin and Flagyl - Blood cultures negative - Sepsis treatment Colitis - Abdominal/Pelvis CT scan report shows colitis with urothelial masked thickening at the left renal pelvis; benign vs malignant - Received IV Flagyl in ED; will resume antibiotics w/ probiotic - C. Diff screening negative - Regular diet started last night; seems to be tolerating okay but will change it to heart healthy diet - Asymptomatic this morning - IV fluids for hydration UTI 2/2 GPC - Risk Factors: Urinary Incontinence and Recurrent UTI - UA suggestive of infection - Continue IV Levaquin and Vancomycin Pressure Ulcer - Localized to her right lower back - Routine nursing wound care - Consult PT for wound care in AM Hypokalemia/Hypomagnesemia - K 3.3 and Mg of 1.4 - 2/2 Inadequate intake - Replete and Monitor Hyperglycemia, Improved - BS of 132 - No hx/o Diabetes or Glucose Intolerance - Monitor Severe Malnutrition - Protein wasting and cachexia - BMI of 17.9 - Dietary consult for weight management Chronic: Impaired Vision, HTN, HLD, CAD, Hx/o [place], 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
[2019-07-05] MEDS: Potassium Chloride 10 MEQ in Premix Bag 1 BAG IV SCH ×2 (10:51→12:03)
[2019-07-05] MEDS: Enoxaparin 30 MG/0.3 ML Syringe SUBCUT SCH (18:13)
[2019-07-05] MEDS: Sertraline 50 MG Tab PO SCH (20:36)
[2019-07-05] MEDS: Mirtazapine 15 MG Tab PO SCH (20:36)
[2019-07-06] MEDS: Albuterol/Ipratropium 3.0-0.5 MG/3 ML Neb Soln NEB SCH ×5 (00:01→23:15)
[2019-07-06] MEDS: metroNIDAZOLE/Normal Saline 500 MG in Premix Bag 1 BAG IV SCH ×3 (06:03→21:27)
[2019-07-06] MEDS: Megestrol 40 MG Tab PO SCH ×2 (06:07→18:35)
--- NOTE | 2019-07-06 06:50 | PCM.PN ---
- General Info Date of Service: 07/06/19 Admission Dx/Problem (Free Text): Admission Diagnosis/Problem Admission Diagnosis/Problem Colitis Subjective Update: Follow Up Functional Status: Reports: Pain Controlled, Tolerating Diet, Ambulating, Urinating. Denies: New Symptoms - Review of Systems General: Denies: Fever, Weakness, Fatigue, Malaise, Chills HEENT: Reports: No Symptoms Pulmonary: Reports: Shortness of Breath (baseline). Denies: Cough Cardiovascular: Denies: Chest Pain, Dyspnea on Exertion, Lightheadedness Gastrointestinal: Denies: Abdominal Pain, Decreased Appetite, Nausea, Vomiting Genitourinary: Reports: No Symptoms Musculoskeletal: Reports: No Symptoms Skin: Reports: Bruising. Denies: Pallor, Diaphoresis Neurological: Reports: Gait Disturbance. Denies: Confusion, Weakness Psychiatric: Denies: Depression, Anxiety, Agitation, Hallucinations Systems Review Comment:: No significant overnight or acute issues. She seems to be doing just fine. Her CBC and Chemistry have improved considerably. However her Ca level remains low and Mg is slightly low at 1.7. Otherwise report has no new complaints. Her UA current shows GNR. - Patient Data Vitals - Most Recent: Last Vital Signs Temp 37.8 C 07/06/19 02:03 Pulse 80 07/06/19 02:03 Resp 20 07/06/19 02:03 BP 99/61 07/06/19 02:03 Pulse Ox 98 07/06/19 06:42 Weight - Most Recent: 46.901 kg I&O - Last 24 Hours: Intake & Output 07/05/19 07/05/19 07/06/19 14:59 22:59 06:59 Intake Total 0 1886 1465 Output Total 750 1700 Balance 0 1136 -235 Lab Results Last 24 Hours: Laboratory Results - last 24 hr 07/05/19 07/06/19 Range/Units 03:10 05:40 WBC 7.97 (3.98-10.04) K/mm3 RBC 4.03 (3.98-5.22) M/mm3 Hgb 11.6 (11.2-15.7) gm/L Hct 36.3 (34.1-44.9) % MCV 90.1 (79.4-94.8) fl MCH 28.8 (25.6-32.2) pg MCHC 32.0 L (32.2-35.5) g/dl RDW Std Deviation 46.1 (36.4-46.3) fL Plt Count 274 (182-369) K/mm3 MPV 9.6 (9.4-12.3) fl Neut % (Auto) 75.9 H (34.0-71.1) % Lymph % (Auto) 15.1 L (19.3-51.7) % [place] % (Auto) 6.5 (4.7-12.5) % Eos % (Auto) 1.9 (0.7-5.8) Baso % (Auto) 0.5 (0.1-1.2) % Neut # (Auto) 6.05 (1.56-6.13) K/mm3 Lymph # (Auto) 1.20 (1.18-3.74) K/mm3 [place] # (Auto) 0.52 H (0.24-0.36) K/mm3 Eos # (Auto) 0.15 (0.04-0.36) K/mm3 Baso # (Auto) 0.04 (0.01-0.08) K/mm3 Procalcitonin 1.80 H (<0.10) ng/mL Cm Results Last 24 Hours: Microbiology 07/03/19 18:30 Aerobic Blood Culture - Preliminary Blood - Venous - Lab Draw NO GROWTH AFTER 2 DAYS Anaerobic Blood Culture - Preliminary NO GROWTH AFTER 2 DAYS 07/03/19 18:15 Aerobic Blood Culture - Preliminary Blood - Venous NO GROWTH AFTER 2 DAYS Anaerobic Blood Culture - Preliminary NO GROWTH AFTER 2 DAYS 07/03/19 22:00 Urine Culture - Preliminary Urine, Voided Gram Positive Cocci Med Orders - Current: Current Medications Acetaminophen (Tylenol) 650 mg PO Q4H PRN PRN Reason: Pain/Fever Hydrocodone Bitart/Acetaminophen ([place] 325-5 Mg) 1 tab PO Q4H PRN PRN Reason: Pain (moderate 4-6) Last Admin: 07/04/19 16:36 Dose: 1 tab Albuterol (Proventil Neb Soln) 2.5 mg NEB Q4HRRT PRN PRN Reason: Dyspnea Albuterol (Proventil Hfa) 0 gm INH Q6H PRN PRN Reason: Shortness of Breath Albuterol/Ipratropium (Duoneb 3.0-0.5 Mg/3 Ml) 3 ml NEB Q6HRRT PRN PRN Reason: Dyspnea Last Admin: 07/06/19 02:23 Dose: 3 ml Albuterol/Ipratropium (Duoneb 3.0-0.5 Mg/3 Ml) 3 ml NEB Q6H [facility] Last Admin: 07/06/19 06:41 Dose: 3 ml Amlodipine Besylate (Norvasc) 5 mg PO DAILY [facility] Last Admin: 07/05/19 08:11 Dose: 5 mg Aspirin (Halfprin) 81 mg PO DAILY [facility] Last Admin: 07/05/19 08:11 Dose: 81 mg Calcium Carbonate/Glycine (Calcium Carbonate) 600 mg PO DAILY [facility] Last Admin: 07/05/19 08:11 Dose: 600 mg Enoxaparin Sodium (Lovenox) 30 mg SUBCUT Q24H [facility] Last Admin: 07/05/19 18:13 Dose: 30 mg Hydromorphone HCl (Dilaudid) 0.5 mg IVPUSH Q4H PRN PRN Reason: Pain (severe 7-10) Sodium Chloride (Normal Saline) 1,000 mls @ 75 mls/hr IV ASDIRECTED [facility] Last Admin: 07/05/19 20:33 Dose: 75 mls/hr Levofloxacin/Dextrose 750 mg/ (Premix) 150 mls @ 100 mls/hr IV Q48H [facility] Metronidazole 500 mg/ Premix 100 mls @ 100 mls/hr IV Q8H [facility] Last Admin: 07/06/19 06:03 Dose: 100 mls/hr Vancomycin HCl 750 mg/ Sodium (Chloride) 250 mls @ 166.667 mls/hr IV Q24H [facility] Last Admin: 07/05/19 23:37 Dose: 166.667 mls/hr Levothyroxine Sodium (Synthroid) 100 mcg PO DAILY [facility] Last Admin: 07/05/19 08:08 Dose: 100 mcg Megestrol Acetate (Megace) 40 mg PO BIDMEALS [facility] Last Admin: 07/06/19 06:07 Dose: 40 mg Metoprolol Succinate (Toprol Xl) 50 mg PO DAILY [facility] Last Admin: 07/05/19 08:09 Dose: 50 mg Mirtazapine (Remeron) 15 mg PO BEDTIME [facility] Last Admin: 07/05/19 20:36 Dose: 15 mg Multivitamins (Thera) 1 each PO DAILY [facility] Last Admin: 07/05/19 08:08 Dose: 1 each Nitroglycerin (Nitrostat) 0.4 mg SL ASDIRECTED PRN PRN Reason: Chest Pain Ondansetron HCl (Zofran) 4 mg IVPUSH Q6H PRN PRN Reason: Nausea/Vomiting Oxycodone/Acetaminophen (Percocet 325-5 Mg) 1 - 2 tab PO Q6H PRN PRN Reason: pain relief. Last Admin: 07/05/19 05:27 Dose: 1 tab Rosuvastatin Calcium (Crestor) 10 mg PO DAILY [facility] Last Admin: 07/05/19 08:08 Dose: 10 mg Saccharomyces Boulardii (Florastor) 250 mg PO TID [facility] Last Admin: 07/05/19 20:36 Dose: 250 mg Sertraline HCl (Zoloft) 50 mg PO BEDTIME [facility] Last Admin: 07/05/19 20:36 Dose: 50 mg Sodium Chloride (Saline Flush) 10 ml FLUSH ASDIRECTED PRN PRN Reason: Keep Vein Open Last Admin: 07/03/19 19:30 Dose: 10 ml Temazepam (Restoril) 7.5 mg PO BEDTIME PRN PRN Reason: Sleep Vancomycin HCl (Pharmacy To Dose - Vancomycin) 0 dose .XX ASDIRECTED PRN PRN Reason: RX TO DOSE VANCO Discontinued Medications Acetaminophen (Tylenol) 650 mg PO NOW ONE Stop: 07/03/19 22:01 Last Admin: 07/03/19 22:20 Dose: 650 mg Aspirin (Aspirin) 81 mg PO ONETIME ONE Stop: 07/03/19 22:37 Last Admin: 07/03/19 22:59 Dose: 81 mg Cyanocobalamin (Vitamin B12) 1,000 mcg IM Q30D [facility] Diatrizoate Meglum/Diatrizoate Sod (Gastrografin 37%) 60 ml PO ONETIME ONE Stop: 07/03/19 18:39 Last Admin: 07/04/19 03:36 Dose: Not Given Epinephrine HCl (Epipen) 0.3 mg IM ASDIRECTED PRN PRN Reason: Allergies Sodium Chloride (Normal Saline) 500 mls @ 500 mls/hr IV ONETIME ONE Stop: 07/03/19 18:49 Last Admin: 07/03/19 18:49 Dose: 500 mls/hr Levofloxacin/Dextrose 500 mg/ (Premix) 100 mls @ 100 mls/hr IV ONETIME ONE Stop: 07/03/19 23:24 Last Admin: 07/03/19 23:55 Dose: 100 mls/hr Sodium Chloride (Normal Saline) 1,000 mls @ 75 mls/hr IV ONETIME ONE Stop: 07/04/19 11:44 Last Admin: 07/04/19 03:35 Dose: Not Given Metronidazole 500 mg/ Premix 100 mls @ 100 mls/hr IV ONETIME ONE Stop: 07/03/19 23:25 Last Admin: 07/03/19 22:35 Dose: 100 mls/hr Levofloxacin/Dextrose 750 mg/ (Premix) 150 mls @ 100 mls/hr IV ONETIME ONE Stop: 07/04/19 22:59 Last Admin: 07/04/19 23:23 Dose: 100 mls/hr Vancomycin HCl 1 gm/ Sodium (Chloride) 250 mls @ 250 mls/hr IV Q24H [facility] Vancomycin HCl 1 gm/ Sodium (Chloride) 250 mls @ 250 mls/hr IV ONETIME ONE Stop: 07/04/19 22:59 Last Admin: 07/04/19 23:30 Dose: 250 mls/hr Sodium Chloride (Normal Saline) Confirm Administered Dose 250 mls @ as directed .ROUTE .STK-MED ONE Stop: 07/04/19 22:54 Last Admin: 07/04/19 23:31 Dose: Not Given Magnesium Sulfate 2 gm/ Premix 50 mls @ 25 mls/hr IV ONETIME ONE Stop: 07/05/19 09:59 Last Admin: 07/05/19 08:05 Dose: 25 mls/hr Potassium Chloride 10 meq/ (Premix) 100 mls @ 100 mls/hr IV Q1H [facility] Stop: 07/05/19 12:59 Last Admin: 07/05/19 12:03 Dose: 100 mls/hr Iopamidol (Isovue-300 (61%)) 100 ml IVPUSH ONETIME ONE Stop: 07/03/19 18:39 Last Admin: 07/03/19 19:30 Dose: 100 ml Lidocaine HCl (Xylocaine 1%) Confirm Administered Dose 10 ml .ROUTE .STK-MED ONE Stop: 07/03/19 18:35 Last Admin: 07/03/19 18:50 Dose: 10 ml Mirtazapine (Remeron) 15 mg PO ONETIME ONE Stop: 07/03/19 22:37 Last Admin: 07/04/19 00:07 Dose: 15 mg Ondansetron HCl (Zofran) 4 mg IVPUSH ONETIME ONE Stop: 07/03/19 17:51 Last Admin: 07/03/19 18:49 Dose: 4 mg Potassium Chloride (Klor-Con M20) 40 meq PO ONETIME ONE Stop: 07/05/19 08:01 Last Admin: 07/05/19 08:08 Dose: 40 meq Saccharomyces Boulardii (Florastor) 250 mg PO NOW STA Stop: 07/03/19 22:38 Last Admin: 07/04/19 00:07 Dose: 250 mg Sertraline HCl (Zoloft) 50 mg PO ONETIME ONE Stop: 07/03/19 22:37 Last Admin: 07/04/19 00:08 Dose: 50 mg Vancomycin HCl (Pharmacy To Dose - Vancomycin) 1 dose .XX ASDIRECTED [facility] Vancomycin HCl (Vancomycin) Confirm Administered Dose 1 gm .ROUTE .STK-MED ONE Stop: 07/04/19 22:53 Last Admin: 07/04/19 23:31 Dose: Not Given - Exam Quality Assessment: Supplemental Oxygen General: Alert, Oriented, Cooperative, No Acute Distress, Other (emaiated) HEENT: Pupils Equal, Pupils Reactive, EOMI, Mucous Membr. Moist/[place] Neck: Supple Lungs: Normal Respiratory Effort, Decreased Breath Sounds Cardiovascular: Regular Rate, Regular Rhythm GI/Abdominal Exam: Normal Bowel Sounds, Soft, Non-Tender, No Organomegaly, No Distention, No Abnormal Bruit (Female) Exam: Deferred Back Exam: Normal Inspection, Full Range of Motion Extremities: Normal Range of Motion, Normal Capillary Refill, Other (extensive bruises and severe muscle wasting) Peripheral Pulses: 1+: Posterior Tibial (L), Posterior Tibial (R), Dorsalis Pedis (L), Dorsalis Pedis (R) Skin: Warm, Dry, Intact, Ecchymosis Wound/Incisions: Healing Well, Dressing Dry and Intact, No Drainage Neurological: No New Focal Deficit. No: Normal Gait Psy/Mental Status: Alert, Normal Affect, Normal Mood - Problem List Review Problem List Initiated/Reviewed/Updated: Yes - My Orders Last 24 Hours: My Active Orders 07/05/19 07:00 Saccharomyces Boulardii [Florastor] 250 mg PO TID 07/05/19 07:45 Pharmacy to Dose - Vancomycin 0 dose .XX ASDIRECTED PRN 07/05/19 09:00 Aspirin [Halfprin] 81 mg PO DAILY Calcium Carbonate 600 mg PO DAILY Levothyroxine [Synthroid] 100 mcg PO DAILY Metoprolol Succinate [Toprol XL] 50 mg PO DAILY Multivitamins,Therapeutic [Thera] 1 each PO DAILY Rosuvastatin [Crestor] 10 mg PO DAILY amLODIPine [Norvasc] 5 mg PO DAILY 07/05/19 23:00 Vancomycin 750 mg Sodium Chloride 0.9% [Normal Saline] 250 ml IV Q24H 07/05/19 Breakfast Heart Healthy Diet [DIET] 07/06/19 05:40 BASIC METABOLIC PANEL,BMP [CHEM] AM C-REACTIVE PROTEIN [CHEM] AM MAGNESIUM [CHEM] AM PROCALCITONIN [REF] Routine 07/06/19 22:00 Levofloxacin/Dextrose 5%-Water [Levaquin in D5W 750 MG/150 ML] 750 mg Premix Bag 1 bag IV Q48H 07/07/19 05:11 BASIC METABOLIC PANEL,BMP [CHEM] AM C-REACTIVE PROTEIN [CHEM] AM CBC WITH AUTO DIFF [HEME] AM MAGNESIUM [CHEM] AM 07/08/19 05:11 BASIC METABOLIC PANEL,BMP [CHEM] AM C-REACTIVE PROTEIN [CHEM] AM CBC WITH AUTO DIFF [HEME] AM MAGNESIUM [CHEM] AM 07/09/19 05:11 BASIC METABOLIC PANEL,BMP [CHEM] AM C-REACTIVE PROTEIN [CHEM] AM CBC WITH AUTO DIFF [HEME] AM MAGNESIUM [CHEM] AM - Plan Plan:: Assessment/Plan: Acute: Colitis - Abdominal/Pelvis CT scan report shows colitis with urothelial masked thickening at the left renal pelvis; benign vs malignant - Received IV Flagyl in ED; will resume antibiotic w/ probiotic - C. Diff screening negative - She is tolerating regular diet - IV fluids for hydration UTI 2/2 Enterococcus Faecalis and Gemella Species - Risk Factors: Urinary Incontinence and Recurrent UTI - UA suggestive of infection - Discontinue IV Levaquin; E. faecalis resistant to it but sensitive to nitrofurantoin - Macrobid 100 mg po BID; first dose tonight Pressure Ulcer - Localized to her right lower back - Continue PT for wound care - Continue skin breakdown prevention Hypomagnesemia/Hypocalcemia - Mg of 1.4--> 1.7; Ca of 7.8--> 8.0 - 2/2 Inadequate intake - Replete and Monitor Resolved: S/p Sepsis - 2/2 Colitis and Pressure Ulcer +/- UTI - WBC of 14.80-->7.64; Temp of 38.3 F->afebrile, BP of 109/57 and 103/54 mmHg --> now stable, RR 20s--about the same, CRP of 4.3--> 10.4 - Meets criteria for Sepsis; present on admission - Continue IV Levaquin and Vancomycin; Discontinue Flagyl - Blood cultures negative - Sepsis treatment - Procal of 1.80 Hyperglycemia, Stable - BS of 132 - Likely 2/2 stress - No hx/o Diabetes or Glucose Intolerance - Monitor Chronic: Impaired Vision, HTN, HLD, CAD, Hx/o HI, 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, Hx/o Lung CA S/p Lobectomy, Hemorrhoids, Hx/o Renal Stone, Urinary Incontinence, Recurrent UTI, Constipation, Migraines, Hypothyroidism, B12 Deficiency, Hypomagnesemia, Depression and Malnutrition Plan: She remains clinically stable De-escalate antibiotic regimen Fall Precautions Discontinue fluids Marinol 2.5 mg po BID for appetite stimulant K and Mg Supplement Okay for her to have Boost or protein supplements PT/OT to asses and treat PT for wound care Continue skin breakdown prevention Dietary consult for malnutrition SW/CM for d/c planning Code status: DNR/DNI Additional orders as above Prognosis is good at this point
[2019-07-06] MEDS: Acetaminophen/HYDROcodone 325-5 MG Tab PO PRN (09:05)
[2019-07-06] MEDS: Saccharomyces Boulardii (Probiotic) 250 MG Cap PO SCH ×3 (09:06→21:27)
[2019-07-06] MEDS: Multivitamins,Therapeutic Tab PO SCH (09:07)
[2019-07-06] MEDS: Aspirin 81 MG Tab.EC PO SCH (09:07)
[2019-07-06] MEDS: Levothyroxine 100 MCG Tab PO SCH (09:07)
[2019-07-06] MEDS: amLODIPine 5 MG Tab PO SCH (09:08)
[2019-07-06] MEDS: Metoprolol Succinate 50 MG Tab.ER PO SCH (09:08)
[2019-07-06] MEDS: Rosuvastatin 10 MG Tab PO SCH (09:08)
[2019-07-06] MEDS: Calcium Carbonate 600 MG Tab PO SCH (09:08)
[2019-07-06] MEDS: Enoxaparin 30 MG/0.3 ML Syringe SUBCUT SCH (18:35)
[2019-07-06] MEDS: Calcium Carbonate 500 MG Tab.Chew PO SCH (18:35)
[2019-07-06] MEDS ORDERED: Dronabinol 2.5 MG Cap PO SCH (21:00)
[2019-07-06] MEDS: Nitrofurantoin Monohydrate/Macrocrystalline 100 MG Cap PO SCH (21:27)
[2019-07-06] MEDS: Mirtazapine 15 MG Tab PO SCH (21:27)
[2019-07-06] MEDS: Sertraline 50 MG Tab PO SCH (21:27)
[2019-07-06] MEDS ORDERED: Levofloxacin/Dextrose 5%-Water 750 MG in Premix Bag 1 BAG IV SCH (22:00)
[2019-07-07] MEDS: Albuterol/Ipratropium 3.0-0.5 MG/3 ML Neb Soln NEB SCH ×2 (05:04→11:01)
[2019-07-07] MEDS: metroNIDAZOLE/Normal Saline 500 MG in Premix Bag 1 BAG IV SCH (06:00)
[2019-07-07] MEDS: Megestrol 40 MG Tab PO SCH (06:01)
[2019-07-07] MEDS: Calcium Carbonate 500 MG Tab.Chew PO SCH (06:01)
[2019-07-07] MEDS: Multivitamins,Therapeutic Tab PO SCH (09:21)
[2019-07-07] MEDS: Saccharomyces Boulardii (Probiotic) 250 MG Cap PO SCH ×2 (09:21→14:09)
[2019-07-07] MEDS: Nitrofurantoin Monohydrate/Macrocrystalline 100 MG Cap PO SCH (09:22)
[2019-07-07] MEDS: Calcium Carbonate 600 MG Tab PO SCH (09:22)
[2019-07-07] MEDS: Levothyroxine 100 MCG Tab PO SCH (09:24)
[2019-07-07] MEDS: Rosuvastatin 10 MG Tab PO SCH (09:25)
[2019-07-07] MEDS: Metoprolol Succinate 50 MG Tab.ER PO SCH (09:25)
[2019-07-07] MEDS: Acetaminophen/oxyCODONE 325-5 MG Tab PO PRN (09:27)
[2019-07-07] MEDS: Aspirin 81 MG Tab.EC PO SCH (09:28)
[2019-07-07] MEDS: amLODIPine 5 MG Tab PO SCH (09:28)
[2019-07-07] MEDS ORDERED: Potassium Chloride 20 MEQ Tab.ER PO ONE (10:15)
[2019-07-07] MEDS ORDERED: Dronabinol 2.5 MG Cap PO SCH (11:00)
[2019-07-07 13:06] VITALS: BP 133/67
[2019-07-07] MEDS ORDERED: metroNIDAZOLE 500 MG Tab PO SCH (14:00)
--- NOTE | 2019-07-07 14:10 | PCM.DCSUM1 ---
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 She had a couple episode of vomiting and multiple watery diarrhea. Her symptoms were associated with abdominal pain, cramps but primarily on right upper quadrant. Her abdominal /pelvis CT scan report read as colitis with urothelial marked thickening at the left renal pelvis: benign vs malignant. Her initial work up in ED last night showed a CBC remarkable for WBC of 14.80, MPV of 9.2, Neutrophils of 96%, Lymphocytes of 3%, and Monocytes of 1%. Her Chemistry was significant for BUN of 23, BS of 132, CRP of 4.3, and Albumin of 3.3. Her UA is suggestive of UTI. Her MRSA and C. Difficile screening were negative. While in ED in she had a temp as high as 38F, RR fo > 20s, HR as high as 111, and BPs of 109/57 and 103/ 54 mmHg. Patient received IV Levaquin and Flagyl for antibiotic treatment. Patient was admitted overnight for treatment of colitis. Diagnosis: Stroke: No Modified Schuyler Scale: No Symptoms at All Modified Schuyler Scale Score: 0 - Discharge Data Discharge Date: 07/07/19 Discharge Disposition: DC/Tfer to Other 70 Condition: Good - Discharge Diagnosis/Problem(s) (1) Urinary tract infection SNOMED Code(s): 71416231 ICD Code: N39.0 - URINARY TRACT INFECTION, SITE NOT SPECIFIED Status: Acute Priority: High Qualifiers: Urinary tract infection type: site unspecified Hematuria presence: without hematuria Qualified Code(s): N39.0 - Urinary tract infection, site not specified (2) Colitis SNOMED Code(s): 19154952 ICD Code: K52.9 - NONINFECTIVE GASTROENTERITIS AND COLITIS, UNSPECIFIED Status: Acute (3) Pressure ulcer SNOMED Code(s): 678244272 ICD Code: L89.90 - PRESSURE ULCER OF UNSPECIFIED SITE, UNSPECIFIED STAGE Status: Chronic Qualifiers: Pressure injury location: other site Pressure injury stage: unspecified pressure injury stage Qualified Code(s): L89.899 - Pressure ulcer of other site, unspecified stage (4) Hypomagnesemia SNOMED Code(s): 515201020 ICD Code: E83.42 - HYPOMAGNESEMIA Status: Acute (5) Hypokalemia SNOMED Code(s): 51178565 ICD Code: E87.6 - HYPOKALEMIA Status: Acute (6) Sepsis SNOMED Code(s): 51884964 ICD Code: A41.9 - SEPSIS, UNSPECIFIED ORGANISM Status: Resolved Qualifiers: Sepsis type: sepsis due to unspecified organism Severe sepsis acute organ dysfunction type: unspecified Severe sepsis shock status: without septic shock (7) Hyperglycemia SNOMED Code(s): 01724291 ICD Code: R73.9 - HYPERGLYCEMIA, UNSPECIFIED Status: Resolved - Patient Summary/Data Operative Procedure(s) Performed: None Complications: None Consults: Consultations 07/04/19 12:02 PT Evaluation and Treatment [CONS] Routine 07/04/19 21:24 Consult to Case Management/Precision Assembler [CONS] Routine Consult to Gravity Prospecting Operator Helper [CONS] Routine OT Evaluation and Treatment [CONS] Routine Labs Pending at D/C: None Recommended Follow-up Testing/Procedures: None Planned Operative Procedure(s) after DC: None Hospital Course: Patient was primarily admitted for GI issues and was diagnosed with sepsis from Colitis and UTI. She received sepsis treatment to include volume resuscitation, intravenous antibiotics as well as electrolytes supplementation and she slowly improved on this regimen. She was C. difficile negative but her UA grew E. faecalis sensitive Vancomycin. She received a total of 3.5 day course IV Vancomycin. As for her colitis, she received IV Flagyl and Levaquin along with oral probiotics. Her hospital course was uncomplicated and the rest of her chronic medical illness remained stable during this hospitalization. Once medically stable and able to tolerate advanced diet without any GI symptoms, she was then discharged from the facility. Patient was sent home with additional course of oral antibiotics to complete her colitis treatment. She was advised to comply with discharge instruction and follow up with her PCP after discharge. She was further advised to come back or seek immediate care should her symptoms persist or get worse. - Patient Instructions Diet: Usual Diet as Tolerated Fluid Restriction: 2000 mL Activity: As Tolerated Driving: Do Not Drive Showering/Bathing: May Shower Notify Provider of: Fever, Increased Pain, Swelling and Redness, Drainage, Nausea and/or Vomiting Other/Special Instructions: - Please take all new medications as directed. - Resume routine home medications and activity as tolerated. - Call or follow up with your doctor for any concerns or issues after discharge. - Follow up with your doctor in 1 week. - Come back or seek immediate care should your symptoms persist or get worse - Discharge Plan *PRESCRIPTION DRUG MONITORING PROGRAM REVIEWED*: No *COPY OF PRESCRIPTION DRUG MONITORING REPORT IN PATIENT JUAN: No Prescriptions/Med Rec: Ciprofloxacin [Cipro] 250 mg PO BID #8 ml Magnesium Oxide [Magnesium] 400 mg PO BID #10 tablet metroNIDAZOLE [Flagyl] 500 mg PO Q8H #11 tab Potassium Chloride 20 meq PO DAILY #3 tablet.er Saccharomyces Boulardii [Florastor] 250 mg PO BID #10 capsule Home Medications: Home Meds Cyanocobalamin (Vitamin B12) [Vitamin B12] 1,000 mcg INJECT ASDIRECTED 11/27/14 [History] EPINEPHrine [Epipen] 0.3 ml INJECT ASDIRECTED PRN 11/27/14 [History] Levothyroxine [Synthroid] 100 mcg PO DAILY 11/27/14 [History] Metoprolol Succinate [Toprol XL] 50 mg PO DAILY 11/27/14 [History] Rosuvastatin [Crestor] 10 mg PO DAILY 11/27/14 [History] amLODIPine [Norvasc] 5 mg PO DAILY 11/27/14 [History] Aspirin 81 mg PO DAILY 06/10/18 [History] Mirtazapine [Remeron] 15 mg PO BEDTIME 06/10/18 [History] Nitroglycerin [Nitrostat] 0.4 mg SL ASDIRECTED PRN 06/10/18 [History] Sertraline [Zoloft] 50 mg PO BEDTIME 06/10/18 [History] Albuterol Sulfate [Proair Hfa] 2 puff IH Q6H PRN 08/06/18 [History] oxyCODONE HCl/Acetaminophen [Percocet 5-325 mg Tablet] 5 - 325 mg PO Q6HR PRN [History] Multivitamins,Therapeutic [Thera] 1 each PO DAILY #20 tablet 11/23/18 [Rx] Albuterol/Ipratropium [DuoNeb 3.0-0.5 MG/3 ML] 3 ml NEB Q6H 04/05/19 [History] Megestrol [Megace] 40 mg PO BIDMEALS 04/05/19 [History] Calcium Carbonate [Calcium] 1 tab PO DAILY 07/04/19 [History] Ciprofloxacin [Cipro] 250 mg PO BID #8 ml 07/07/19 [Rx] Magnesium Oxide [Magnesium] 400 mg PO BID #10 tablet 07/07/19 [Rx] Potassium Chloride 20 meq PO DAILY #3 tablet.er 07/07/19 [Rx] Saccharomyces Boulardii [Florastor] 250 mg PO BID #10 capsule 07/07/19 [Rx] metroNIDAZOLE [Flagyl] 500 mg PO Q8H #11 tab 07/07/19 [Rx] Oxygen Therapy Mode: Nasal Cannula Patient Handouts: Hypomagnesemia, Hypokalemia, Preventing Pressure Injuries, Sepsis, Adult, Hyperglycemia, [id number], Urinary Tract Infection, Adult, Colitis Referrals: Franky Mock MD [Physician] - 07/13/19 9:10 am PCP,Unknown [Primary Care Provider] - - Discharge Summary/Plan Comment DC Time >30 min.: No Discharge Summary/Plan Comment: Discharge to Home - General Info Date of Service: 07/07/19 Admission Dx/Problem (Free Text: Admission Diagnosis/Problem Admission Diagnosis/Problem Colitis Subjective Update: Follow Up Functional Status: Reports: Tolerating Diet, Urinating. Denies: Pain Controlled , New Symptoms - Review of Systems General: Denies: Fever, Weakness, Fatigue, Malaise, Chills HEENT: Reports: No Symptoms Pulmonary: Denies: Shortness of Breath Cardiovascular: Denies: Chest Pain, Dyspnea on Exertion, Lightheadedness Gastrointestinal: Denies: Abdominal Pain, Nausea, Vomiting Genitourinary: Reports: No Symptoms Musculoskeletal: Reports: No Symptoms Skin: Reports: Bruising. Denies: Cyanosis, Pallor, Diaphoresis Neurological: Reports: Difficulty Walking, Weakness, Gait Disturbance. Denies: Confusion Psychiatric: Denies: Depression, Anxiety, Agitation, Hallucinations - Patient Data Vitals - Most Recent: Last Vital Signs Temp 36.8 C 07/07/19 11:22 Pulse 69 07/07/19 11:22 Resp 24 H 07/07/19 11:22 BP 133/67 07/07/19 11:22 Pulse Ox 92 L 07/07/19 11:22 Weight - Most Recent: 45.223 kg I&O - Last 24 hours: Intake & Output 07/06/19 07/07/19 07/07/19 22:59 06:59 14:59 Intake Total 703 1100 120 Output Total 1650 500 Balance -947 600 120 Lab Results - Last 24 hrs: Laboratory Results - last 24 hr 07/06/19 07/07/19 07/07/19 Range/Units 05:40 05:48 05:48 WBC 7.74 (3.98-10.04) K/mm3 RBC 4.24 (3.98-5.22) M/mm3 Hgb 12.0 (11.2-15.7) gm/L Hct 37.3 (34.1-44.9) % MCV 88.0 (79.4-94.8) fl MCH 28.3 (25.6-32.2) pg MCHC 32.2 (32.2-35.5) g/dl RDW Std Deviation 45.8 (36.4-46.3) fL Plt Count 313 (182-369) K/mm3 MPV 9.2 L (9.4-12.3) fl Neut % (Auto) 64.1 (34.0-71.1) % Lymph % (Auto) 25.7 (19.3-51.7) % [place] % (Auto) 7.1 (4.7-12.5) % Eos % (Auto) 2.6 (0.7-5.8) Baso % (Auto) 0.4 (0.1-1.2) % Neut # (Auto) 4.96 (1.56-6.13) K/mm3 Lymph # (Auto) 1.99 (1.18-3.74) K/mm3 [place] # (Auto) 0.55 H (0.24-0.36) K/mm3 Eos # (Auto) 0.20 (0.04-0.36) K/mm3 Baso # (Auto) 0.03 (0.01-0.08) K/mm3 Sodium 142 (136-145) mEq/L Potassium 3.4 L (3.5-5.1) mEq/L Chloride 105 (98-107) mEq/L Carbon Dioxide 28 (21-32) mEq/L Anion Gap 12.4 (5-15) BUN 9 (7-18) mg/dL Creatinine 0.6 (0.55-1.02) mg/dL Est Cr Clr Drug Dosing 48.94 mL/min Estimated GFR (MDRD) > 60 (>60) mL/min BUN/Creatinine Ratio 15.0 (14-18) Glucose 83 (83-115) mg/dL Calcium 8.7 (8.5-10.1) mg/dL Magnesium 1.7 L (1.8-2.4) mg/dl C-Reactive Protein 4.4 H* (<1.0) mg/dL Procalcitonin 0.81 H (<0.10) ng/mL MEÑO Results - Last 24 hrs: Microbiology 07/03/19 22:00 Urine Culture - Final Urine, Voided Enterococcus Faecalis Gemella Species 07/03/19 18:30 Aerobic Blood Culture - Preliminary Blood - Venous - Lab Draw NO GROWTH AFTER 3 DAYS Anaerobic Blood Culture - Preliminary NO GROWTH AFTER 3 DAYS 07/03/19 18:15 Aerobic Blood Culture - Preliminary Blood - Venous NO GROWTH AFTER 3 DAYS Anaerobic Blood Culture - Preliminary NO GROWTH AFTER 3 DAYS Med Orders - Current: Current Medications Acetaminophen (Tylenol) 650 mg PO Q4H PRN PRN Reason: Pain/Fever Hydrocodone Bitart/Acetaminophen ([place] 325-5 Mg) 1 tab PO Q4H PRN PRN Reason: Pain (moderate 4-6) Last Admin: 07/06/19 09:05 Dose: 1 tab Albuterol (Proventil Neb Soln) 2.5 mg NEB Q4HRRT PRN PRN Reason: Dyspnea Albuterol (Proventil Hfa) 0 gm INH Q6H PRN PRN Reason: Shortness of Breath Albuterol/Ipratropium (Duoneb 3.0-0.5 Mg/3 Ml) 3 ml NEB Q6HRRT PRN PRN Reason: Dyspnea Last Admin: 07/06/19 02:23 Dose: 3 ml Albuterol/Ipratropium (Duoneb 3.0-0.5 Mg/3 Ml) 3 ml NEB Q6H [facility] Last Admin: 07/07/19 11:01 Dose: 3 ml Amlodipine Besylate (Norvasc) 5 mg PO DAILY [facility] Last Admin: 07/07/19 09:28 Dose: 5 mg Aspirin (Halfprin) 81 mg PO DAILY [facility] Last Admin: 07/07/19 09:28 Dose: 81 mg Calcium Carbonate/Glycine (Calcium Carbonate) 600 mg PO DAILY [facility] Last Admin: 07/07/19 09:22 Dose: 600 mg Dronabinol (Marinol) 2.5 mg PO BID@1100,1700 [facility] Last Admin: 07/07/19 11:15 Dose: 2.5 mg Enoxaparin Sodium (Lovenox) 30 mg SUBCUT Q24H [facility] Last Admin: 07/06/19 18:35 Dose: 30 mg Hydromorphone HCl (Dilaudid) 0.5 mg IVPUSH Q4H PRN PRN Reason: Pain (severe 7-10) Levothyroxine Sodium (Synthroid) 100 mcg PO DAILY [facility] Last Admin: 07/07/19 09:24 Dose: 100 mcg Megestrol Acetate (Megace) 40 mg PO BIDMEALS [facility] Last Admin: 07/07/19 06:01 Dose: 40 mg Metoprolol Succinate (Toprol Xl) 50 mg PO DAILY [facility] Last Admin: 07/07/19 09:25 Dose: 50 mg Metronidazole (Flagyl) 500 mg PO Q8H [facility] Last Admin: 07/07/19 14:09 Dose: 500 mg Mirtazapine (Remeron) 15 mg PO BEDTIME [facility] Last Admin: 07/06/19 21:27 Dose: 15 mg Multivitamins (Thera) 1 each PO DAILY [facility] Last Admin: 07/07/19 09:21 Dose: 1 each Nitrofurantoin Macrocrystals (Macrobid) 100 mg PO BID [facility] Last Admin: 07/07/19 09:22 Dose: 100 mg Nitroglycerin (Nitrostat) 0.4 mg SL ASDIRECTED PRN PRN Reason: Chest Pain Ondansetron HCl (Zofran) 4 mg IVPUSH Q6H PRN PRN Reason: Nausea/Vomiting Last Admin: 07/06/19 09:06 Dose: 4 mg Oxycodone/Acetaminophen (Percocet 325-5 Mg) 1 - 2 tab PO Q6H PRN PRN Reason: pain relief. Last Admin: 07/07/19 09:27 Dose: 1 tab Rosuvastatin Calcium (Crestor) 10 mg PO DAILY [facility] Last Admin: 07/07/19 09:25 Dose: 10 mg Saccharomyces Boulardii (Florastor) 250 mg PO TID [facility] Last Admin: 07/07/19 14:09 Dose: 250 mg Sertraline HCl (Zoloft) 50 mg PO BEDTIME [facility] Last Admin: 07/06/19 21:27 Dose: 50 mg Sodium Chloride (Saline Flush) 10 ml FLUSH ASDIRECTED PRN PRN Reason: Keep Vein Open Last Admin: 07/03/19 19:30 Dose: 10 ml Temazepam (Restoril) 7.5 mg PO BEDTIME PRN PRN Reason: Sleep Discontinued Medications Acetaminophen (Tylenol) 650 mg PO NOW ONE Stop: 07/03/19 22:01 Last Admin: 07/03/19 22:20 Dose: 650 mg Aspirin (Aspirin) 81 mg PO ONETIME ONE Stop: 07/03/19 22:37 Last Admin: 07/03/19 22:59 Dose: 81 mg Calcium Carbonate/Glycine (Tums) 1,000 mg PO BIDMEALS [facility] Stop: 07/07/19 07:01 Last Admin: 07/07/19 06:01 Dose: 1,000 mg Cyanocobalamin (Vitamin B12) 1,000 mcg IM Q30D [facility] Diatrizoate Meglum/Diatrizoate Sod (Gastrografin 37%) 60 ml PO ONETIME ONE Stop: 07/03/19 18:39 Last Admin: 07/04/19 03:36 Dose: Not Given Dronabinol (Marinol) 2.5 mg PO BID [facility] Last Admin: 07/06/19 21:28 Dose: Not Given Epinephrine HCl (Epipen) 0.3 mg IM ASDIRECTED PRN PRN Reason: Allergies Sodium Chloride (Normal Saline) 500 mls @ 500 mls/hr IV ONETIME ONE Stop: 07/03/19 18:49 Last Admin: 07/03/19 18:49 Dose: 500 mls/hr Levofloxacin/Dextrose 500 mg/ (Premix) 100 mls @ 100 mls/hr IV ONETIME ONE Stop: 07/03/19 23:24 Last Admin: 07/03/19 23:55 Dose: 100 mls/hr Sodium Chloride (Normal Saline) 1,000 mls @ 75 mls/hr IV ONETIME ONE Stop: 07/04/19 11:44 Last Admin: 07/04/19 03:35 Dose: Not Given Metronidazole 500 mg/ Premix 100 mls @ 100 mls/hr IV ONETIME ONE Stop: 07/03/19 23:25 Last Admin: 07/03/19 22:35 Dose: 100 mls/hr Sodium Chloride (Normal Saline) 1,000 mls @ 75 mls/hr IV ASDIRECTED [facility] Last Admin: 07/05/19 20:33 Dose: 75 mls/hr Levofloxacin/Dextrose 750 mg/ (Premix) 150 mls @ 100 mls/hr IV Q48H [facility] Metronidazole 500 mg/ Premix 100 mls @ 100 mls/hr IV Q8H [facility] Last Admin: 07/07/19 06:00 Dose: 100 mls/hr Levofloxacin/Dextrose 750 mg/ (Premix) 150 mls @ 100 mls/hr IV ONETIME ONE Stop: 07/04/19 22:59 Last Admin: 07/04/19 23:23 Dose: 100 mls/hr Vancomycin HCl 1 gm/ Sodium (Chloride) 250 mls @ 250 mls/hr IV Q24H [facility] Vancomycin HCl 1 gm/ Sodium (Chloride) 250 mls @ 250 mls/hr IV ONETIME ONE Stop: 07/04/19 22:59 Last Admin: 07/04/19 23:30 Dose: 250 mls/hr Vancomycin HCl 750 mg/ Sodium (Chloride) 250 mls @ 166.667 mls/hr IV Q24H [facility] Last Admin: 07/05/19 23:37 Dose: 166.667 mls/hr Sodium Chloride (Normal Saline) Confirm Administered Dose 250 mls @ as directed .ROUTE .STK-MED ONE Stop: 07/04/19 22:54 Last Admin: 07/04/19 23:31 Dose: Not Given Magnesium Sulfate 2 gm/ Premix 50 mls @ 25 mls/hr IV ONETIME ONE Stop: 07/05/19 09:59 Last Admin: 07/05/19 08:05 Dose: 25 mls/hr Potassium Chloride 10 meq/ (Premix) 100 mls @ 100 mls/hr IV Q1H [facility] Stop: 07/05/19 12:59 Last Admin: 07/05/19 12:03 Dose: 100 mls/hr Magnesium Sulfate/Dextrose 1 (gm/ Premix) 100 mls @ 100 mls/hr IV ONETIME ONE Stop: 07/06/19 10:45 Last Admin: 07/06/19 10:48 Dose: 100 mls/hr Magnesium Sulfate/Dextrose 1 (gm/ Premix) 100 mls @ 100 mls/hr IV ONETIME ONE Stop: 07/07/19 10:59 Last Admin: 07/07/19 11:16 Dose: 100 mls/hr Iopamidol (Isovue-300 (61%)) 100 ml IVPUSH ONETIME ONE Stop: 07/03/19 18:39 Last Admin: 07/03/19 19:30 Dose: 100 ml Lidocaine HCl (Xylocaine 1%) Confirm Administered Dose 10 ml .ROUTE .STK-MED ONE Stop: 07/03/19 18:35 Last Admin: 07/03/19 18:50 Dose: 10 ml Mirtazapine (Remeron) 15 mg PO ONETIME ONE Stop: 07/03/19 22:37 Last Admin: 07/04/19 00:07 Dose: 15 mg Ondansetron HCl (Zofran) 4 mg IVPUSH ONETIME ONE Stop: 07/03/19 17:51 Last Admin: 07/03/19 18:49 Dose: 4 mg Potassium Chloride (Klor-Con M20) 40 meq PO ONETIME ONE Stop: 07/05/19 08:01 Last Admin: 07/05/19 08:08 Dose: 40 meq Potassium Chloride (Klor-Con M20) 40 meq PO ONETIME ONE Stop: 07/07/19 10:16 Last Admin: 07/07/19 11:14 Dose: 40 meq Saccharomyces Boulardii (Florastor) 250 mg PO NOW STA Stop: 07/03/19 22:38 Last Admin: 07/04/19 00:07 Dose: 250 mg Sertraline HCl (Zoloft) 50 mg PO ONETIME ONE Stop: 07/03/19 22:37 Last Admin: 07/04/19 00:08 Dose: 50 mg Vancomycin HCl (Pharmacy To Dose - Vancomycin) 1 dose .XX ASDIRECTED [facility] Vancomycin HCl (Vancomycin) Confirm Administered Dose 1 gm .ROUTE .STK-MED ONE Stop: 07/04/19 22:53 Last Admin: 07/04/19 23:31 Dose: Not Given Vancomycin HCl (Pharmacy To Dose - Vancomycin) 0 dose .XX ASDIRECTED PRN PRN Reason: RX TO DOSE VANCO - Exam Quality Assessment: Reports: Supplemental Oxygen General: Reports: Alert, Oriented, Cooperative, No Acute Distress, Other ( emaciated) HEENT: Reports: Pupils Equal, Pupils Reactive, EOMI, Mucous Membr. Moist/[place] Neck: Reports: Supple Lungs: Reports: Normal Respiratory Effort, Decreased Breath Sounds, Wheezing ( mild) Cardiovascular: Reports: Regular Rate, Regular Rhythm GI/Abdominal Exam: Normal Bowel Sounds, Soft, Non-Tender, No Organomegaly, No Distention, No Abnormal Bruit (Female) Exam: Deferred Rectal (Female) Exam: Deferred Back Exam: Reports: Normal Inspection, Decreased Range of Motion Extremities: Normal Range of Motion, Non-Tender, No Pedal Edema, Normal Capillary Refill, Other (dry and flkay with severe atropy) Skin: Reports: Warm, Dry, Intact, Ecchymosis Neurological: Reports: No New Focal Deficit. Denies: Normal Gait Psy/Mental Status: Reports: Alert, Normal Affect, Normal Mood
[2019-08-02] MEDS ORDERED: Cyanocobalamin (Vitamin B12) 1,000 MCG/ML SDV IM SCH (09:00)
== END 2019-07-07 16:50 | disposition other institution (70) | DRG 871 ==
LOC: JD.ED 17:19 → JD.MS 22:54
PROVIDERS: ADMIT Internal Medicine; ATTEND Internal Medicine
DX: A41.9 Sepsis, unspecified organism (principal); E43 Unspecified severe protein-calorie malnutrition; N39.0 Urinary tract infection, site not specified; Z68.1 Body mass index [BMI] 19.9 or less, adult; Z66 Do not resuscitate; K52.9 Noninfective gastroenteritis and colitis, unspecified; E83.42 Hypomagnesemia; E87.6 Hypokalemia; R73.9 Hyperglycemia, unspecified; E83.51 Hypocalcemia; H54.7 Unspecified visual loss; I10 Essential (primary) hypertension; Z79.890 Hormone replacement therapy; E78.5 Hyperlipidemia, unspecified; I25.10 Atherosclerotic heart disease of native coronary artery without angina pectoris; Z91.038 Other insect allergy status; I25.2 Old myocardial infarction; J44.9 Chronic obstructive pulmonary disease, unspecified; G43.909 Migraine, unspecified, not intractable, without status migrainosus; E03.9 Hypothyroidism, unspecified; F32.9 Major depressive disorder, single episode, unspecified; E78.00 Pure hypercholesterolemia, unspecified; F41.9 Anxiety disorder, unspecified; L89.139 Pressure ulcer of right lower back, unspecified stage; H26.9 Unspecified cataract; B95.2 Enterococcus as the cause of diseases classified elsewhere; Z99.81 Dependence on supplemental oxygen; Z79.82 Long term (current) use of aspirin; Z79.899 Other long term (current) drug therapy; Z85.828 Personal history of other malignant neoplasm of skin; Z87.891 Personal history of nicotine dependence; Z88.8 Allergy status to other drugs, medicaments and biological substances; Z87.442 Personal history of urinary calculi; Z90.89 Acquired absence of other organs; Z85.118 Personal history of other malignant neoplasm of bronchus and lung
CPT/HCPCS: 36415; 71045; 74177; 80053; 81001; 83605; 83735; 85007; 85027; 86140; 87040 ×2; 87086; 87088 ×2; 87181; 87184; 87186; 93005; 96361; 96365; 96375; 99285; A9270; J2001; J2405; J3490; J7040; Q9963; Q9967; 80048; 84145; 85025; 87493; 87641; 93010; 94640; 94761; 97162-GP; 97165-GO; 99284; J1650; J1956; J3370; J3475; J3480; J7050; J7620-GY; Q0167

== ENCOUNTER 2019-07-28 17:05 | Inpatient (IN) | payer MEDICARE, OTHER ==
[2019-07-28] MEDS ORDERED: Sodium Chloride 0.9% 10 ML Syringe FLUSH PRN (17:11)
[2019-07-28] MEDS ORDERED: Magnesium Sulfate/Water 2 GM in Premix Bag 1 BAG IV ONE (17:13)
[2019-07-28] MEDS ORDERED: methylPREDNISolone Sodium Succinate 125 MG/2 ML SDV IVPUSH ONE (17:14)
[2019-07-28] MEDS ORDERED: Albuterol/Ipratropium 3.0-0.5 MG/3 ML Neb Soln NEB ONE (17:14)
[2019-07-28] MEDS ORDERED: Sodium Chloride 0.9% 1,000 ML IV ONE (17:46)
[2019-07-28] MEDS ORDERED: Sodium Chloride 0.9% 1,000 ML ONE (17:48)
[2019-07-28] MEDS ORDERED: cefTRIAXone 2 GM in Sodium Chloride 0.9% 100 ML IV SCH (19:00)
--- NOTE | 2019-07-28 19:16 | EDM.PDOC ---
ED HPI GENERAL MEDICAL PROBLEM - General Chief Complaint: Respiratory Problem Stated Complaint: [facility] Time Seen by Provider: 07/28/19 17:11 Source of Information: Reports: Patient, EMS, Family History Limitations: Reports: No Limitations - History of Present Illness INITIAL COMMENTS - FREE TEXT/NARRATIVE: The patient presents by [facility] for abdominal cramps, cough, fever and shortness of breath. The patient was given an albuterol inhaler and her oxygen demands went down and she is on a simple mask. Her oxygen saturations were in the 80s. She has a productive cough for a few days. Her temp was 100.3. She has a history of lung cancer and recently her doctor found another spot on her lung with a PET scan. She was supposed to get a biopsy last week but she had aspirin and they could not do it. She was admitted to the hospital last month for colitis. She has no chest pain but she is short of breath. She has no abdominal pain now. She had a bowel movement on the way. Onset: Gradual Duration: Day(s): Location: Reports: Abdomen Quality: Reports: Other (cramp) Severity: Mild Improves with: Reports: None Worsens with: Reports: None Associated Symptoms: Reports: Cough, Fever/Chills, Shortness of Breath. Denies : Chest Pain, Headaches, Nausea/Vomiting - Related Data Allergies Allergy/AdvReac Type Severity Reaction Status Date / Time lorazepam Allergy Confusion Verified 07/28/19 18:14 rofecoxib Allergy Edema Verified 07/03/19 17:36 venom-wasp [wasp venom] Allergy Anaphylactic Verified 07/03/19 17:36 Shock Home Meds: Home Meds Cyanocobalamin (Vitamin B12) [Vitamin B12] 1,000 mcg INJECT ASDIRECTED 11/27/14 [History] EPINEPHrine [Epipen] 0.3 ml INJECT ASDIRECTED PRN 11/27/14 [History] Levothyroxine [Synthroid] 100 mcg PO DAILY 11/27/14 [History] Metoprolol Succinate [Toprol XL] 50 mg PO DAILY 11/27/14 [History] Rosuvastatin [Crestor] 10 mg PO DAILY 11/27/14 [History] amLODIPine [Norvasc] 5 mg PO DAILY 11/27/14 [History] Mirtazapine [Remeron] 15 mg PO BEDTIME 06/10/18 [History] Nitroglycerin [Nitrostat] 0.4 mg SL ASDIRECTED PRN 06/10/18 [History] Sertraline [Zoloft] 50 mg PO BEDTIME 06/10/18 [History] Albuterol Sulfate [Proair Hfa] 2 puff IH Q6H PRN 08/06/18 [History] oxyCODONE HCl/Acetaminophen [Percocet 5-325 mg Tablet] 5 - 325 mg PO Q6HR PRN [History] Multivitamins,Therapeutic [Thera] 1 each PO DAILY #20 tablet 11/23/18 [Rx] Albuterol/Ipratropium [DuoNeb 3.0-0.5 MG/3 ML] 3 ml NEB Q6H 04/05/19 [History] Megestrol [Megace] 40 mg PO BIDMEALS 04/05/19 [History] Past Medical History HEENT History: Reports: Cataract Other HEENT History: wears reading glasses. Cardiovascular History: Reports: CAD, High Cholesterol, Hypertension Other Cardiovascular History: hypomagnesmia Respiratory History: Reports: COPD Other Respiratory History: lung cancer, lobectomy. on chronic O2 at home. Patient had aspiration of a mass right lower lobe of lung-08/04. Pt has a new spot on the left lung, PET scan was done on 06/24/19. Gastrointestinal History: Reports: Hemorrhoids Other Gastrointestinal History: abdominal pain with diarrhea Genitourinary History: Reports: Renal Calculus, Urinary Incontinence Other Genitourinary History: having some issues with urination and ? if it is from constipation [employer] History: Reports: Musculoskeletal History: Reports: Fracture Other Musculoskeletal History: left femur fracture; bilat humerous fractures Neurological History: Reports: Migraines Psychiatric History: Reports: Anxiety, Depression Endocrine/Metabolic History: Reports: Hypothyroidism Hematologic History: Reports: B12 Deficiency Other Hematologic History: hypomagnesemia; had elevated ddimer Immunologic History: Reports: None Oncologic (Cancer) History: Reports: Breast, Lung, Other (See Below) Other Oncologic History: skin cancer on face, can't remember name. stage 1 and had left low lung removed. Pt has possible breast cancer as of 07/28/19. Being treated with radiation. Dermatologic History: Reports: Psoriasis Other Dermatologic History: possible psoriasis - Infectious Disease History Infectious Disease History: Reports: Chicken Pox, Measles, Rubella - Past Surgical History HEENT Surgical History: Reports: None Cardiovascular Surgical History: Reports: None Respiratory Surgical History: Reports: Other (See Below) Other Respiratory Surgeries/Procedures: lobectomy GI Surgical History: Reports: None Female Surgical History: Reports: None Endocrine Surgical History: Reports: None Neurological Surgical History: Reports: None Musculoskeletal Surgical History: Reports: None Oncologic Surgical History: Reports: Lobectomy Social & Family History - Family History Family Medical History: Noncontributory - Tobacco Use Smoking Status *Q: Unknown Ever Smoked Tobacco Use Comment: Cannot ask questions due to SOB. - Caffeine Use Caffeine Use: Reports: Soda Other Caffeine Use: Cannot ask questions due to SOB. Caffeine Use Comment: frequent coke - Living Situation & Occupation Living situation: Reports: Occupation: Retired (Lives in the independent part of [facility]) ED ROS GENERAL - Review of Systems Review Of Systems: See Below Constitutional: Reports: Fever, Chills HEENT: Reports: No Symptoms Respiratory: Reports: Shortness of Breath, Cough Cardiovascular: Reports: No Symptoms Endocrine: Reports: No Symptoms GI/Abdominal: Reports: Abdominal Pain. Denies: Nausea, Vomiting : Reports: No Symptoms Musculoskeletal: Reports: No Symptoms Skin: Reports: No Symptoms ED EXAM, GENERAL - Physical Exam Exam: See Below Exam Limited By: No Limitations General Appearance: Alert, Moderate Distress Ears: Normal External Exam Nose: Normal Inspection Head: Atraumatic, Normocephalic Neck: Normal Inspection Respiratory/Chest: Respiratory Distress (Moderate), Decreased Breath Sounds, Rhonchi Cardiovascular: Regular Rate, Rhythm, No Edema, No Murmur GI/Abdominal: Soft, Non-Tender, No Organomegaly, No Mass Back Exam: Normal Inspection Extremities: Normal Inspection EKG INTERPRETATION EKG Date: 07/28/19 Time: 17:57 Rhythm: Other (sinus tachycardia) Rate (Beats/Min): 137 [place]: Normal P-Wave: Present QRS: Normal ST-T: Normal QT: Normal EKG Interpretation Comments: PVCs Course - Vital Signs Last Recorded V/S: Last Vital Signs Temp 100.3 F 07/28/19 17:16 Pulse 162 H 07/28/19 17:16 Resp 47 H 07/28/19 17:16 BP 123/72 07/28/19 17:16 Pulse Ox 98 07/28/19 17:27 - Orders/Labs/Meds Orders: Active Orders 24 hr Category Date Time Status Cardiac Monitoring [RC] . DIRECTED Care 07/28/19 17:11 Active EKG Documentation Completion [RC] STAT Care 07/28/19 17:13 Active Oxygen Therapy [RC] PRN Care 07/28/19 17:12 Active Peripheral IV Care [RC] . DIRECTED Care 07/28/19 17:13 Active RT Aerosol Therapy [RC] ASDIRECTED Care 07/28/19 17:15 Active RT BiPAP/CPAP [RC] ASDIRECTED Care 07/28/19 17:50 Active Chest 1V Frontal [CR] Stat Exams 07/28/19 17:13 Taken CULTURE BLOOD [BC] Stat Lab 07/28/19 18:54 Ordered CULTURE BLOOD [BC] Stat Lab 07/28/19 18:54 Ordered UA W/MICROSCOPIC [URIN] Stat Lab 07/28/19 17:11 Ordered Sodium Chloride 0.9% [Saline Flush] Med 07/28/19 17:11 Active 10 ml FLUSH ASDIRECTED PRN cefTRIAXone [Rocephin] 2 gm Med 07/28/19 19:00 Active Sodium Chloride 0.9% [Normal Saline] 100 ml IV Q24H BiPAP [RESPCARE] Routine Oth 07/28/19 17:15 Active Blood Culture x2 Reflex Set [OM.PC] Stat Oth 07/28/19 18:54 Ordered Peripheral IV Insertion Adult [OM.PC] Stat Oth 07/28/19 17:11 Ordered Medication Orders Ceftriaxone Sodium 2 gm/ (Sodium Chloride) 100 mls @ 200 mls/hr IV Q24H JACINTO Sodium Chloride (Saline Flush) 10 ml FLUSH ASDIRECTED PRN PRN Reason: Keep Vein Open Last Admin: 07/28/19 17:25 Dose: 10 ml Labs: Laboratory Tests 07/28/19 07/28/19 07/28/19 Range/Units 17:21 17:21 17:21 WBC 10.09 H (3.98-10.04) K/mm3 RBC 5.02 (3.98-5.22) M/mm3 Hgb 14.5 D (11.2-15.7) gm/L Hct 45.6 H (34.1-44.9) % MCV 90.8 (79.4-94.8) fl MCH 28.9 (25.6-32.2) pg MCHC 31.8 L (32.2-35.5) g/dl RDW Std Deviation 50.3 H (36.4-46.3) fL Plt Count 355 (182-369) K/mm3 MPV 8.9 L (9.4-12.3) fl Neut % (Auto) 93.8 H (34.0-71.1) % Lymph % (Auto) 5.6 L (19.3-51.7) % [place] % (Auto) 0.1 L (4.7-12.5) % Eos % (Auto) 0.1 L (0.7-5.8) Baso % (Auto) 0.1 (0.1-1.2) % Neut # (Auto) 9.47 H (1.56-6.13) K/mm3 Lymph # (Auto) 0.56 L (1.18-3.74) K/mm3 [place] # (Auto) 0.01 L (0.24-0.36) K/mm3 Eos # (Auto) 0.01 L (0.04-0.36) K/mm3 Baso # (Auto) 0.01 (0.01-0.08) K/mm3 Manual Slide Review Abnormal smear Puncture Site ABG pH (7.35-7.45) ABG pCO2 (35.0-45.0) mmHg ABG pO2 (80.0-100.0) mmHg ABG HCO3 (22.0-26.0) meq/L ABG O2 Saturation (96.0-97.0) % ABG Base Excess (-2-2.0) [place] Test A-a Gradient mmHg O2 Delivery Device FiO2 (21.00-100.00) % PEEP cmH20 Pressure Support cmH2O Sodium 142 (136-145) mEq/L Potassium 4.2 (3.5-5.1) mEq/L Chloride 105 (98-107) mEq/L Carbon Dioxide 27 (21-32) mEq/L Anion Gap 14.2 (5-15) BUN 21 H (7-18) mg/dL Creatinine 1.0 (0.55-1.02) mg/dL Est Cr Clr Drug Dosing TNP Estimated GFR (MDRD) 53 (>60) mL/min BUN/Creatinine Ratio 21.0 H (14-18) Glucose 161 H (83-115) mg/dL Lactic Acid (0.4-2.0) mmol/L Calcium 9.7 (8.5-10.1) mg/dL Total Bilirubin 0.7 (0.2-1.0) mg/dL AST 37 (15-37) U/L ALT 37 (14-59) U/L Alkaline Phosphatase 138 H (46-116) U/L Troponin I < 0.017 (0.00-0.056) ng/mL NT-Pro-B Natriuret Pep 387 (0-450) pg/mL Total Protein 7.8 (6.4-8.2) g/dl Albumin 3.1 L (3.4-5.0) g/dl Globulin 4.7 gm/dL Albumin/Globulin Ratio 0.7 L (1-2) 07/28/19 07/28/19 Range/Units 17:21 17:42 WBC (3.98-10.04) K/mm3 RBC (3.98-5.22) M/mm3 Hgb (11.2-15.7) gm/L Hct (34.1-44.9) % MCV (79.4-94.8) fl MCH (25.6-32.2) pg MCHC (32.2-35.5) g/dl RDW Std Deviation (36.4-46.3) fL Plt Count (182-369) K/mm3 MPV (9.4-12.3) fl Neut % (Auto) (34.0-71.1) % Lymph % (Auto) (19.3-51.7) % [place] % (Auto) (4.7-12.5) % Eos % (Auto) (0.7-5.8) Baso % (Auto) (0.1-1.2) % Neut # (Auto) (1.56-6.13) K/mm3 Lymph # (Auto) (1.18-3.74) K/mm3 [place] # (Auto) (0.24-0.36) K/mm3 Eos # (Auto) (0.04-0.36) K/mm3 Baso # (Auto) (0.01-0.08) K/mm3 Manual Slide Review Puncture Site Lt radial ABG pH 7.39 (7.35-7.45) ABG pCO2 40.7 (35.0-45.0) mmHg ABG pO2 101.0 H (80.0-100.0) mmHg ABG HCO3 24.0 (22.0-26.0) meq/L ABG O2 Saturation 97.9 H (96.0-97.0) % ABG Base Excess -0.4 (-2-2.0) [place] Test Positive A-a Gradient 135 mmHg O2 Delivery Device Bipap FiO2 0.00 L (21.00-100.00) % PEEP 6.0 cmH20 Pressure Support 12.0 cmH2O Sodium (136-145) mEq/L Potassium (3.5-5.1) mEq/L Chloride (98-107) mEq/L Carbon Dioxide (21-32) mEq/L Anion Gap (5-15) BUN (7-18) mg/dL Creatinine (0.55-1.02) mg/dL Est Cr Clr Drug Dosing Estimated GFR (MDRD) (>60) mL/min BUN/Creatinine Ratio (14-18) Glucose (83-115) mg/dL Lactic Acid 2.2 H (0.4-2.0) mmol/L Calcium (8.5-10.1) mg/dL Total Bilirubin (0.2-1.0) mg/dL AST (15-37) U/L ALT (14-59) U/L Alkaline Phosphatase (46-116) U/L Troponin I (0.00-0.056) ng/mL NT-Pro-B Natriuret Pep (0-450) pg/mL Total Protein (6.4-8.2) g/dl Albumin (3.4-5.0) g/dl Globulin gm/dL Albumin/Globulin Ratio (1-2) Meds: Medications Generic Name Dose Route Start Last Admin Trade Name Freq PRN Reason Stop Dose Admin Ceftriaxone Sodium 2 gm/ 100 mls @ 200 mls/hr 07/28/19 19:00 Sodium Chloride IV Q24H JACINTO Sodium Chloride 10 ml 07/28/19 17:11 07/28/19 17:25 Saline Flush FLUSH 10 ml ASDIRECTED PRN Administration Keep Vein Open Discontinued Medications Generic Name Dose Route Start Last Admin Trade Name Freq PRN Reason Stop Dose Admin Albuterol/Ipratropium 3 ml 07/28/19 17:14 07/28/19 17:31 Duoneb 3.0-0.5 Mg/3 Ml NEB 07/28/19 17:15 3 ml ONETIME ONE Administration Magnesium Sulfate 2 gm/ Premix 50 mls @ 25 mls/hr 07/28/19 17:13 07/28/19 17: 25 IV 07/28/19 19:12 25 mls/hr ONETIME ONE Administration Sodium Chloride 1,000 mls @ 1,000 mls/hr 07/28/19 17:46 07/28/19 17:50 Normal Saline IV 07/28/19 18:45 1,000 mls/hr ONETIME ONE Administration Sodium Chloride Confirm 07/28/19 17:48 Normal Saline Administered 07/28/19 17:49 Dose 1,000 mls @ as directed .ROUTE .STK-MED ONE Methylprednisolone Sodium Succinate 125 mg 07/28/19 17:14 07/28/19 17:25 Solu-Medrol IVPUSH 07/28/19 17:15 125 mg ONETIME ONE Administration - Re-Assessments/Exams Free Text/Narrative Re-Assessment/Exam: 07/28/19 19:17 I ordered an IV NS, oxygen, BiPap, labs, CXR, duoneb, magnesium 2 grams IV, and solu-medrol 125mg IV. Her WBC was slightly elevated at 10.09. Her pH was normal at 7.39. Her pCO2 is normal at 40.7. Her pO2 was a little elevated at 101. Her lactic acid is elevated at 2.2. Her troponin and BNP are normal. Her CXR shows a RUL infiltrate. I have ordered blood cultures and rocephin 2 grams IV. I feel she needs to be admitted. I called Dr Pike and he agreed to the admission. Departure - Departure Time of Disposition: 19:30 Disposition: Admitted As Inpatient 65 Condition: Good Clinical Impression: Hypoxia Pneumonia Qualifiers: Pneumonia type: due to unspecified organism Laterality: right Lung location: upper lobe of lung Qualified Code(s): J18.1 - Lobar pneumonia, unspecified organism Lung cancer Qualifiers: Laterality: left Lung location: upper lobe of lung Qualified Code(s): C34.12 - Malignant neoplasm of upper lobe, left bronchus or lung - Discharge Information Referrals: Franky Mock MD [Primary Care Provider] - Forms: ED Department Discharge - My Orders Last 24 Hours: My Active Orders 07/28/19 17:11 Cardiac Monitoring [RC] . DIRECTED UA W/MICROSCOPIC [URIN] Stat Sodium Chloride 0.9% [Saline Flush] 10 ml FLUSH ASDIRECTED PRN Peripheral IV Insertion Adult [OM.PC] Stat 07/28/19 17:12 Oxygen Therapy [RC] PRN 07/28/19 17:13 EKG Documentation Completion [RC] STAT Peripheral IV Care [RC] . DIRECTED Chest 1V Frontal [CR] Stat 07/28/19 17:15 RT Aerosol Therapy [RC] ASDIRECTED BiPAP [RESPCARE] Routine 07/28/19 17:50 RT BiPAP/CPAP [RC] ASDIRECTED 07/28/19 18:54 CULTURE BLOOD [BC] Stat CULTURE BLOOD [BC] Stat Blood Culture x2 Reflex Set [OM.PC] Stat 07/28/19 19:00 cefTRIAXone [Rocephin] 2 gm Sodium Chloride 0.9% [Normal Saline] 100 ml IV Q24H - Assessment/Plan Last 24 Hours: My Active Orders 07/28/19 17:11 Cardiac Monitoring [RC] . DIRECTED UA W/MICROSCOPIC [URIN] Stat Sodium Chloride 0.9% [Saline Flush] 10 ml FLUSH ASDIRECTED PRN Peripheral IV Insertion Adult [OM.PC] Stat 07/28/19 17:12 Oxygen Therapy [RC] PRN 07/28/19 17:13 EKG Documentation Completion [RC] STAT Peripheral IV Care [RC] . DIRECTED Chest 1V Frontal [CR] Stat 07/28/19 17:15 RT Aerosol Therapy [RC] ASDIRECTED BiPAP [RESPCARE] Routine 07/28/19 17:50 RT BiPAP/CPAP [RC] ASDIRECTED 07/28/19 18:54 CULTURE BLOOD [BC] Stat CULTURE BLOOD [BC] Stat Blood Culture x2 Reflex Set [OM.PC] Stat 07/28/19 19:00 cefTRIAXone [Rocephin] 2 gm Sodium Chloride 0.9% [Normal Saline] 100 ml IV Q24H
[2019-07-28] MEDS ORDERED: Morphine 2 MG/ML Syringe IVPUSH ONE (21:10)
[2019-07-28] MEDS ORDERED: Ondansetron 4 MG/2 ML SDV IV PRN (21:19)
[2019-07-28] MEDS: Lactated Ringers 1,000 ML IV SCH (21:31)
--- NOTE | 2019-07-28 21:38 | PCM.HP.2 ---
H&P History of Present Illness - General Date of Service: 07/28/19 Admit Problem/Dx: Admission Diagnosis/Problem Admission Diagnosis/Problem Hypoxia - History of Present Illness Initial Comments - Free Text/Narative: 84-year-old female with history of lung cancer treated one year ago with radiation and end-stage COPD presents to the emergency room via ambulance for abdominal pain, cough, fever and shortness of breath. Patient was admitted last month with colitis and treated with levofloxacin and Flagyl. She also had a UTI and was treated with vancomycin. This morning patient developed shortness of breath and abdominal cramping. EMS was called and patient was brought to the emergency room. Patient had productive cough for a few days and temperature 100.3. She is on 3 L nasal cannula at home. Recently she had a PET scan which found another lung lesion and possibly a breast lesion. She was due for a biopsy last week but unfortunately took an aspirin the night before and was unable to get the biopsy. Patient does state that she does not want to be intubated. Patient did have a bowel movement in the emergency room. In the emergency room patient was given Rocephin, and started on BiPAP. Laboratory test: White blood cell count 10.09, hemoglobin 14.5, platelet count 355, sodium 142, potassium 4.2 anion gap 14.2, BUN 21, creatinine 1.0, glucose 161, troponin less than 0.017, BNP 387, lactic acid 2.2. Arterial blood gas on BiPAP: PH 7.39, PCO2 40.7, PO2 101, HCO3 24. EKG showed sinus tachycardia at 137 bpm with recurrent PVCs otherwise normal. Chest x-ray showed right upper lobe infiltrate. - Related Data Allergies/Adverse Reactions: Allergies Allergy/AdvReac Type Severity Reaction Status Date / Time lorazepam Allergy Confusion Verified 07/28/19 18:14 rofecoxib Allergy Edema Verified 07/03/19 17:36 venom-wasp [wasp venom] Allergy Anaphylactic Verified 07/03/19 17:36 Shock Home Medications: Home Meds Cyanocobalamin (Vitamin B12) [Vitamin B12] 1,000 mcg INJECT ASDIRECTED 11/27/14 [History] EPINEPHrine [Epipen] 0.3 ml INJECT ASDIRECTED PRN 11/27/14 [History] Levothyroxine [Synthroid] 100 mcg PO DAILY 11/27/14 [History] Metoprolol Succinate [Toprol XL] 50 mg PO DAILY 11/27/14 [History] Rosuvastatin [Crestor] 10 mg PO DAILY 11/27/14 [History] amLODIPine [Norvasc] 5 mg PO DAILY 11/27/14 [History] Mirtazapine [Remeron] 15 mg PO BEDTIME 06/10/18 [History] Nitroglycerin [Nitrostat] 0.4 mg SL ASDIRECTED PRN 06/10/18 [History] Sertraline [Zoloft] 50 mg PO BEDTIME 06/10/18 [History] Albuterol Sulfate [Proair Hfa] 2 puff IH Q6H PRN 08/06/18 [History] oxyCODONE HCl/Acetaminophen [Percocet 5-325 mg Tablet] 5 - 325 mg PO Q6HR PRN [History] Multivitamins,Therapeutic [Thera] 1 each PO DAILY #20 tablet 11/23/18 [Rx] Albuterol/Ipratropium [DuoNeb 3.0-0.5 MG/3 ML] 3 ml NEB Q6H 04/05/19 [History] Megestrol [Megace] 40 mg PO BIDMEALS 04/05/19 [History] Past Medical History HEENT History: Reports: Cataract Other HEENT History: wears reading glasses. Cardiovascular History: Reports: CAD, High Cholesterol, Hypertension Other Cardiovascular History: hypomagnesmia Respiratory History: Reports: COPD Other Respiratory History: lung cancer, lobectomy. on chronic O2 at home. Patient had aspiration of a mass right lower lobe of lung-08/04. Pt has a new spot on the left lung, PET scan was done on 06/24/19. Gastrointestinal History: Reports: Hemorrhoids Other Gastrointestinal History: abdominal pain with diarrhea Genitourinary History: Reports: Renal Calculus, Urinary Incontinence Other Genitourinary History: having some issues with urination and ? 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 stage 1 and had left low lung removed. Pt has possible breast cancer as of 07/28/19. Being treated with radiation. Dermatologic History: Reports: Psoriasis Other Dermatologic History: possible psoriasis - Infectious Disease History Infectious Disease History: Reports: Chicken Pox, Measles, Rubella - Past Surgical History HEENT Surgical History: Reports: None Cardiovascular Surgical History: Reports: None Respiratory Surgical History: Reports: Other (See Below) Other Respiratory Surgeries/Procedures: lobectomy GI Surgical History: Reports: None Female Surgical History: Reports: None Endocrine Surgical History: Reports: None Neurological Surgical History: Reports: None Musculoskeletal Surgical History: Reports: None Oncologic Surgical History: Reports: Lobectomy Social & Family History - Family History Family Medical History: Noncontributory - Tobacco Use Smoking Status *Q: Unknown Ever Smoked Tobacco Use Comment: Cannot ask questions due to SOB. - Caffeine Use Caffeine Use: Reports: Soda Other Caffeine Use: Cannot ask questions due to SOB. Caffeine Use Comment: frequent coke - Living Situation & Occupation Living situation: Reports: Occupation: Retired (Lives in the independent part of [facility]) H&P Review of Systems - Review of Systems: Review Of Systems: ROS reveals no pertinent complaints other than HPI. Exam - Exam Exam: See Below - Vital Signs Vital Signs: Last Vital Signs Temp 99.1 F 07/28/19 20:35 Pulse 162 H 07/28/19 17:16 Resp 33 H 07/28/19 20:35 BP 108/63 07/28/19 20:35 Pulse Ox 95 07/28/19 20:35 Weight: 96 lb 11.2 oz - Exam Quality Assessment: Supplemental Oxygen, Other (wearing BiPAP) General: Alert, Oriented, Severe Distress HEENT: Conjunctiva Clear, Mucosa Moist & [place]: Supple, Trachea Midline, Other Lungs: Decreased Breath Sounds (throughout), Wheezing (throughout) Cardiovascular: Regular Rhythm, Tachycardia GI/Abdominal Exam: Normal Bowel Sounds, Soft, No Organomegaly, No Distention, No Abnormal Bruit, No Mass, Tender (diffusely). No: Guarding, Rigid, Rebound Extremities: Normal Inspection, Non-Tender, No Pedal Edema, Normal Capillary Refill Peripheral Pulses: 1+: Posterior Tibial (L), Posterior Tibial (R), Dorsalis Pedis (L), Dorsalis Pedis (R) Skin: Warm, Dry, Intact Neurological: Cranial Nerves Intact Neuro Extensive - Mental Status: Alert Psychiatric: Alert - Patient Data Lab Results Last 24 hrs: Laboratory Results - last 24 hr 07/28/19 07/28/19 07/28/19 Range/Units 17:21 17:21 17:21 WBC 10.09 H (3.98-10.04) K/mm3 RBC 5.02 (3.98-5.22) M/mm3 Hgb 14.5 D (11.2-15.7) gm/L Hct 45.6 H (34.1-44.9) % MCV 90.8 (79.4-94.8) fl MCH 28.9 (25.6-32.2) pg MCHC 31.8 L (32.2-35.5) g/dl RDW Std Deviation 50.3 H (36.4-46.3) fL Plt Count 355 (182-369) K/mm3 MPV 8.9 L (9.4-12.3) fl Neut % (Auto) 93.8 H (34.0-71.1) % Lymph % (Auto) 5.6 L (19.3-51.7) % [place] % (Auto) 0.1 L (4.7-12.5) % Eos % (Auto) 0.1 L (0.7-5.8) Baso % (Auto) 0.1 (0.1-1.2) % Neut # (Auto) 9.47 H (1.56-6.13) K/mm3 Lymph # (Auto) 0.56 L (1.18-3.74) K/mm3 [place] # (Auto) 0.01 L (0.24-0.36) K/mm3 Eos # (Auto) 0.01 L (0.04-0.36) K/mm3 Baso # (Auto) 0.01 (0.01-0.08) K/mm3 Manual Slide Review Abnormal smear Puncture Site ABG pH (7.35-7.45) ABG pCO2 (35.0-45.0) mmHg ABG pO2 (80.0-100.0) mmHg ABG HCO3 (22.0-26.0) meq/L ABG O2 Saturation (96.0-97.0) % ABG Base Excess (-2-2.0) [place] Test A-a Gradient mmHg O2 Delivery Device FiO2 (21.00-100.00) % PEEP cmH20 Pressure Support cmH2O Sodium 142 (136-145) mEq/L Potassium 4.2 (3.5-5.1) mEq/L Chloride 105 (98-107) mEq/L Carbon Dioxide 27 (21-32) mEq/L Anion Gap 14.2 (5-15) BUN 21 H (7-18) mg/dL Creatinine 1.0 (0.55-1.02) mg/dL Est Cr Clr Drug Dosing TNP Estimated GFR (MDRD) 53 (>60) mL/min BUN/Creatinine Ratio 21.0 H (14-18) Glucose 161 H (83-115) mg/dL Lactic Acid (0.4-2.0) mmol/L Calcium 9.7 (8.5-10.1) mg/dL Total Bilirubin 0.7 (0.2-1.0) mg/dL AST 37 (15-37) U/L ALT 37 (14-59) U/L Alkaline Phosphatase 138 H (46-116) U/L Troponin I < 0.017 (0.00-0.056) ng/mL NT-Pro-B Natriuret Pep 387 (0-450) pg/mL Total Protein 7.8 (6.4-8.2) g/dl Albumin 3.1 L (3.4-5.0) g/dl Globulin 4.7 gm/dL Albumin/Globulin Ratio 0.7 L (1-2) 07/28/19 07/28/19 Range/Units 17:21 17:42 WBC (3.98-10.04) K/mm3 RBC (3.98-5.22) M/mm3 Hgb (11.2-15.7) gm/L Hct (34.1-44.9) % MCV (79.4-94.8) fl MCH (25.6-32.2) pg MCHC (32.2-35.5) g/dl RDW Std Deviation (36.4-46.3) fL Plt Count (182-369) K/mm3 MPV (9.4-12.3) fl Neut % (Auto) (34.0-71.1) % Lymph % (Auto) (19.3-51.7) % [place] % (Auto) (4.7-12.5) % Eos % (Auto) (0.7-5.8) Baso % (Auto) (0.1-1.2) % Neut # (Auto) (1.56-6.13) K/mm3 Lymph # (Auto) (1.18-3.74) K/mm3 [place] # (Auto) (0.24-0.36) K/mm3 Eos # (Auto) (0.04-0.36) K/mm3 Baso # (Auto) (0.01-0.08) K/mm3 Manual Slide Review Puncture Site Lt radial ABG pH 7.39 (7.35-7.45) ABG pCO2 40.7 (35.0-45.0) mmHg ABG pO2 101.0 H (80.0-100.0) mmHg ABG HCO3 24.0 (22.0-26.0) meq/L ABG O2 Saturation 97.9 H (96.0-97.0) % ABG Base Excess -0.4 (-2-2.0) [place] Test Positive A-a Gradient 135 mmHg O2 Delivery Device Bipap FiO2 0.00 L (21.00-100.00) % PEEP 6.0 cmH20 Pressure Support 12.0 cmH2O Sodium (136-145) mEq/L Potassium (3.5-5.1) mEq/L Chloride (98-107) mEq/L Carbon Dioxide (21-32) mEq/L Anion Gap (5-15) BUN (7-18) mg/dL Creatinine (0.55-1.02) mg/dL Est Cr Clr Drug Dosing Estimated GFR (MDRD) (>60) mL/min BUN/Creatinine Ratio (14-18) Glucose (83-115) mg/dL Lactic Acid 2.2 H (0.4-2.0) mmol/L Calcium (8.5-10.1) mg/dL Total Bilirubin (0.2-1.0) mg/dL AST (15-37) U/L ALT (14-59) U/L Alkaline Phosphatase (46-116) U/L Troponin I (0.00-0.056) ng/mL NT-Pro-B Natriuret Pep (0-450) pg/mL Total Protein (6.4-8.2) g/dl Albumin (3.4-5.0) g/dl Globulin gm/dL Albumin/Globulin Ratio (1-2) Result Diagrams: 07/28/19 21:40 07/28/19 17:21 Problem List Initiated/Reviewed/Updated: Yes Orders Last 24hrs: Active Orders 24 hr Category Date Time Status Patient Status [ADT] Routine ADT 07/28/19 20:04 Active Cardiac Monitoring [RC] . DIRECTED Care 07/28/19 17:11 Active EKG Documentation Completion [RC] STAT Care 07/28/19 17:13 Active Oxygen Therapy [RC] PRN Care 07/28/19 17:12 Active Oxygen Therapy [RC] PRN Care 07/28/19 21:19 Ordered Peripheral IV Care [RC] . DIRECTED Care 07/28/19 17:13 Active RT Aerosol Therapy [RC] ASDIRECTED Care 07/28/19 17:15 Active RT BiPAP/CPAP [RC] ASDIRECTED Care 07/28/19 17:50 Active Up With Assistance [RC] ASDIRECTED Care 07/28/19 21:19 Ordered VTE/DVT Education [RC] PER UNIT ROUTINE Care 07/28/19 21:19 Ordered Vital Signs [RC] Q4H Care 07/28/19 21:19 Ordered Consult to Assistant Plant Controller [CONS] Routine Cons 07/28/19 21:13 Ordered Regular Diet [DIET] Diet 07/28/19 Dinner Ordered Chest 1V Frontal [CR] Stat Exams 07/28/19 17:13 Taken C-REACTIVE PROTEIN [CHEM] AM Lab 07/29/19 05:11 Ordered C-REACTIVE PROTEIN [CHEM] AM Lab 07/30/19 05:11 Ordered C-REACTIVE PROTEIN [CHEM] AM Lab 07/31/19 05:11 Ordered C-REACTIVE PROTEIN [CHEM] AM Lab 08/01/19 05:11 Ordered C-REACTIVE PROTEIN [CHEM] AM Lab 08/02/19 05:11 Ordered CBC WITH AUTO DIFF [HEME] DAILY Lab 07/28/19 21:30 Ordered CBC WITH AUTO DIFF [HEME] DAILY Lab 07/29/19 21:30 Ordered CBC WITH AUTO DIFF [HEME] DAILY Lab 07/30/19 21:30 Ordered CBC WITH AUTO DIFF [HEME] DAILY Lab 07/31/19 21:30 Ordered CBC WITH AUTO DIFF [HEME] DAILY Lab 08/01/19 21:30 Ordered CBC WITH AUTO DIFF [HEME] DAILY Lab 08/02/19 21:30 Ordered COMPREHENSIVE METABOLIC PN,CMP [CHEM] AM Lab 07/29/19 05:11 Ordered COMPREHENSIVE METABOLIC PN,CMP [CHEM] AM Lab 07/30/19 05:11 Ordered COMPREHENSIVE METABOLIC PN,CMP [CHEM] AM Lab 07/31/19 05:11 Ordered COMPREHENSIVE METABOLIC PN,CMP [CHEM] AM Lab 08/01/19 05:11 Ordered COMPREHENSIVE METABOLIC PN,CMP [CHEM] AM Lab 08/02/19 05:11 Ordered CULTURE BLOOD [BC] Stat Lab 07/28/19 19:42 Received CULTURE BLOOD [BC] Stat Lab 07/28/19 19:54 Received LACTATE SEPSIS W/ REFLEX [CHEM] Routine Lab 07/28/19 21:13 Ordered MAGNESIUM [CHEM] AM Lab 07/29/19 05:11 Ordered MAGNESIUM [CHEM] AM Lab 07/30/19 05:11 Ordered MAGNESIUM [CHEM] AM Lab 07/31/19 05:11 Ordered MAGNESIUM [CHEM] AM Lab 08/01/19 05:11 Ordered MAGNESIUM [CHEM] AM Lab 08/02/19 05:11 Ordered UA W/MICROSCOPIC [URIN] Stat Lab 07/28/19 17:11 Ordered Acetaminophen/oxyCODONE [Percocet 325-5 MG] Med 07/28/19 21:16 Ordered 5 - 325 mg PO Q6HR PRN Albuterol/Ipratropium [DuoNeb 3.0-0.5 MG/3 ML] Med 07/28/19 21:30 Ordered 3 ml NEB Q6H Enoxaparin [Lovenox] Med 07/29/19 09:00 Ordered 30 mg SUBCUT DAILY Lactated Ringers @ 125 MLS/HR(1,000ml) Med 07/28/19 21:15 Ordered Lactated Ringers [Ringers, Lactated] 1,000 ml IV ASDIRECTED Levofloxacin/Dextrose 5%-Water [Levaquin in D5W 750 MG/ Med 07/28/19 21:30 Ordered 150 ML] 750 mg Premix Bag 1 bag IV Q24H Levothyroxine [Synthroid] Med 07/29/19 09:00 Ordered 100 mcg PO DAILY Megestrol [Megace] Med 07/29/19 07:00 Ordered 40 mg PO BIDMEALS Meropenem [Merrem] 1 gm Med 07/28/19 21:15 Ordered Sodium Chloride 0.9% [Normal Saline] 100 ml IV Q8H Metoprolol Succinate [Toprol XL] Med 07/29/19 09:00 Ordered 50 mg PO DAILY Mirtazapine Med 07/29/19 21:00 Ordered 15 mg PO BEDTIME Morphine Med 07/28/19 21:18 Ordered 1 mg IVPUSH Q1H PRN Ondansetron [Zofran] Med 07/28/19 21:19 Ordered 4 mg IV Q4H PRN Pharmacy to Dose - Vancomycin Med 07/28/19 21:13 Once 1 dose .XX ONETIME ONE Rosuvastatin Med 07/29/19 09:00 Ordered 10 mg PO DAILY Sertraline [Zoloft] Med 07/29/19 21:00 Ordered 50 mg PO BEDTIME Sodium Chloride 0.9% [Saline Flush] Med 07/28/19 17:11 Active 10 ml FLUSH ASDIRECTED PRN amLODIPine [Norvasc] Med 07/29/19 09:00 Ordered 5 mg PO DAILY cefTRIAXone [Rocephin] 2 gm Med 07/28/19 19:00 Active Sodium Chloride 0.9% [Normal Saline] 100 ml IV Q24H BiPAP [RESPCARE] Routine Oth 07/28/19 17:15 Active Blood Culture x2 Reflex Set [OM.PC] Stat Oth 07/28/19 18:54 Ordered Peripheral IV Insertion Adult [OM.PC] Stat Oth 07/28/19 17:11 Ordered Severe Sepsis Onset Time [OM.PC] Stat Oth 07/28/19 21:13 Ordered Resuscitation Status Routine Resus Stat 07/28/19 21:19 Ordered Medication Orders Albuterol/Ipratropium (Duoneb 3.0-0.5 Mg/3 Ml) 3 ml NEB Q6H [facility] Amlodipine Besylate (Norvasc) 5 mg PO DAILY [facility] Enoxaparin Sodium (Lovenox) 30 mg SUBCUT DAILY [facility] Ceftriaxone Sodium 2 gm/ (Sodium Chloride) 100 mls @ 200 mls/hr IV Q24H [facility] Last Admin: 07/28/19 20:11 Dose: 200 mls/hr Lactated Ringer's (Ringers, Lactated) 1,000 mls @ 125 mls/hr IV ASDIRECTED [facility] Levofloxacin/Dextrose 750 mg/ (Premix) 150 mls @ 100 mls/hr IV Q24H [facility] Meropenem 1 gm/ Sodium (Chloride) 100 mls @ 200 mls/hr IV Q8H [facility] Levothyroxine Sodium (Synthroid) 100 mcg PO DAILY [facility] Megestrol Acetate (Megace) 40 mg PO BIDMEALS [facility] Metoprolol Succinate (Toprol Xl) 50 mg PO DAILY [facility] Morphine Sulfate (Morphine) 1 mg IVPUSH Q1H PRN PRN Reason: Dyspnea Non-Formulary Medication (Mirtazapine) 15 mg PO BEDTIME [facility] Non-Formulary Medication (Rosuvastatin) 10 mg PO DAILY [facility] Ondansetron HCl (Zofran) 4 mg IV Q4H PRN PRN Reason: Nausea/Vomiting Oxycodone/Acetaminophen (Percocet 325-5 Mg) 0.5 - 1 tab PO Q6HR PRN PRN Reason: pain relief. Sertraline HCl (Zoloft) 50 mg PO BEDTIME [facility] Sodium Chloride (Saline Flush) 10 ml FLUSH ASDIRECTED PRN PRN Reason: Keep Vein Open Last Admin: 07/28/19 17:25 Dose: 10 ml Vancomycin HCl (Pharmacy To Dose - Vancomycin) 1 dose .XX ONETIME ONE Stop: 07/28/19 21:14 Assessment/Plan Comment:: Assessment * 84-year-old female with 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 UTI treated with vancomycin * Chronic medical problems including: Coronary artery disease with history of [place] , hypertension, hyperlipidemia, hemorrhoids, urinary incontinence, recurrent UTI , constipation, migraines, hypothyroidism, B12 deficiency, hypomagnesemia, depression, and malnutrition Plan * Admit to ICU * BiPAP * Meropenem, vancomycin, and Levaquin * duo nebs every 6 hours and albuterol every 2 hours when necessary * Solu-Medrol 60 mg IV every 8 hours * Sputum culture * Streptococcal urinary antigen and legionella urinary antigen * respiratory panel * Sepsis protocol * reconcile medication * CBC, CMP, magnesium, and C-reactive protein daily * Repeat chest x-ray in the morning * CODE STATUS: DO NOT RESUSCITATE/DO NOT INTUBATE * VT prophylaxis with Lovenox * I clarify with the patient she does not want to be intubated. Her condition is critical. * Total time spent at the bedside in critical care was 35 minutes. - Mortality Measure Prognosis:: Poor (critical)
[2019-07-28] MEDS: Levofloxacin/Dextrose 5%-Water 750 MG in Premix Bag 1 BAG IV SCH (21:39)
[2019-07-28] MEDS: Meropenem 1 GM in Sodium Chloride 0.9% 100 ML IV SCH (21:56)
[2019-07-28] MEDS: Albuterol/Ipratropium 3.0-0.5 MG/3 ML Neb Soln NEB SCH (22:32)
[2019-07-29] MEDS: methylPREDNISolone Sodium Succinate 40 MG/1 ML SDV IVPUSH SCH ×3 (00:40→17:01)
[2019-07-29] MEDS: Morphine 2 MG/ML Syringe IVPUSH PRN ×8 (00:45→23:52)
[2019-07-29] MEDS: Albuterol/Ipratropium 3.0-0.5 MG/3 ML Neb Soln NEB SCH ×4 (02:03→21:01)
[2019-07-29] MEDS: Levothyroxine 100 MCG Tab PO SCH (05:16)
[2019-07-29] MEDS: Lactated Ringers 1,000 ML IV SCH ×3 (05:28→23:03)
[2019-07-29] MEDS: Meropenem 1 GM in Sodium Chloride 0.9% 100 ML IV SCH (05:50)
[2019-07-29] MEDS ORDERED: Megestrol 40 MG Tab PO SCH (07:00)
[2019-07-29] MEDS: Rosuvastatin 10 MG Tab PO SCH (08:41)
[2019-07-29] MEDS: Enoxaparin 30 MG/0.3 ML Syringe SUBCUT SCH (08:41)
[2019-07-29] MEDS: Megestrol 40 MG Tab PO SCH ×4 (08:41→17:09)
[2019-07-29] MEDS: amLODIPine 5 MG Tab PO SCH (08:45)
[2019-07-29] MEDS: Metoprolol Succinate 50 MG Tab.ER PO SCH (08:45)
[2019-07-29] MEDS: Meropenem Premix 500 MG in Premix Bag 1 BAG IV SCH ×2 (12:00→20:27)
[2019-07-29] MEDS ORDERED: Furosemide 20 MG/2 ML VIAL IVPUSH ONE (13:00)
--- NOTE | 2019-07-29 15:09 | PCM.PN ---
- General Info Date of Service: 07/29/19 Admission Dx/Problem (Free Text): Admission Diagnosis/Problem Admission Diagnosis/Problem Hypoxia Subjective Update: Piedad continues to have difficulty with breathing. She is on BiPAP this morning and was weaned off to nasal cannula. She continues to have tachypnea and borderline low blood pressure. Urinary output has been poor and she was given Lasix 20 mg IV 1. - Review of Systems General: Reports: Fatigue HEENT: Reports: No Symptoms Pulmonary: Reports: Shortness of Breath Cardiovascular: Reports: No Symptoms Gastrointestinal: Reports: No Symptoms - Patient Data Vitals - Most Recent: Last Vital Signs Temp 98.1 F 07/29/19 12:00 Pulse 92 07/29/19 08:45 Resp 17 07/29/19 12:00 BP 108/61 07/29/19 12:00 Pulse Ox 94 L 07/29/19 14:53 Weight - Most Recent: 97 lb 15.998 oz I&O - Last 24 Hours: Intake & Output 07/29/19 07/29/19 07/29/19 06:59 14:59 22:59 Intake Total 1376 Output Total 140 300 Balance 1236 -300 Lab Results Last 24 Hours: Laboratory Results - last 24 hr 07/28/19 07/28/19 07/28/19 Range/Units 17:21 17:21 17:21 WBC 10.09 H (3.98-10.04) K/mm3 RBC 5.02 (3.98-5.22) M/mm3 Hgb 14.5 D (11.2-15.7) gm/L Hct 45.6 H (34.1-44.9) % MCV 90.8 (79.4-94.8) fl MCH 28.9 (25.6-32.2) pg MCHC 31.8 L (32.2-35.5) g/dl RDW Std Deviation 50.3 H (36.4-46.3) fL Plt Count 355 (182-369) K/mm3 MPV 8.9 L (9.4-12.3) fl Neut % (Auto) 93.8 H (34.0-71.1) % Lymph % (Auto) 5.6 L (19.3-51.7) % [place] % (Auto) 0.1 L (4.7-12.5) % Eos % (Auto) 0.1 L (0.7-5.8) Baso % (Auto) 0.1 (0.1-1.2) % Neut # (Auto) 9.47 H (1.56-6.13) K/mm3 Lymph # (Auto) 0.56 L (1.18-3.74) K/mm3 [place] # (Auto) 0.01 L (0.24-0.36) K/mm3 Eos # (Auto) 0.01 L (0.04-0.36) K/mm3 Baso # (Auto) 0.01 (0.01-0.08) K/mm3 Manual Slide Review Abnormal smear Puncture Site ABG pH (7.35-7.45) ABG pCO2 (35.0-45.0) mmHg ABG pO2 (80.0-100.0) mmHg ABG HCO3 (22.0-26.0) meq/L ABG O2 Saturation (96.0-97.0) % ABG Base Excess (-2-2.0) [place] Test A-a Gradient mmHg O2 Delivery Device FiO2 (21.00-100.00) % PEEP cmH20 Pressure Support cmH2O Sodium 142 (136-145) mEq/L Potassium 4.2 (3.5-5.1) mEq/L Chloride 105 (98-107) mEq/L Carbon Dioxide 27 (21-32) mEq/L Anion Gap 14.2 (5-15) BUN 21 H (7-18) mg/dL Creatinine 1.0 (0.55-1.02) mg/dL Est Cr Clr Drug Dosing TNP Estimated GFR (MDRD) 53 (>60) mL/min BUN/Creatinine Ratio 21.0 H (14-18) Glucose 161 H (83-115) mg/dL Lactic Acid (0.4-2.0) mmol/L Calcium 9.7 (8.5-10.1) mg/dL Magnesium (1.8-2.4) mg/dl Total Bilirubin 0.7 (0.2-1.0) mg/dL AST 37 (15-37) U/L ALT 37 (14-59) U/L Alkaline Phosphatase 138 H (46-116) U/L Troponin I < 0.017 (0.00-0.056) ng/mL C-Reactive Protein (<1.0) mg/dL NT-Pro-B Natriuret Pep 387 (0-450) pg/mL Total Protein 7.8 (6.4-8.2) g/dl Albumin 3.1 L (3.4-5.0) g/dl Globulin 4.7 gm/dL Albumin/Globulin Ratio 0.7 L (1-2) Urine Color (Yellow) Urine Appearance (Clear) Urine pH (5.0-8.0) Ur Specific [place] (1.005-1.030) Urine Protein (Negative) Urine Glucose (UA) (Negative) Urine Ketones (Negative) Urine Occult Blood (Negative) Urine Nitrite (Negative) Urine Bilirubin (Negative) Urine Urobilinogen (0.2-1.0) Ur Leukocyte Esterase (Negative) Urine RBC (0-5) /hpf Urine WBC (0-5) /hpf Ur Squamous Epith Cells (0-5) /hpf Urine Bacteria (FEW) /hpf Hyaline Casts (0-5) /lpf Urine Mucus (FEW) /hpf MRSA (PCR) 07/28/19 07/28/19 07/28/19 Range/Units 17:21 17:42 21:40 WBC (3.98-10.04) K/mm3 RBC (3.98-5.22) M/mm3 Hgb (11.2-15.7) gm/L Hct (34.1-44.9) % MCV (79.4-94.8) fl MCH (25.6-32.2) pg MCHC (32.2-35.5) g/dl RDW Std Deviation (36.4-46.3) fL Plt Count (182-369) K/mm3 MPV (9.4-12.3) fl Neut % (Auto) (34.0-71.1) % Lymph % (Auto) (19.3-51.7) % [place] % (Auto) (4.7-12.5) % Eos % (Auto) (0.7-5.8) Baso % (Auto) (0.1-1.2) % Neut # (Auto) (1.56-6.13) K/mm3 Lymph # (Auto) (1.18-3.74) K/mm3 [place] # (Auto) (0.24-0.36) K/mm3 Eos # (Auto) (0.04-0.36) K/mm3 Baso # (Auto) (0.01-0.08) K/mm3 Manual Slide Review Puncture Site Lt radial ABG pH 7.39 (7.35-7.45) ABG pCO2 40.7 (35.0-45.0) mmHg ABG pO2 101.0 H (80.0-100.0) mmHg ABG HCO3 24.0 (22.0-26.0) meq/L ABG O2 Saturation 97.9 H (96.0-97.0) % ABG Base Excess -0.4 (-2-2.0) [place] Test Positive A-a Gradient 135 mmHg O2 Delivery Device Bipap FiO2 0.00 L (21.00-100.00) % PEEP 6.0 cmH20 Pressure Support 12.0 cmH2O Sodium (136-145) mEq/L Potassium (3.5-5.1) mEq/L Chloride (98-107) mEq/L Carbon Dioxide (21-32) mEq/L Anion Gap (5-15) BUN (7-18) mg/dL Creatinine (0.55-1.02) mg/dL Est Cr Clr Drug Dosing Estimated GFR (MDRD) (>60) mL/min BUN/Creatinine Ratio (14-18) Glucose (83-115) mg/dL Lactic Acid 2.2 H 2.0 (0.4-2.0) mmol/L Calcium (8.5-10.1) mg/dL Magnesium (1.8-2.4) mg/dl Total Bilirubin (0.2-1.0) mg/dL AST (15-37) U/L ALT (14-59) U/L Alkaline Phosphatase (46-116) U/L Troponin I (0.00-0.056) ng/mL C-Reactive Protein (<1.0) mg/dL NT-Pro-B Natriuret Pep (0-450) pg/mL Total Protein (6.4-8.2) g/dl Albumin (3.4-5.0) g/dl Globulin gm/dL Albumin/Globulin Ratio (1-2) Urine Color (Yellow) Urine Appearance (Clear) Urine pH (5.0-8.0) Ur Specific [place] (1.005-1.030) Urine Protein (Negative) Urine Glucose (UA) (Negative) Urine Ketones (Negative) Urine Occult Blood (Negative) Urine Nitrite (Negative) Urine Bilirubin (Negative) Urine Urobilinogen (0.2-1.0) Ur Leukocyte Esterase (Negative) Urine RBC (0-5) /hpf Urine WBC (0-5) /hpf Ur Squamous Epith Cells (0-5) /hpf Urine Bacteria (FEW) /hpf Hyaline Casts (0-5) /lpf Urine Mucus (FEW) /hpf MRSA (PCR) 07/28/19 07/28/19 07/28/19 Range/Units 21:40 22:30 22:35 WBC 17.27 H (3.98-10.04) K/mm3 RBC 4.31 (3.98-5.22) M/mm3 Hgb 12.4 D (11.2-15.7) gm/L Hct 39.5 (34.1-44.9) % MCV 91.6 (79.4-94.8) fl MCH 28.8 (25.6-32.2) pg MCHC 31.4 L (32.2-35.5) g/dl RDW Std Deviation 49.4 H (36.4-46.3) fL Plt Count 293 (182-369) K/mm3 MPV 9.4 (9.4-12.3) fl Neut % (Auto) 93.6 H (34.0-71.1) % Lymph % (Auto) 1.9 L (19.3-51.7) % [place] % (Auto) 4.0 L (4.7-12.5) % Eos % (Auto) 0 L (0.7-5.8) Baso % (Auto) 0.1 (0.1-1.2) % Neut # (Auto) 16.18 H (1.56-6.13) K/mm3 Lymph # (Auto) 0.32 L (1.18-3.74) K/mm3 [place] # (Auto) 0.69 H (0.24-0.36) K/mm3 Eos # (Auto) 0.00 L (0.04-0.36) K/mm3 Baso # (Auto) 0.01 (0.01-0.08) K/mm3 Manual Slide Review Abnormal smear Puncture Site ABG pH (7.35-7.45) ABG pCO2 (35.0-45.0) mmHg ABG pO2 (80.0-100.0) mmHg ABG HCO3 (22.0-26.0) meq/L ABG O2 Saturation (96.0-97.0) % ABG Base Excess (-2-2.0) [place] Test A-a Gradient mmHg O2 Delivery Device FiO2 (21.00-100.00) % PEEP cmH20 Pressure Support cmH2O Sodium (136-145) mEq/L Potassium (3.5-5.1) mEq/L Chloride (98-107) mEq/L Carbon Dioxide (21-32) mEq/L Anion Gap (5-15) BUN (7-18) mg/dL Creatinine (0.55-1.02) mg/dL Est Cr Clr Drug Dosing Estimated GFR (MDRD) (>60) mL/min BUN/Creatinine Ratio (14-18) Glucose (83-115) mg/dL Lactic Acid (0.4-2.0) mmol/L Calcium (8.5-10.1) mg/dL Magnesium (1.8-2.4) mg/dl Total Bilirubin (0.2-1.0) mg/dL AST (15-37) U/L ALT (14-59) U/L Alkaline Phosphatase (46-116) U/L Troponin I (0.00-0.056) ng/mL C-Reactive Protein (<1.0) mg/dL NT-Pro-B Natriuret Pep (0-450) pg/mL Total Protein (6.4-8.2) g/dl Albumin (3.4-5.0) g/dl Globulin gm/dL Albumin/Globulin Ratio (1-2) Urine Color [place] H (Yellow) Urine Appearance Cloudy H (Clear) Urine pH 5.0 (5.0-8.0) Ur Specific [place] 1.020 (1.005-1.030) Urine Protein 2+ H (Negative) Urine Glucose (UA) Negative (Negative) Urine Ketones 1+ H (Negative) Urine Occult Blood 2+ H (Negative) Urine Nitrite Positive H (Negative) Urine Bilirubin 3+ H (Negative) Urine Urobilinogen 4.0 H (0.2-1.0) Ur Leukocyte Esterase Trace H (Negative) Urine RBC 5-10 H (0-5) /hpf Urine WBC 0-5 (0-5) /hpf Ur Squamous Epith Cells 0-5 (0-5) /hpf Urine Bacteria Many H (FEW) /hpf Hyaline Casts 0-5 (0-5) /lpf Urine Mucus Moderate H (FEW) /hpf MRSA (PCR) Negative 07/29/19 07/29/19 07/29/19 Range/Units 04:45 04:45 09:02 WBC 20.98 H (3.98-10.04) K/mm3 RBC 3.78 L (3.98-5.22) M/mm3 Hgb 10.8 L D (11.2-15.7) gm/L Hct 34.6 (34.1-44.9) % MCV 91.5 (79.4-94.8) fl MCH 28.6 (25.6-32.2) pg MCHC 31.2 L (32.2-35.5) g/dl RDW Std Deviation 49.7 H (36.4-46.3) fL Plt Count 247 (182-369) K/mm3 MPV 10.2 (9.4-12.3) fl Neut % (Auto) 94.2 H (34.0-71.1) % Lymph % (Auto) 3.0 L (19.3-51.7) % [place] % (Auto) 2.5 L (4.7-12.5) % Eos % (Auto) 0 L (0.7-5.8) Baso % (Auto) 0.0 L (0.1-1.2) % Neut # (Auto) 19.76 H (1.56-6.13) K/mm3 Lymph # (Auto) 0.63 L (1.18-3.74) K/mm3 [place] # (Auto) 0.52 H (0.24-0.36) K/mm3 Eos # (Auto) 0.01 L (0.04-0.36) K/mm3 Baso # (Auto) 0.00 L (0.01-0.08) K/mm3 Manual Slide Review Abnormal smear Puncture Site Lt radial ABG pH 7.33 L (7.35-7.45) ABG pCO2 48.2 H (35.0-45.0) mmHg ABG pO2 70.0 L (80.0-100.0) mmHg ABG HCO3 24.8 (22.0-26.0) meq/L ABG O2 Saturation 93.8 L (96.0-97.0) % ABG Base Excess -0.8 (-2-2.0) [place] Test Pod A-a Gradient 84 mmHg O2 Delivery Device Bipap 12/6 FiO2 30.00 (21.00-100.00) % PEEP cmH20 Pressure Support cmH2O Sodium 142 (136-145) mEq/L Potassium 4.1 (3.5-5.1) mEq/L Chloride 108 H (98-107) mEq/L Carbon Dioxide 23 (21-32) mEq/L Anion Gap 15.1 H (5-15) BUN 23 H (7-18) mg/dL Creatinine 1.0 (0.55-1.02) mg/dL Est Cr Clr Drug Dosing 28.86 Estimated GFR (MDRD) 53 (>60) mL/min BUN/Creatinine Ratio 23.0 H (14-18) Glucose 142 H (83-115) mg/dL Lactic Acid (0.4-2.0) mmol/L Calcium 8.4 L (8.5-10.1) mg/dL Magnesium 2.3 (1.8-2.4) mg/dl Total Bilirubin 0.2 (0.2-1.0) mg/dL AST 26 (15-37) U/L ALT 25 (14-59) U/L Alkaline Phosphatase 81 (46-116) U/L Troponin I (0.00-0.056) ng/mL C-Reactive Protein 10.4 H* (<1.0) mg/dL NT-Pro-B Natriuret Pep (0-450) pg/mL Total Protein 6.0 L (6.4-8.2) g/dl Albumin 2.1 L (3.4-5.0) g/dl Globulin 3.9 gm/dL Albumin/Globulin Ratio 0.5 L (1-2) Urine Color (Yellow) Urine Appearance (Clear) Urine pH (5.0-8.0) Ur Specific [place] (1.005-1.030) Urine Protein (Negative) Urine Glucose (UA) (Negative) Urine Ketones (Negative) Urine Occult Blood (Negative) Urine Nitrite (Negative) Urine Bilirubin (Negative) Urine Urobilinogen (0.2-1.0) Ur Leukocyte Esterase (Negative) Urine RBC (0-5) /hpf Urine WBC (0-5) /hpf Ur Squamous Epith Cells (0-5) /hpf Urine Bacteria (FEW) /hpf Hyaline Casts (0-5) /lpf Urine Mucus (FEW) /hpf MRSA (PCR) Med Orders - Current: Current Medications Albuterol/Ipratropium (Duoneb 3.0-0.5 Mg/3 Ml) 3 ml NEB Q6H [facility] Last Admin: 07/29/19 14:53 Dose: 3 ml Amlodipine Besylate (Norvasc) 5 mg PO DAILY [facility] Last Admin: 07/29/19 08:45 Dose: Not Given Enoxaparin Sodium (Lovenox) 30 mg SUBCUT DAILY [facility] Last Admin: 07/29/19 08:41 Dose: 30 mg Lactated Ringer's (Ringers, Lactated) 1,000 mls @ 100 mls/hr IV ASDIRECTED [facility] Last Admin: 07/29/19 05:28 Dose: 125 mls/hr Levofloxacin/Dextrose 750 mg/ (Premix) 150 mls @ 100 mls/hr IV Q48H [facility] Last Admin: 07/28/19 21:39 Dose: 100 mls/hr Vancomycin HCl 0.75 gm/ Sodium (Chloride) 250 mls @ 166.667 mls/hr IV Q24H [facility] Meropenem/Sodium Chloride 500 (mg/ Premix) 50 mls @ 100 mls/hr IV Q8H [facility] Last Admin: 07/29/19 12:00 Dose: 100 mls/hr Levothyroxine Sodium (Synthroid) 100 mcg PO ACBREAKFAST [facility] Last Admin: 07/29/19 05:16 Dose: 100 mcg Megestrol Acetate (Megace) 40 mg PO BID@0800,1800 [facility] Last Admin: 07/29/19 08:41 Dose: 40 mg Methylprednisolone Sodium Succinate (Solu-Medrol) 60 mg IVPUSH Q8H [facility] Last Admin: 07/29/19 08:53 Dose: 60 mg Metoprolol Succinate (Toprol Xl) 50 mg PO DAILY [facility] Last Admin: 07/29/19 08:45 Dose: Not Given Mirtazapine (Remeron) 15 mg PO BEDTIME [facility] Morphine Sulfate (Morphine) 1 mg IVPUSH Q1H PRN PRN Reason: Dyspnea Last Admin: 07/29/19 12:24 Dose: 1 mg Ondansetron HCl (Zofran) 4 mg IV Q4H PRN PRN Reason: Nausea/Vomiting Oxycodone/Acetaminophen (Percocet 325-5 Mg) 0.5 - 1 tab PO Q6HR PRN PRN Reason: pain relief. Rosuvastatin Calcium (Crestor) 10 mg PO DAILY [facility] Last Admin: 07/29/19 08:41 Dose: 10 mg Sertraline HCl (Zoloft) 50 mg PO BEDTIME [facility] Sodium Chloride (Saline Flush) 10 ml FLUSH ASDIRECTED PRN PRN Reason: Keep Vein Open Last Admin: 07/28/19 17:25 Dose: 10 ml Vancomycin HCl (Pharmacy To Dose - Vancomycin) 0 dose .XX DAILY PRN PRN Reason: RX TO DOSE VANCO Discontinued Medications Albuterol/Ipratropium (Duoneb 3.0-0.5 Mg/3 Ml) 3 ml NEB ONETIME ONE Stop: 07/28/19 17:15 Last Admin: 07/28/19 17:31 Dose: 3 ml Furosemide (Lasix) 20 mg IVPUSH ONETIME ONE Stop: 07/29/19 13:01 Last Admin: 07/29/19 13:12 Dose: 20 mg Magnesium Sulfate 2 gm/ Premix 50 mls @ 25 mls/hr IV ONETIME ONE Stop: 07/28/19 19:12 Last Admin: 07/28/19 17:25 Dose: 25 mls/hr Sodium Chloride (Normal Saline) 1,000 mls @ 1,000 mls/hr IV ONETIME ONE Stop: 07/28/19 18:45 Last Admin: 07/28/19 17:50 Dose: 1,000 mls/hr Sodium Chloride (Normal Saline) Confirm Administered Dose 1,000 mls @ as directed .ROUTE .STK-MED ONE Stop: 07/28/19 17:49 Last Admin: 07/28/19 21:35 Dose: Not Given Ceftriaxone Sodium 2 gm/ (Sodium Chloride) 100 mls @ 200 mls/hr IV Q24H [facility] Last Admin: 07/28/19 20:11 Dose: 200 mls/hr Meropenem 1 gm/ Sodium (Chloride) 100 mls @ 200 mls/hr IV Q8H [facility] Last Admin: 07/29/19 05:50 Dose: 200 mls/hr Vancomycin HCl 1 gm/ Sodium (Chloride) 250 mls @ 250 mls/hr IV ONETIME ONE Stop: 07/29/19 00:59 Last Admin: 07/29/19 00:37 Dose: 250 mls/hr Megestrol Acetate (Megace) 40 mg PO BIDMEALS [facility] Last Admin: 07/29/19 07:56 Dose: Not Given Methylprednisolone Sodium Succinate (Solu-Medrol) 125 mg IVPUSH ONETIME ONE Stop: 07/28/19 17:15 Last Admin: 07/28/19 17:25 Dose: 125 mg Morphine Sulfate (Morphine) 1 mg IVPUSH ONETIME ONE Stop: 07/28/19 21:11 Last Admin: 07/28/19 21:18 Dose: 1 mg - Exam Quality Assessment: Supplemental Oxygen General: Alert, Oriented HEENT: Pupils Equal, Mucous Membr. Moist/[place] Neck: Supple Lungs: Decreased Breath Sounds, Crackles Cardiovascular: Regular Rate, Regular Rhythm GI/Abdominal Exam: Normal Bowel Sounds, Soft, Non-Tender Extremities: Normal Inspection, Normal Range of Motion, Non-Tender Skin: Warm, Dry, Intact Psy/Mental Status: Alert, Anxious - Problem List Review Problem List Initiated/Reviewed/Updated: Yes - My Orders Last 24 Hours: My Active Orders 07/28/19 20:40 [place] Catheter Insertion [Insert Urinary Catheter] [OM.PC] Q24H 07/28/19 21:00 Albuterol/Ipratropium [DuoNeb 3.0-0.5 MG/3 ML] 3 ml NEB Q6H Levofloxacin/Dextrose 5%-Water [Levaquin in D5W 750 MG/150 ML] 750 mg Premix Bag 1 bag IV Q48H 07/28/19 21:13 Consult to Pbx Manager [CONS] Routine Pharmacy to Dose - Vancomycin 0 dose .XX DAILY PRN Severe Sepsis Onset Time [OM.PC] Stat 07/28/19 21:15 Lactated Ringers [Ringers, Lactated] 1,000 ml IV ASDIRECTED 07/28/19 21:16 Acetaminophen/oxyCODONE [Percocet 325-5 MG] 0.5 - 1 tab PO Q6HR PRN 07/28/19 21:18 Morphine 1 mg IVPUSH Q1H PRN 07/28/19 21:19 Oxygen Therapy [RC] PRN Up With Assistance [RC] ASDIRECTED VTE/DVT Education [RC] PER UNIT ROUTINE Vital Signs [RC] Q4HR Ondansetron [Zofran] 4 mg IV Q4H PRN Resuscitation Status Routine 07/28/19 22:30 CULTURE SPUTUM + SMEAR [RM] Routine LEGIONELLA ANTIGEN [MREF] Routine STREP PNEUMONIAE ANTIGEN [MREF] Routine 07/28/19 22:35 RESPIRATORY PANEL Routine 07/28/19 22:45 Urinary Catheter Assessment [RC] Q4HR 07/28/19 Dinner Regular Diet [DIET] 07/29/19 01:00 methylPREDNISolone Sod Succ [Solu-MEDROL] 60 mg IVPUSH Q8H 07/29/19 06:00 Levothyroxine [Synthroid] 100 mcg PO ACBREAKFAST 07/29/19 08:00 Megestrol [Megace] 40 mg PO BID@0800,1800 07/29/19 09:00 Enoxaparin [Lovenox] 30 mg SUBCUT DAILY Metoprolol Succinate [Toprol XL] 50 mg PO DAILY Rosuvastatin [Crestor] 10 mg PO DAILY amLODIPine [Norvasc] 5 mg PO DAILY 07/29/19 13:00 Meropenem Premix [Meropenem] 500 mg Premix Bag 1 bag IV Q8H 07/29/19 21:00 Mirtazapine [Remeron] 15 mg PO BEDTIME Sertraline [Zoloft] 50 mg PO BEDTIME 07/30/19 00:00 Vancomycin 0.75 gm Sodium Chloride 0.9% [Normal Saline] 250 ml IV Q24H 07/30/19 05:11 C-REACTIVE PROTEIN [CHEM] AM CBC WITH AUTO DIFF [HEME] AM COMPREHENSIVE METABOLIC PN,CMP [CHEM] AM MAGNESIUM [CHEM] AM 07/30/19 23:00 VANCOMYCIN TROUGH [CHEM] Timed 07/31/19 05:11 C-REACTIVE PROTEIN [CHEM] AM CBC WITH AUTO DIFF [HEME] AM COMPREHENSIVE METABOLIC PN,CMP [CHEM] AM MAGNESIUM [CHEM] AM 08/01/19 05:11 C-REACTIVE PROTEIN [CHEM] AM CBC WITH AUTO DIFF [HEME] AM COMPREHENSIVE METABOLIC PN,CMP [CHEM] AM MAGNESIUM [CHEM] AM 08/02/19 05:11 C-REACTIVE PROTEIN [CHEM] AM CBC WITH AUTO DIFF [HEME] AM COMPREHENSIVE METABOLIC PN,CMP [CHEM] AM MAGNESIUM [CHEM] AM - Plan Plan:: Assessment * 84-year-old female with 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 UTI treated with vancomycin * Chronic medical problems including: Coronary artery disease with history of [place] , hypertension, hyperlipidemia, hemorrhoids, urinary incontinence, recurrent UTI , constipation, migraines, hypothyroidism, B12 deficiency, hypomagnesemia, depression, and malnutrition Plan * Admit to ICU * BiPAP - wean to NC as tolerated. * Meropenem, vancomycin, and Levaquin * duo nebs every 6 hours and albuterol every 2 hours when necessary * Solu-Medrol 60 mg IV every 8 hours * Sputum culture * Streptococcal urinary antigen and legionella urinary antigen * respiratory panel * Sepsis protocol * Lasix 20 mg IV x1 2/2 decreased UOP * CBC, CMP, magnesium, and C-reactive protein daily * Repeat chest x-ray in the morning * CODE STATUS: DO NOT RESUSCITATE/DO NOT INTUBATE * VT prophylaxis with Lovenox * I clarify with the patient she does not want to be intubated. Her condition is critical. * I spoke to her son and explained that Yeni is very ill and it could go either way. We should have a better idea of her outcome in the next 24 hours.
[2019-07-29] MEDS ORDERED: Acetaminophen 325 MG Tab PO PRN (16:14)
[2019-07-29] MEDS: Sertraline 50 MG Tab PO SCH (20:23)
[2019-07-29] MEDS: Acetaminophen/oxyCODONE 325-5 MG Tab PO PRN (20:23)
[2019-07-29] MEDS: Mirtazapine 15 MG Tab PO SCH (20:23)
[2019-07-30] MEDS: methylPREDNISolone Sodium Succinate 40 MG/1 ML SDV IVPUSH SCH ×3 (01:10→16:27)
[2019-07-30] MEDS: Albuterol/Ipratropium 3.0-0.5 MG/3 ML Neb Soln NEB SCH ×4 (03:06→20:25)
[2019-07-30] MEDS: Meropenem Premix 500 MG in Premix Bag 1 BAG IV SCH ×3 (05:06→20:06)
[2019-07-30] MEDS: Levothyroxine 100 MCG Tab PO SCH (05:07)
[2019-07-30] MEDS: Lactated Ringers 1,000 ML IV SCH ×3 (06:08→19:00)
[2019-07-30] MEDS: Megestrol 40 MG Tab PO SCH ×2 (08:19→17:22)
[2019-07-30] MEDS: Morphine 2 MG/ML Syringe IVPUSH PRN ×2 (09:14→23:00)
[2019-07-30] MEDS: Rosuvastatin 10 MG Tab PO SCH (09:22)
[2019-07-30] MEDS: amLODIPine 5 MG Tab PO SCH (09:32)
[2019-07-30] MEDS: Metoprolol Succinate 50 MG Tab.ER PO SCH (09:33)
[2019-07-30] MEDS: Enoxaparin 30 MG/0.3 ML Syringe SUBCUT SCH (09:34)
[2019-07-30] MEDS ORDERED: Sennosides 8.6 MG Tab PO PRN (15:19)
--- NOTE | 2019-07-30 17:49 | PCM.PN ---
- General Info Date of Service: 07/30/19 Admission Dx/Problem (Free Text): Admission Diagnosis/Problem Admission Diagnosis/Problem Hypoxia Subjective Update: Yeni is slowly improving. She is tolerating being off BiPAP longer. During a bowel movement today she did have a prolapsed rectum. This was not noticed by nursing earlier. I evaluated it, could reduce it, but it did come right back out. There was no tenderness. Functional Status: Reports: Pain Controlled - Review of Systems General: Reports: No Symptoms HEENT: Reports: No Symptoms Pulmonary: Reports: Shortness of Breath Cardiovascular: Reports: No Symptoms. Denies: Chest Pain Gastrointestinal: Reports: Other (Prolapsed rectum) - Patient Data Vitals - Most Recent: Last Vital Signs Temp 98.0 F 07/30/19 16:00 Pulse 91 07/30/19 16:00 Resp 20 07/30/19 16:00 BP 104/58 L 07/30/19 16:00 Pulse Ox 100 07/30/19 16:00 Weight - Most Recent: 103 lb 2.821 oz I&O - Last 24 Hours: Intake & Output 07/30/19 07/30/19 07/30/19 06:59 14:59 22:59 Intake Total 9987 246 5377 Output Total 290 490 95 Balance 1529 -170 1441 Lab Results Last 24 Hours: Laboratory Results - last 24 hr 07/28/19 07/30/19 07/30/19 Range/Units 22:35 04:35 04:35 WBC 17.63 H (3.98-10.04) K/mm3 RBC 3.70 L (3.98-5.22) M/mm3 Hgb 10.6 L (11.2-15.7) gm/L Hct 33.5 L (34.1-44.9) % MCV 90.5 (79.4-94.8) fl MCH 28.6 (25.6-32.2) pg MCHC 31.6 L (32.2-35.5) g/dl RDW Std Deviation 49.7 H (36.4-46.3) fL Plt Count 261 (182-369) K/mm3 MPV 9.9 (9.4-12.3) fl Neut % (Auto) 93.9 H (34.0-71.1) % Lymph % (Auto) 4.0 L (19.3-51.7) % [place] % (Auto) 1.9 L (4.7-12.5) % Eos % (Auto) 0 L (0.7-5.8) Baso % (Auto) 0.0 L (0.1-1.2) % Neut # (Auto) 16.55 H (1.56-6.13) K/mm3 Lymph # (Auto) 0.71 L (1.18-3.74) K/mm3 [place] # (Auto) 0.33 (0.24-0.36) K/mm3 Eos # (Auto) 0.00 L (0.04-0.36) K/mm3 Baso # (Auto) 0.00 L (0.01-0.08) K/mm3 Manual Slide Review Abnormal smear Sodium 143 (136-145) mEq/L Potassium 3.7 (3.5-5.1) mEq/L Chloride 106 (98-107) mEq/L Carbon Dioxide 27 (21-32) mEq/L Anion Gap 13.7 (5-15) BUN 26 H (7-18) mg/dL Creatinine 0.8 (0.55-1.02) mg/dL Est Cr Clr Drug Dosing 37.98 mL/min Estimated GFR (MDRD) > 60 (>60) mL/min BUN/Creatinine Ratio 32.5 H (14-18) Glucose 102 (83-115) mg/dL Calcium 8.7 (8.5-10.1) mg/dL Magnesium 1.9 (1.8-2.4) mg/dl Total Bilirubin 0.2 (0.2-1.0) mg/dL AST 33 (15-37) U/L ALT 28 (14-59) U/L Alkaline Phosphatase 65 (46-116) U/L C-Reactive Protein 14.8 H* (<1.0) mg/dL Total Protein 6.5 (6.4-8.2) g/dl Albumin 2.4 L (3.4-5.0) g/dl Globulin 4.1 gm/dL Albumin/Globulin Ratio 0.6 L (1-2) Adenovirus (PCR) Not detected (Not Detected) B. pertussis DNA (PCR) Not detected (Not Detected) B.parapertussis DNA PCR Not detected (Not Detected) C. pneumoniae DNA (PCR) Not detected (Not Detected) Coronavirus (PCR) Not detected (Not Detected) Human Metapneumovir PCR Not detected (Not Detected) Influenza A (RT-PCR) Not detected (Not Detected) Influenza B (RT-PCR) Not detected (Not Detected) M. pneumoniae (PCR) Not detected (Not Detected) Parainfluen 1,2,3,4 PCR Not detected (Not Detected) RSV (PCR) Not detected (Not Detected) Entero/Rhino (PCR) Not detected (Not Detected) Cm Results Last 24 Hours: Microbiology 07/28/19 19:54 Aerobic Blood Culture - Preliminary Blood - Venous - Lab Draw NO GROWTH AFTER 1 DAY Anaerobic Blood Culture - Preliminary NO GROWTH AFTER 1 DAY 07/28/19 19:42 Aerobic Blood Culture - Preliminary Blood - Venous NO GROWTH AFTER 1 DAY Anaerobic Blood Culture - Preliminary NO GROWTH AFTER 1 DAY Med Orders - Current: Current Medications Acetaminophen (Tylenol) 650 mg PO Q4H PRN PRN Reason: Fever Last Admin: 07/29/19 16:28 Dose: 650 mg Albuterol/Ipratropium (Duoneb 3.0-0.5 Mg/3 Ml) 3 ml NEB Q6H [facility] Last Admin: 07/30/19 15:41 Dose: 3 ml Amlodipine Besylate (Norvasc) 5 mg PO DAILY [facility] Last Admin: 07/30/19 09:32 Dose: Not Given Enoxaparin Sodium (Lovenox) 30 mg SUBCUT DAILY [facility] Last Admin: 07/30/19 09:34 Dose: 30 mg Levofloxacin/Dextrose 750 mg/ (Premix) 150 mls @ 100 mls/hr IV Q48H [facility] Last Admin: 07/28/19 21:39 Dose: 100 mls/hr Vancomycin HCl 0.75 gm/ Sodium (Chloride) 250 mls @ 166.667 mls/hr IV Q24H [facility] Last Admin: 07/29/19 23:20 Dose: 166.667 mls/hr Meropenem/Sodium Chloride 500 (mg/ Premix) 50 mls @ 100 mls/hr IV Q8H [facility] Last Admin: 07/30/19 13:19 Dose: 100 mls/hr Lactated Ringer's (Ringers, Lactated) 1,000 mls @ 50 mls/hr IV ASDIRECTED [facility] Levothyroxine Sodium (Synthroid) 100 mcg PO ACBREAKFAST [facility] Last Admin: 07/30/19 05:07 Dose: 100 mcg Megestrol Acetate (Megace) 40 mg PO BID@0800,1800 [facility] Last Admin: 07/30/19 17:22 Dose: 40 mg Methylprednisolone Sodium Succinate (Solu-Medrol) 60 mg IVPUSH Q8H [facility] Last Admin: 07/30/19 16:27 Dose: 60 mg Metoprolol Succinate (Toprol Xl) 50 mg PO DAILY [facility] Last Admin: 07/30/19 09:33 Dose: 50 mg Mirtazapine (Remeron) 15 mg PO BEDTIME [facility] Last Admin: 07/29/19 20:23 Dose: 15 mg Morphine Sulfate (Morphine) 1 mg IVPUSH Q1H PRN PRN Reason: Dyspnea Last Admin: 07/30/19 09:14 Dose: 1 mg Ondansetron HCl (Zofran) 4 mg IV Q4H PRN PRN Reason: Nausea/Vomiting Oxycodone/Acetaminophen (Percocet 325-5 Mg) 0.5 - 1 tab PO Q6HR PRN PRN Reason: pain relief. Last Admin: 07/29/19 20:23 Dose: 1 tab Rosuvastatin Calcium (Crestor) 10 mg PO DAILY [facility] Last Admin: 07/30/19 09:22 Dose: 10 mg Senna (Senna) 8.6 mg PO DAILY PRN PRN Reason: Constipation Sertraline HCl (Zoloft) 50 mg PO BEDTIME [facility] Last Admin: 07/29/19 20:23 Dose: 50 mg Sodium Chloride (Saline Flush) 10 ml FLUSH ASDIRECTED PRN PRN Reason: Keep Vein Open Last Admin: 07/28/19 17:25 Dose: 10 ml Vancomycin HCl (Pharmacy To Dose - Vancomycin) 0 dose .XX DAILY PRN PRN Reason: RX TO DOSE VANCO Discontinued Medications Albuterol/Ipratropium (Duoneb 3.0-0.5 Mg/3 Ml) 3 ml NEB ONETIME ONE Stop: 07/28/19 17:15 Last Admin: 07/28/19 17:31 Dose: 3 ml Furosemide (Lasix) 20 mg IVPUSH ONETIME ONE Stop: 07/29/19 13:01 Last Admin: 07/29/19 13:12 Dose: 20 mg Magnesium Sulfate 2 gm/ Premix 50 mls @ 25 mls/hr IV ONETIME ONE Stop: 07/28/19 19:12 Last Admin: 07/28/19 17:25 Dose: 25 mls/hr Sodium Chloride (Normal Saline) 1,000 mls @ 1,000 mls/hr IV ONETIME ONE Stop: 07/28/19 18:45 Last Admin: 07/28/19 17:50 Dose: 1,000 mls/hr Sodium Chloride (Normal Saline) Confirm Administered Dose 1,000 mls @ as directed .ROUTE .STK-MED ONE Stop: 07/28/19 17:49 Last Admin: 07/28/19 21:35 Dose: Not Given Ceftriaxone Sodium 2 gm/ (Sodium Chloride) 100 mls @ 200 mls/hr IV Q24H [facility] Last Admin: 07/28/19 20:11 Dose: 200 mls/hr Lactated Ringer's (Ringers, Lactated) 1,000 mls @ 100 mls/hr IV ASDIRECTED [facility] Last Admin: 07/30/19 14:19 Dose: 125 mls/hr Meropenem 1 gm/ Sodium (Chloride) 100 mls @ 200 mls/hr IV Q8H [facility] Last Admin: 07/29/19 05:50 Dose: 200 mls/hr Vancomycin HCl 1 gm/ Sodium (Chloride) 250 mls @ 250 mls/hr IV ONETIME ONE Stop: 07/29/19 00:59 Last Admin: 07/29/19 00:37 Dose: 250 mls/hr Megestrol Acetate (Megace) 40 mg PO BIDMEALS [facility] Last Admin: 07/29/19 07:56 Dose: Not Given Methylprednisolone Sodium Succinate (Solu-Medrol) 125 mg IVPUSH ONETIME ONE Stop: 07/28/19 17:15 Last Admin: 07/28/19 17:25 Dose: 125 mg Morphine Sulfate (Morphine) 1 mg IVPUSH ONETIME ONE Stop: 07/28/19 21:11 Last Admin: 07/28/19 21:18 Dose: 1 mg - Exam Quality Assessment: Supplemental Oxygen General: Alert, Oriented HEENT: Pupils Equal, Mucous Membr. Moist/[place] Neck: Supple Lungs: Decreased Breath Sounds, Crackles, Rales. No: Normal Respiratory Effort (Tachypnea) Cardiovascular: Regular Rate, Regular Rhythm GI/Abdominal Exam: Normal Bowel Sounds, Soft, Non-Tender, No Organomegaly, No Distention, Other (Baseball size prolapsed rectum that is easily reducible. Nontender.) Extremities: Normal Inspection, Normal Range of Motion, Non-Tender, No Pedal Edema Skin: Warm, Dry, Intact Neurological: No New Focal Deficit - Problem List Review Problem List Initiated/Reviewed/Updated: Yes - My Orders Last 24 Hours: My Active Orders 07/29/19 19:30 PT Evaluation and Treatment [CONS] Routine 07/29/19 19:31 OT Evaluation and Treatment [CONS] Routine 07/29/19 21:00 Mirtazapine [Remeron] 15 mg PO BEDTIME Sertraline [Zoloft] 50 mg PO BEDTIME 07/30/19 00:00 Vancomycin 0.75 gm Sodium Chloride 0.9% [Normal Saline] 250 ml IV Q24H 07/30/19 15:19 Sennosides [Senna] 8.6 mg PO DAILY PRN 07/30/19 16:45 Lactated Ringers [Ringers, Lactated] 1,000 ml IV ASDIRECTED 07/30/19 23:00 VANCOMYCIN TROUGH [CHEM] Timed 07/31/19 05:11 C-REACTIVE PROTEIN [CHEM] AM CBC WITH AUTO DIFF [HEME] AM COMPREHENSIVE METABOLIC PN,CMP [CHEM] AM MAGNESIUM [CHEM] AM 08/01/19 05:11 C-REACTIVE PROTEIN [CHEM] AM CBC WITH AUTO DIFF [HEME] AM COMPREHENSIVE METABOLIC PN,CMP [CHEM] AM MAGNESIUM [CHEM] AM 08/02/19 05:11 C-REACTIVE PROTEIN [CHEM] AM CBC WITH AUTO DIFF [HEME] AM COMPREHENSIVE METABOLIC PN,CMP [CHEM] AM MAGNESIUM [CHEM] AM - Plan Plan:: Assessment * 84-year-old female with 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 UTI treated with vancomycin * Chronic medical problems including: Coronary artery disease with history of [place] , hypertension, hyperlipidemia, hemorrhoids, urinary incontinence, recurrent UTI , constipation, migraines, hypothyroidism, B12 deficiency, hypomagnesemia, depression, and malnutrition Plan * Admit to ICU * BiPAP - continue weaning to NC as tolerated. * Meropenem, vancomycin, and Levaquin * duo nebs every 6 hours and albuterol every 2 hours when necessary * Solu-Medrol 60 mg IV every 8 hours * Sputum culture * Streptococcal urinary antigen and legionella urinary antigen * respiratory panel * CBC, CMP, magnesium, and C-reactive protein daily * Repeat chest x-ray in the morning * CODE STATUS: DO NOT RESUSCITATE/DO NOT INTUBATE * VT prophylaxis with Lovenox * I clarify with the patient she does not want to be intubated. Her condition is critical. * I spoke to her son and explained that Yeni is very ill and it could go either way. We should have a better idea of her outcome in the next 24 hours.
[2019-07-30] MEDS: Sertraline 50 MG Tab PO SCH (20:06)
[2019-07-30] MEDS: Mirtazapine 15 MG Tab PO SCH (20:06)
[2019-07-30] MEDS: Levofloxacin/Dextrose 5%-Water 750 MG in Premix Bag 1 BAG IV SCH (20:38)
[2019-07-31] MEDS: methylPREDNISolone Sodium Succinate 40 MG/1 ML SDV IVPUSH SCH ×3 (00:35→17:51)
[2019-07-31] MEDS: Albuterol/Ipratropium 3.0-0.5 MG/3 ML Neb Soln NEB SCH ×4 (02:45→20:33)
[2019-07-31] MEDS: Morphine 2 MG/ML Syringe IVPUSH PRN ×2 (03:33→10:05)
[2019-07-31] MEDS: Meropenem Premix 500 MG in Premix Bag 1 BAG IV SCH ×3 (05:04→20:58)
[2019-07-31] MEDS: Levothyroxine 100 MCG Tab PO SCH (05:04)
[2019-07-31] MEDS ORDERED: Magnesium Sulfate/Water 2 GM in Premix Bag 1 BAG IV ONE (08:32)
[2019-07-31] MEDS ORDERED: Potassium Chloride 20 MEQ Tab.ER PO ONE (08:33)
[2019-07-31] MEDS: amLODIPine 5 MG Tab PO SCH (08:44)
[2019-07-31] MEDS: Megestrol 40 MG Tab PO SCH ×2 (08:44→17:51)
[2019-07-31] MEDS: Rosuvastatin 10 MG Tab PO SCH (08:44)
[2019-07-31] MEDS: Metoprolol Succinate 50 MG Tab.ER PO SCH (08:44)
[2019-07-31] MEDS: Enoxaparin 30 MG/0.3 ML Syringe SUBCUT SCH (08:46)
[2019-07-31] MEDS: Potassium Chloride 10 MEQ in Premix Bag 1 BAG IV SCH ×4 (09:17→15:02)
[2019-07-31] MEDS ORDERED: Albuterol 6.7 GM Inhaler INH PRN (10:01)
[2019-07-31] MEDS ORDERED: Potassium Chloride 10 MEQ in Premix Bag 1 BAG IV SCH (15:00)
[2019-07-31] MEDS: guaiFENesin 600 MG Tab.ER PO SCH ×2 (15:03→20:59)
--- NOTE | 2019-07-31 18:25 | PCM.PN ---
- General Info Date of Service: 07/31/19 Admission Dx/Problem (Free Text): Admission Diagnosis/Problem Admission Diagnosis/Problem Hypoxia Subjective Update: patient continues to improve. Nurses state that her prolapsed rectum has worsened slightly. She continues to be short of breath and tachypneic. Functional Status: Reports: Pain Controlled - Review of Systems General: Reports: Fatigue HEENT: Reports: No Symptoms Pulmonary: Reports: Shortness of Breath, Cough Cardiovascular: Reports: No Symptoms Gastrointestinal: Reports: No Symptoms - Patient Data Vitals - Most Recent: Last Vital Signs Temp 98.4 F 07/31/19 16:00 Pulse 98 07/31/19 08:44 Resp 20 07/31/19 16:00 BP 104/61 07/31/19 16:00 Pulse Ox 100 07/31/19 16:00 Weight - Most Recent: 103 lb 13.404 oz I&O - Last 24 Hours: Intake & Output 07/31/19 07/31/19 07/31/19 06:59 14:59 22:59 Intake Total 474 576 1903 Output Total 725 900 175 Balance 149 -680 961 Lab Results Last 24 Hours: Laboratory Results - last 24 hr 07/31/19 07/31/19 Range/Units 04:42 04:42 WBC 11.10 H (3.98-10.04) K/mm3 RBC 3.69 L (3.98-5.22) M/mm3 Hgb 10.5 L (11.2-15.7) gm/L Hct 33.1 L (34.1-44.9) % MCV 89.7 (79.4-94.8) fl MCH 28.5 (25.6-32.2) pg MCHC 31.7 L (32.2-35.5) g/dl RDW Std Deviation 48.9 H (36.4-46.3) fL Plt Count 263 (182-369) K/mm3 MPV 9.6 (9.4-12.3) fl Neut % (Auto) 92.9 H (34.0-71.1) % Lymph % (Auto) 5.3 L (19.3-51.7) % [place] % (Auto) 1.6 L (4.7-12.5) % Eos % (Auto) 0 L (0.7-5.8) Baso % (Auto) 0.0 L (0.1-1.2) % Neut # (Auto) 10.31 H (1.56-6.13) K/mm3 Lymph # (Auto) 0.59 L (1.18-3.74) K/mm3 [place] # (Auto) 0.18 L (0.24-0.36) K/mm3 Eos # (Auto) 0.00 L (0.04-0.36) K/mm3 Baso # (Auto) 0.00 L (0.01-0.08) K/mm3 Manual Slide Review Abnormal smear Sodium 145 (136-145) mEq/L Potassium 2.8 L (3.5-5.1) mEq/L Chloride 107 (98-107) mEq/L Carbon Dioxide 28 (21-32) mEq/L Anion Gap 12.8 (5-15) BUN 22 H (7-18) mg/dL Creatinine 0.6 (0.55-1.02) mg/dL Est Cr Clr Drug Dosing 50.97 mL/min Estimated GFR (MDRD) > 60 (>60) mL/min BUN/Creatinine Ratio 36.7 H (14-18) Glucose 107 (83-115) mg/dL Calcium 8.1 L (8.5-10.1) mg/dL Magnesium 1.7 L (1.8-2.4) mg/dl Total Bilirubin 0.2 (0.2-1.0) mg/dL AST 51 H (15-37) U/L ALT 39 (14-59) U/L Alkaline Phosphatase 54 (46-116) U/L C-Reactive Protein 6.1 H* (<1.0) mg/dL Total Protein 6.0 L (6.4-8.2) g/dl Albumin 2.3 L (3.4-5.0) g/dl Globulin 3.7 gm/dL Albumin/Globulin Ratio 0.6 L (1-2) Cm Results Last 24 Hours: Microbiology 07/28/19 19:54 Aerobic Blood Culture - Preliminary Blood - Venous - Lab Draw NO GROWTH AFTER 2 DAYS Anaerobic Blood Culture - Preliminary NO GROWTH AFTER 2 DAYS 07/28/19 19:42 Aerobic Blood Culture - Preliminary Blood - Venous NO GROWTH AFTER 2 DAYS Anaerobic Blood Culture - Preliminary NO GROWTH AFTER 2 DAYS Med Orders - Current: Current Medications Acetaminophen (Tylenol) 650 mg PO Q4H PRN PRN Reason: Fever Last Admin: 07/29/19 16:28 Dose: 650 mg Albuterol (Proventil Hfa) 0 gm INH Q2H PRN PRN Reason: Shortness of Breath Last Admin: 07/31/19 10:08 Dose: 2 puff Albuterol/Ipratropium (Duoneb 3.0-0.5 Mg/3 Ml) 3 ml NEB Q6H [facility] Last Admin: 07/31/19 15:48 Dose: 3 ml Amlodipine Besylate (Norvasc) 5 mg PO DAILY [facility] Last Admin: 07/31/19 08:44 Dose: 5 mg Enoxaparin Sodium (Lovenox) 30 mg SUBCUT DAILY [facility] Last Admin: 07/31/19 08:46 Dose: 30 mg Guaifenesin (Mucinex) 600 mg PO BID [facility] Last Admin: 07/31/19 15:03 Dose: 600 mg Levofloxacin/Dextrose 750 mg/ (Premix) 150 mls @ 100 mls/hr IV Q48H [facility] Last Admin: 07/30/19 20:38 Dose: 100 mls/hr Vancomycin HCl 0.75 gm/ Sodium (Chloride) 250 mls @ 166.667 mls/hr IV Q24H [facility] Last Admin: 07/30/19 23:01 Dose: 166.667 mls/hr Meropenem/Sodium Chloride 500 (mg/ Premix) 50 mls @ 100 mls/hr IV Q8H [facility] Last Admin: 07/31/19 12:06 Dose: 100 mls/hr Lactated Ringer's (Ringers, Lactated) 1,000 mls @ 50 mls/hr IV ASDIRECTED [facility] Last Admin: 07/30/19 19:00 Dose: 50 mls/hr Levothyroxine Sodium (Synthroid) 100 mcg PO ACBREAKFAST [facility] Last Admin: 07/31/19 05:04 Dose: 100 mcg Megestrol Acetate (Megace) 40 mg PO BID@0800,1800 [facility] Last Admin: 07/31/19 17:51 Dose: 40 mg Methylprednisolone Sodium Succinate (Solu-Medrol) 60 mg IVPUSH Q8H [facility] Last Admin: 07/31/19 17:51 Dose: 60 mg Metoprolol Succinate (Toprol Xl) 50 mg PO DAILY [facility] Last Admin: 07/31/19 08:44 Dose: 50 mg Mirtazapine (Remeron) 15 mg PO BEDTIME [facility] Last Admin: 07/30/19 20:06 Dose: 15 mg Morphine Sulfate (Morphine) 1 mg IVPUSH Q1H PRN PRN Reason: Dyspnea Last Admin: 07/31/19 10:05 Dose: 1 mg Ondansetron HCl (Zofran) 4 mg IV Q4H PRN PRN Reason: Nausea/Vomiting Oxycodone/Acetaminophen (Percocet 325-5 Mg) 0.5 - 1 tab PO Q6HR PRN PRN Reason: pain relief. Last Admin: 07/29/19 20:23 Dose: 1 tab Rosuvastatin Calcium (Crestor) 10 mg PO DAILY [facility] Last Admin: 07/31/19 08:44 Dose: 10 mg Senna (Senna) 8.6 mg PO DAILY PRN PRN Reason: Constipation Sertraline HCl (Zoloft) 50 mg PO BEDTIME [facility] Last Admin: 07/30/19 20:06 Dose: 50 mg Sodium Chloride (Saline Flush) 10 ml FLUSH ASDIRECTED PRN PRN Reason: Keep Vein Open Last Admin: 07/28/19 17:25 Dose: 10 ml Vancomycin HCl (Pharmacy To Dose - Vancomycin) 0 dose .XX DAILY PRN PRN Reason: RX TO DOSE VANCO Discontinued Medications Albuterol/Ipratropium (Duoneb 3.0-0.5 Mg/3 Ml) 3 ml NEB ONETIME ONE Stop: 07/28/19 17:15 Last Admin: 07/28/19 17:31 Dose: 3 ml Furosemide (Lasix) 20 mg IVPUSH ONETIME ONE Stop: 07/29/19 13:01 Last Admin: 07/29/19 13:12 Dose: 20 mg Magnesium Sulfate 2 gm/ Premix 50 mls @ 25 mls/hr IV ONETIME ONE Stop: 07/28/19 19:12 Last Admin: 07/28/19 17:25 Dose: 25 mls/hr Sodium Chloride (Normal Saline) 1,000 mls @ 1,000 mls/hr IV ONETIME ONE Stop: 07/28/19 18:45 Last Admin: 07/28/19 17:50 Dose: 1,000 mls/hr Sodium Chloride (Normal Saline) Confirm Administered Dose 1,000 mls @ as directed .ROUTE .STK-MED ONE Stop: 07/28/19 17:49 Last Admin: 07/28/19 21:35 Dose: Not Given Ceftriaxone Sodium 2 gm/ (Sodium Chloride) 100 mls @ 200 mls/hr IV Q24H [facility] Last Admin: 07/28/19 20:11 Dose: 200 mls/hr Lactated Ringer's (Ringers, Lactated) 1,000 mls @ 100 mls/hr IV ASDIRECTED [facility] Last Admin: 07/30/19 14:19 Dose: 125 mls/hr Meropenem 1 gm/ Sodium (Chloride) 100 mls @ 200 mls/hr IV Q8H [facility] Last Admin: 07/29/19 05:50 Dose: 200 mls/hr Vancomycin HCl 1 gm/ Sodium (Chloride) 250 mls @ 250 mls/hr IV ONETIME ONE Stop: 07/29/19 00:59 Last Admin: 07/29/19 00:37 Dose: 250 mls/hr Magnesium Sulfate 2 gm/ Premix 50 mls @ 25 mls/hr IV ONETIME ONE Stop: 07/31/19 10:31 Last Admin: 07/31/19 09:17 Dose: 25 mls/hr Potassium Chloride 10 meq/ (Premix) 100 mls @ 100 mls/hr IV Q1H [facility] Stop: 07/31/19 12:44 Last Admin: 07/31/19 15:02 Dose: 100 mls/hr Potassium Chloride 10 meq/ (Premix) 100 mls @ 100 mls/hr IV Q1H [facility] Stop: 07/31/19 15:59 Last Admin: 07/31/19 15:05 Dose: Not Given Megestrol Acetate (Megace) 40 mg PO BIDMEALS [facility] Last Admin: 07/29/19 07:56 Dose: Not Given Methylprednisolone Sodium Succinate (Solu-Medrol) 125 mg IVPUSH ONETIME ONE Stop: 07/28/19 17:15 Last Admin: 07/28/19 17:25 Dose: 125 mg Morphine Sulfate (Morphine) 1 mg IVPUSH ONETIME ONE Stop: 07/28/19 21:11 Last Admin: 07/28/19 21:18 Dose: 1 mg Potassium Chloride (Klor-Con M20) 40 meq PO ONETIME ONE Stop: 07/31/19 08:34 Last Admin: 07/31/19 09:17 Dose: 40 meq - Exam Quality Assessment: Supplemental Oxygen General: Alert, Oriented HEENT: Pupils Equal, Pupils Reactive, EOMI, Mucous Membr. Moist/[place] Lungs: Decreased Breath Sounds. No: Normal Respiratory Effort (increased respiratory effort) Cardiovascular: Regular Rate, Regular Rhythm GI/Abdominal Exam: Normal Bowel Sounds, Soft, Non-Tender, No Organomegaly, No Distention, No Abnormal Bruit, No Mass Extremities: Normal Inspection, Normal Range of Motion, Non-Tender, No Pedal Edema Skin: Warm, Dry, Intact Neurological: No New Focal Deficit Psy/Mental Status: Alert, Normal Affect, Normal Mood - Problem List Review Problem List Initiated/Reviewed/Updated: Yes - My Orders Last 24 Hours: My Active Orders 07/31/19 10:01 Albuterol [Proventil HFA] See Dose Instructions INH Q2H PRN 07/31/19 10:02 RT Post Treatment Assessment [RC] Click to Edit RT Pre-Treatment Assessment [RC] Click to Edit 07/31/19 12:55 RT Chest Physiotherapy [RC] ASDIRECTED 07/31/19 13:45 guaiFENesin [Mucinex] 600 mg PO BID 07/31/19 23:30 VANCOMYCIN TROUGH [CHEM] Routine 08/01/19 05:11 C-REACTIVE PROTEIN [CHEM] AM CBC WITH AUTO DIFF [HEME] AM COMPREHENSIVE METABOLIC PN,CMP [CHEM] AM MAGNESIUM [CHEM] AM 08/02/19 05:11 C-REACTIVE PROTEIN [CHEM] AM CBC WITH AUTO DIFF [HEME] AM COMPREHENSIVE METABOLIC PN,CMP [CHEM] AM MAGNESIUM [CHEM] AM - Plan Plan:: Assessment * 84-year-old female with 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 UTI treated with vancomycin * Chronic medical problems including: Coronary artery disease with history of [place] , hypertension, hyperlipidemia, hemorrhoids, urinary incontinence, recurrent UTI , constipation, migraines, hypothyroidism, B12 deficiency, hypomagnesemia, depression, and malnutrition Plan * Admit to ICU * BiPAP - continue weaning to NC as tolerated. * Meropenem, vancomycin, and Levaquin * replete magnesium and potassium and recheck in the morning. * duo nebs every 6 hours and albuterol every 2 hours when necessary * Solu-Medrol 60 mg IV every 8 hours * Sputum culture * Streptococcal urinary antigen and legionella urinary antigen * respiratory panel - negative * CBC, CMP, magnesium, and C-reactive protein daily * Repeat chest x-ray in the morning * CODE STATUS: DO NOT RESUSCITATE/DO NOT INTUBATE * VT prophylaxis with Lovenox * I clarify with the patient she does not want to be intubated. Her condition is critical. * Yeni continues to be in serious condition.
[2019-07-31] MEDS: Mirtazapine 15 MG Tab PO SCH (20:54)
[2019-07-31] MEDS: Sertraline 50 MG Tab PO SCH (20:54)
[2019-07-31] MEDS: Acetaminophen/oxyCODONE 325-5 MG Tab PO PRN (20:57)
[2019-08-01] MEDS: Albuterol/Ipratropium 3.0-0.5 MG/3 ML Neb Soln NEB SCH ×4 (02:20→20:18)
[2019-08-01] MEDS: Meropenem Premix 500 MG in Premix Bag 1 BAG IV SCH ×2 (04:31→12:02)
[2019-08-01] MEDS: Lactated Ringers 1,000 ML IV SCH (04:33)
[2019-08-01] MEDS: Levothyroxine 100 MCG Tab PO SCH (05:08)
[2019-08-01] MEDS ORDERED: predniSONE 20 MG Tab PO SCH (07:00)
[2019-08-01] MEDS ORDERED: Potassium Chloride 20 MEQ Tab.ER PO ONE (07:49)
[2019-08-01] MEDS: predniSONE 20 MG Tab PO SCH (08:02)
[2019-08-01] MEDS: Metoprolol Succinate 50 MG Tab.ER PO SCH (08:02)
[2019-08-01] MEDS: Rosuvastatin 10 MG Tab PO SCH (08:02)
[2019-08-01] MEDS: guaiFENesin 600 MG Tab.ER PO SCH ×2 (08:02→20:04)
[2019-08-01] MEDS: Megestrol 40 MG Tab PO SCH ×2 (08:03→17:14)
[2019-08-01] MEDS: Enoxaparin 30 MG/0.3 ML Syringe SUBCUT SCH (08:03)
[2019-08-01] MEDS: amLODIPine 5 MG Tab PO SCH (08:03)
--- NOTE | 2019-08-01 09:35 | PCM.PN ---
- General Info Date of Service: 08/01/19 Admission Dx/Problem (Free Text): Admission Diagnosis/Problem Admission Diagnosis/Problem Hypoxia Subjective Update: Yeni continues to improve. She is on 2 L NC, which is lower than her home requirements. She is still taking orally poorly. She denies any pain or cp. Still SOB. She has had >10 lbs weight gain, but it appears she was significantly dehydrated since her O2 requirements have improved. Functional Status: Reports: Pain Controlled - Review of Systems General: Reports: No Symptoms HEENT: Reports: No Symptoms Pulmonary: Reports: Shortness of Breath Cardiovascular: Reports: No Symptoms Gastrointestinal: Reports: No Symptoms - Patient Data Vitals - Most Recent: Last Vital Signs Temp 98.7 F 08/01/19 08:00 Pulse 80 08/01/19 08:02 Resp 17 08/01/19 08:00 BP 121/79 08/01/19 08:03 Pulse Ox 96 08/01/19 09:08 Weight - Most Recent: 110 lb 12.8 oz I&O - Last 24 Hours: Intake & Output 07/31/19 08/01/19 08/01/19 22:59 06:59 14:59 Intake Total 1336 784 Output Total 575 850 275 Balance 761 -66 -275 Lab Results Last 24 Hours: Laboratory Results - last 24 hr 07/31/19 08/01/19 08/01/19 Range/Units 23:45 05:05 05:05 WBC 9.87 (3.98-10.04) K/mm3 RBC 3.81 L (3.98-5.22) M/mm3 Hgb 10.8 L (11.2-15.7) gm/L Hct 34.0 L (34.1-44.9) % MCV 89.2 (79.4-94.8) fl MCH 28.3 (25.6-32.2) pg MCHC 31.8 L (32.2-35.5) g/dl RDW Std Deviation 48.4 H (36.4-46.3) fL Plt Count 268 (182-369) K/mm3 MPV 9.8 (9.4-12.3) fl Neut % (Auto) 91.0 H (34.0-71.1) % Lymph % (Auto) 5.9 L (19.3-51.7) % [place] % (Auto) 2.7 L (4.7-12.5) % Eos % (Auto) 0 L (0.7-5.8) Baso % (Auto) 0.0 L (0.1-1.2) % Neut # (Auto) 8.98 H (1.56-6.13) K/mm3 Lymph # (Auto) 0.58 L (1.18-3.74) K/mm3 [place] # (Auto) 0.27 (0.24-0.36) K/mm3 Eos # (Auto) 0.00 L (0.04-0.36) K/mm3 Baso # (Auto) 0.00 L (0.01-0.08) K/mm3 Manual Slide Review Abnormal smear Sodium 144 (136-145) mEq/L Potassium 3.5 (3.5-5.1) mEq/L Chloride 109 H (98-107) mEq/L Carbon Dioxide 32 (21-32) mEq/L Anion Gap 6.5 (5-15) BUN 17 (7-18) mg/dL Creatinine 0.6 (0.55-1.02) mg/dL Est Cr Clr Drug Dosing 54.39 mL/min Estimated GFR (MDRD) > 60 (>60) mL/min BUN/Creatinine Ratio 28.3 H (14-18) Glucose 134 H (83-115) mg/dL Calcium 7.9 L (8.5-10.1) mg/dL Magnesium 2.0 (1.8-2.4) mg/dl Total Bilirubin 0.2 (0.2-1.0) mg/dL AST 45 H (15-37) U/L ALT 52 (14-59) U/L Alkaline Phosphatase 45 L (46-116) U/L C-Reactive Protein 3.0 H* (<1.0) mg/dL Total Protein 5.7 L (6.4-8.2) g/dl Albumin 2.2 L (3.4-5.0) g/dl Globulin 3.5 gm/dL Albumin/Globulin Ratio 0.6 L (1-2) Vancomycin Trough 8.3 L (10.0-20.0) Cm Results Last 24 Hours: Microbiology 07/28/19 19:54 Aerobic Blood Culture - Preliminary Blood - Venous - Lab Draw NO GROWTH AFTER 3 DAYS Anaerobic Blood Culture - Preliminary NO GROWTH AFTER 3 DAYS 07/28/19 19:42 Aerobic Blood Culture - Preliminary Blood - Venous NO GROWTH AFTER 3 DAYS Anaerobic Blood Culture - Preliminary NO GROWTH AFTER 3 DAYS Med Orders - Current: Current Medications Acetaminophen (Tylenol) 650 mg PO Q4H PRN PRN Reason: Fever Last Admin: 07/29/19 16:28 Dose: 650 mg Albuterol (Proventil Hfa) 0 gm INH Q2H PRN PRN Reason: Shortness of Breath Last Admin: 07/31/19 10:08 Dose: 2 puff Albuterol/Ipratropium (Duoneb 3.0-0.5 Mg/3 Ml) 3 ml NEB Q6H [facility] Last Admin: 08/01/19 09:07 Dose: 3 ml Amlodipine Besylate (Norvasc) 5 mg PO DAILY [facility] Last Admin: 08/01/19 08:03 Dose: 5 mg Enoxaparin Sodium (Lovenox) 30 mg SUBCUT DAILY [facility] Last Admin: 08/01/19 08:03 Dose: 30 mg Guaifenesin (Mucinex) 600 mg PO BID [facility] Last Admin: 08/01/19 08:02 Dose: 600 mg Levofloxacin/Dextrose 750 mg/ (Premix) 150 mls @ 100 mls/hr IV Q48H [facility] Last Admin: 07/30/19 20:38 Dose: 100 mls/hr Meropenem/Sodium Chloride 500 (mg/ Premix) 50 mls @ 100 mls/hr IV Q8H [facility] Last Admin: 08/01/19 04:31 Dose: 100 mls/hr Lactated Ringer's (Ringers, Lactated) 1,000 mls @ 50 mls/hr IV ASDIRECTED [facility] Last Admin: 08/01/19 04:33 Dose: 50 mls/hr Vancomycin HCl 1 gm/ Sodium (Chloride) 250 mls @ 166.667 mls/hr IV Q24H [facility] Last Admin: 08/01/19 00:44 Dose: 166.667 mls/hr Levothyroxine Sodium (Synthroid) 100 mcg PO ACBREAKFAST [facility] Last Admin: 08/01/19 05:08 Dose: 100 mcg Megestrol Acetate (Megace) 40 mg PO BID@0800,1800 [facility] Last Admin: 08/01/19 08:03 Dose: 40 mg Metoprolol Succinate (Toprol Xl) 50 mg PO DAILY [facility] Last Admin: 08/01/19 08:02 Dose: 50 mg Mirtazapine (Remeron) 15 mg PO BEDTIME [facility] Last Admin: 07/31/19 20:54 Dose: 15 mg Morphine Sulfate (Morphine) 1 mg IVPUSH Q1H PRN PRN Reason: Dyspnea Last Admin: 07/31/19 10:05 Dose: 1 mg Ondansetron HCl (Zofran) 4 mg IV Q4H PRN PRN Reason: Nausea/Vomiting Oxycodone/Acetaminophen (Percocet 325-5 Mg) 0.5 - 1 tab PO Q6HR PRN PRN Reason: pain relief. Last Admin: 07/31/19 20:57 Dose: 0.5 tab Prednisone (Prednisone) 40 mg PO DAILY@0800 [facility] Last Admin: 08/01/19 08:02 Dose: 40 mg Rosuvastatin Calcium (Crestor) 10 mg PO DAILY [facility] Last Admin: 08/01/19 08:02 Dose: 10 mg Senna (Senna) 8.6 mg PO DAILY PRN PRN Reason: Constipation Sertraline HCl (Zoloft) 50 mg PO BEDTIME [facility] Last Admin: 07/31/19 20:54 Dose: 50 mg Sodium Chloride (Saline Flush) 10 ml FLUSH ASDIRECTED PRN PRN Reason: Keep Vein Open Last Admin: 07/28/19 17:25 Dose: 10 ml Vancomycin HCl (Pharmacy To Dose - Vancomycin) 0 dose .XX DAILY PRN PRN Reason: RX TO DOSE VANCO Discontinued Medications Albuterol/Ipratropium (Duoneb 3.0-0.5 Mg/3 Ml) 3 ml NEB ONETIME ONE Stop: 07/28/19 17:15 Last Admin: 07/28/19 17:31 Dose: 3 ml Furosemide (Lasix) 20 mg IVPUSH ONETIME ONE Stop: 07/29/19 13:01 Last Admin: 07/29/19 13:12 Dose: 20 mg Magnesium Sulfate 2 gm/ Premix 50 mls @ 25 mls/hr IV ONETIME ONE Stop: 07/28/19 19:12 Last Admin: 07/28/19 17:25 Dose: 25 mls/hr Sodium Chloride (Normal Saline) 1,000 mls @ 1,000 mls/hr IV ONETIME ONE Stop: 07/28/19 18:45 Last Admin: 07/28/19 17:50 Dose: 1,000 mls/hr Sodium Chloride (Normal Saline) Confirm Administered Dose 1,000 mls @ as directed .ROUTE .STK-MED ONE Stop: 07/28/19 17:49 Last Admin: 07/28/19 21:35 Dose: Not Given Ceftriaxone Sodium 2 gm/ (Sodium Chloride) 100 mls @ 200 mls/hr IV Q24H [facility] Last Admin: 07/28/19 20:11 Dose: 200 mls/hr Lactated Ringer's (Ringers, Lactated) 1,000 mls @ 100 mls/hr IV ASDIRECTED [facility] Last Admin: 07/30/19 14:19 Dose: 125 mls/hr Meropenem 1 gm/ Sodium (Chloride) 100 mls @ 200 mls/hr IV Q8H [facility] Last Admin: 07/29/19 05:50 Dose: 200 mls/hr Vancomycin HCl 1 gm/ Sodium (Chloride) 250 mls @ 250 mls/hr IV ONETIME ONE Stop: 07/29/19 00:59 Last Admin: 07/29/19 00:37 Dose: 250 mls/hr Vancomycin HCl 0.75 gm/ Sodium (Chloride) 250 mls @ 166.667 mls/hr IV Q24H [facility] Last Admin: 08/01/19 00:46 Dose: Not Given Magnesium Sulfate 2 gm/ Premix 50 mls @ 25 mls/hr IV ONETIME ONE Stop: 07/31/19 10:31 Last Admin: 07/31/19 09:17 Dose: 25 mls/hr Potassium Chloride 10 meq/ (Premix) 100 mls @ 100 mls/hr IV Q1H [facility] Stop: 07/31/19 12:44 Last Admin: 07/31/19 15:02 Dose: 100 mls/hr Potassium Chloride 10 meq/ (Premix) 100 mls @ 100 mls/hr IV Q1H [facility] Stop: 07/31/19 15:59 Last Admin: 07/31/19 15:05 Dose: Not Given Megestrol Acetate (Megace) 40 mg PO BIDMEALS [facility] Last Admin: 07/29/19 07:56 Dose: Not Given Methylprednisolone Sodium Succinate (Solu-Medrol) 125 mg IVPUSH ONETIME ONE Stop: 07/28/19 17:15 Last Admin: 07/28/19 17:25 Dose: 125 mg Methylprednisolone Sodium Succinate (Solu-Medrol) 60 mg IVPUSH Q8H [facility] Last Admin: 07/31/19 17:51 Dose: 60 mg Morphine Sulfate (Morphine) 1 mg IVPUSH ONETIME ONE Stop: 07/28/19 21:11 Last Admin: 07/28/19 21:18 Dose: 1 mg Potassium Chloride (Klor-Con M20) 40 meq PO ONETIME ONE Stop: 07/31/19 08:34 Last Admin: 07/31/19 09:17 Dose: 40 meq Potassium Chloride (Klor-Con M20) 20 meq PO ONETIME ONE Stop: 08/01/19 07:50 Last Admin: 08/01/19 08:02 Dose: 20 meq Prednisone (Prednisone) 40 mg PO WITHBREAKFAST [facility] - Exam Quality Assessment: Supplemental Oxygen (2 L NC) General: Alert HEENT: Pupils Equal, Mucous Membr. Moist/[place] Neck: Supple Lungs: Decreased Breath Sounds (throughout), Crackles Cardiovascular: Regular Rate, Regular Rhythm GI/Abdominal Exam: Normal Bowel Sounds, Soft, No Organomegaly, No Distention Extremities: Normal Inspection, Normal Range of Motion, Non-Tender, Slow Capillary Refill Skin: Warm, Dry, Intact Neurological: No New Focal Deficit Psy/Mental Status: Alert, Normal Affect, Normal Mood - Problem List Review Problem List Initiated/Reviewed/Updated: Yes - My Orders Last 24 Hours: My Active Orders 07/31/19 10:01 Albuterol [Proventil HFA] See Dose Instructions INH Q2H PRN 07/31/19 10:02 RT Post Treatment Assessment [RC] Click to Edit RT Pre-Treatment Assessment [RC] Click to Edit 07/31/19 12:55 RT Chest Physiotherapy [RC] ASDIRECTED 07/31/19 13:45 guaiFENesin [Mucinex] 600 mg PO BID 08/01/19 00:00 Vancomycin 1 gm Sodium Chloride 0.9% [Normal Saline] 250 ml IV Q24H 08/01/19 08:00 predniSONE 40 mg PO DAILY@0800 08/01/19 08:55 Patient Status [ADT] Routine 08/02/19 05:11 C-REACTIVE PROTEIN [CHEM] AM CBC WITH AUTO DIFF [HEME] AM COMPREHENSIVE METABOLIC PN,CMP [CHEM] AM MAGNESIUM [CHEM] AM - Plan Plan:: Assessment * 84-year-old female with 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 UTI treated with vancomycin * Chronic medical problems including: Coronary artery disease with history of [place] , hypertension, hyperlipidemia, hemorrhoids, urinary incontinence, recurrent UTI , constipation, migraines, hypothyroidism, B12 deficiency, hypomagnesemia, depression, and malnutrition Plan * Admit to ICU * 2 L NC FiO2. Titrate as tolerated. * Day 4 of Meropenem, vancomycin, and Levaquin - consider de-escalation of antibiotic tomorrow if continuing to improve. * replete magnesium and potassium as needed and recheck in the morning. * duo nebs every 6 hours and albuterol every 2 hours when necessary * Switch from Solu-Medrol 60 mg IV every 8 hours to prednisone 40 mg daily * Sputum culture - cancelled 2/2 unable to obtain * Streptococcal urinary antigen and legionella urinary antigen - pending * respiratory panel - negative * Blood cultures neg - day 3 * CBC, CMP, magnesium, and C-reactive protein daily * CODE STATUS: DO NOT RESUSCITATE/DO NOT INTUBATE * VT prophylaxis with Lovenox * I clarify with the patient she does not want to be intubated. Her condition is critical. * Length of stay greater than 96 hours due to slow resolution of her tachypnea secondary to her end-stage COPD and pneumonia.
[2019-08-01] MEDS: Mirtazapine 15 MG Tab PO SCH (20:03)
[2019-08-01] MEDS: Sertraline 50 MG Tab PO SCH (20:03)
[2019-08-01] MEDS: Acetaminophen/oxyCODONE 325-5 MG Tab PO PRN (20:04)
[2019-08-01] MEDS: Levofloxacin/Dextrose 5%-Water 750 MG in Premix Bag 1 BAG IV SCH (21:16)
[2019-08-01] MEDS ORDERED: Levofloxacin 750 MG Tab PO ONE (21:30)
[2019-08-02] MEDS: Albuterol/Ipratropium 3.0-0.5 MG/3 ML Neb Soln NEB SCH ×4 (02:50→20:53)
[2019-08-02] MEDS: Levothyroxine 100 MCG Tab PO SCH (06:00)
--- NOTE | 2019-08-02 06:39 | CR ---
Chest: Portable view of the chest was obtained. Comparison: Prior chest x-ray of 07/03/19. Heart size and mediastinum are within normal limits. Diffuse interstitial change is seen. Findings are felt to be fairly stable from previous exam. No definite acute parenchymal change is appreciated. Bony structures are osteopenic. Scoliosis is noted within the spine. No acute osseous abnormality is appreciated. Impression: 1. Interstitial change believed to be chronic. Other incidental findings. Nothing acute is appreciated on portable chest x-ray. Diagnostic code #2
--- NOTE | 2019-08-02 08:33 | PCM.PN ---
- General Info Date of Service: 08/02/19 Admission Dx/Problem (Free Text): Admission Diagnosis/Problem Admission Diagnosis/Problem Hypoxia Subjective Update: Yeni continues to improve. She is on 2 L NC, which is lower than her home requirements. She is still taking orally poorly. She denies any pain or cp. Still SOB. She has had >10 lbs weight gain, but it appears she was significantly dehydrated since her O2 requirements have improved. Functional Status: Reports: Pain Controlled, Tolerating Diet, Urinating. Denies : New Symptoms - Patient Data Vitals - Most Recent: Last Vital Signs Temp 36.9 C 08/02/19 07:28 Pulse 80 08/01/19 08:02 Resp 15 08/02/19 07:28 BP 113/70 08/02/19 07:28 Pulse Ox 97 08/02/19 07:28 Weight - Most Recent: 51.483 kg I&O - Last 24 Hours: Intake & Output 08/01/19 08/02/19 08/02/19 22:59 06:59 14:59 Intake Total 60 Output Total 300 575 Balance -240 -575 Lab Results Last 24 Hours: Laboratory Results - last 24 hr 08/02/19 08/02/19 Range/Units 04:40 04:40 WBC 10.62 H (3.98-10.04) K/mm3 RBC 4.24 (3.98-5.22) M/mm3 Hgb 12.2 (11.2-15.7) gm/L Hct 37.7 (34.1-44.9) % MCV 88.9 (79.4-94.8) fl MCH 28.8 (25.6-32.2) pg MCHC 32.4 (32.2-35.5) g/dl RDW Std Deviation 48.5 H (36.4-46.3) fL Plt Count 270 (182-369) K/mm3 MPV 9.5 (9.4-12.3) fl Neut % (Auto) 81.2 H (34.0-71.1) % Lymph % (Auto) 11.0 L (19.3-51.7) % [place] % (Auto) 7.2 (4.7-12.5) % Eos % (Auto) 0 L (0.7-5.8) Baso % (Auto) 0.0 L (0.1-1.2) % Neut # (Auto) 8.63 H (1.56-6.13) K/mm3 Lymph # (Auto) 1.17 L (1.18-3.74) K/mm3 [place] # (Auto) 0.76 H (0.24-0.36) K/mm3 Eos # (Auto) 0.00 L (0.04-0.36) K/mm3 Baso # (Auto) 0.00 L (0.01-0.08) K/mm3 Sodium 143 (136-145) mEq/L Potassium 3.5 (3.5-5.1) mEq/L Chloride 106 (98-107) mEq/L Carbon Dioxide 31 (21-32) mEq/L Anion Gap 9.5 (5-15) BUN 18 (7-18) mg/dL Creatinine 0.7 (0.55-1.02) mg/dL Est Cr Clr Drug Dosing 47.75 mL/min Estimated GFR (MDRD) > 60 (>60) mL/min BUN/Creatinine Ratio 25.7 H (14-18) Glucose 98 (83-115) mg/dL Calcium 8.0 L (8.5-10.1) mg/dL Magnesium 1.8 (1.8-2.4) mg/dl Total Bilirubin 0.2 (0.2-1.0) mg/dL AST 55 H (15-37) U/L ALT 60 H (14-59) U/L Alkaline Phosphatase 47 (46-116) U/L C-Reactive Protein 1.7 H* (<1.0) mg/dL Total Protein 5.8 L (6.4-8.2) g/dl Albumin 2.2 L (3.4-5.0) g/dl Globulin 3.6 gm/dL Albumin/Globulin Ratio 0.6 L (1-2) Cm Results Last 24 Hours: Microbiology 07/28/19 19:54 Aerobic Blood Culture - Preliminary Blood - Venous - Lab Draw NO GROWTH AFTER 4 DAYS Anaerobic Blood Culture - Preliminary NO GROWTH AFTER 4 DAYS 07/28/19 19:42 Aerobic Blood Culture - Preliminary Blood - Venous NO GROWTH AFTER 4 DAYS Anaerobic Blood Culture - Preliminary NO GROWTH AFTER 4 DAYS Med Orders - Current: Current Medications Acetaminophen (Tylenol) 650 mg PO Q4H PRN PRN Reason: Fever Last Admin: 07/29/19 16:28 Dose: 650 mg Albuterol (Proventil Hfa) 0 gm INH Q2H PRN PRN Reason: Shortness of Breath Last Admin: 07/31/19 10:08 Dose: 2 puff Albuterol/Ipratropium (Duoneb 3.0-0.5 Mg/3 Ml) 3 ml NEB Q6H [facility] Last Admin: 08/02/19 02:50 Dose: 3 ml Amlodipine Besylate (Norvasc) 5 mg PO DAILY [facility] Last Admin: 08/01/19 08:03 Dose: 5 mg Enoxaparin Sodium (Lovenox) 30 mg SUBCUT DAILY [facility] Last Admin: 08/01/19 08:03 Dose: 30 mg Guaifenesin (Mucinex) 600 mg PO BID [facility] Last Admin: 08/01/19 20:04 Dose: 600 mg Levofloxacin (Levaquin) 750 mg PO Q48H [facility] Levothyroxine Sodium (Synthroid) 100 mcg PO ACBREAKFAST [facility] Last Admin: 08/02/19 06:00 Dose: 100 mcg Megestrol Acetate (Megace) 40 mg PO BID@0800,1800 [facility] Last Admin: 08/01/19 17:14 Dose: 40 mg Metoprolol Succinate (Toprol Xl) 50 mg PO DAILY [facility] Last Admin: 08/01/19 08:02 Dose: 50 mg Mirtazapine (Remeron) 15 mg PO BEDTIME [facility] Last Admin: 08/01/19 20:03 Dose: 15 mg Ondansetron HCl (Zofran) 4 mg IV Q4H PRN PRN Reason: Nausea/Vomiting Oxycodone/Acetaminophen (Percocet 325-5 Mg) 0.5 - 1 tab PO Q6HR PRN PRN Reason: pain relief. Last Admin: 08/01/19 20:04 Dose: 0.5 tab Prednisone (Prednisone) 40 mg PO DAILY@0800 [facility] Last Admin: 08/01/19 08:02 Dose: 40 mg Rosuvastatin Calcium (Crestor) 10 mg PO DAILY [facility] Last Admin: 08/01/19 08:02 Dose: 10 mg Senna (Senna) 8.6 mg PO DAILY PRN PRN Reason: Constipation Sertraline HCl (Zoloft) 50 mg PO BEDTIME [facility] Last Admin: 08/01/19 20:03 Dose: 50 mg Discontinued Medications Albuterol/Ipratropium (Duoneb 3.0-0.5 Mg/3 Ml) 3 ml NEB ONETIME ONE Stop: 07/28/19 17:15 Last Admin: 07/28/19 17:31 Dose: 3 ml Furosemide (Lasix) 20 mg IVPUSH ONETIME ONE Stop: 07/29/19 13:01 Last Admin: 07/29/19 13:12 Dose: 20 mg Magnesium Sulfate 2 gm/ Premix 50 mls @ 25 mls/hr IV ONETIME ONE Stop: 07/28/19 19:12 Last Admin: 07/28/19 17:25 Dose: 25 mls/hr Sodium Chloride (Normal Saline) 1,000 mls @ 1,000 mls/hr IV ONETIME ONE Stop: 07/28/19 18:45 Last Admin: 07/28/19 17:50 Dose: 1,000 mls/hr Sodium Chloride (Normal Saline) Confirm Administered Dose 1,000 mls @ as directed .ROUTE .STK-MED ONE Stop: 07/28/19 17:49 Last Admin: 07/28/19 21:35 Dose: Not Given Ceftriaxone Sodium 2 gm/ (Sodium Chloride) 100 mls @ 200 mls/hr IV Q24H [facility] Last Admin: 07/28/19 20:11 Dose: 200 mls/hr Lactated Ringer's (Ringers, Lactated) 1,000 mls @ 100 mls/hr IV ASDIRECTED [facility] Last Admin: 07/30/19 14:19 Dose: 125 mls/hr Levofloxacin/Dextrose 750 mg/ (Premix) 150 mls @ 100 mls/hr IV Q48H [facility] Last Admin: 08/01/19 21:16 Dose: Not Given Meropenem 1 gm/ Sodium (Chloride) 100 mls @ 200 mls/hr IV Q8H [facility] Last Admin: 07/29/19 05:50 Dose: 200 mls/hr Vancomycin HCl 1 gm/ Sodium (Chloride) 250 mls @ 250 mls/hr IV ONETIME ONE Stop: 07/29/19 00:59 Last Admin: 07/29/19 00:37 Dose: 250 mls/hr Vancomycin HCl 0.75 gm/ Sodium (Chloride) 250 mls @ 166.667 mls/hr IV Q24H [facility] Last Admin: 08/01/19 00:46 Dose: Not Given Meropenem/Sodium Chloride 500 (mg/ Premix) 50 mls @ 100 mls/hr IV Q8H [facility] Last Admin: 08/01/19 12:02 Dose: 100 mls/hr Lactated Ringer's (Ringers, Lactated) 1,000 mls @ 50 mls/hr IV ASDIRECTED [facility] Last Admin: 08/01/19 04:33 Dose: 50 mls/hr Magnesium Sulfate 2 gm/ Premix 50 mls @ 25 mls/hr IV ONETIME ONE Stop: 07/31/19 10:31 Last Admin: 07/31/19 09:17 Dose: 25 mls/hr Potassium Chloride 10 meq/ (Premix) 100 mls @ 100 mls/hr IV Q1H [facility] Stop: 07/31/19 12:44 Last Admin: 07/31/19 15:02 Dose: 100 mls/hr Potassium Chloride 10 meq/ (Premix) 100 mls @ 100 mls/hr IV Q1H [facility] Stop: 07/31/19 15:59 Last Admin: 07/31/19 15:05 Dose: Not Given Vancomycin HCl 1 gm/ Sodium (Chloride) 250 mls @ 166.667 mls/hr IV Q24H [facility] Last Admin: 08/01/19 00:44 Dose: 166.667 mls/hr Levofloxacin (Levaquin) 750 mg PO ONETIME ONE Stop: 08/01/19 21:31 Last Admin: 08/01/19 21:27 Dose: 750 mg Megestrol Acetate (Megace) 40 mg PO BIDMEALS [facility] Last Admin: 07/29/19 07:56 Dose: Not Given Methylprednisolone Sodium Succinate (Solu-Medrol) 125 mg IVPUSH ONETIME ONE Stop: 07/28/19 17:15 Last Admin: 07/28/19 17:25 Dose: 125 mg Methylprednisolone Sodium Succinate (Solu-Medrol) 60 mg IVPUSH Q8H [facility] Last Admin: 07/31/19 17:51 Dose: 60 mg Morphine Sulfate (Morphine) 1 mg IVPUSH ONETIME ONE Stop: 07/28/19 21:11 Last Admin: 07/28/19 21:18 Dose: 1 mg Morphine Sulfate (Morphine) 1 mg IVPUSH Q1H PRN PRN Reason: Dyspnea Last Admin: 07/31/19 10:05 Dose: 1 mg Potassium Chloride (Klor-Con M20) 40 meq PO ONETIME ONE Stop: 07/31/19 08:34 Last Admin: 07/31/19 09:17 Dose: 40 meq Potassium Chloride (Klor-Con M20) 20 meq PO ONETIME ONE Stop: 08/01/19 07:50 Last Admin: 08/01/19 08:02 Dose: 20 meq Prednisone (Prednisone) 40 mg PO WITHBREAKFAST [facility] Sodium Chloride (Saline Flush) 10 ml FLUSH ASDIRECTED PRN PRN Reason: Keep Vein Open Last Admin: 07/28/19 17:25 Dose: 10 ml Vancomycin HCl (Pharmacy To Dose - Vancomycin) 0 dose .XX DAILY PRN PRN Reason: RX TO DOSE VANCO - Plan Plan:: Assessment * 84-year-old female with 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 UTI treated with vancomycin * Chronic medical problems including: Coronary artery disease with history of [place] , hypertension, hyperlipidemia, hemorrhoids, urinary incontinence, recurrent UTI , constipation, migraines, hypothyroidism, B12 deficiency, hypomagnesemia, depression, and malnutrition Plan * Admit to ICU * 2 L NC FiO2. Titrate as tolerated. * Day 4 of Meropenem, vancomycin, and Levaquin - consider de-escalation of antibiotic tomorrow if continuing to improve. * replete magnesium and potassium as needed and recheck in the morning. * duo nebs every 6 hours and albuterol every 2 hours when necessary * Switch from Solu-Medrol 60 mg IV every 8 hours to prednisone 40 mg daily * Sputum culture - cancelled 2/2 unable to obtain * Streptococcal urinary antigen and legionella urinary antigen - pending * respiratory panel - negative * Blood cultures neg - day 3 * CBC, CMP, magnesium, and C-reactive protein daily * CODE STATUS: DO NOT RESUSCITATE/DO NOT INTUBATE * VT prophylaxis with Lovenox * I clarify with the patient she does not want to be intubated. Her condition is critical. * Length of stay greater than 96 hours due to slow resolution of her tachypnea secondary to her end-stage COPD and pneumonia.
[2019-08-02] MEDS: Metoprolol Succinate 50 MG Tab.ER PO SCH (08:35)
[2019-08-02] MEDS: guaiFENesin 600 MG Tab.ER PO SCH ×2 (08:35→20:40)
[2019-08-02] MEDS: predniSONE 20 MG Tab PO SCH (08:36)
[2019-08-02] MEDS: Enoxaparin 30 MG/0.3 ML Syringe SUBCUT SCH (08:36)
[2019-08-02] MEDS: Rosuvastatin 10 MG Tab PO SCH (08:37)
[2019-08-02] MEDS: amLODIPine 5 MG Tab PO SCH (08:37)
[2019-08-02] MEDS: Megestrol 40 MG Tab PO SCH ×2 (08:38→20:24)
[2019-08-02] MEDS: Acetaminophen/oxyCODONE 325-5 MG Tab PO PRN (11:53)
--- NOTE | 2019-08-02 17:05 | PCM.SN ---
- Free Text/Narrative Note: Patient seen and examined at bedside. No significant overnight or acute issues. She requires 2 person assists and symptomatic even with transfers. She was admitted on the and felt worse than when she first came in. She is also a hard stick. She has had 4-5 attempts overnight and now refusing to have an IV access. Had a brief discussion with her in the presence of her nurse about "being made comfortable if she is tired of being poked at whether it be for labs or medications. She states she understands she is "near the end of her life". So I offered SW to come and speak with her. Did not discuss Hospice/Palliative Care and/or told her she is dying or expected to in the next 6 months or so. However I made her aware she has an Advanced COPD.
--- NOTE | 2019-08-02 17:30 | PCM.DCSUM1 ---
Discharge Summary - Hospital Course HPI Initial Comments: 84-year-old female with history of lung cancer treated one year ago with radiation and end-stage COPD presents to the emergency room via ambulance for abdominal pain, cough, fever and shortness of breath. Patient was admitted last month with colitis and treated with levofloxacin and Flagyl. She also had a UTI and was treated with vancomycin. This morning patient developed shortness of breath and abdominal cramping. EMS was called and patient was brought to the emergency room. Patient had productive cough for a few days and temperature 100.3. She is on 3 L nasal cannula at home. Recently she had a PET scan which found another lung lesion and possibly a breast lesion. She was due for a biopsy last week but unfortunately took an aspirin the night before and was unable to get the biopsy. Patient does state that she does not want to be intubated. Patient did have a bowel movement in the emergency room. In the emergency room patient was given Rocephin, and started on BiPAP. Laboratory test: White blood cell count 10.09, hemoglobin 14.5, platelet count 355, sodium 142, potassium 4.2 anion gap 14.2, BUN 21, creatinine 1.0, glucose 161, troponin less than 0.017, BNP 387, lactic acid 2.2. Arterial blood gas on BiPAP: PH 7.39, PCO2 40.7, PO2 101, HCO3 24. EKG showed sinus tachycardia at 137 bpm with recurrent PVCs otherwise normal. Chest x-ray showed right upper lobe infiltrate. Diagnosis: Stroke: No Modified Schuyler Scale: No Symptoms at All Modified Schuyler Scale Score: 0 - Discharge Data Discharge Date: 08/02/19 Discharge Disposition: DC/Tfer to Acute Hospital 02 Condition: Fair - Referral to Home Health Primary Care Physician: Franky Mock MD - Patient Summary/Data Operative Procedure(s) Performed: None Complications: None Consults: Consultations 07/28/19 21:13 Consult to Plumbing Inspector [CONS] Routine 07/29/19 19:30 PT Evaluation and Treatment [CONS] Routine 07/29/19 19:31 OT Evaluation and Treatment [CONS] Routine Labs Pending at D/C: None Recommended Follow-up Testing/Procedures: None Planned Operative Procedure(s) after DC: None Hospital Course: Patient was primarily admitted for hypoxia and worsening shortness of breath and was diagnosed with right upper lobe infiltrate. She has been here since the 1tth and has not been getting better clinically. Her son expect more than what we can offer here and so we called [facility] for upper level of care. Discussed case with Dr. Skelton, Hospitalist, and she agreed to accept patient under her services. - Patient Instructions Diet: Usual Diet as Tolerated Fluid Restriction: 2000 mL Activity: As Tolerated Driving: Do Not Drive Showering/Bathing: May Shower Other/Special Instructions: - Transfer to [facility] for upper level of care under the services of Dr. House, Hospitalist - Discharge Plan *PRESCRIPTION DRUG MONITORING PROGRAM REVIEWED*: Not Applicable *COPY OF PRESCRIPTION DRUG MONITORING REPORT IN PATIENT JUAN: Not Applicable Home Medications: Home Meds Cyanocobalamin (Vitamin B12) [Vitamin B12] 1,000 mcg INJECT ASDIRECTED 11/27/14 [History] EPINEPHrine [Epipen] 0.3 ml INJECT ASDIRECTED PRN 11/27/14 [History] Levothyroxine [Synthroid] 100 mcg PO DAILY 11/27/14 [History] Metoprolol Succinate [Toprol XL] 50 mg PO DAILY 11/27/14 [History] Rosuvastatin [Crestor] 10 mg PO DAILY 11/27/14 [History] amLODIPine [Norvasc] 5 mg PO DAILY 11/27/14 [History] Mirtazapine [Remeron] 15 mg PO BEDTIME 06/10/18 [History] Nitroglycerin [Nitrostat] 0.4 mg SL ASDIRECTED PRN 06/10/18 [History] Sertraline [Zoloft] 50 mg PO BEDTIME 06/10/18 [History] Albuterol Sulfate [Proair Hfa] 2 puff IH Q6H PRN 08/06/18 [History] oxyCODONE HCl/Acetaminophen [Percocet 5-325 mg Tablet] 5 - 325 mg PO Q6HR PRN [History] Multivitamins,Therapeutic [Thera] 1 each PO DAILY #20 tablet 11/23/18 [Rx] Albuterol/Ipratropium [DuoNeb 3.0-0.5 MG/3 ML] 3 ml NEB Q6H 04/05/19 [History] Megestrol [Megace] 40 mg PO BIDMEALS 04/05/19 [History] Oxygen Therapy Mode: Nasal Cannula Referrals: Franky Mock MD [Primary Care Provider] - - Discharge Summary/Plan Comment DC Time >30 min.: No Discharge Summary/Plan Comment: Transfer to [facility] under the services of Dr. Skelton, Hospitalist. - General Info Date of Service: 08/02/19 Subjective Update: No significant overnight issues. She is still symptomatic even with transfer; requiring 2 person assists. Functional Status: Reports: Pain Controlled, Tolerating Diet, Ambulating. Denies: Urinating, New Symptoms - Review of Systems General: Reports: Weakness, Fatigue, Malaise. Denies: Fever, Chills HEENT: Reports: No Symptoms Pulmonary: Reports: Shortness of Breath, Cough Cardiovascular: Reports: Dyspnea on Exertion. Denies: Chest Pain, Lightheadedness Gastrointestinal: Denies: Abdominal Pain, Nausea, Vomiting Genitourinary: Reports: No Symptoms Musculoskeletal: Reports: No Symptoms Skin: Denies: Cyanosis, Pallor, Diaphoresis Neurological: Reports: Weakness, Gait Disturbance. Denies: Confusion Psychiatric: Denies: Depression, Anxiety, Agitation, Hallucinations - Patient Data Vitals - Most Recent: Last Vital Signs Temp 36.8 C 08/02/19 15:00 Pulse 82 08/02/19 08:35 Resp 16 08/02/19 15:00 BP 121/76 08/02/19 15:00 Pulse Ox 94 L 08/02/19 15:58 Weight - Most Recent: 51.483 kg I&O - Last 24 hours: Intake & Output 08/02/19 08/02/19 08/02/19 06:59 14:59 22:59 Intake Total 50 60 Output Total 575 352 Balance -575 -302 60 Lab Results - Last 24 hrs: Laboratory Results - last 24 hr 08/02/19 08/02/19 Range/Units 04:40 04:40 WBC 10.62 H (3.98-10.04) K/mm3 RBC 4.24 (3.98-5.22) M/mm3 Hgb 12.2 (11.2-15.7) gm/L Hct 37.7 (34.1-44.9) % MCV 88.9 (79.4-94.8) fl MCH 28.8 (25.6-32.2) pg MCHC 32.4 (32.2-35.5) g/dl RDW Std Deviation 48.5 H (36.4-46.3) fL Plt Count 270 (182-369) K/mm3 MPV 9.5 (9.4-12.3) fl Neut % (Auto) 81.2 H (34.0-71.1) % Lymph % (Auto) 11.0 L (19.3-51.7) % [place] % (Auto) 7.2 (4.7-12.5) % Eos % (Auto) 0 L (0.7-5.8) Baso % (Auto) 0.0 L (0.1-1.2) % Neut # (Auto) 8.63 H (1.56-6.13) K/mm3 Lymph # (Auto) 1.17 L (1.18-3.74) K/mm3 [place] # (Auto) 0.76 H (0.24-0.36) K/mm3 Eos # (Auto) 0.00 L (0.04-0.36) K/mm3 Baso # (Auto) 0.00 L (0.01-0.08) K/mm3 Sodium 143 (136-145) mEq/L Potassium 3.5 (3.5-5.1) mEq/L Chloride 106 (98-107) mEq/L Carbon Dioxide 31 (21-32) mEq/L Anion Gap 9.5 (5-15) BUN 18 (7-18) mg/dL Creatinine 0.7 (0.55-1.02) mg/dL Est Cr Clr Drug Dosing 47.75 mL/min Estimated GFR (MDRD) > 60 (>60) mL/min BUN/Creatinine Ratio 25.7 H (14-18) Glucose 98 (83-115) mg/dL Calcium 8.0 L (8.5-10.1) mg/dL Magnesium 1.8 (1.8-2.4) mg/dl Total Bilirubin 0.2 (0.2-1.0) mg/dL AST 55 H (15-37) U/L ALT 60 H (14-59) U/L Alkaline Phosphatase 47 (46-116) U/L C-Reactive Protein 1.7 H* (<1.0) mg/dL Total Protein 5.8 L (6.4-8.2) g/dl Albumin 2.2 L (3.4-5.0) g/dl Globulin 3.6 gm/dL Albumin/Globulin Ratio 0.6 L (1-2) MEÑO Results - Last 24 hrs: Microbiology 07/28/19 19:54 Aerobic Blood Culture - Preliminary Blood - Venous - Lab Draw NO GROWTH AFTER 4 DAYS Anaerobic Blood Culture - Preliminary NO GROWTH AFTER 4 DAYS 07/28/19 19:42 Aerobic Blood Culture - Preliminary Blood - Venous NO GROWTH AFTER 4 DAYS Anaerobic Blood Culture - Preliminary NO GROWTH AFTER 4 DAYS Med Orders - Current: Current Medications Acetaminophen (Tylenol) 650 mg PO Q4H PRN PRN Reason: Fever Last Admin: 07/29/19 16:28 Dose: 650 mg Albuterol (Proventil Hfa) 0 gm INH Q2H PRN PRN Reason: Shortness of Breath Last Admin: 07/31/19 10:08 Dose: 2 puff Albuterol/Ipratropium (Duoneb 3.0-0.5 Mg/3 Ml) 3 ml NEB Q6H [facility] Last Admin: 08/02/19 15:58 Dose: 3 ml Amlodipine Besylate (Norvasc) 5 mg PO DAILY [facility] Last Admin: 08/02/19 08:37 Dose: 5 mg Enoxaparin Sodium (Lovenox) 30 mg SUBCUT DAILY [facility] Last Admin: 08/02/19 08:36 Dose: 30 mg Guaifenesin (Mucinex) 600 mg PO BID [facility] Last Admin: 08/02/19 08:35 Dose: 600 mg Levofloxacin (Levaquin) 750 mg PO Q48H [facility] Levothyroxine Sodium (Synthroid) 100 mcg PO ACBREAKFAST [facility] Last Admin: 08/02/19 06:00 Dose: 100 mcg Megestrol Acetate (Megace) 40 mg PO BID@0800,1800 [facility] Last Admin: 08/02/19 08:38 Dose: 40 mg Metoprolol Succinate (Toprol Xl) 50 mg PO DAILY [facility] Last Admin: 08/02/19 08:35 Dose: 50 mg Mirtazapine (Remeron) 15 mg PO BEDTIME [facility] Last Admin: 08/01/19 20:03 Dose: 15 mg Ondansetron HCl (Zofran) 4 mg IV Q4H PRN PRN Reason: Nausea/Vomiting Oxycodone/Acetaminophen (Percocet 325-5 Mg) 0.5 - 1 tab PO Q6HR PRN PRN Reason: pain relief. Last Admin: 08/02/19 11:53 Dose: 0.5 tab Prednisone (Prednisone) 40 mg PO DAILY@0800 [facility] Last Admin: 08/02/19 08:36 Dose: 40 mg Rosuvastatin Calcium (Crestor) 10 mg PO DAILY [facility] Last Admin: 08/02/19 08:37 Dose: 10 mg Senna (Senna) 8.6 mg PO DAILY PRN PRN Reason: Constipation Sertraline HCl (Zoloft) 50 mg PO BEDTIME [facility] Last Admin: 08/01/19 20:03 Dose: 50 mg Discontinued Medications Albuterol/Ipratropium (Duoneb 3.0-0.5 Mg/3 Ml) 3 ml NEB ONETIME ONE Stop: 07/28/19 17:15 Last Admin: 07/28/19 17:31 Dose: 3 ml Furosemide (Lasix) 20 mg IVPUSH ONETIME ONE Stop: 07/29/19 13:01 Last Admin: 07/29/19 13:12 Dose: 20 mg Magnesium Sulfate 2 gm/ Premix 50 mls @ 25 mls/hr IV ONETIME ONE Stop: 07/28/19 19:12 Last Admin: 07/28/19 17:25 Dose: 25 mls/hr Sodium Chloride (Normal Saline) 1,000 mls @ 1,000 mls/hr IV ONETIME ONE Stop: 07/28/19 18:45 Last Admin: 07/28/19 17:50 Dose: 1,000 mls/hr Sodium Chloride (Normal Saline) Confirm Administered Dose 1,000 mls @ as directed .ROUTE .STK-MED ONE Stop: 07/28/19 17:49 Last Admin: 07/28/19 21:35 Dose: Not Given Ceftriaxone Sodium 2 gm/ (Sodium Chloride) 100 mls @ 200 mls/hr IV Q24H [facility] Last Admin: 07/28/19 20:11 Dose: 200 mls/hr Lactated Ringer's (Ringers, Lactated) 1,000 mls @ 100 mls/hr IV ASDIRECTED [facility] Last Admin: 07/30/19 14:19 Dose: 125 mls/hr Levofloxacin/Dextrose 750 mg/ (Premix) 150 mls @ 100 mls/hr IV Q48H [facility] Last Admin: 08/01/19 21:16 Dose: Not Given Meropenem 1 gm/ Sodium (Chloride) 100 mls @ 200 mls/hr IV Q8H [facility] Last Admin: 07/29/19 05:50 Dose: 200 mls/hr Vancomycin HCl 1 gm/ Sodium (Chloride) 250 mls @ 250 mls/hr IV ONETIME ONE Stop: 07/29/19 00:59 Last Admin: 07/29/19 00:37 Dose: 250 mls/hr Vancomycin HCl 0.75 gm/ Sodium (Chloride) 250 mls @ 166.667 mls/hr IV Q24H [facility] Last Admin: 08/01/19 00:46 Dose: Not Given Meropenem/Sodium Chloride 500 (mg/ Premix) 50 mls @ 100 mls/hr IV Q8H [facility] Last Admin: 08/01/19 12:02 Dose: 100 mls/hr Lactated Ringer's (Ringers, Lactated) 1,000 mls @ 50 mls/hr IV ASDIRECTED [facility] Last Admin: 08/01/19 04:33 Dose: 50 mls/hr Magnesium Sulfate 2 gm/ Premix 50 mls @ 25 mls/hr IV ONETIME ONE Stop: 07/31/19 10:31 Last Admin: 07/31/19 09:17 Dose: 25 mls/hr Potassium Chloride 10 meq/ (Premix) 100 mls @ 100 mls/hr IV Q1H [facility] Stop: 07/31/19 12:44 Last Admin: 07/31/19 15:02 Dose: 100 mls/hr Potassium Chloride 10 meq/ (Premix) 100 mls @ 100 mls/hr IV Q1H [facility] Stop: 07/31/19 15:59 Last Admin: 07/31/19 15:05 Dose: Not Given Vancomycin HCl 1 gm/ Sodium (Chloride) 250 mls @ 166.667 mls/hr IV Q24H [facility] Last Admin: 08/01/19 00:44 Dose: 166.667 mls/hr Levofloxacin (Levaquin) 750 mg PO ONETIME ONE Stop: 08/01/19 21:31 Last Admin: 08/01/19 21:27 Dose: 750 mg Megestrol Acetate (Megace) 40 mg PO BIDMEALS [facility] Last Admin: 07/29/19 07:56 Dose: Not Given Methylprednisolone Sodium Succinate (Solu-Medrol) 125 mg IVPUSH ONETIME ONE Stop: 07/28/19 17:15 Last Admin: 07/28/19 17:25 Dose: 125 mg Methylprednisolone Sodium Succinate (Solu-Medrol) 60 mg IVPUSH Q8H [facility] Last Admin: 07/31/19 17:51 Dose: 60 mg Morphine Sulfate (Morphine) 1 mg IVPUSH ONETIME ONE Stop: 07/28/19 21:11 Last Admin: 07/28/19 21:18 Dose: 1 mg Morphine Sulfate (Morphine) 1 mg IVPUSH Q1H PRN PRN Reason: Dyspnea Last Admin: 07/31/19 10:05 Dose: 1 mg Potassium Chloride (Klor-Con M20) 40 meq PO ONETIME ONE Stop: 07/31/19 08:34 Last Admin: 07/31/19 09:17 Dose: 40 meq Potassium Chloride (Klor-Con M20) 20 meq PO ONETIME ONE Stop: 08/01/19 07:50 Last Admin: 08/01/19 08:02 Dose: 20 meq Prednisone (Prednisone) 40 mg PO WITHBREAKFAST [facility] Sodium Chloride (Saline Flush) 10 ml FLUSH ASDIRECTED PRN PRN Reason: Keep Vein Open Last Admin: 07/28/19 17:25 Dose: 10 ml Vancomycin HCl (Pharmacy To Dose - Vancomycin) 0 dose .XX DAILY PRN PRN Reason: RX TO DOSE VANCO - Exam Quality Assessment: Reports: Supplemental Oxygen General: Reports: Alert, Oriented, Cooperative, Other (cachexia) HEENT: Reports: Pupils Equal, Pupils Reactive, Mucous Membr. Moist/Globe Neck: Reports: Supple Lungs: Reports: Normal Respiratory Effort, Decreased Breath Sounds Cardiovascular: Reports: Regular Rate, Regular Rhythm GI/Abdominal Exam: Normal Bowel Sounds, Soft, Non-Tender, No Organomegaly, No Distention, No Abnormal Bruit (Female) Exam: Deferred Rectal (Female) Exam: Deferred Back Exam: Reports: Normal Inspection, Decreased Range of Motion Extremities: Normal Inspection, Normal Range of Motion, Non-Tender, No Pedal Edema, Normal Capillary Refill Skin: Reports: Warm, Dry, Intact, Ecchymosis Wound/Incisions: Reports: Healing Well Neurological: Reports: No New Focal Deficit. Denies: Normal Gait Psy/Mental Status: Reports: Alert, Normal Affect, Normal Mood
--- NOTE | 2019-08-02 17:35 | PCM.SN ---
- Free Text/Narrative Note: PIV requested by RN. RN's attempted numerous iv placements throughout the night and day. First attempt without ultrasound -unable right wrist. Right AC attempted with U/s and 20g long PIV. PIV placed without difficulty with ultrasound guidance. secured and patent to 0.9 flush.
[2019-08-02] MEDS ORDERED: Iopamidol 755 Mg/ML 100 ML Bottle IVPUSH ONE (18:08)
[2019-08-02] MEDS ORDERED: Sodium Chloride 0.9% 100 ML IV SCH (18:15)
--- NOTE | 2019-08-02 19:18 | CT ---
CT chest Technique: Multiple axial sections through the chest were obtained. Intravenous contrast was utilized. Study has been performed as a pulmonary angiogram protocol. Findings: Pulmonary arteries are well opacified. No filling defects are seen to indicate pulmonary embolism. Pulmonary arteries are increased in size likely representing a variant of pulmonary arterial hypertension. Aorta shows no aneurysm but is ectatic. Atherosclerotic calcification is seen within the aorta. Small mediastinal lymph nodes are seen which are felt to be within normal limits. Small bilateral pleural effusions are seen. Nodular density is seen within the right major fissure felt to represent a small amount of intrafissural fluid causing a pseudomass. Emphysematous changes are seen within both lungs. Mild atelectasis is noted on a compressive basis within both lung bases adjacent to the small pleural effusions. No acute parenchymal densities are seen. Bone window settings were reviewed which shows several old healed right-sided rib fractures. Compression deformity is noted within the lower thoracic spine which appears old. Multiple old left-sided rib fractures are noted which appear healed. Impression: 1. No findings of pulmonary embolism. 2. Small bilateral pleural effusions with mild areas of atelectasis. 3. Pseudomass within the right major fissure which is due to fluid. 4. Emphysematous change. No acute parenchymal change is appreciated. 5. Incidental bony findings as noted above. Diagnostic code #2
[2019-08-02] MEDS: Sertraline 50 MG Tab PO SCH (20:40)
[2019-08-02] MEDS: Mirtazapine 15 MG Tab PO SCH (20:40)
[2019-08-03 01:38] VITALS: BP 120/66; PULSE 86
[2019-08-03] MEDS ORDERED: Levofloxacin 750 MG Tab PO SCH (21:00)
== END 2019-08-02 21:07 | DRG 871 ==
LOC: JD.ED 17:05 → JD.ICU 20:15 → JD.MS 08-02 14:25
PROVIDERS: ADMIT Family Medicine; ATTEND Family Medicine
PROC: 5A09457 Assistance with Respiratory Ventilation, 24-96 Consecutive Hours, Continuous Positive Airway Pressure (ICD-10-PCS; principal; 2019-07-28)
DX: A41.9 Sepsis, unspecified organism (principal); R09.02 Hypoxemia; J18.1 Lobar pneumonia, unspecified organism; Z85.118 Personal history of other malignant neoplasm of bronchus and lung; Z90.2 Acquired absence of lung [part of]; N39.0 Urinary tract infection, site not specified; C34.12 Malignant neoplasm of upper lobe, left bronchus or lung; R50.9 Fever, unspecified; R10.9 Unspecified abdominal pain; J44.9 Chronic obstructive pulmonary disease, unspecified; Z66 Do not resuscitate; H26.9 Unspecified cataract; I25.10 Atherosclerotic heart disease of native coronary artery without angina pectoris; I10 Essential (primary) hypertension; E78.00 Pure hypercholesterolemia, unspecified; F41.9 Anxiety disorder, unspecified; F32.9 Major depressive disorder, single episode, unspecified; E03.9 Hypothyroidism, unspecified; G43.909 Migraine, unspecified, not intractable, without status migrainosus; E53.8 Deficiency of other specified B group vitamins; E78.5 Hyperlipidemia, unspecified; K62.3 Rectal prolapse; E87.6 Hypokalemia; E83.42 Hypomagnesemia; Z87.442 Personal history of urinary calculi; Z79.899 Other long term (current) drug therapy; Z99.81 Dependence on supplemental oxygen; Z92.3 Personal history of irradiation; I25.2 Old myocardial infarction; Z88.8 Allergy status to other drugs, medicaments and biological substances
CPT/HCPCS: 36415; 36600; 71045; 80053; 82803; 83605; 83880; 84484; 85025; 87040 ×2; 93005; 94640; 96365; 96366; 96375; 99285; J0696; J2930; J3475; J7030; J7040; 51701; 51702; 71275; 71275-26; 80202; 81001; 83735; 86140; 87486; 87581; 87632; 87641; 87798; 87899; 93010; 94660; 94667; 94668; 94761; 97110-GO; 97110-GP; 97162-GP; 97166-GO; 97530-GP; 99284; A9270-GY; J1650; J1956; J2185; J2270; J2920; J3370; J3480; J7050; J7120; J7620-GY; Q9967